=== PATIENT | female | born 1975 | race Caucasian/White ===

== ENCOUNTER 2025-04-01 11:09 | Inpatient (IN) | payer BC, SELFPAY ==
[2025-04-01] VITALS (11 sets, daily range): BP systolic 112–169; BP diastolic 62–94; PULSE 59–80; RESP 16–19; TEMP 36.4–36.9; O2SAT 96–100; BMI 33.5; BMI 33.8
--- NOTE | 2025-04-01 11:17 | CT_ITS ---
FINAL REPORT TECHNIQUE: Axial CT without IV contrast administration. This study was performed with techniques to keep radiation doses as low as reasonably achievable, (ALARA). Individualized dose reduction techniques using automated exposure control or adjustment of mA and/or kV according to the patient's size were employed. This study was performed with techniques to keep radiation doses as low as reasonably achievable, (ALARA). Individualized dose reduction techniques using automated exposure control or adjustment of mA and/or kV according to the patient''s size were employed. CLINICAL HISTORY: concern for pneumothorax outpt imaging, h/o bullae FINDINGS: There is a small loculated right pneumothorax. Pneumothorax is approximately 30%. Right lower lobe scarring is identified. There is an oval, masslike density in the posterior subpleural right lower lobe measuring 35 x 21 mm, rounded atelectasis is favored over neoplasm. The left lung is clear. Numerous blebs are identified. There is no significant pleural effusion. No adenopathy or mass lesion is present. IMPRESSION: Moderate loculated right pneumothorax. Masslike density in the right lower lobe, favor rounded atelectasis over neoplasm. Recommend PET/CT or 6-month chest CT. Reviewed, Interpreted and Dictated by Gonsalo Flores MD Transcribed by Bette Cantu Authenticated and [facility]
[2025-04-01 11:27] LABS: Basophils % 0.5 % (0.1-2.0); Eosinophils # 0.1 Kmm3 (0.0-0.4); Eosinophils % 2.1 % (0.1-12.0); Hematocrit 39.5 % (37.0-47.0); Hemoglobin 13.1 g/dL (12.2-16.2); Immature Granulocytes # 0.01 10^3uL; Immature Granulocytes % 0.2 %; Lymphocytes # 2.1 K/mm3 (0.7-4.5); Lymphocytes % 31.7 % (10-50); Mean Corpuscular HGB Conc 33.2 g/dL (31.8-35.4); Mean Corpuscular Hemoglobin 29.5 pg (27.0-31.2); Mean Platelet Volume 10.6 fl (7.4-10.4); Monocytes # 0.4 K/mm3 (0.1-1.0); Monocytes % 5.5 % (1.7-9.3); Neutrophils # 3.9 K/mm3 (1.8-7.8); Nucleated Red Blood Cells # 0 10^3/uL; Nucleated Red Blood Cells % 0 %; Platelet Count 258 K/mm3 (142-424); Red Blood Count 4.44 M/mm3 (4.20-5.40); Red Cell Distribution Width 13.6 % (11.5-17.5); Red Cell Distribution Width-SD 44.2 fL; White Blood Count 6.5 K/mm3 (4.8-10.8)
--- OUTSIDE RECORDS SUMMARY | 2025-04-01 11:29 | XMS_ITS | Continuity of Care Document ---
Author Organization [facility] [place] [place] Address [address] [facility] [address] [place] [address] Care Team Providers Care Chair Mender Name Role Phone DA COELLO Primary Care Provider [phone] Assessment No assessment recorded. Plan of Treatment Reminders Order Date Submit Date Provider Last Modified By Organization Details Last Modified Time Details Appointments OV EST 15 2024 10:15A M Da Coello MD Not available Not available Not available OV EST 15 2024 01:00P Beau Rhodes MD Not available Not available Not available FOLLOW UP 15 2024 10:15A M Fernando Duke MD Not available Not available Not available Lab None recorded . Referral None recorded . Procedures None recorded . Surgeries None recorded . Imaging None recorded . Medication Orders None recorded . Patient TargetsNo targets recorded. Patient InstructionsNo instructions recorded. Reason for Referral None Reported. 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 Procedures Surgical History Date Name Laterality Status Provider Name and Address Organization Details Recorded Time 01/31/20 25 Date of Last Colonoscopy completed Yulisa Merritt [place] - [facility] - [place] & [place] 01/30/2025 10:59:42 01/31/20 25 Colonoscopy completed Elida Rothamer [place] - [facility] - [place] & [place] 03/11/2025 12:11:50 10/21/20 24 Most Recent Mammogram completed Elida Rothamer [place] - [facility] - [place] & [place] 12/12/2024 18:35:51 06/19/20 23 completed Elida Rothamer [place] [facility] [place] & [place] 06/17/2024 16:21:21 06/19/20 23 Date of Last Pap Smear completed Elida [place]amer [place] - [facility] - [place] & [place] 06/17/2024 16:21:21 11/13/19 23 Cancer Surgery completed Elida Rothamer [place] - [facility] - [place] & [place] 06/17/2024 16:21:44 11/13/19 23 Colonoscopy completed Elida [place]amer [place] - [facility] - [place] & [place] 06/17/2024 16:21:44 left colectomy completed Danette Curt [place] - [facility] - [place] & [place] 05/29/2024 15:13:22 Remove tonsils and adenoids completed Danettebrigette Barakater [place] - [facility] - [place] & [place] 05/29/2024 15:13:34 appendectomy completed Danettebrigette Barakater [place] - [facility] - [place] & [place] 05/29/2024 15:13:40 operation on hip joint completed Danette Barakater [place] - [facility] - [place] & [place] 05/29/2024 15:15:10 Imaging Results None recorded. Procedure Notes None recorded. Medical Equipment None Reported. Allergies Allergen ID Allergen Name Allergen Category Reaction Reaction Severity Criticality Documentation Date Start Date Code Code System Note Provider Name and Address Organization Details Recorded Time 092015 shellfish derived food,medi cation hives rash mild mild Not available 05/29/2024 43332 UNK Elida Rothamer null, NILAY - [facility] & [place] 4 16:21:11 742526 iopamidol medicatio n rash Not available Not available 12/12/2024 5966 RxNorm Elida Rothamer null, [place] - [facility] & [place] 18:36:38 810336 iodine medicatio n rash Not available Not available 12/12/2024 5933 RxNorm Elida Rothamer null, [place] - [facility] & [place] 18:37:27 Medications Name Sig Start Date Stop Date Status Note LastModified by Organization Details LastModified Time fluconazole 100 mg tablet 09/17 completed Not Available Not Available Not Available clonidine HCl 0.1 mg tablet Take 1 tablet as needed by oral route as directed for 30 days, for elevated blood pressure. active Not Available Not Available No t Available paroxetine 10 mg tablet 01/08 completed Not Available Not Available Not Available atorvastati n 20 mg tablet Take 1 tablet every day by oral route for 90 days. 2024 active Not Available Not Available Not Avai lable famotidine 40 mg tablet 08/21 completed Not Available Not Available Not Available prednisone 20 mg tablet 12/31 completed Not Available Not Available Not Available Zyrtec 10 mg tablet 07/01 completed Not Available Not Available Not Available ciprofloxac in 250 mg tablet bid 09/21 completed Not Available Not Available Not Available amlodipine 5 mg tablet TAKE 1 TO 2 TABLETS BY MOUTH EVERY DAY active Not Available Not Available No t Available omeprazole 40 mg capsule,del ayed release TAKE 1 CAPSULE BY MOUTH AT LEAST 30 MINUTES BEFORE BREAKFAST . active Not Available Not Available No t Available carvedilol 3.125 mg tablet TAKE 1 TABLET BY MOUTH TWICE A DAY 11/21 completed Not Available Not Available Not Available levothyroxi ne 25 mcg tablet TAKE 1 TABLET BY MOUTH EVERY DAY active Not Available Not Available No t Available famotidine 20 mg tablet Take 2 tablets by oral route. 06/28 completed Not Available Not Available Not Available levothyroxi ne 50 mcg tablet 01/08 completed Not Available Not Available Not Available prednisone 50 mg tablet 12/31 completed Not Available Not Available Not Available losartan 100 mg tablet TAKE 1 TABLET BY MOUTH EVERY DAY active Not Available Not Available No t Available hydroxyzine pamoate 25 mg capsule TAKE 1 CAPSULE BY MOUTH THREE TIMES A DAY NEEDED FOR 30 DAYS active Not Available Not Available No t Available Asprin Ec Low Dose 81 mg tablet,lydia yed release Take 1 tablet every day by oral route. active Not Available Not Available No t Available nebivolol 5 mg tablet 12/19 completed Not Available Not Available Not Available Zyrtec 10 mg capsule Take by oral route. active Not Available Not Available No t Available sodium,pota ssium,mag sulfates 17.5 gram-3.13 gram-1.6 gram oral soln Take 6 ounces twice a day by oral route as directed for 1 day, for colonosco py prep. 12/25 completed Not Available Not Available Not Available Linzess 145 mcg capsule Take 1 capsule every day by oral route as needed. 06/28 completed Not Available Not Available Not Available Eliquis 5 mg tablet Take 1 tablet twice a day by oral route. 02/20 completed Not Available Not Available Not Available Airsupra 90 mcg-80 mcg/actuati on HFA aerosol inhaler Inhale 1 inhalatio n as needed by inhalatio n route. active Not Available Not Available No t Available Vitals Date Recorded Body height Body mass index (BMI) Body weight Body temperature Oxygen saturation Oxygen saturation in Arterial blood by Pulse oximetry Heart rate Systolic blood pressure Diastolic blood pressure Provider Name and Address Organization Details Last Updated DateTime 5 157.48 cm 35.7 kg/m2 95392.5 1 g 97.5 [degF] 94 % 94 % 67 /min 122 mm[Hg] 86 mm[Hg] Nataliia [facility] & [place] 10:03:16 Social History Question Answer Notes LastModified by Organizat ion Details LastModified Time Tobacco Smoking Status Former Smoker Danette Elias [facility], [facility] & [place] 05/29/2024 15:12:30 Do You Have An Advance Directive? No Information not available 06/17/2024 Are You Blind Or Do You Have Difficulty Seeing? No Information not available 06/17/2024 What Is Your Level Of Caffeine Consumption? Moderate [email or web address] Information not available 05/29/2024 When Did You Quit Smoking? 16+yearssince lastcigarette At Like 20 Yrs Old Information not available 05/29/2024 What Was The Date Of Your Most Recent Tobacco Screening? 05/29/2024 Information not available 06/17/2024 At What Age Did You Start Smoking Tobacco? 14 [email or web address] Information not available 05/29/2024 Are You Passively Exposed To Smoke? No Information not available 06/17/2024 How Much Tobacco Do You Smoke? No Information not available 06/17/2024 Has Tobacco Cessation Counseling Been Provided? No [email or web address] Information not available 05/29/2024 Sex: Female Functional Status Question Answer Note LastModified by Organizat ion Details LastModified Time Do you use any illicit or recreational drugs? No [email or web address] Information not available 05/29/2024 Do you or have you ever used any other forms of tobacco or nicotine? No [email or web address] Information not available 05/29/2024 What is your level of alcohol consumption? 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 Moderate Information not available 06/17/2024 Mental Status Question Answer Note LastModified by Organization D etails LastModified Time Do you feel stressed (tense, restless, nervous, or anxious, or unable to sleep at night)? [id number] Information not available 06/17/2024 Family History Relationship Description Onset Age of this Age Resolved Age Notes LastModified by Organization Details LastModified Time Maternal Grandmother Primary malignant neoplasm of both ovaries [email or web address] Not available 04/2025 11:01:43 Paternal Grandmother Malignant tumor of pancreas [email or web address] Not available 2024 11:01:43 Father Primary malignant neoplasm of prostate [email or web address] Not available 2024 11:01:43 Father Primary malignant neoplasm of thyroid gland [email or web address] Not available 2024 11:01:43 Father Hypertensive disorder Not available 05/29 15:05:48 Mother Chronic obstructive pulmonary disease [email or web address] Not available 05/29 15:05:57 Mother Diabetes mellitus type 2 [email or web address] Not available 2024 11:01:43 Mother Heart disease [email or web address] Not available 05/29 15:06:50 Mother Hyperlipidem ia [email or web address] Not available 2024 12:13:20 Medical History Condition Response Anxiety Disorder Y Allergies/Hayfever Y Other Y Obesity Y Arthritis Y Polyps Y Cancer Y Stroke Y Thyroid Problems Y Asthma Y Lung Disease Anemia Y Constipation Y High Cholesterol Y Hypertension Y Gynecological History Statement/Question Response Abnormal Pap N 06/19/2023 Date of Last Colonoscopy 01/30/2025 Sexually Active? Y Menses Monthly N Date of Last Pap Smear 06/19/2023 Most Recent Mammogram 10/21/2024 Obstetrics History GPAL:G 0 P 0 0 0 0 Past Encounters Encounter ID Performer Location Encounter Start Date Encounter Closed Date Diagnosis/Indication Diagnosis SNOMED-CT Code Diagnosis ICD10 Code Diagnosis Note [id number] Da Coello MD [facility] [address] [facility] [address] 03/03/2025 08:54:04 03/03/2025 09:47:01 Brianda thyroiditis 16537338 E06.3 Essential hypertension 50198836 I10 [id number] Da Coello MD [facility] [address] [facility] [place] [address] 03/31/2025 09:58:15 03/31/2025 10:44:30 Essential hypertension 74504873 I10 I do think a degree of her mild swelling is relatd to her amlodipine and we discussed trying 5mg BID instead of 10mg at once to see if this helps but that we can certainly make changes if needed, pt would like to hold on that currently. Feeling of lump in throat 002074468 R09.A2 pending swallowing studydiscu ssed omeprazole and skilled nursing use concerns with what she is trying to correct with supplement s and would start with two week trial Autoantibo dy titer detected 718036584 R76.8 [id number] Sukhjinder Rhodes MD [facility] [address] [place] [address] 03/12/2025 14:45:35 03/12/2025 15:04:58 History of transient ischemic attack 172059683 Z86.73 Continue aggressive risk factor modificati on.MRI showed no evidence of stroke. Start 81 daily Essential hypertension 64359249 I10 Continue current medication . Keep log Low-salt diet < 2 gm Na/day, Regular exercise Weight loss Hyperlipidemia 30161602 E78.5 Continue statin Low fat/carboh ydrate diet Increase exercise Lose weight Body mass index 30+ - obesity 512116305 Z68.34 Low-carboh ydrate and low-fat diet Increase exercise to 30 minutes a day. Increase fruits and fresh vegetable intake and decrease processed foods and sugars Health Concerns Section Related Observation LastModified by Organization Detai ls LastModified Time None Recorded Concern Status LastModified by Organization Details LastModified Time None Recorded Payers Encounter Date Sequence Insurance Name Policy Number Policy Holman Covered Member ID Holman Member ID Guarantor Name 03/31/2025 1 [facility] BLUE ACCESS (PPO) [id number] Killian Moran [id number] Rosie Moran Notes Date Note Type Note Provider Name and Address Organization Details Recorded Time 03/31/2025 text/html She is here for f/uSHe notes that she has been working on following a diet appropriate for Brianda's and does feel this has helped. SHe has found that soy also increases her blood pressure. SHe feels that cutting down on dairy has also helped with inflammation as well in her joints and body.SHe has increased her vitamin D to 5000iU currently from 1000IU and is due for lab to f/u on this.She has added omega 3 supplement.Her Bp has done much better since last visit and feels that she is doing well in this regard.She recently had f/u with a new ENT ([place]. [place] She went for continued issues with swallowing. SHe has a pending swallowing study. She was also put on omeprazole for a short course.sHe has noticed a rash at her hair line recently.SHe also felt thirsty too and isn't sure if this is the omeprazole. Da Coello MD [address] [facility], [place], [address], [facility] - [place] & [place] 03/31/2025 12:59:32 OBGyn Episode No OBEpisode recorded.
--- OUTSIDE RECORDS SUMMARY | 2025-04-01 11:30 | XMS_ITS | Continuity of Care Document ---
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 She had improvement in some of the symptoms but not resolution in the once it had started after starting the medication. The plan was to try and keep her on the low dose for 6 weeks to assess labs for change but given the rash development in the other symptoms, I have told her that I would recommend discontinuation at this time. We discussed that there may be some other modalities of thyroid management such as desiccated thyroid that could be appropriate but we may want to discuss options as we assess 1st what her blood pressure does after discontinuation of the exogenous thyroid. She is to keep a close log of her blood pressure and give an update on readings. If dose of amlodipine needs reduced, 7.5 or 5 mg is also an option. Emergency signs and symptoms discussed in detail with patient. We also reviewed her labs. She had been concerned about her gallbladder due to her elevated alkaline phosphatase but I feel the elevated alkaline phosphatase secondary to her vitamin-D deficiency which is just recently corrected and is due for follow-up labs in about a month. At which point we will also plan to check her alkaline phosphatase with a chemistry panel. We have discussed options for Endocrinology referral for review of thyroid function recommendations as well as a naturopathic and functional medicine provider in the area that may be a fit for her treatment goals. 42 minutes were spent in the care of this patient today including record review, discussion of symptoms and documentation. 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 Procedures Surgical History Date Name Laterality Status Provider Name and Address Organization Details Recorded Time 01/31/20 Date of Last Colonoscopy completed Yulisa Merr[place] [facility] & [place] 01/30/2025 10:59:42 01/31/20 25 Colonoscopy completed Elida Rothamer [place] - [facility] - [place] & [place] 03/11/2025 12:11:50 10/21/20 24 Most Recent Mammogram completed Elida [place] [facility] - [place] & [place] 12/12/2024 18:35:51 06/19/20 23 completed Elida [place] [facility] [place] & [place] 06/17/2024 16:21:21 06/19/20 23 Date of Last Pap Smear completed Elida [place] [facility] [place] & [place] 06/17/2024 16:21:21 11/13/19 23 Cancer Surgery completed Elida [place] [facility] - [place] & [place] 06/17/2024 16:21:44 11/13/19 23 Colonoscopy completed Eilda [place] [facility] - [place] & [place] 06/17/2024 16:21:44 left colectomy completed Danette Curt [place] - [facility] - [place] & [place] 05/29/2024 15:13:22 Remove tonsils and adenoids completed Danette Curt [place] [facility] - [place] & [place] 05/29/2024 15:13:34 appendectomy completed Danette Curt [place] [facility] - [place] & [place] 05/29/2024 15:13:40 operation on hip joint completed Danette Curt [place] [facility] [place] & [place] 05/29/2024 15:15:10 Imaging Results None recorded. Procedure Notes None recorded. Medical Equipment None Reported. Allergies Allergen ID Allergen Name Allergen Category Reaction Reaction Severity Criticality Documentation Date Start Date Code Code System Note Provider Name and Address Organization Details Recorded Time 746200 shellfish derived food,medi cation hives rash mild mild Not available 05/29/2024 61797 UNK Elida [place], [place] - [facility] - [place] & [place] 16:21:11 184738 iopamidol medicatio n rash Not available Not available 12/12/2024 5966 RxNorm Elida [place] null, [place] [facility] - [place] & [place] 18:36:38 075369 iodine medicatio n rash Not available Not available 12/12/2024 5933 RxNorm Elida Yuen [facility], [place] - [place] - [place] & [place] 5 18:37:27 Medications Name Sig Start Date Stop [...] and Address Organization Details Last Updated DateTime 157.48 cm 35.7 kg/m2 35263.5 1 g 97.6 [degF] 94 % 94 % 83 /min 152 mm[Hg] 88 mm[Hg] Yulisa Merritt [facility] & [place] 09:01:52 Social History Question Answer Notes LastModified by Organizat ion Details LastModified Time Tobacco Smoking Status Former Smoker Danette Curt [place], [facility] & [place] 05/29/2024 15:12:30 Do You Have An Advance Directive? No Information not available 06/17/2024 Are You Blind Or Do You Have Difficulty Seeing? No Information not available 06/17/2024 What Is Your Level Of Caffeine Consumption? Moderate [email or web address] Information not available 05/29/2024 When Did You Quit Smoking? 14+yearssince lastcigarette At Like 20 Yrs Old [email or web address] Information not available 05/29/2024 What Was The Date Of Your Most Recent Tobacco Screening? 05/29/2024 Information not available 06/17/2024 At What Age Did You Start Smoking Tobacco? 14 [email or web address] Information not available 05/29/2024 Are You Passively Exposed To Smoke? No Information not available 06/17/2024 How Much Tobacco Do You Smoke? No Information not available 06/17/2024 Has Tobacco Cessation Counseling Been Provided? No [email or web address] Information not available 05/29/2024 Sex: Female Functional Status Question Answer Note LastModified by Organizat ion Details LastModified Time Do you use any illicit or recreational drugs? No [email or web address] Information not available 05/29/2024 Do you or have you ever used any other forms of tobacco or nicotine? No [email or web address] Information not available 05/29/2024 What is your [...] anxious, or unable to sleep at night)? [id number] Information not available 06/17/2024 Family History Relationship [...] Not available 2024 11:01:43 Father Hypertensive disorder [email or web address] Not available 05/29 15:05:48 Mother Chronic obstructive pulmonary disease [email or web address] Not available 05/29 15:05:57 Mother Diabetes mellitus type 2 [email or web address] Not available 2024 11:01:43 Mother Heart disease [email or web address] Not available 05/29 15:06:50 Mother Hyperlipidem ia [email or web address] Not available 2024 12:13:20 Medical History Condition Response Anxiety Disorder Y Allergies/Hayfever Y Other Y Obesity Y Arthritis Y Polyps Y Cancer Y Thyroid Problems Y Stroke Y Lung Disease Asthma Y Anemia Y Constipation Y High Cholesterol Y [...] SNOMED-CT Code Diagnosis ICD10 Code Diagnosis Note [id number] Da Coello MD [address] [place] [address] 02/04/2025 09:54:52 02/04/2025 10:33:34 Thyroid nodule 029926865 E04.1 After discussion , patient would like to proceed with ENT consultati on to discuss her radiology findings of her ultrasound given her father's history of thyroid cancer. He also has history parathyroi d condition requiring surgery. The patient has had normal calcium levels, her alkaline phosphatas e has been mildly elevated in the past. We reviewed her ultrasound in detail as well as her previous labs. She would like to proceed with this plan to discuss more of the fullness in her neck and difficulty swallowing as well. Autoantibo dy titer detected 921306767 R76.8 Dysphagia 33796774 R13.1 9 [id number] Raehl Le MD [facility] [address] [place] [address] 02/20/2025 10:59:26 02/20/2025 11:39:56 Imaging of thyroid gland abnormal 200695290 R93.89 Have ordered repeat imaging of her thyroid in 1 year. Thyroid fu nction tests abnormal 853990705 R94.6 Elevated thyroid antibodies most Suggestive of Brianda' s thyroiditi s. She is agreeable to start low-dose levothyrox ine to see if some of her symptoms may be improved. Will repeat labs in 6 weeks. [id number] Da Coello MD [facility] [address] [facility] [address] [place] [address] 02/17/2025 10:56:04 02/17/2025 12:50:46 Resistant hypertensive disorder [id number] 70199 I1A.0 Right uppe r quadrant pain 431683839 R10.11 Alkaline p hosphatase above reference range 996826808 R74.8 [id number] Da Coello MD [facility] [address] [facility] [address] [place] [address] 03/03/2025 08:54:04 03/03/2025 09:47:01 Brianda thyroiditis 06754561 E06.3 Essential hypertension 59112834 I10 Health Concerns Section Related Observation LastModified by Organization Detai ls LastModified Time None Recorded Concern Status LastModified by Organization Details LastModified Time None Recorded Payers Encounter Date Sequence Insurance Name Policy Number Policy Holman Covered Member ID Holman Member ID Guarantor Name 03/03/2025 1 [place] [id number] Killian Moran [id number] Rosie Moran Notes Date Note Type Note Provider Name and Address Organization Details Recorded Time 03/03/2025 text/html She is here for f/u for several symptoms.SHe had noted that on 02/18 she had flushing and chills.She had seen Dr. Le on 02/21 and put on levothyroxine that she started on 02/22 for review of her thyroid US and thyroid antibodies being elevated persistently along with family history of thyroid cancer in her father. She has noticed since starting the levothyroxine as well she has had fluctuations in her BP. she also had developed a rash on her chest. Previously this has been corrected with increasing the dose of amlodipine which was originally started for some increases in her diastolic pressure. Initially on 5 mg then increased to 10 mg most recently. She did see chiropractor who has been doing adjustments to target her tinnitus. She has had some soreness in her ears due to this. She notes that with using any type of sugar in her diet seems to flare her symptoms. She sees this with nepali yogurt. Da Coello MD [address], [place], [address], [facility] - [place] & [place] 03/03/2025 17:09:37 OBGyn Episode No OBEpisode recorded.
--- OUTSIDE RECORDS SUMMARY | 2025-04-01 11:30 | XMS_ITS | Continuity of Care Document ---
Author Organization [facility] - [place] & [place], [facility] [place] Address [address] [place] [address] Care Team Providers Care Bowl Attendant Name Role Phone DA BACA Primary Care Provider Assessment No assessment recorded. Plan of Treatment Reminders Order Date Submit Date Provider Last Modified By Organization Details Last Modified Time Details Appointments OV EST 15 2024 10:15A M Da Baca MD Not available Not available Not available OV EST 15 2024 01:00P Beau Rhodes MD Not available Not available Not available FOLLOW UP 15 2024 10:15A M Fernando Clemente MD Not available Not available Not available Lab None recorded. Referral None recorded. Procedures None recorded. Surgeries None recorded. Imaging US, thyroid [address] (Centralized Scheduling), [address] [facility], [place], [address], 02/20/2025 13:17:48 Medication Orders levothyro xine 25 mcg tablet 2024 025 [id number], [address] [facility], [place], [address], 02/24/2025 08:49:08 Patient TargetsNo targets recorded. Patient InstructionsNo instructions recorded. Reason for Referral None Reported. Results Created Date Observation Date Name Description Value Unit Range Abnormal Flag Note LastModifiedBy Organization Detail LastModifiedTime 01/25/2001/20/2025 US, thyro id [facility] [address] [place] [address] Phone: Fax: Name: ROSIE STEPHENSON Exam Date: 025 : 974 Age 49 years Gender : F Access ion: [id number] Physic elfego: DA BACA Facili ty: [facility] Facili ty HSV: Outpat ient Exam: THYROI D US EXAM DESCRI PTION: US THYROI D CLINIC AL HISTOR Y: Female , 49 years old. Abnorm al result s, fatigu e and troubl e in swallo wing. COMPAR TONY: CTA Neck with contra st 2024. TECHNI QUE: Graysc mary and color- flow sonogr aphic evalua tion of the thyroi d was perfor med. 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 The right lobe of the thyroi d measur es 6.0 x 1.6 x 2.1 cm. 10 mm hypoec hoic, smooth ly margin ated solid nodule is noted within the anteri or upper pole. It is wider than tall and contai ns no record label intern al echoge alaina foci. It is classi fied as TI RADS 4 and requir es follow -up at this size. 7 mm isoech oic, smooth ly margin ated solid nodule is noted within the latera l midpol e. It is wider than tall and contai ns no record label intern al echoge alaina foci. It is catego rized as TI RADS 3 and does not requir e follow -up at this size. 12 mm hetero geneou s, predom inantl y hypoec hoic solid nodule is seen within the washroom operator ior lower pole. It is wider than tall, has ill-de fined margin s, and contai ns no record label intern al echoge alaina foci. It is classi fied as TI RADS 4 and requir es follow -up at this size. The isthmu s measur es 3 mm. No suspic ious nodule is identi fied. The left lobe of the thyroi d measur es 3.4 x 1.5 x 1.4 cm 6 mm hypoec hoic solid nodule is noted within the anteri or lower pole. It is wider than tall, has ill-de fined margin s, and contai ns no record label intern al echoge alaina foci. It is classi fied as TI RADS 4 and does not requir e follow -up at this size. 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 Discre te thyroi d nodule s, as descri bed above. TI RADS 4 nodule s in the right lobe requir e yearly follow -up for a period of 5 years. No biopsy is indica paresh at this time based on ACR criter ia. Electr onical ly signed by: Tri Clemente DO 2024 09:38 AM EDT RP Workst ation: [id number] Dictat ed By: TRI CLEMENTE Transc ribed By: Transc ribed On: 025 2:18 PM Electr onical ly signed by: TRI CLEMENTE [address] for referr [address] to [facility]. Legall y authen ticate d by CHYNA BARTLETT 01-20 14:18: 04 CC'ed Logic: Orderi ng Provid er: TRISHA ROBERSON CC Provid er: TRISHA ROBERSON Attend ing Provid er: TRISHA ROBERSON Referr ing Provid er: TRISHA Parks ing Provid er: TRISHA ROBERSON [id number] [facility] [address] [facility], [place], [address], 01/27/2025 15:51:59 01/28/20 25 01/27/2025 US, duple x, renal arter y [facility] [address] [place] [address] Phone: Fax: Name: ROSIE STEPHENSON Exam Date: 025 : [birth year] Age 49 years Gender : F Access ion: [id number] Physic elfego: DA BACA Facili ty: [facility] Facili ty HSV: Outpat ient Exam: US RENAL DOPPLE R RENAL DUPLEX DOPPLE R ULTRAS OUND INDICA TION: Hypert ension . PROCED URE: Routin e sonogr aphic evalua tion of the kidney s was perfor med utiliz ing graysc mary and color Dopple r ultras ound. Duplex Dopple r evalua tion of the renal vessel s was also perfor med. FINDIN GS: Graysc mary: The bilate ral kidney s are normal in size and echoge nicity . The right kidney measur es 9.2 x 3.8 x 5.4 cm and the left kidney measur es 9.5 x 4.8 x 4.7 cm. There is no eviden ce for discre te solid renal mass lesion , hydron ephros is, or discre te calcul us. Dopple r: Peak systol ic flow veloci ty of the juxtar enal abdomi nal AORTA, measur es 48.6 cm/s. Peak systol ic veloci ties of the proxim al, mid and distal RIGHT RENAL ARTERY measur e 39.1, 31.4, and 41.3 cm/s, respec tively . RIGHT renal artery to aorta veloci ty ratio measur es 1.2. Peak systol ic veloci ties of the proxim al, mid and distal LEFT RENAL ARTERY measur e 43.0, 40.9, and 40.9 cm/s, respec tively . LEFT renal artery to aorta veloci ty ratio measur es 1.1. The bilate ral renal resist jose indice s are within normal limits . IMPRES MERRY: No sonogr aphic eviden ce for renal artery stenos is. Electr onical ly signed by: Cristofer Barron DO 2024 10:13 PM EDT RP Workst ation: [id number] Dictat ed By: CRISTOFER BARRON Transc ribed By: Transc ribed On: 025 3:02 PM Electr onical ly signed by: CRISTOFER BARRON [address] for referr [address] [facility] Legall y authen ticate d by HAO RUIZ 2024-0 01-27 15:02: 59 CC'ed Logic: Orderi ng Provid er: TRISHA ROBERSON CC Provid er: TRISHA ROBERSON Attend ing Provid er: TRISHA ROBERSON Referr ing Provid er: TRISHA ROBERSON Admitt ing Provid er: TRISHA ROBERSON [id number] [facility] [address] [facility], [place], [address], 01/28/2025 15:21:34 Result Notes None recorded. 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 Procedures Surgical History Date Name Laterality Status Provider Name and Address Organization Details Recorded Time 01/31/20 25 Date of Last Colonoscopy completed Yulisa Merritt [place] - [facility] - [place] [facility] [place] 01/30/2025 10:59:42 01/31/20 25 Colonoscopy completed Elida Yuen [place] [facility] [place] 03/11/2025 12:11:50 10/21/20 24 Most Recent Mammogram completed Elida Rothamer [place] - [facility] - [place] & [place] 12/12/2024 18:35:51 06/19/20 23 completed Elida Rothamer [place] - [facility] - [place] & [place] 06/17/2024 16:21:21 06/19/20 23 Date of Last Pap Smear completed Elida Rothamer [place] - [facility] - [place] [facility] [place] 06/17/2024 16:21:21 11/13/19 23 Cancer Surgery completed Elida Rothamer [place] - [facility] - [place] & [place] 06/17/2024 16:21:44 11/13/19 23 Colonoscopy completed Elida Rothamer NILAY - [facility] & [place] 06/17/2024 16:21:44 left colectomy completed Dnaette P[place]ERTON - [facility] & [place] 05/29/2024 15:13:22 Remove tonsils and adenoids completed Danette Barakater [place] - [facility] & [place] 05/29/2024 15:13:34 appendectomy completed Danette Barakater [place] - [facility] & [place] 05/29/2024 15:13:40 operation on hip joint completed Danette PEMBERTON - [facility] & [place] 05/29/2024 15:15:10 Imaging Results None recorded. Procedure Notes None recorded. Medical Equipment None Reported. Allergies Allergen ID Allergen Name Allergen Category Reaction Reaction Severity Criticality Documentation Date Start Date Code Code System Note Provider Name and Address Organization Details Recorded Time 928969 shellfish derived food,medi cation hives rash mild mild Not available 05/29/2024 20674 UNK Elida Rothamer null, [place] - [facility] & [place] 16:21:11 437109 iopamidol medicatio n rash Not available Not available 12/12/2024 5966 RxNorm Elida Rothamer null, [place] - [facility] & [place] 18:36:38 606128 iodine medicatio n rash Not available Not available 12/12/2024 5933 RxNorm Elida Rothamer null, [place] - [facility] - [place] [facility] [place] 18:37:27 Medications Name Sig Start [...] mass index (BMI) Body weight Body temperature Provider Name and Address Organization Details Last Updated DateTime 02/20/2025 157.48 cm 35.5 kg/m2 96537.92 g 97.4 [degF] Brooklyn Sanchez [facility] & [place] 02/20/2025 11:17:01 Social History Question Answer Notes LastModified by Organizat ion Details LastModified Time Tobacco Smoking Status Former Smoker Danette Curt [facility], [facility] & [place] 05/29/2024 15:12:30 Do You Have An Advance Directive? No Information not available 06/17/2024 Are You Blind Or Do You Have Difficulty Seeing? No Information not available 06/17/2024 What Is Your Level Of Caffeine Consumption? Moderate [email or web address] Information not available 05/29/2024 When Did You Quit Smoking? 16+yearssince lastcigarette At Like 20 Yrs Old [email or web address] Information not available 05/29/2024 What Was The Date Of Your Most Recent Tobacco Screening? 05/29/2024 Information not available 06/17/2024 At What Age Did You Start Smoking Tobacco? 14 [email or web address] Information not available 05/29/2024 Are You Passively Exposed To Smoke? No Information not available 06/17/2024 How Much Tobacco Do You Smoke? No Information not available 06/17/2024 Has Tobacco Cessation Counseling Been Provided? No [email or web address] Information not available 05/29/2024 Sex: Female Functional Status Question Answer Note LastModified by Organizat ion Details LastModified Time Do you use any illicit or recreational drugs? No [email or web address] Information not available 05/29/2024 Do you or have you ever used any other forms of tobacco or nicotine? No [email or web address] Information not available 05/29/2024 What is your level of alcohol consumption? 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 Moderate Information not available 06/17/2024 Mental Status Question Answer Note LastModified by Organization D etails LastModified Time Do you feel stressed (tense, restless, nervous, or anxious, or unable to sleep at night)? [id number] Information not available 06/17/2024 Family History Relationship [...] Not available 2024 11:01:43 Father Hypertensive disorder [email or web address] Not available 05/29 15:05:48 Mother Chronic obstructive pulmonary disease [email or web address] Not available 05/29 15:05:57 Mother Diabetes mellitus type 2 [email or web address] Not available 2024 11:01:43 Mother Heart disease [email or web address] Not available 05/29 15:06:50 Mother Hyperlipidem ia [email or web address] Not available 2024 12:13:20 Medical History Condition Response Other Y Lung Disease Anxiety Disorder Y Obesity Y Arthritis Y Polyps Y Cancer Y Stroke Y High Cholesterol Y Allergies/Hayfever Y Thyroid Problems Y Anemia Y Constipation Y Asthma Y Hypertension Y Gynecological History Statement/Question Response Abnormal Pap N 06/19/2023 Date of Last Colonoscopy 01/30/2025 Sexually Active? Y Menses Monthly N Date of Last Pap Smear 06/19/2023 Most Recent Mammogram 10/21/2024 Obstetrics History GPAL:G 0 P 0 0 0 0 Past Encounters Encounter ID Performer Location Encounter Start Date Encounter Closed Date Diagnosis/Indication Diagnosis SNOMED-CT Code Diagnosis ICD10 Code Diagnosis Note [id number] Da Baca MD [address] [place] [address] 01/20/2025 10:55:15 01/20/2025 11:57:34 Resistant hypertensive disorder 0029800727 63150 I1A.0 Brianda thyroiditis 21 267918 E06.3 [id number] Da Baca MD [address] [place] [address] 02/04/2025 09:54:52 02/04/2025 10:33:34 Thyroid nodule 906744643 E04.1 After discussion , patient would like [...] swallowing as well. Autoantibo dy titer detected 824355427 R76.8 Dysphagia 81229100 R13.1 9 [id number] Rahel Le MD [facility] [address] [place] [address] 02/20/2025 10:59:26 02/20/2025 11:39:56 Imaging of thyroid gland abnormal 347370211 R93.89 Have ordered repeat imaging of her thyroid in 1 year. Thyroid fu nction tests abnormal 454083361 R94.6 Elevated thyroid antibodies most Suggestive of Brianda' s thyroiditi s. She is agreeable to start low-dose levothyrox ine to see if some of her symptoms may be improved. Will repeat labs in 6 weeks. [id number] Da Baca MD [facility] [place] [address] [place] [address] 02/17/2025 10:56:04 02/17/2025 12:50:46 Resistant hypertensive disorder 7447226270 32833 I1A.0 Right uppe r quadrant pain 674307662 R10.11 Alkaline p hosphatase above reference range 926042638 R74.8 Health Concerns Section Related Observation LastModified by Organization Detai ls LastModified Time None Recorded Concern Status LastModified by Organization Details LastModified Time None Recorded Payers Encounter Date Sequence Insurance Name Policy Number Policy Holman Covered Member ID Holman Member ID Guarantor Name 02/20/2025 1 [employer] [id number] Killian Moran [id number] Rosie Moran Notes Date Note Type Note Provider Name and Address Organization Details Recorded Time 02/20/2025 text/html 02/20/25-Patient is here for thyroid evaluation with several elevated thyroid antibodies. She has been going through a workup for labile BP, all of which at this point has been negative. She has no family history of thyroid surgery. Thyroid U/S available for my review. Rahel Le MD [address], [place], [address], [facility] - [place] [facility] [place] 02/20/2025 13:18:33 OBGyn Episode No OBEpisode recorded.
--- OUTSIDE RECORDS SUMMARY | 2025-04-01 11:30 | XMS_ITS | Continuity of Care Document ---
Author Organization [place] - [facility] & [facility] [place] Address [address] [facility] [address] [place] [address] Care Team Providers Care Buying Agent Name Role Phone DA BACA Primary Care [...] Not available FOLLOW UP 15 2024 10:15A Beau Clemente MD Not available Not available Not available Lab None recorded. Referral otolaryng ologist referral 2024 025 [email or web address] Rahel Le, [address] [place], [address], 02/20/2025 13:32:02 Procedures None recorded. Surgeries None recorded. Imaging None recorded. Medication Orders None recorded. Patient TargetsNo targets recorded. Patient InstructionsNo instructions recorded. Reason for Referral Box Stapler Referral fo r Thyroid nodule Referring Physician: Da Baca, Family Medicine, Encounter Date: 02/04/2025 Results Created Date Observation Date Name Description Value Unit Range Abnormal Flag Note LastModifiedBy Organization Detail LastModifiedTime 01/25/2001/20/2025 US, thyro id [facility] it Hospit al [address] [place] [address] Phone: Fax: Name: ROSIE STEPHENSON Exam Date: 025 : 974 Age 49 years Gender : F Access ion: [id number] Physic elfego: DA BACA Facili ty: [place] Facili ty HSV: Outpat ient Exam: THYROI [...] consid ered in the proper clinic al ed g. The right lobe of the thyroi d measur es 6.0 x 1.6 x 2.1 cm. 10 mm hypoec hoic, smooth ly margin ated solid nodule is noted within the anteri or upper pole. It is wider than tall and contai ns no event planning intern al echoge alaina foci. It is classi fied as TI RADS 4 and requir es follow -up at this size. 7 mm isoech oic, smooth ly margin ated solid nodule is noted within the latera l midpol e. It is wider than tall and contai ns no event planning intern al echoge alaina foci. It is catego rized as TI RADS 3 and does not requir e follow -up at this size. 12 mm hetero geneou s, predom inantl y hypoec hoic solid nodule is seen within the gang drill operator ior lower pole. It is wider than tall, has ill-de fined margin s, and contai ns no event planning intern al echoge alaina foci. It is [...] fined margin s, and contai ns no event planning intern al echoge alaina foci. It is [...] Thank you for referr ROSIE Lane to [facility] ity Hospit al. Legall y authen ticate d by CHYNA BARTLETT 01-20 14:18: 04 CC'ed Logic: Orderi ng Provid er: TRISHA ROBERSON CC Provid er: TRISHA ROBERSON Attend ing Provid er: TRISHA ROBERSON Referr ing Provid er: TRISHA Parks ing Provid er: TRISHA ROBERSON [email or web address] [facility] [address] [place] [address], [place], [address], 01/27/2025 15:51:59 01/28/20 25 01/27/2025 US, duple x, renal arter y [facility] ity Hospit al [address] [place] [address] Phone: Fax: Name: ROSIE STEPHENSON Exam Date: : 974 Age 49 years Gender : F Access ion: [id number] Physic elfego: DA BACA Facili ty: [place] Fac[place] ty HSV: Outpat ient Exam: US [...] CRISTOFER BARRON 025 Thank you for referr ing ROSIE STEPHENSON to [facility] al. Legall y authen ticate d by HAO RUIZ 2024-01-27 15:02: 59 CC'ed Logic: Orderi ng Provid er: TRISHA ROBERSON CC Provid er: TRISHA ROBERSON Attend ing Provid er: TRISHA ROBERSON Referr ing Provid er: TRISHA ROBERSON Admitt ing Provid er: TRISHA ROBERSON [email or web address] [facility] [address] [facility], [place], [address], 01/28/2025 15:21:34 Result Notes None recorded. 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 Procedures Surgical History Date Name Laterality Status Provider Name and Address Organization Details Recorded Time 01/31/20 25 Date of Last Colonoscopy completed Yulisa Merritt [place] - [facility] - [place] & [place] 01/30/2025 10:59:42 01/31/20 25 Colonoscopy completed Elida Yuen [place] - [facility] [place] & [place] 03/11/2025 12:11:50 12/09/20 24 Most Recent Mammogram completed Elida Rothamer [place] - [facility] - [place] & [place] 12/12/2024 18:35:51 06/19/20 23 completed Elida Rothamer [place] - [facility] - [place] & [place] 06/17/2024 16:21:21 06/19/20 23 Date of Last Pap Smear completed Elida Rothamer [place] - [facility] & [place] 06/17/2024 16:21:21 11/13/19 23 Cancer Surgery completed Elida Rothamer [place] - [facility] & [place] 06/17/2024 16:21:44 11/13/19 23 Colonoscopy completed Elida Rothamer [place] - [facility] & [place] 06/17/2024 16:21:44 left colectomy completed Danette PEMBERTON [facility] & [place] 05/29/2024 15:13:22 Remove tonsils and adenoids completed Danette PEMBERTON - [facility] & [place] 05/29/2024 15:13:34 appendectomy completed Danette PEMBERTON - [facility] & [place] 05/29/2024 15:13:40 operation on hip joint completed Danette PEMBERTON - [facility] & [place] 05/29/2024 15:15:10 Imaging Results None recorded. Procedure Notes None recorded. Medical Equipment None Reported. Allergies Allergen ID Allergen Name Allergen Category Reaction Reaction Severity Criticality Documentation Date Start Date Code Code System Note Provider Name and Address Organization Details Recorded Time 194881 shellfish derived food,medi cation hives rash mild mild Not available 05/29/2024 81791 UNK Elida Rothamer null, [place] - [facility] & [place] 4 16:21:11 883478 iopamidol medicatio n rash Not available Not available 12/12/2024 5966 RxNorm Elida Rothamer null, [place] - [facility] & [place] 18:36:38 079625 iodine medicatio n rash Not available Not available 12/12/2024 5933 RxNorm Elida Rothamer null, [place] - [facility] & [place] 18:37:27 Medications Name Sig Start Date Stop [...] Organization Details Last Updated DateTime 157.48 cm 36 kg/m2 71856.7 g 97.5 [degF] 97 % 97 % 91 /min 130 mm[Hg] 84 mm[Hg] [facility] & [place] 10:02:15 Social History Question Answer Notes LastModified by Organizat ion Details LastModified Time Tobacco Smoking Status Former Smoker Danette Curt [facility] & [place] 05/29/2024 15:12:30 Do You Have An Advance Directive? No Information not available 06/17/2024 Are You Blind Or Do You Have Difficulty Seeing? No Information not available 06/17/2024 What Is Your Level Of Caffeine Consumption? Moderate [email or web address] Information not available 05/29/2024 When Did You Quit Smoking? 14+yearssince lastcigarette At Like 20 Yrs Old [email or web address] Information not available 05/29/2024 What Was The Date Of Your Most Recent Tobacco Screening? 05/29/2024 Information not available 06/17/2024 At What Age Did You Start Smoking Tobacco? 14 [email or web address] Information not available 05/29/2024 Are You Passively Exposed To Smoke? No Information not available 06/17/2024 How Much Tobacco Do You Smoke? No Information not available 06/17/2024 Has Tobacco Cessation Counseling Been Provided? No [email or web address] Information not available 05/29/2024 Sex: Female Functional Status Question Answer Note LastModified by Organizat ion Details LastModified Time Do you use any illicit or recreational drugs? No [email or web address] Information not available 05/29/2024 Do you or have you ever used any other forms of tobacco or nicotine? No [email or web address] Information not available 05/29/2024 What is your level of alcohol consumption? 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 Moderate Information not available 06/17/2024 Mental Status Question Answer Note LastModified by Organization D etails LastModified Time Do you feel stressed (tense, restless, nervous, or anxious, or unable to sleep at night)? [id number] Information not available 06/17/2024 Family History Relationship [...] Not available 2024 11:01:43 Father Hypertensive disorder [email or web address] Not available 05/29 15:05:48 Mother Chronic obstructive pulmonary disease [email or web address] Not available 05/29 15:05:57 Mother Diabetes mellitus type 2 [email or web address] Not available 2024 11:01:43 Mother Heart disease [email or web address] Not available 05/29 15:06:50 Mother Hyperlipidem ia [email or web address] Not available 2024 12:13:20 Medical History Condition Response Allergies/Hayfever Y Other Y Thyroid Problems Y Lung Disease Anemia Y Constipation Y Anxiety Disorder Y Obesity Y Arthritis Y Polyps Y Cancer Y Stroke Y Asthma Y High Cholesterol Y Hypertension Y Gynecological [...] SNOMED-CT Code Diagnosis ICD10 Code Diagnosis Note [id number] Da Baca MD [facility] [place] [address] [place] [address] 01/20/2025 10:55:15 01/20/2025 11:57:34 Resistant hypertensive disorder [id number] 58537 I1A.0 Brianda thyroiditis 21 471185 E06.3 [id number] Fernando Clemente MD [facility] [address] [place] [address] 01/08/2025 14:18:40 01/08/2025 14:47:32 Primary malignant neoplasm of descending colon 36242724 C18.6 diagnosed in early 2022 with left-sided colon adenocarci noma. Patient had Left-sided hemicolect steven performed in December 2022 by General surgery. Patient had surgery performed in [facility]. Per patient report patient had T3 lesion and lymph nodes were negative. Patient with stage IIA. ECOG 0. Patient proceed with observatio n only following colon cancer resection. Patient had repeat colonoscop y in late 2022 with removal of colon polyps. Patient has recently relocated to the area. Discussed labs and continued imaging surveillan ce. Patient reports stool changes with increasing constipati on. Currently patient is using stool softener. 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 Patient had labs on May 29, 2024 with serum iron 61. Iron saturation 21. Serum ferritin 178. B12 level 480. CEA 2.1. CMP with GFR greater than 60. Total protein 8.3. Liver function testing normal. Normal white blood cell count 6.0. Hemoglobin 12.[address] scan of the chest abdomen pelvis June 17, 2024 with pleural-ba sed nodule in posterior right lower lobe measuring 3.1 x 1.8 cm. Appears to be rounded area of atelectasi s versus cysts. Small amount of pleural fluid present. Bullous changes noted. No evidence of liver lesion. Spleen without abnormalit y. Anastomosi s in sigmoid colon. No evidence of adenopathy or disease recurrence . No evidence of metastatic disease. 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 CT scan of the chest abdomen pelvis on December 27, 2024 with ovoid pleural-ba sed nodular opacity in the right lower lobe 3.2 x 1.9 cm and stable from imaging from June 17, 2024. No pleural effusion. No evidence of lymphadeno sejal. Imaging of the abdomen pelvis with no bone lesions seen. No evidence of lymphadeno sejal. No liver lesions. No evidence of metastatic disease or disease recurrence . Patient was recently hospitaliz ed secondary to episode of hypertensi ve urgency. Patient had Holter monitor in place and was not consistent with atrial fibrillati on. Patient currently on aspirin 81 mg p.o. daily. Discussed continued imaging follow-up. Patient is now 2 years out from colon cancer resection in early 2022. Discussed repeat CT scan of the chest in 6 months. Will plan to see the patient back after repeat imaging. Anemia 950622494 D64.9 will follow up additional labs. Constipation 75296562 K5 9.00 Patient currently with constipati on. Discussed stool softener as well as MiraLax. If needed will set up evaluation Gastroente rology. 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 Patient had Left-sided hemicolect steven performed in December 2022 by General surgery. Patient had surgery performed in [facility]. Per patient report patient had T3 lesion and lymph nodes were negative. Patient with stage IIA. ECOG 0. 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 [id number] MD Abdirashid Quiros [facility] [place] [address] [place] [address] 01/09/2025 13:42:26 01/09/2025 14:25:21 Thyroid function tests abnormal [id number] R94.6 [id number] MD Ayush Quirostoby [facility] [place] [address] [place] [address] 02/04/2025 09:54:52 02/04/2025 10:33:34 Thyroid nodule 523274644 E04.1 After discussion , patient would like [...] swallowing as well. Autoantibo dy titer detected 338313495 R76.8 Dysphagia 84709784 R13.1 9 Health Concerns Section Related Observation LastModified by Organization Detai ls LastModified Time None Recorded Concern Status LastModified by Organization Details LastModified Time None Recorded Payers Encounter Date Sequence Insurance Name Policy Number Policy Holman Covered Member ID Holman Member ID Guarantor Name 02/04/2025 1 [place]: [place] [employer] [place]PPO) [id number] Killian Moran [id number] Rosie Moran Notes Date Note Type Note Provider Name and Address Organization Details Recorded Time 02/04/2025 text/html 49-year-old fema le patient Who presents to the office to discuss recent ultrasound findings. Initially she had been having some episodes of resistant hypertension, 1 of which required an ER assessment. At that time her TSH was noted to be very slightly elevated in the ER physician had recommended starting 50 mcg levothyroxine. We had discussed how potentially the TSH was more of an acute phase reactant given the circumstances and Was recommended for her to hold the medication while we continue to serially follow labs which did persistently remain in normal range without the use of the medication. Her T3 and T4 were also consistently normal. It was noted however that her thyroid antibodies were elevated. her TPO was 43 and her thyroglobulin antibody was 570.7. She is family history of thyroid cancer in her father, unknown specificity. An ultrasound was obtained to evaluate further. There is note of heterogeneous texture consistent with likely autoimmune thyroiditis as well as multiple nodules, none of which currently indicating need for biopsy based on criteria per Radiology. Since changes had been made to her medication for her blood pressure by adding amlodipine, her pressures been much better controlled and she has had fewer of these episodes and when they have occurred, pressure is only elevated to approximately 140s. She notes worsening history of difficulty swallowing and fullness in her neck that she thinks may be related to her thyroid. Da Baca MD [address], [place], [address], [facility] - [place] & [place] 02/04/2025 12:44:35 OBGyn Episode No OBEpisode recorded.
--- OUTSIDE RECORDS SUMMARY | 2025-04-01 11:30 | XMS_ITS | Continuity of Care Document ---
Author Organization [place] - [facility] & [facility] - [place] Address [address] [facility] [address] [place] [address] Care Team Providers Care Dishwasher Busser Name Role Phone DA BACA Primary Care Provider [phone] Assessment Encounter Date Assessment Date Assessment LastModified by Organization Details LastModified Time 02/17/2025 02/17/2025 continue amlodipine at 5mg but lonny adjust rx to allow for BID or up to 10mg per day dosing if needed as she had a good response to this. For her pain, I strongly suspect this is related to her ribs based on palpation on exam She is also concerned about elevated alk phos on past lab (normal on study prior to this) so we will check vit D and a repeat chemistry panel to assess as well. 46 minutes spent in the care of this patient today Not available 02/17/2025 16:54:44 Plan of Treatment Reminders Order Date Submit Date Provider Last Modified By Organization Details Last Modified Time Details Appointments OV EST 15 2024 10:15A Beau Baca MD Not available Not available Not available OV EST 15 2024 01:00P Beau Rhodes MD Not available Not available Not available FOLLOW UP 2024 10:15A Beau Clemente MD Not available Not available Not available Lab vitamin D, 25-hydrox y, total, serum 2024 025 [place] [facility] ([facility], [address] [place] [address], [place], [address], 02/18/2025 07:49:22 CMP, serum or plasma 2024 025 [place] [facility] ([place]), [facility], [place], [address], 02/18/2025 07:49:20 Referral None recorded. Procedures None recorded. Surgeries None recorded. Imaging None recorded. Medication Orders amlodipin e 5 mg tablet 2024 025 [place] [id number], [address] [facility], [place], [address], 02/17/2025 11:50:06 Patient TargetsNo targets recorded. Patient InstructionsNo instructions recorded. Reason for Referral None Reported. Results Created Date Observation Date Name Description Value Unit Range Abnormal Flag Note LastModifiedBy Organization Detail LastModifiedTime 01/25/2001/20/2025 US, thyro id [facility] [address] [place] [address] Phone: Fax: Name: ROSIE STEPHENSON Exam Date: : 974 Age 49 years Gender : F Access ion: [id number] Physic elfego: DA BACA Facili ty: [facility] Facili ty HSV: Outpat ient [...] wider than tall and contai ns no internal control manager al echoge alaina foci. It is classi fied as TI RADS 4 and requir es follow -up at this size. 7 mm isoech oic, smooth ly margin ated solid nodule is noted within the latera l midpol e. It is wider than tall and contai ns no internal control manager al echoge alaina foci. It is catego rized as TI RADS 3 and does not requir e follow -up at this size. 12 mm hetero geneou s, predom inantl y hypoec hoic solid nodule is seen within the flight test shop mechanic ior lower pole. It is wider than tall, has ill-de fined margin s, and contai ns no internal control manager al echoge alaina foci. It is classi [...] fined margin s, and contai ns no internal control manager al echoge alaina foci. It is classi fied as TI RADS 4 and does not requir e follow -up at this size. IMPRES MERRY: The thyroi d gland is somewh at hetero geneou s in echote xture and subacu te or chroni c thyroi ditis may be consid ered in the proper clinic al ed yarbrough Discre te thyroi d nodule s, as [...] Thank you for referr ROSIE [facility] Legall y authen ticate d by CHYNA BARTLETT 01-20 14:18: 04 CC'ed Logic: Orderi ng Provid er: TRISHA ROBERSON CC Provid er: TRISHA ROBERSON Attend ing Provid er: TRISHA ROBERSON Referr ing Provid er: TRISHA ROBERSON Admitt ing Provid er: TRISHA ROBERSON [email or web address] [facility] [address] [facility], [place], [address], 01/27/2025 15:51:59 01/28/20 25 01/27/2025 US, duple x, renal arter y [facility] [address] [facility] [address] [place] [address] Phone: Fax: Name: ROSIE STEPHENSON Exam Date: 025 : 974 Age 49 years Gender : F Access ion: [id number] Physic elfego: DA BACA Facili ty: [facility] Facili ty HSV: Outpat ient Exam: US [...] Thank you for referr ROSIE Lane to [facility]. Legall y authen ticate d by HAO RUIZ 0 01-27 15:02: 59 CC'ed Logic: Orderi ng Provid er: TRISHA ROBERSON CC Provid er: TRISHA ROBERSON Attend ing Provid er: TRISHA ROBERSON Referr ing Provid er: TRISHA ROBERSON Admitt ing Provid er: TRISHA ROBERSON [email or web address] [facility] [address], [place], [address], 01/28/2025 15:21:34 Result Notes None recorded. 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 Procedures Surgical History Date Name Laterality Status Provider Name and Address Organization Details Recorded Time 01/31/20 25 Date of Last Colonoscopy completed Yulisa Merritt [place] [facility] [place] & [place] 01/30/2025 10:59:42 01/31/20 25 Colonoscopy completed Elida Rothamer [place] - [facility] [place] & [place] 03/11/2025 12:11:50 10/21/20 24 Most Recent Mammogram completed Elida Rothamer [place] [facility] [place] & [place] 12/12/2024 18:35:51 06/19/20 23 completed Elida Rothamer [place] [facility] [place] & [place] 06/17/2024 16:21:21 06/19/20 23 Date of Last Pap Smear completed Elida [place]amer [place] [facility] & [place] 06/17/2024 16:21:21 11/13/19 23 Cancer Surgery completed Elida Rothamer [place] [facility] [place] & [place] 06/17/2024 16:21:44 11/13/19 23 Colonoscopy completed Elida Rothamer [place] [facility] [place] & [place] 06/17/2024 16:21:44 left colectomy completed Danette Barakater [place] [facility] [place] & [place] 05/29/2024 15:13:22 Remove tonsils and adenoids completed Danette Barakater [place] [facility] [place] & [place] 05/29/2024 15:13:34 appendectomy completed Danette Barakater [place] [facility] [place] & [place] 05/29/2024 15:13:40 operation on hip joint completed Danette Elias [facility] & [place] 05/29/2024 15:15:10 Imaging Results None recorded. Procedure Notes None recorded. Medical Equipment None Reported. Allergies Allergen ID Allergen Name Allergen Category Reaction Reaction Severity Criticality Documentation Date Start Date Code Code System Note Provider Name and Address Organization Details Recorded Time 031343 shellfish derived food,medi cation hives rash mild mild Not available 05/29/2024 84976 UNK Elida Rothamer sheyla, NILAY [facility] & [place] 4 16:21:11 648279 iopamidol medicatio n rash Not available Not available 12/12/2024 5966 RxNorm [facility] [place] 18:36:38 313589 iodine medicatio n rash Not available Not available 12/12/2024 5933 RxNorm Elida Rothamer null, [facility] & [place] 18:37:27 Medications Name Sig Start Date Stop [...] Last Updated DateTime 157.48 cm 35.7 kg/m2 26977.5 1 g 97.8 [degF] 96 % 96 % 65 /min 128 mm[Hg] 84 mm[Hg] [facility] [place] 11:02:24 Social History Question Answer Notes LastModified by Organizat ion Details LastModified Time Tobacco Smoking Status Former Smoker Danette Elias [facility], [facility] & [place] 05/29/2024 15:12:30 Do You Have An Advance Directive? No Information not available 06/17/2024 Are You Blind Or Do You Have Difficulty Seeing? No Information not available 06/17/2024 What Is Your Level Of Caffeine Consumption? Moderate [email or web address] Information not available 05/29/2024 When Did You Quit Smoking? 16+yearssince lastcigarette At Like 20 Yrs Old Information not available 05/29/2024 What Was The Date Of Your Most Recent Tobacco Screening? 05/29/2024 Information not available 06/17/2024 At What Age Did You Start Smoking Tobacco? 14 [email or web address] Information not available 05/29/2024 Are You Passively Exposed To Smoke? No Information not available 06/17/2024 How Much Tobacco Do You Smoke? No Information not available 06/17/2024 Has Tobacco Cessation Counseling Been Provided? No [email or web address] Information not available 05/29/2024 Sex: Female Functional Status Question Answer Note LastModified by Organizat ion Details LastModified Time Do you use any illicit or recreational drugs? No [email or web address] Information not available 05/29/2024 Do you or have you ever used any other forms of tobacco or nicotine? No [email or web address] Information not available 05/29/2024 What is your level of alcohol consumption? 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 Moderate Information not available 06/17/2024 Mental Status Question Answer Note LastModified by Organization D etails LastModified Time Do you feel stressed (tense, restless, nervous, or anxious, or unable to sleep at night)? [id number] Information not available 06/17/2024 Family History Relationship [...] Not available 2024 11:01:43 Father Hypertensive disorder [email or web address] Not available 05/29 15:05:48 Mother Chronic obstructive pulmonary disease [email or web address] Not available 05/29 15:05:57 Mother Diabetes mellitus type 2 [email or web address] Not available 2024 11:01:43 Mother Heart disease Not available 05/29 15:06:50 Mother Hyperlipidem ia [email or web address] Not available 2024 12:13:20 Medical History Condition Response Anxiety Disorder Y Allergies/Hayfever Y Obesity Y Other Y Arthritis Y Polyps Y Cancer Y Thyroid Problems Y Stroke Y Asthma Y Lung Disease Anemia Y [...] SNOMED-CT Code Diagnosis ICD10 Code Diagnosis Note [id number] Da Baca MD [place] [address] [facility] [place] [address] 01/20/2025 10:55:15 01/20/2025 11:57:34 Resistant hypertensive disorder 1374075704 05107 I1A.0 Brianda thyroiditis 21 654394 E06.3 [id number] Da Baca MD [place] [address] [place] [address] 02/04/2025 09:54:52 02/04/2025 10:33:34 Thyroid nodule 030915462 E04.1 After discussion , patient would like [...] swallowing as well. Autoantibo dy titer detected 452242414 R76.8 Dysphagia 37526542 R13.1 9 [id number] Da Baca MD [facility] [place] [address] [place] [address] 02/17/2025 10:56:04 02/17/2025 12:50:46 Resistant hypertensive disorder 7558079570 58330 I1A.0 Right uppe r quadrant pain 227322477 R10.11 Alkaline p hosphatase above reference range 079844458 R74.8 Health Concerns Section Related Observation LastModified by Organization Detai ls LastModified Time None Recorded Concern Status LastModified by Organization Details LastModified Time None Recorded Payers Encounter Date Sequence Insurance Name Policy Number Policy Holman Covered Member ID Holman Member ID Guarantor Name 02/17/2025 1 [employer]: [place] (PPO) [id number] Killian Moran [id number] 21 Rosie Moran Notes Date Note Type Note Provider Name and Address Organization Details Recorded Time 02/17/2025 text/html 49 yo F pt here for BP and potential RUQ pain.She notes that she recently travelled for work and notes on 02/11 her pressure was high based on how she felt so she checked it and noted it had spiked up to 160/93. She had taken an extra dose of her amlodipine and did see improvement. SHe didn't feel stressed or anxious. She was concerned that the sx may have been related to her GB. She had pain in her upper right side. SHe hadn't experienced this before. She notes the pain was not associated with meals, bowel movements or time of day. She has no hx of known GB or bililary issues and imaging from Dec had no acute findings in this region. Da Baca MD [address], [place], [address], [facility] - [facility] - [place] & [place] 02/17/2025 16:55:36 OBGyn Episode No OBEpisode recorded.
--- OUTSIDE RECORDS SUMMARY | 2025-04-01 11:30 | XMS_ITS | Continuity of Care Document ---
Author Organization [facility] NEW Address [address] [place] [address] Care Team Providers Care Studio Artist Name Role Phone DA COELLO Primary Care Provider [phone] Assessment No assessment recorded. Plan of Treatment [...] None recorded. Imaging None recorded. Medication Orders atorvasta tin 20 mg tablet 2024 025 [id number], [address] [facility], [place], [address], 03/12/2025 15:05:04 Patient TargetsNo targets recorded. Patient InstructionsNo instructions recorded. Reason for Referral None Reported. 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 [facility] [place] 4 15:38:18 Essential hypertensi on 98717224 Active 2023 Yulisa Louwood null, [place] - [facility] - [place] & [place] 4 15:38:30 Bilateral tinnitus 0443573215153 Active 2023 Yulisa Merritt null, [place] [facility] & [place] 4 15:38:39 Malignant tumor of colon 753961084 Active 2023 Yulisa Shaina null, [place] [facility] & [place] 4 15:38:49 Menopause Active 2023 Yulisa Shaina null, [place] [facility] & [place] 4 15:38:56 Problem Notes None recorded. Procedures Surgical History Date Name Laterality Status Provider Name and Address Organization Details Recorded Time 01/31/20 25 Date of Last Colonoscopy completed Yulisa Merritt [place] [facility] - [place] & [place] 01/30/2025 10:59:42 01/31/20 25 Colonoscopy completed Elida Rothamer [place] [facility] - [place] & [place] 03/11/2025 12:11:50 10/21/20 24 Most Recent Mammogram completed Elida Rothamer [place] [facility] [place] & [place] 12/12/2024 18:35:51 06/19/20 23 completed Elida Rothamer [place] [facility] [place] & [place] 06/17/2024 16:21:21 06/19/20 23 Date of Last Pap Smear completed Elida Rothamer [place] [facility] [place] & [place] 06/17/2024 16:21:21 11/13/19 23 Cancer Surgery completed Elida Rothamer [place] [facility] [place] & [place] 06/17/2024 16:21:44 11/13/19 23 Colonoscopy completed Elida Rothamer [place] [facility] & [place] 06/17/2024 16:21:44 left colectomy completed Danette Elias [place] [facility] [place] & [place] 05/29/2024 15:13:22 Remove tonsils and adenoids completed Danette Elias [place] [facility] [place] & [place] 05/29/2024 15:13:34 appendectomy completed Danette DING [facility] & [place] 05/29/2024 15:13:40 operation on hip joint completed Danette DING [facility] & [place] 05/29/2024 15:15:10 Imaging Results None recorded. Procedure Notes None recorded. Medical Equipment None Reported. Allergies Allergen ID Allergen Name Allergen Category Reaction Reaction Severity Criticality Documentation Date Start Date Code Code System Note Provider Name and Address Organization Details Recorded Time 751876 shellfish derived food,medi cation hives rash mild mild Not available 05/29/2024 56189 UNK Elida Rothamer sheyla, NILAY [facility] & [place] 4 16:21:11 187348 iopamidol medicatio n rash Not available Not available 12/12/2024 5966 RxNorm Elida Rothamer sheyla, [facility] & [place] 18:36:38 909654 iodine medicatio n rash Not available Not available 12/12/2024 5933 RxNorm Elida Rothamer null, NILAY [facility] & [place] 18:37:27 Medications Name Sig Start Date Stop [...] height Body mass index (BMI) Body weight Oxygen saturation Oxygen saturation in Arterial blood by Pulse oximetry Heart rate Systolic blood pressure Diastolic blood pressure Provider Name and Address Organization Details Last Updated DateTime 04/30/202 5 157.48 cm 35.7 kg/m2 23516.5 1 g 98 % 98 % 74 /min 102 mm[Hg] 60 mm[Hg] Dasha Castillo [facility] & [place] 14:51:29 Social History Question Answer Notes LastModified by Organizat ion Details LastModified Time Tobacco Smoking Status Former Smoker Danette Elias [facility], [facility] & [place] 05/29/2024 15:12:30 Do You Have An Advance Directive? No Information not available 06/17/2024 Are You Blind Or Do You Have Difficulty Seeing? No Information not available 06/17/2024 What Is Your Level Of Caffeine Consumption? Moderate [email or web address] Information not available 05/29/2024 When Did You Quit Smoking? 14+yearssince lastcigarette At Like 20 Yrs Old [email or web address] Information not available 05/29/2024 What Was The Date Of Your Most Recent Tobacco Screening? 05/29/2024 Information not available 06/17/2024 At What Age Did You Start Smoking Tobacco? 14 [email or web address] Information not available 05/29/2024 Are You Passively Exposed To Smoke? No Information not available 06/17/2024 How Much Tobacco Do You Smoke? No Information not available 06/17/2024 Has Tobacco Cessation Counseling Been Provided? No [email or web address] Information not available 05/29/2024 Sex: Female Functional Status Question Answer Note LastModified by Organizat ion Details LastModified Time Do you use any illicit or recreational drugs? No [email or web address] Information not available 05/29/2024 Do you or have you ever used any other forms of tobacco or nicotine? No [email or web address] Information not available 05/29/2024 What is your level of alcohol consumption? 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 Moderate Information not available 06/17/2024 Mental Status Question Answer Note LastModified by Organization D etails LastModified Time Do you feel stressed (tense, restless, nervous, or anxious, or unable to sleep at night)? [id number] Information not available 06/17/2024 Family History Relationship [...] Not available 2024 11:01:43 Father Hypertensive disorder [email or web address] Not available 05/29 15:05:48 Mother Chronic obstructive pulmonary disease [email or web address] Not available 05/29 15:05:57 Mother Diabetes mellitus type 2 [email or web address] Not available 2024 11:01:43 Mother Heart disease [email or web address] Not available 05/29 15:06:50 Mother Hyperlipidem ia [...] SNOMED-CT Code Diagnosis ICD10 Code Diagnosis Note [id number] Rahel Le MD [facility] [place] [address] [place] [address] 02/20/2025 10:59:26 02/20/2025 11:39:56 Imaging of thyroid gland abnormal 275187340 R93.89 Have ordered repeat imaging of her thyroid in 1 year. Thyroid fu nction tests abnormal 355031546 R94.6 Elevated thyroid antibodies most Suggestive of Brianda' s thyroiditi s. She is agreeable to start low-dose levothyrox ine to see if some of her symptoms may be improved. Will repeat labs in 6 weeks. [id number] Da Coello MD [facility] [address] [facility] [address] [place] [address] 02/17/2025 10:56:04 02/17/2025 12:50:46 Resistant hypertensive disorder 1707264873 15466 I1A.0 Right uppe r quadrant pain 274855346 R10.11 Alkaline p hosphatase above reference range 889119902 R74.8 [id number] Da Coello MD [facility] [address] [facility] [address] [place] [address] 03/03/2025 08:54:04 03/03/2025 09:47:01 Brianda thyroiditis 24857214 E06.3 Essential hypertension 60927671 I10 [id number] Sukhjinder Rhodes MD [facility] [address] [facility] [address] [place] [address] 03/12/2025 14:45:35 03/12/2025 15:04:58 History of transient ischemic attack 899972885 Z86.73 Continue aggressive risk factor modificati on.MRI showed no evidence of stroke. Start 81 daily Essential hypertension 60979515 I10 Continue current medication . Keep log Low-salt diet < 2 gm Na/day, Regular exercise Weight loss Hyperlipidemia 11190494 E78.5 Continue statin Low fat/carboh ydrate diet Increase exercise Lose weight Body mass index 30+ - obesity 428658263 Z68.34 Low-carboh ydrate and low-fat diet Increase [...] Member ID Holman Member ID Guarantor Name 03/12/2025 1 BC[employer]-[place]: PIO [place]UE [employer] (PPO) [id number] Killian Moran [id number] Rosie Moran Notes Date Note Type Note Provider Name and Address Organization Details Recorded Time 03/12/2025 text/html 49 F here for evaluation of an Neuro event as noted below for evaluation of CV etiology I saw in 12/2024 with ? TIA --neurological symptoms of unclear etiology. The patient had recent admission for similar complaints a few months ago at which point she had MRI of the brain, which was unremarkable. Repeat MRI done during this visit again showedno evidence of acute stroke. Telemetry shows no evidence of atrialfibrillation. No palpitations. No evidence of atrial fibrillation during here hospitalisation.+pe ripheral edema- after standing on feet for a long time, resolves with restBP good.No chest pain, shortness of breath, PND, orthopnea,, palpitations, presyncope, syncope + diagnosed with hypothroidism-+ HTN- well controlled+HLD- on statin+ H/o colon Cancer- sp surgery with no Chemo/RTdiagnosed in early 2022 with left-sided colon adenocarcinoma. Patient had Left-sided hemicolectomy performed in December 2022 Echo 09/20/2024Normal LV size with normal function. The ejection fraction is 60-65%.Normal diastolic function.No shunt EKG 09/13/2024: NSR 70, OR interval 174 QRS 80 QTC 427 Past history:She was seen in ER - ringing in ear, rt arm weakness,slurring speech was seen in ER- CT/CTA neck and MRI was unremarkable. Her symptoms all resolved within about an hour and a half. Sukhjinder Rhodes MD [address], [place], [address], [facility] - [place] & [place] 03/12/2025 15:03:56 OBGyn Episode No OBEpisode recorded.
--- OUTSIDE RECORDS SUMMARY | 2025-04-01 11:30 | XMS_ITS | Data Portability ---
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 Name Role Phone OUMOU DA Primary Care Provider Assessment Encounter Date Assessment [...] in the care of this patient today amelia Not available 02/17/2025 16:54:44 03/03/2025 03/03/2025 Previously we melgoza d had [...] Last Modified Time Details Appointments OV EST 2024 10:15A M Da Baca MD Not available Not available Not available OV EST 2024 01:00P M Sukhjinder Rhodes MD Not available Not available Not available FOLLOW UP 2024 10:15A M Fernando Clemente MD Not available Not available Not available Lab vitamin D, 25-hydrox y, total, serum 2024 025 TREMAYNE [facility] ([facility]), [address] [place], [address], 02/18/2025 07:49:22 CMP, serum or plasma 2024 025 TREMAYNE [facility] ([facility]), [address] [place], [address], 02/18/2025 07:49:20 Referral None recorded. Procedures None recorded. Surgeries None recorded. Imaging US, thyroid [address] (Centralized Scheduling), [address], [place], [address], 02/20/2025 13:17:48 Medication Orders atorvasta tin 20 mg tablet 2024 025 ATHENAFAX [id number], [address] [facility], [place], [address], 03/12/2025 15:05:04 levothyro xine 25 mcg tablet 2024 025 gflorence [id number], [address] [place], [address], 02/24/2025 08:49:08 amlodipin e 5 mg tablet 2024 025 TREMAYNE [id number], [address] [place], [address], 02/17/2025 11:50:06 Patient TargetsNo targets recorded. Patient InstructionsNo instructions recorded. Reason for Referral None Reported. Results Created Date Observation Date Name Description Value Unit Range Abnormal Flag Note LastModifiedBy Organization Detail LastModifiedTime 01/21/2001/21/2025 CBC WITH DIFFE RENTI AL/PL ATELE T WBC 6.7 x10e3 /uL 3.4-10 .8 normal Not Available [facility] ([facility]) [address] [place], [address], 01/24/2025 14:11:52 01/21/20 25 01/21/2025 CBC WITH DIFFE RENTI AL/PL ATELE T RBC 4.20 x10e6 /uL 3.77-5 .28 normal Not Available [facility] ([facility]) [address] [place], [address], 01/24/2025 14:11:52 01/21/2001/21/2025 CBC WITH DIFFE RENTI AL/PL ATELE T hemoglobin 12.4 g/dL 11.1-1 5.9 normal Not Available [facility] ([facility]) [address] [place], [address], 01/24/2025 14:11:52 01/21/20 25 01/21/2025 CBC WITH DIFFE RENTI AL/PL ATELE T hematocrit 39.2 % 34.0-4 6.6 normal Not Available [facility] ([facility]) [address] [place], [address], 01/24/2025 14:11:52 01/21/20 25 01/21/2025 CBC WITH DIFFE RENTI AL/PL ATELE T MCV 93 fL 79-97 normal Not Available [facility] ([facility]) [address] [facility], [place], [address], 01/24/2025 14:11:52 01/21/20 25 01/21/2025 CBC WITH DIFFE RENTI AL/PL ATELE T MCH 29.5 pg 26.6-3 3.0 normal Not Available [facility] ([facility]) [address] [place], [address], 01/24/2025 14:11:52 01/21/20 25 01/21/2025 CBC WITH DIFFE RENTI AL/PL ATELE T MCHC 31.6 g/dL 31.5-3 5.7 normal Not Available [facility] ([facility]) [address] [facility], [place], [address], 01/24/2025 14:11:52 01/21/20 25 01/21/2025 CBC WITH DIFFE RENTI AL/PL ATELE T RDW 12.9 % 11.7-1 5.4 Not Available [facility] ([facility]) [address] [place], [address], 01/24/2025 14:11:52 01/21/20 25 01/21/2025 CBC WITH DIFFE RENTI AL/PL ATELE T platelets 275 x10e3 /uL 150-45 0 normal Not Available [facility] ([facility]) [address] [place], [address], 01/24/2025 14:11:52 01/21/20 25 01/21/2025 CBC WITH DIFFE RENTI AL/PL ATELE T neutrophils 54 % not estab. normal Not Available [facility] ([facility]) [address] [place], [address], 01/24/2025 14:11:52 01/21/20 25 01/21/2025 CBC WITH DIFFE RENTI AL/PL ATELE T lymphs 37 % not estab. normal Not Available [facility] ([facility]) [address] [facility], [place], [address], 01/24/2025 14:11:52 01/21/20 25 01/21/2025 CBC WITH DIFFE RENTI AL/PL ATELE T monocytes 6 % not estab. normal Not Available [facility] ([facility]) [address] [facility], [place], [address], 01/24/2025 14:11:52 01/21/20 25 01/21/2025 CBC WITH DIFFE RENTI AL/PL ATELE T eos 2 % not estab. normal Not Available [facility] ([facility]) [address] [facility], [place], [address], 01/24/2025 14:11:52 01/21/20 25 01/21/2025 CBC WITH DIFFE RENTI AL/PL ATELE T basos 1 % not estab. normal Not Available [facility] ([facility]) [address] [facility], [place], [address], 01/24/2025 14:11:52 01/21/20 25 01/21/2025 CBC WITH DIFFE RENTI AL/PL ATELE T immature cells STONE UNLOADER Not Available [facility] ([facility]) [address] [place], [address], 01/24/2025 14:11:52 01/21/20 25 01/21/2025 CBC WITH DIFFE RENTI AL/PL ATELE T neutrophils (absolute) 3.7 x10e3 /uL 1.4-7. 0 normal Not Available [facility] ([facility]) [address] [place], [address], 01/24/2025 14:11:52 01/21/20 25 01/21/2025 CBC WITH DIFFE RENTI AL/PL ATELE T lymphs (absolute) 2.5 x10e3 /uL 0.7-3. 1 normal Not Available [facility] ([facility]) [address] [facility], [place], [address], 01/24/2025 14:11:52 01/21/20 25 01/21/2025 CBC WITH DIFFE RENTI AL/PL ATELE T monocytes(ab solute) 0.4 x10e3 /uL 0.1-0. 9 normal Not Available [facility] ([facility]) [address] [facility], [place], [address], 01/24/2025 14:11:52 01/21/20 25 01/21/2025 CBC WITH DIFFE RENTI AL/PL ATELE T eos (absolute) 0.1 x10e3 /uL 0.0-0. 4 normal Not Available [facility] ([facility]) [address] [facility], [place], [address], 01/24/2025 14:11:52 01/21/20 25 01/21/2025 CBC WITH DIFFE RENTI AL/PL ATELE T baso (absolute) 0.0 x10e3 /uL 0.0-0. 2 normal Not Available [facility] ([facility]) [address] [place], [address], 01/24/2025 14:11:52 01/21/20 25 01/21/2025 CBC WITH DIFFE RENTI AL/PL ATELE T immature granulocytes 0 % not estab. Not Available [facility] ([facility]) [address] [place], [address], 01/24/2025 14:11:52 01/21/20 25 01/21/2025 CBC WITH DIFFE RENTI AL/PL ATELE T immature grans (abs) 0.0 x10e3 /uL 0.0-0. 1 Not Available [facility] ([facility]) [address] [place], [address], 01/24/2025 14:11:52 01/21/20 25 01/21/2025 CBC WITH DIFFE RENTI AL/PL ATELE T NRBC STONE UNLOADER Not Available [facility] ([facility]) [address], [place], [address], 01/24/2025 14:11:52 01/21/20 25 01/21/2025 CBC WITH DIFFE RENTI AL/PL ATELE T hematology comments: STONE UNLOADER Not Available [facility] ([facility]) [address], [place], [address], 01/24/2025 14:11:52 01/21/20 25 01/21/2025 COMP. METAB OLIC PANEL (14) glucose 82 mg/dL 70-99 normal Not Available [facility] ([facility]) [address], [place], [address], 01/24/2025 14:11:53 01/21/20 25 01/21/2025 COMP. METAB OLIC PANEL (14) BUN 10 mg/dL 6-24 normal Not Available [facility] ([facility]) [address] [facility], [place], [address], 01/24/2025 14:11:53 01/21/20 25 01/21/2025 COMP. METAB OLIC PANEL (14) creatinine 0.81 mg/dL 0.57-1 .00 normal Not Available [facility] ([facility]) [address] [facility], [place], [address], 01/24/2025 14:11:53 01/21/20 25 01/21/2025 COMP. METAB OLIC PANEL (14) eGFR 88 mL/mi n/1.7 3 >59 normal Not Available [facility] ([facility]) [address], [place], [address], 01/24/2025 14:11:53 01/21/20 25 01/21/2025 COMP. METAB OLIC PANEL (14) BUN/creatini ne ratio 12 9-23 normal Not Available [facility] ([facility]) [address] [place], [address], 01/24/2025 14:11:53 01/21/20 25 01/21/2025 COMP. METAB OLIC PANEL (14) sodium 137 mmol/ L 134-14 4 normal Not Available [facility] ([facility]) [address] [place], [address], 01/24/2025 14:11:53 01/21/20 25 01/21/2025 COMP. METAB OLIC PANEL (14) potassium 4.6 mmol/ L 3.5-5. 2 normal Not Available [facility] ([facility]) [address] [place], [address], 01/24/2025 14:11:53 01/21/20 25 01/21/2025 COMP. METAB OLIC PANEL (14) chloride 100 mmol/ L 96-106 normal Not Available [facility] ([facility]) [address] [place], [address], 01/24/2025 14:11:53 01/21/20 25 01/21/2025 COMP. METAB OLIC PANEL (14) carbon dioxide, total 25 mmol/ L 20-29 normal Not Available [facility] ([facility]) [address] [place], [address], 01/24/2025 14:11:53 01/21/20 25 01/21/2025 COMP. METAB OLIC PANEL (14) calcium 9.6 mg/dL 8.7-10 .2 normal Not Available [facility] ([facility]) [address] [place], [address], 01/24/2025 14:11:53 01/21/20 25 01/21/2025 COMP. METAB OLIC PANEL (14) protein, total 7.0 g/dL 6.0-8. 5 normal Not Available [facility] ([facility]) [address] [place], [address], 01/24/2025 14:11:53 01/21/20 25 01/21/2025 COMP. METAB OLIC PANEL (14) albumin 4.6 g/dL 3.8-4. 9 normal Not Available [facility] ([facility]) [address] [place], [address], 01/24/2025 14:11:53 01/21/20 25 01/21/2025 COMP. METAB OLIC PANEL (14) globulin, total 2.4 g/dL 1.5-4. 5 Not Available [facility] ([facility]) [address] [place], [address], 01/24/2025 14:11:53 01/21/20 25 01/21/2025 COMP. METAB OLIC PANEL (14) bilirubin, total 0.4 mg/dL 0.0-1. 2 normal Not Available [facility] ([facility]) [address] [place], [address], 01/24/2025 14:11:53 01/21/20 25 01/21/2025 COMP. METAB OLIC PANEL (14) alkaline phosphatase 143 IU/L 44-121 above high normal Not Available [facility] ([facility]) [address] [place], [address], 01/24/2025 14:11:53 01/21/20 25 01/21/2025 COMP. METAB OLIC PANEL (14) AST (SGOT) 20 IU/L 0-40 normal Not Available [facility] ([facility]) [address] [place], [address], 01/24/2025 14:11:53 01/21/20 25 01/21/2025 COMP. METAB OLIC PANEL (14) ALT (SGPT) 20 IU/L 0-32 normal Not Available [facility] ([facility]) [address] [facility], [place], [address], 01/24/2025 14:11:53 01/21/20 25 01/21/2025 URINA LYSIS , COMPL ETE specific gravity 1.006 1.005- 1.030 normal Not Available [facility] ([facility]) [address] [facility], [place], [address], 01/24/2025 14:11:54 01/21/20 25 01/21/2025 URINA LYSIS , COMPL ETE pH 7.0 5.0-7. 5 normal Not Available [facility] ([facility]) [address] [facility], [place], [address], 01/24/2025 14:11:54 01/21/20 25 01/21/2025 URINA LYSIS , COMPL ETE urine-color YELLOW yellow Not Available [facility] ([facility]) [address] [place], [address], 01/24/2025 14:11:54 01/21/20 25 01/21/2025 URINA LYSIS , COMPL ETE appearance CLEAR clear Not Available [facility] ([facility]) [address] [facility], [place], [address], 01/24/2025 14:11:54 01/21/20 25 01/21/2025 URINA LYSIS , COMPL ETE WBC esterase NEGATI VE negati ve Not Available [facility] ([facility]) [address] [place], [address], 01/24/2025 14:11:54 01/21/20 25 01/21/2025 URINA LYSIS , COMPL ETE protein NEGATI VE negati ve/tra ce Not Available [facility] ([facility]) [address] [place], [address], 01/24/2025 14:11:54 01/21/20 25 01/21/2025 URINA LYSIS , COMPL ETE glucose NEGATI VE negati ve Not Available [facility] ([facility]) [address] [facility], [place], [address], 01/24/2025 14:11:54 01/21/20 25 01/21/2025 URINA LYSIS , COMPL ETE ketones NEGATI VE negati ve Not Available [facility] ([facility]) [address] [place], [address], 01/24/2025 14:11:54 01/21/20 25 01/21/2025 URINA LYSIS , COMPL ETE occult blood NEGATI VE negati ve Not Available [facility] ([facility]) [address] [facility], [place], [address], 01/24/2025 14:11:54 01/21/20 25 01/21/2025 URINA LYSIS , COMPL ETE bilirubin NEGATI VE negati ve Not Available [facility] ([facility]) [address] [place], [address], 01/24/2025 14:11:54 01/21/20 25 01/21/2025 URINA LYSIS , COMPL ETE urobilinogen ,semi-qn 0.2 mg/dL 0.2-1. 0 normal Not Available [facility] ([facility]) [address] [place], [address], 01/24/2025 14:11:54 01/21/20 25 01/21/2025 URINA LYSIS , COMPL ETE nitrite, urine NEGATI VE negati ve Not Available [facility] ([facility]) [address] [place], [address], 01/24/2025 14:11:54 01/21/20 25 01/21/2025 URINA LYSIS , COMPL ETE microscopic examination COMMEN T Micro scopi c follo ws if indic ated. Not Available [facility] ([facility]) [address] [place], [address], 01/24/2025 14:11:54 01/21/20 25 01/21/2025 URINA LYSIS , COMPL ETE microscopic examination SEE BELOW: Micro scopi c was indic ated and was perfo rmed. Not Available [facility] ([facility]) [address] [facility], [place], [address], 01/24/2025 14:11:54 01/21/20 25 01/21/2025 URINA LYSIS , COMPL ETE WBC NONE SEEN /hpf 0 - 5 Not Available [facility] ([facility]) [address] [facility], [place], [address], 01/24/2025 14:11:54 01/21/20 25 01/21/2025 URINA LYSIS , COMPL ETE RBC NONE SEEN /hpf 0 - 2 Not Available [facility] ([facility]) [address] [facility], [place], [address], 01/24/2025 14:11:54 01/21/20 25 01/21/2025 URINA LYSIS , COMPL ETE epithelial cells (non renal) NONE SEEN /hpf 0 - 10 Not Available [facility] ([facility]) [address] [facility], [place], [address], 01/24/2025 14:11:54 01/21/20 25 01/21/2025 URINA LYSIS , COMPL ETE epithelial cells (renal) STONE UNLOADER Not Available [facility] ([facility]) [address] [facility], [place], [address], 01/24/2025 14:11:54 01/21/20 25 01/21/2025 URINA LYSIS , COMPL ETE casts NONE SEEN /lpf none seen Not Available [facility] ([facility]) [address] [facility], [place], [address], 01/24/2025 14:11:54 01/21/20 25 01/21/2025 URINA LYSIS , COMPL ETE cast type STONE UNLOADER Not Available [facility] ([facility]) [address] [facility], [place], [address], 01/24/2025 14:11:54 01/21/20 25 01/21/2025 URINA LYSIS , COMPL ETE crystals STONE UNLOADER Not Available [facility] ([facility]) [address] [facility], [place], [address], 01/24/2025 14:11:54 01/21/20 25 01/21/2025 URINA LYSIS , COMPL ETE crystal type STONE UNLOADER Not Available [facility] ([facility]) [address] [facility], [place], [address], 01/24/2025 14:11:54 01/21/20 25 01/21/2025 URINA LYSIS , COMPL ETE mucus threads STONE UNLOADER Not Available [facility] ([facility]) [address] [facility], [place], [address], 01/24/2025 14:11:54 01/21/20 25 01/21/2025 URINA LYSIS , COMPL ETE bacteria NONE SEEN none seen/f ew Not Available [facility] ([facility]) [address] [facility], [place], [address], 01/24/2025 14:11:54 01/21/20 25 01/21/2025 URINA LYSIS , COMPL ETE yeast STONE UNLOADER Not Available [facility] ([facility]) [address] [facility], [place], [address], 01/24/2025 14:11:54 01/21/20 25 01/21/2025 URINA LYSIS , COMPL ETE trichomonas STONE UNLOADER Not Available [facility] ([facility]) [address] [facility], [place], [address], 01/24/2025 14:11:54 01/21/20 25 01/21/2025 URINA LYSIS , COMPL ETE comment STONE UNLOADER Not Available [facility] ([facility]) [address] [facility], [place], [address], 01/24/2025 14:11:54 01/21/20 25 01/22/2025 URINA LYSIS , COMPL ETE creatinine, urine 25.8 mg/dL not estab. normal Not Available [facility] ([facility]) [address] [facility], [place], [address], 01/24/2025 14:11:54 01/21/20 25 01/22/2025 URINA LYSIS , COMPL ETE albumin, urine <3.0 ug/mL not estab. Not Available [facility] ([facility]) [address] [facility], [place], [address], 01/24/2025 14:11:54 01/21/20 25 01/22/2025 URINA LYSIS , COMPL ETE alb/creat ratio <12 mg/g_ creat 0-29 Katarina l: 0 - 29 Moder ately incre ased: 30 - 300 Sever karla incre ased: >300 Not Available [facility] ([facility]) [address] [facility], [place], [address], 01/24/2025 14:11:54 01/21/20 25 01/21/2025 THYRO ID PROFI LE II TSH 3.270 uIU/m L 0.450- 4.500 normal Not Available [facility] ([facility]) [address] [place], [address], 01/24/2025 14:11:55 01/21/20 25 01/21/2025 THYRO ID PROFI LE II thyroxine (T4) 8.4 ug/dL 4.5-12 .0 normal Not Available [facility] ([facility]) [address] [place], [address], 01/24/2025 14:11:55 01/21/20 25 01/21/2025 THYRO ID PROFI LE II T3 uptake 27 % 24-39 normal Not Available [facility] ([facility]) [address] [place], [address], 01/24/2025 14:11:55 01/21/20 25 01/21/2025 THYRO ID PROFI LE II free thyroxine index 2.3 1.2-4. 9 normal Not Available [facility] ([facility]) [address] [place], [address], 01/24/2025 14:11:55 01/21/20 25 01/21/2025 THYRO ID PROFI LE II triiodothyro nine (T3) 97 NG/dL 71-180 normal Not Available [facility] ([facility]) [address] [place], [address], 01/24/2025 14:11:55 01/21/20 25 01/21/2025 YELENA+R F QN YELENA direct NEGATI VE negati ve Not Available [facility] ([facility]) [address] [place], [address], 01/24/2025 14:11:56 01/21/20 25 01/21/2025 YELENA+R F QN rheumatoid factor (rf) <10.0 IU/mL <14.0 Not Available [facility] ([facility]) [address] [place], [address], 01/24/2025 14:11:56 01/21/20 25 01/24/2025 METAN EPHRI MIKE, FRAC. , PL. FREE normetanephr ine, pl 89.1 pg/mL 0.0-24 4.0 Not Available [facility] ([facility]) [address] [place], [address], 01/24/2025 14:11:56 01/21/20 25 01/24/2025 METAN EPHRI MIKE, FRAC. , PL. FREE metanephrine , pl <25.0 pg/mL 0.0-88 .0 Not Available [facility] ([facility]) [address] [place], [address], 01/24/2025 14:11:56 01/21/20 25 01/21/2025 SEDIM ENTAT ION RATE- WESTE RGREN sedimentatio n rate-westerg koko 5 mm/HR 0-40 normal Not Available [facility] ([facility]) [address] [place], [address], 01/24/2025 14:11:57 01/21/20 25 01/21/2025 MAGNE SIUM magnesium 2.1 mg/dL 1.6-2. 3 normal Not Available [facility] ([facility]) [address] [place], [address], 01/24/2025 14:11:58 01/24/20 25 01/30/2025 METAN EPHRI MIKE, FRAC, QN, 24-HR normetanephr ine, ur 57 ug/L undefi juan Total Volum e: 3000 mL Not Available [facility] ([facility]) [address] [place], [address], 01/31/2025 03:36:33 01/24/20 25 01/30/2025 METAN EPHRI MIKE, FRAC, QN, 24-HR normetanephr .,U,24H 171 ug/24 _HR 131-61 2 Not Available [facility] ([facility]) [address] [place], [address], 01/31/2025 03:36:33 01/24/20 25 01/30/2025 METAN EPHRI MIKE, FRAC, QN, 24-HR metanephrine , ur 20 ug/L undefi juan Not Available [facility] ([facility]) [address] [place], [address], 01/31/2025 03:36:33 01/24/20 25 01/30/2025 METAN EPHRI MIKE, FRAC, QN, 24-HR metanephrine , U,24HR 60 ug/24 _HR 36-209 Not Available [facility] ([facility]) [address] [facility], [place], [address], 01/31/2025 03:36:33 01/24/20 25 01/30/2025 VANIL LYLMA NDELI C ACID, 24-HR U vma, urine 0.7 mg/L undefi juan Total Volum e: 3000 mL Not Available [facility] ([facility]) [address] [place], [address], 01/31/2025 03:36:34 01/24/20 25 01/30/2025 VANIL LYLMA NDELI C ACID, 24-HR U vma, urine, 24HR 2.1 mg/24 _HR 0.0-7. 5 Not Available [facility] ([facility]) [address] [facility], [place], [address], 01/31/2025 03:36:34 01/24/2001/31/2025 SALIV Beau BETH S salivary cortisol, MS 0.095 ug/dL This test was luis wyatt and its perfo rmanc e jayden cteri stics deter mined by [facility]. It has not been clear ed or appro corinna by the Food and Drug Admin istra tion. Refer ence Range : Child koko and Adult s: 8:00a .m.: 0.025 - 0.600 Noon: <0.01 0 - 0.330 4:00p .m.: 0.010 - 0.200 Bedti me (9:00 p.m.- Midni ght): <0.01 0 - 0.090 Not Available [facility] [address] [facility], [place], [address], 01/31/2025 03:36:34 02/18/20 25 02/18/2025 COMP. METAB OLIC PANEL (14) glucose 97 mg/dL 70-99 normal Not Available [facility] ([facility]) [address] [place], [address], 02/18/2025 07:49:20 04/07/20 25 02/18/2025 COMP. METAB OLIC PANEL (14) BUN 11 mg/dL 6-24 normal Not Available [facility] ([facility]) [address] [place], [address], 02/18/2025 07:49:20 02/18/20 25 02/18/2025 COMP. METAB OLIC PANEL (14) creatinine 0.77 mg/dL 0.57-1 .00 normal Not Available [facility] ([facility]) [address] [facility], [place], [address], 02/18/2025 07:49:20 02/18/20 25 02/18/2025 COMP. METAB OLIC PANEL (14) eGFR 93 mL/mi n/1.7 3 >59 normal Not Available [facility] ([facility]) [address] [facility], [place], [address], 02/18/2025 07:49:20 02/18/20 25 02/18/2025 COMP. METAB OLIC PANEL (14) BUN/creatini ne ratio 14 9-23 normal Not Available [facility] ([facility]) [address] [facility], [place], [address], 02/18/2025 07:49:20 02/18/20 25 02/18/2025 COMP. METAB OLIC PANEL (14) sodium 138 mmol/ L 134-14 4 normal Not Available [facility] ([facility]) [address] [facility], [place], [address], 02/18/2025 07:49:20 02/18/20 25 02/18/2025 COMP. METAB OLIC PANEL (14) potassium 4.3 mmol/ L 3.5-5. 2 normal Not Available [facility] ([facility]) [address] [facility], [place], [address], 02/18/2025 07:49:20 02/18/20 25 02/18/2025 COMP. METAB OLIC PANEL (14) chloride 102 mmol/ L 96-106 normal Not Available [facility] ([facility]) [address] [place], [address], 02/18/2025 07:49:20 02/18/20 25 02/18/2025 COMP. METAB OLIC PANEL (14) carbon dioxide, total 22 mmol/ L 20-29 normal Not Available [facility] ([facility]) [address] [place], [address], 02/18/2025 07:49:20 02/18/20 25 02/18/2025 COMP. METAB OLIC PANEL (14) calcium 10.1 mg/dL 8.7-10 .2 normal Not Available [facility] ([facility]) [address] [place], [address], 02/18/2025 07:49:20 02/18/20 25 02/18/2025 COMP. METAB OLIC PANEL (14) protein, total 7.2 g/dL 6.0-8. 5 normal Not Available [facility] ([facility]) [address] [place], [address], 02/18/2025 07:49:20 02/18/20 25 02/18/2025 COMP. METAB OLIC PANEL (14) albumin 4.7 g/dL 3.8-4. 9 normal Not Available [facility] ([facility]) [address] [place], [address], 02/18/2025 07:49:20 02/18/20 25 02/18/2025 COMP. METAB OLIC PANEL (14) globulin, total 2.5 g/dL 1.5-4. 5 Not Available [facility] ([facility]) [address] [place], [address], 02/18/2025 07:49:20 02/18/20 25 02/18/2025 COMP. METAB OLIC PANEL (14) bilirubin, total 0.4 mg/dL 0.0-1. 2 normal Not Available [facility] ([facility]) [address] [place], [address], 02/18/2025 07:49:20 02/18/20 25 02/18/2025 COMP. METAB OLIC PANEL (14) alkaline phosphatase 125 IU/L 44-121 above high normal Not Available [facility] ([facility]) [address] [place], [address], 02/18/2025 07:49:20 02/18/20 25 02/18/2025 COMP. METAB OLIC PANEL (14) AST (SGOT) 20 IU/L 0-40 normal Not Available [facility] ([facility]) [address] [place], [address], 02/18/2025 07:49:20 02/18/20 25 02/18/2025 COMP. METAB OLIC PANEL (14) ALT (SGPT) 16 IU/L 0-32 normal Not Available [facility] ([facility]) [address] [place], [address], 02/18/2025 07:49:20 02/18/20 25 02/18/2025 VITAM IN D, 25-HY DROXY vitamin D, 25-hydroxy 27.9 NG/mL 30.0-1 00.0 below low normal Vitam in D defic iency has been defin ed by the Insti tute of Medic ine and an Endoc rine Socie ty pract ice guide line as a level of serum 25-OH vitam in D less than 20 ng/mL (1,2) . The Endoc rine Socie ty went on to furth er defin e vitam in D insuf ficie ncy as a level betwe en 21 and 29 ng/mL (2). 1. IOM (Inst itute of Medic ine). 2010. Dieta ry refer ence intak es for calci um and D. Munir wakefield [place]: [facility] . 2. Remy clark MF, Aldo dudley NC, Oscar off-F errar i MELGOZA, et al. Evalu ation , treat ment, and preve ntion of vitam in D defic iency : an Endoc rine Socie ty clini rosanna pract ice guide line. JCEM. 2010; 96(7) :1911 -30. Not Available [facility] ([facility]) [address], [place], [address], 02/18/2025 07:49:22 01/25/20 25 01/20/2025 US, thyro id [facility] [address] [place] [address] Phone: Fax: Name: ROSIE SETPHENSON Exam Date: 025 : 974 Age 49 years Gender : F Access ion: [id number] Physic elfego: DA BACA Facili ty: [facility] Facili ty HSV: Outpat [...] wider than tall and contai ns no risk management internship al echoge alaina foci. It is classi fied as TI RADS 4 and requir es follow -up at this size. 7 mm isoech oic, smooth ly margin ated solid nodule is noted within the latera l midpol e. It is wider than tall and contai ns no risk management internship al echoge alaina foci. It is catego rized as TI RADS 3 and does not requir e follow -up at this size. 12 mm hetero geneou s, predom inantl y hypoec hoic solid nodule is seen within the administrative analyst ior lower pole. It is wider than tall, has ill-de fined margin s, and contai ns no risk management internship al echoge alaina foci. It is classi [...] fined margin s, and contai ns no risk management internship al echoge alaina foci. It is classi [...] Thank you for referr ROSIE Lane to [facility]. Legall y authen ticate d by CHYNA BARTLETT 01-20 14:18: 04 CC'ed Logic: Orderi ng Provid er: TRISHA ROBERSON CC Provid er: TRISHA ROBERSON Attend ing Provid er: TRISHA ROBERSON Referr ing Provid er: TRISHA ROBERSON Admitt ing Provid er: TRISHA ROBERSON [email or web address] [facility] [address], [place], [address], 01/27/2025 15:51:59 01/28/20 25 01/27/2025 US, duple x, renal arter y [facility] [address] [place] [address] Phone: Fax: Name: ROSIE STEPHENSON Exam Date: 025 : 974 Age 49 years Gender : F Access ion: [id number] Physic elfego: DA BACA Facili ty: [facility] Facili ty HSV: Outpat [...] you for referr ing ROSIE STEPHENSON to [facility]. Legall y authen ticate d by HAO RUIZ 0 01-27 15:02: 59 CC'ed Logic: Orderi ng Provid er: TRISHA ROBERSON CC Provid er: TRISHA ROBERSON Attend ing Provid er: TRISHA ROBERSON Referr ing Provid er: TRISHA ROBERSON Admitt ing Provid er: TRISHA ROBERSON [email or web address] [facility] [address] [facility], [place], [address], 01/28/2025 15:21:34 Result Notes None recorded. 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 Procedures Surgical History Date Name Laterality Status Provider Name and Address Organization Details Recorded Time 01/31/20 25 Date of Last Colonoscopy completed Yulisa Merritt [place] [facility] [place] & [place] 01/30/2025 10:59:42 01/31/20 25 Colonoscopy completed Elida [place]amer [place] [facility] [place] & [place] 03/11/2025 12:11:50 10/21/20 24 Most Recent Mammogram completed Elida [place]amer [place] [facility] [place] & [place] 12/12/2024 18:35:51 06/19/20 23 completed Elida [place]amer [place] [facility] [place] & [place] 06/17/2024 16:21:21 06/19/20 23 Date of Last Pap Smear completed Elida [place]amer [place] [facility] [place] & [place] 06/17/2024 16:21:21 11/13/19 23 Cancer Surgery completed Elida [place]amer [place] [place] & [place] 06/17/2024 16:21:44 11/13/19 23 Colonoscopy completed Elida [place]amer [place] [facility] [place] & [place] 06/17/2024 16:21:44 left colectomy completed Danette Curt [place] [facility] [place] & [place] 05/29/2024 15:13:22 Remove tonsils and adenoids completed Danette Curt [place] [place] & [place] 05/29/2024 15:13:34 appendectomy completed [facility] Curt [place] [facility] & [place] 05/29/2024 15:13:40 operation on hip joint completed Danette Curt [place] [place] & [place] 05/29/2024 15:15:10 Imaging Results Imaging Date Name Status LastModified by Organiz ation Details LastModified Time 01/20/2025 US, thyroid completed [email or web address] [facility] [address], [place], [address], 01/27/2025 15:51:59 01/27/2025 US, duplex, renal artery completed [email or web address] [facility] [address], [place], [address], 01/28/2025 15:21:34 Procedure Notes None recorded. Medical Equipment None Reported. Allergies Allergen ID Allergen Name Allergen Category Reaction Reaction Severity Criticality Documentation Date Start Date Code Code System Note Provider Name and Address Organization Details Recorded Time 568027 shellfish derived food,medi cation hives rash mild mild Not available 05/29/2024 66620 UNK [facility] [facility] [place] [facility] [place] 4 16:21:11 169866 iopamidol medicatio n rash Not available Not available 12/12/2024 5966 RxNorm Elida [place] null, [place] - [facility] & [place] 5 18:36:38 417228 iodine medicatio n rash Not available Not available 12/12/2024 5933 RxNorm Elida Rothamer null, [facility] & [place] 18:37:27 Medications Name Sig Start Date Stop [...] Available ciprofloxac in 250 mg tablet bid 11/09 /2024 completed Not Available Not Available Not Available [...] Updated DateTime 5 157.48 cm 35.7 kg/m2 11143.5 1 g 97.8 [degF] 96 % 96 % 65 /min 128 mm[Hg] 84 mm[Hg] Yulisa PEMBERTON [facility] & [place] 5 11:02:24 Date Recorded Body height Body mass index (BMI) Body weight Body temperature Provider Name and Address Organization Details Last Updated DateTime 02/20/2025 157.48 cm 35.5 kg/m2 06723.92 g 97.4 [degF] Brooklyn [facility] & [place] 02/20/2025 11:17:01 Date Recorded Body height Body mass index (BMI) Body weight Body temperature Oxygen saturation Oxygen saturation in Arterial blood by Pulse oximetry Heart rate Systolic blood pressure Diastolic blood pressure Provider Name and Address Organization Details Last Updated DateTime 5 157.48 cm 35.7 kg/m2 76095.5 1 g 97.6 [degF] 94 % 94 % 83 /min 152 mm[Hg] 88 mm[Hg] Yulisa Louwood NILAY [facility] & [place] 5 09:01:52 Date Recorded Body height Body mass index (BMI) Body weight Oxygen saturation Oxygen saturation in Arterial blood by Pulse oximetry Heart rate Systolic blood pressure Diastolic blood pressure Provider Name and Address Organization Details Last Updated DateTime 5 157.48 cm 35.7 kg/m2 89111.5 1 g 98 % 98 % 74 /min 102 mm[Hg] 60 mm[Hg] Dasha Castillo NILAY - [facility] & [place] 5 14:51:29 Date Recorded Body height Body mass index (BMI) Body weight Body temperature Oxygen saturation Oxygen saturation in Arterial blood by Pulse oximetry Heart rate Systolic blood pressure Diastolic blood pressure Provider Name and Address Organization Details Last Updated DateTime 5 157.48 cm 35.7 kg/m2 97634.5 1 g 97.5 [degF] 94 % 94 % 67 /min 122 mm[Hg] 86 mm[Hg] Nataliia Barnes [facility] & [place] 5 10:03:16 Social History Question Answer Notes LastModified by Organizat ion Details LastModified Time Tobacco Smoking Status Former Smoker Danette Elias [facility], [place] - [facility] & [place] 05/29/2024 15:12:30 Do You Have An Advance Directive? No Information not available 06/17/2024 Are You Blind Or Do You Have Difficulty Seeing? No Information not available 06/17/2024 What Is Your Level Of Caffeine Consumption? Moderate [email or web address] Information not available 05/29/2024 When Did You Quit Smoking? 16+yearssince lastcigarette At Like 20 Yrs Old [email or web address] Information not available 05/29/2024 What Was The Date Of Your Most Recent Tobacco Screening? 05/29/2024 Information not available 06/17/2024 At What Age Did You Start Smoking Tobacco? 14 [email or web address] Information not available 05/29/2024 Are You Passively Exposed To Smoke? No Information not available 06/17/2024 How Much Tobacco Do You Smoke? No Information not available 06/17/2024 Has Tobacco Cessation Counseling Been Provided? No [email or web address] Information not available 05/29/2024 Sex: Female Functional Status Question Answer Note LastModified by Organizat ion Details LastModified Time Do you use any illicit or recreational drugs? No [email or web address] Information not available 05/29/2024 Do you or have you ever used any other forms of tobacco or nicotine? No [email or web address] Information not available 05/29/2024 What is your level of alcohol consumption? 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 Moderate Information not available 06/17/2024 Mental Status Question Answer Note LastModified by Organization D etails LastModified Time Do you feel stressed (tense, restless, nervous, or anxious, or unable to sleep at night)? [id number] Information not available 06/17/2024 Family History Relationship [...] Not available 2024 11:01:43 Father Hypertensive disorder [email or web address] Not available 05/29 15:05:48 Mother Chronic obstructive pulmonary disease [email or web address] Not available 05/29 15:05:57 Mother Diabetes mellitus type 2 [email or web address] Not available 2024 11:01:43 Mother Heart disease [email or web address] Not available 05/29 15:06:50 Mother Hyperlipidem ia [email or web address] Not available 2024 12:13:20 Medical History Condition Response Allergies/Hayfever Y Anxiety Disorder Y Other Y Obesity Y Arthritis Y [...] SNOMED-CT Code Diagnosis ICD10 Code Diagnosis Note [id number] Fernando Clemente MD [facility] [address] [facility] [address] [place] [address] 05/29/2024 14:20:37 05/29/2024 16:15:34 Primary malignant neoplasm of descending colon 71457282 C18.6 diagnosed in early 2022 with left-sided colon adenocarci noma. Patient had Left-sided hemicolect steven performed in December 2022 by General surgery. Patient had surgery performed in [facility]. Per patient report patient had T3 lesion [...] cyst and follows with Pulmonary Medicine. Patient will need referral for pulmonolog ist. Discussed repeat labs today. Next imaging surveillan ce will be in July 2024. Will order imaging. Will follow-up additional labs. If constipati on continues would recommend repeat evaluation with Gastroente rology. Will follow-up Anemia 443871518 D64.9 will follow up additional labs. Constipation 47706296 K5 9.00 Patient currently with constipati on. Discussed stool softener as well as MiraLax. If needed will set up evaluation Gastroente rology. 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 Patient had Left-sided hemicolect steven performed in December 2022 by General surgery. Patient had surgery performed in [facility]. Per patient report patient had T3 lesion and lymph nodes were negative. Patient with stage IIA. ECOG 0. 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 Recent CT chest reviewed with patient Malignant tumor of colon 087638363 C18.[address] ab/pelvis reviewed with patientfol filomenaing with hematology pending appt with GI to establishr ecent labs reviewed [id number] Da Baca MD [facility] [address] [facility] [address] [facility] [address] [place] [address] 10/08/2024 13:27:47 10/08/2024 14:18:29 Adult health examination 723891629 Z00.00 Screening mammography 24 173178 Z12.31 Diabetes m ellitus screening 176206535 Z13.1 History of transient ischemic attack 897518232 Z86.73 Essential hypertension 52811582 I10 Postmenopausal state 764 64126 Z78.0 patient to schedule with gynecology to discuss potential options Anemia 790736324 D64.9 [id number] ANTOINETTE MARCUS NP [facility] [address] [facility] [address] [place] [address] 08/21/2024 13:31:30 08/21/2024 14:15:50 History of malignant neoplasm of colon 221386104 Z85.038 Left-sided adenocarci noma diagnosed in early 2022. She is s/p left-sided hemicolect steven December 2022. Multiple polyps removed during follow up colonoscop y in late 2022. Altered venus wel function 78611410 R19.4 With history of colon polyps and colon cancer, I recommend we repeat colonoscop y to evaluate change in bowel habits. 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 Increase water intake, dietary fiber, and physical activity. [id number] Fernando Clemente MD [facility] [address] [facility] [address] [place] [address] 08/21/2024 14:21:36 08/21/2024 15:29:13 Primary malignant neoplasm of descending colon 06211263 C18.6 diagnosed in early 2022 with left-sided colon adenocarci noma. Patient had Left-sided hemicolect steven performed in December 2022 by General surgery. Patient had surgery performed in [facility]. Per patient report patient had T3 lesion [...] and likely lung cyst as a result. Anemia 650919955 D64.9 will follow up additional labs. Constipation 75807828 K5 9.00 Patient currently with constipati on. Discussed stool softener as well as MiraLax. If needed will set up evaluation Gastroente rology. 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 Patient had Left-sided hemicolect steven performed in December 2022 by General surgery. Patient had surgery performed in [facility]. Per patient report patient had T3 lesion and lymph nodes were negative. Patient with stage IIA. ECOG 0. 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 [id number] Jaxon Sidhu MD [facility] [address] [place] [address] 09/16/2024 15:26:15 09/16/2024 16:08:47 Transient cerebral ischemia 266282907 G45.9 she is a continue Eliquis until results of carotid and echocardio gram are known. Does not sound like atrial fibrillati on by cardiology workup in progress. Essential hypertension 42727675 I10 Add Coreg 3.125. Keep close follow-up with her primary care provider next week for continuati on of care. [id number] Sukhjinder Rhodes MD [facility] [address] [facility] [address] [place] [address] 09/17/2024 10:56:35 09/17/2024 11:39:04 Essential hypertension 92585853 I10 Continue current medication . Keep log Low-salt diet < 2 gm Na/day, Regular exercise Weight loss Hyperlipidemia 62610758 E78.5 Continue statin Low fat/carboh ydrate diet Increase exercise Lose weight History of transient ischemic attack 890336360 Z86.73 Echo with bubble studyMonit or to r/o occult Afib Continue aggressive risk factor modificati on. Continue current cardiac regimen. Body mass index 30+ - obesity 596119353 Z68.34 Low-carboh ydrate and low-fat diet Increase exercise to 30 minutes a day. Increase fruits and fresh vegetable intake and decrease processed foods and sugars [id number] Da Baca MD [facility] [address] [place] [address] 09/23/2024 15:06:22 09/23/2024 15:49:50 Transient cerebral ischemia 016264937 G45.9 Essential hypertension 36875794 I10 [id number] Da Baca MD [facility] [address] [facility] [address] [place] [address] 11/21/2024 11:26:12 11/21/2024 13:20:15 Anxiety 31597170 F41.9 Essential hypertension 75231579 I10 [id number] Da Baca MD [facility] [address] [facility] [address] [place] [address] 01/20/2025 10:55:15 01/20/2025 11:57:34 Resistant hypertensive disorder 4138258765 28679 I1A.0 Brianda thyroiditis 21 377660 E06.3 [id number] Sukhjinder Rhodes MD [facility] [address] [facility] [address] [place] [address] 12/19/2024 11:00:52 12/19/2024 11:37:48 History of transient ischemic attack 548874179 Z86.73 Echo with with structural ly normal heartMonit or with no evidence of AfibContin ue aggressive risk factor modificati on.Stop Eliquis as no evidence of AFib. MRI showed no evidence of stroke. Start 81 daily Essential hypertension 88153557 I10 Continue current medication . Keep log Low-salt diet < 2 gm Na/day, Regular exercise Weight loss Hyperlipidemia 17004826 E78.5 Continue statin Low fat/carboh ydrate diet Increase exercise Lose weight Body mass index 30+ - obesity 268214299 Z68.34 Low-carboh ydrate and low-fat diet Increase exercise to 30 minutes a day. Increase fruits and fresh vegetable intake and decrease processed foods and sugars [id number] Da Baca MD [facility] [address] [facility] [address] [place] [address] 2024 13:04:22 2024 16:23:13 Hypertensive urgency 889363564 I16.0 [id number] Da Baca MD [facility] [address] [facility] [address] [place] [address] 01/02/2025 15:02:11 01/02/2025 16:19:49 Essential hypertension 25628838 I10 Tinnitus 30268580 H93.13 Thyroid fu nction tests abnormal 972635812 R94.6 Anxiety 52514200 F41.9 [id number] Fernando Clemente MD [facility] [address] [place] [address] 01/08/2025 14:18:40 01/08/2025 14:47:32 Primary malignant neoplasm of descending colon 86299371 C18.6 diagnosed in early 2022 with left-sided colon adenocarci noma. Patient had Left-sided hemicolect steven performed in December 2022 by General surgery. Patient had surgery performed in [facility]. Per patient report patient had T3 lesion [...] evidence of metastatic disease. Patient with history Rsahaun Mai Sara syndrome and likely lung cyst as [...] the patient back after repeat imaging. Anemia 712017222 D64.9 will follow up additional labs. Constipation 05215475 K5 9.00 Patient currently with constipati on. Discussed stool softener as well as MiraLax. If needed will set up evaluation Gastroente rology. 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 Patient had Left-sided hemicolect steven performed in December 2022 by General surgery. Patient had surgery performed in [facility]. Per patient report patient had T3 lesion and lymph nodes were negative. Patient with stage IIA. ECOG 0. 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 [id number] Da Baca MD [address] [place] [address] 6 01/09/2025 13:42:26 01/09/2025 14:25:21 Thyroid function tests abnormal 020132527 R94.6 [id number] Da Baca MD [address] [place] [address] 6 02/04/2025 09:54:52 02/04/2025 10:33:34 Thyroid nodule 793684631 E04.1 After discussion , patient would like [...] swallowing as well. Autoantibo dy titer detected 756814527 R76.8 Dysphagia 67046201 R13.1 9 [id number] Rahel Le MD [facility] [address] [place] [address] 6 02/20/2025 10:59:26 02/20/2025 11:39:56 Imaging of thyroid gland abnormal 553209168 R93.89 Have ordered repeat imaging of her thyroid in 1 year. Thyroid fu nction tests abnormal 684934970 R94.6 Elevated thyroid antibodies most Suggestive of Brianda' s thyroiditi s. She is agreeable to start low-dose levothyrox ine to see if some of her symptoms may be improved. Will repeat labs in 6 weeks. [id number] Da Baca MD [address] [place] [address] 02/17/2025 10:56:04 02/17/2025 12:50:46 Resistant hypertensive disorder 4069614970 65640 I1A.0 Right uppe r quadrant pain 117380731 R10.11 Alkaline p hosphatase above reference range 363249414 R74.8 [id number] Da Baca MD [facility] [address] [facility] [address] [place] [address] 03/03/2025 08:54:04 03/03/2025 09:47:01 Brianda thyroiditis 55316736 E06.3 Essential hypertension 71773595 I10 [id number] Da Baca MD [facility] [address] [facility] [address] [facility] [address] [place] [address] 03/31/2025 09:58:15 03/31/2025 10:44:30 Essential hypertension 22913049 I10 I do think a degree of her mild swelling is relatd to her amlodipine and we discussed trying 5mg BID instead of 10mg at once to see if this helps but that we can certainly make changes if needed, pt would like to hold on that currently. Feeling of lump in throat 753402733 R09.A2 pending swallowing studydiscu ssed omeprazole and alf use concerns with what she is trying to correct with supplement s and would start with two week trial Autoantibo dy titer detected 869428017 R76.8 [id number] Sukhjinder Rhodes MD [facility] [address] [place] [address] 03/12/2025 14:45:35 03/12/2025 15:04:58 History of transient ischemic attack 003189897 Z86.73 Continue aggressive risk factor modificati on.MRI showed no evidence of stroke. Start 81 daily Essential hypertension 58469157 I10 Continue current medication . Keep log Low-salt diet < 2 gm Na/day, Regular exercise Weight loss Hyperlipidemia 67650007 E78.5 Continue statin Low fat/carboh ydrate diet Increase exercise Lose weight Body mass index 30+ - obesity [id number] Z68.34 Low-carboh ydrate and low-fat diet Increase exercise to 30 minutes a day. Increase fruits and fresh vegetable intake and decrease processed foods and sugars Health Concerns Section Related Observation LastModified by Organization Detai ls LastModified Time None Recorded Concern Status LastModified by Organization Details LastModified Time None Recorded Advance Directives Directive N: Payers Insurance Date Sequence Insurance Name Policy Number Policy Holman Covered Member ID Holman Member ID Guarantor Name 03/30/2025 1 [place] [id number] Killian Moran [id number] Rosie Moran 09/16/2024 1 [place] [id number] Killian Moran [id number] Rosie Moran Notes Date Note Type [...] this region. Da Baca MD [address], [place], [address], [facility] & [place] 02/17/2025 16:55:36 02/20/2025 text/html 02/20/25-Patient is here for thyroid evaluation with several elevated thyroid antibodies. She has been going through a workup for labile BP, all of which at this point has been negative. She has no family history of thyroid surgery. Thyroid U/S available for my review. Rahel Le MD [address], [place], [address], [facility] & [place] 02/20/2025 13:18:33 03/03/2025 text/html She is here for f/u [...] flare her symptoms. She sees this with south sudanese yogurt. Da Baca MD [address], [place], [address], [facility] - [place] & [place] 03/03/2025 17:09:37 03/12/2025 text/html 49 F here for evaluation [...] diastolic function.No shunt EKG 09/13/2024: NSR 70, CO interval 174 QRS 80 QTC 427 Past history:She was seen in ER - ringing in ear, rt arm weakness,slurring speech was seen in ER- CT/CTA neck and MRI was unremarkable. Her symptoms all resolved within about an hour and a half. Sukhjinder Rhodes MD [address], [place], [address], [place] [facility] & [place] 03/12/2025 15:03:56 03/31/2025 text/html She is here for f/uSHe [...] with a new ENT (Dr. Moreno's office, [place]). She went for continued issues with swallowing. SHe has a pending swallowing study. She was also put on omeprazole for a short course.sHe has noticed a rash at her hair line recently.SHe also felt thirsty too and isn't sure if this is the omeprazole. Da Baca MD [address], [place], [address], [place] [facility] & [place] 03/31/2025 12:59:32 OBGyn Episode No OBEpisode recorded.
--- NOTE | 2025-04-01 11:36 | HMH.EDGENADL ---
Discharge Plan Disposition Patient Disposition: Admitted Condition: Good Prescriptions Prescriptions: No Action losartan 100 mg tablet 100 mg PO DAILY Patient Comments: TAKE 1 TABLET BY MOUTH EVERY DAY cetirizine [Allergy Relief (cetirizine)] 10 mg tablet 10 mg PO DAILY PRN Airsupra 90-80 mcg/actuation HFA aerosol inhaler 2 inh inhalation .q6 PRN (Reason: shortness of breath or wheezing) Qty: 10.7 3RF hydroxyzine pamoate 25 mg capsule 25 mg PO HS Eliquis 5 mg tablet 5 mg PO BID atorvastatin 20 mg tablet 20 mg PO DAILY Referrals Follow up/Referrals: Felisa Baca MD [Primary Care Provider] - See instructions Clinical Impressions Clinical Impression: Cikm-Wtfe-Rkxn syndrome, Pneumothorax, right Print Language Print Language: [place]ese Discharge ED Provider: Elyssa John General Adult HPI General Chief complaint: Shortness of Breath/Dyspnea Stated complaint: Ref. Higgins- Collapsed lung Time Seen by Provider: 04/01/25 11:15 History of Present Illness HPI narrative: This patient is a 49-year-old female with a history of Ermj-Shpo-Yjat syndrome, remote recurrent pneumothoraces with last 1 being around age 28, bullous emphysema, and asthma presenting to the emergency department for evaluation with concern for possible pneumothorax noted on outpatient x-ray. Patient went to [facility] for an outpatient barium esophagram today and was noted to have a pneumothorax on x-ray prior to proceeding. They do not go through with the study, called Dr. Higgins's recommendations, and he advised that the patient come to the ED. I had an interactive discussion with him and he advised that based on her history, he recommended CT scan and has low threshold for placing a pigtail. Patient states that she has been doing fine with no complaints or symptoms, but she states that it is hard for her to tell because she has shortness of breath at baseline because of her asthma. Nothing out of the ordinary as of late Related Data Home Medications ?Medication ?Instructions ?Recorded ?Confirmed cetirizine 10 mg tablet (Allergy 10 mg PO DAILY PRN 08/16/24 12/17/24 Relief (cetirizine)) losartan 100 mg tablet 100 mg PO DAILY 08/16/24 12/17/24 apixaban 5 mg tablet (Eliquis) 5 mg PO BID 12/17/24 12/17/24 atorvastatin 20 mg tablet 20 mg PO DAILY 12/17/24 12/17/24 hydroxyzine pamoate 25 mg capsule 25 mg PO HS 12/17/24 12/17/24 Previous Rx's ?Medication ?Instructions ?Recorded albuterol 90 mcg-budesonide 80 2 inh inhalation .q6 PRN shortness 08/16/24 mcg/actuation HFA aerosol inhaler of breath or wheezing #10.7 grams (Airsupra) Allergies Allergy/AdvReac Type Severity Reaction Status Date / Time No Known Allergies Allergy Verified 12/17/24 11:33 [facility] Disclaimer: The information contained in this section may have been updated after the patient was seen, as this information can be updated by other users. 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 Surgical History History of appendectomy History of tonsillectomy H/O colectomy Family History Family/Other Cancer Mother Hyperlipidemia Father Hypertension Thyroid disorder Social History Smoking Status: Never smoker alcohol intake: never substance use type: denies use current occupational status: employed Travel in the last 8 weeks?: None Have you lived/traveled outside US in past 30 days?: No Contact w/someone who lives/traveled outside US past 30 days?: No Exposure to someone with infectious disease in past 14 days?: No Do you have a fever (greater than 100.4 F or 38 C)?: No Have you tested positive for COVID-19?: No Exposed to someone with COVID-19 in past 14 days?: No Do you have a sore throat?: No Do you have a cough?: No Do you have any weakness?: No Do you have any diarrhea?: No Are you experiencing any unusual bleeding?: No Do you have any muscle aches/pain?: No Do you have any abdominal pain?: No Are you experiencing loss of taste or smell?: No Other Medical History Have you received the Pneumonia Vaccine: No ROS Obtained: Yes All systems reviewed & no additional complaints except as documented Physical Exam General General appearance: alert and in no apparent distress Head Head exam: atraumatic and normocephalic Eye Eye exam: Present normal appearance, PERRL and EOMI ENT ENT exam: Present normal exam, normal oropharynx, mucous membranes moist and normal external ear exam Neck Neck exam: Present normal inspection, full ROM and trachea midline; Absent tenderness Chest Chest inspection: Present normal inspection and symmetric chest wall rise; Absent tenderness Respiratory Respiratory exam: Present other (Diminished breath sounds on the right, no increased work of breathing); Absent respiratory distress, wheezes, stridor or accessory muscle use Cardiovascular Cardiovascular exam: Present regular rate and normal rhythm Abdominal Exam Abdominal exam: Present soft; Absent distention, tenderness or guarding Extremities Exam Extremities exam: Present normal inspection, full ROM and normal capillary refill; Absent tenderness or edema Back Exam Back exam: Present normal inspection and full ROM; Absent tenderness Neurological Exam Neurological exam: Present alert, oriented X3, CN II-XII intact and normal gait; Absent motor sensory deficit Psychiatric Psychiatric exam: Present normal affect and normal mood Skin Skin exam: Present warm and dry Medical Decision Making Medical Records Medical records reviewed: Yes I reviewed the patient's medical records. Screening: Per USPSTF and CDC recommendations, given the prevalence of disease in our region, it is our hospital?s policy to screen for HIV and viral Hepatitis for all patients aged 18 and over and those with ongoing risk factors. Gary Inquiry Pt receiving controlled substance: No Vital Signs: 04/01/25 11:14 04/01/25 11:18 04/01/25 11:30 Temperature Temperature Source Pulse Rate 74 64 59 L Pulse Rate [Left Radial] Respiratory Rate Blood Pressure 169/86 H 142/94 H 148/88 H Blood Pressure [Right Arm] Blood Pressure Mean [Right Arm] Blood Pressure Source [Right Arm] Blood Pressure Position [Right Arm] 02 Sat by Pulse Oximetry 97 99 98 Oxygen Delivery Method Room Air Room Air Room Air 04/01/25 11:32 04/01/25 12:00 Temperature 97.9 F Temperature Source Oral Pulse Rate 63 Pulse Rate [Left Radial] 80 Respiratory Rate 19 Blood Pressure 154/89 H Blood Pressure [Right Arm] 169/86 H Blood Pressure Mean [Right Arm] 113 Blood Pressure Source [Right Arm] Automatic Cuff Blood Pressure Position [Right Arm] Supine 02 Sat by Pulse Oximetry 97 96 Oxygen Delivery Method Room Air Room Air Lab Data Lab results reviewed: Yes I reviewed the patient's lab results. Lab Results 04/01/25 11:20: WBC 6.5, RBC 4.44, Hgb 13.1, Hct 39.5, MCV 89.0, MCH 29.5, MCHC 33.2, RDW 13.6, Plt Count 258, MPV 10.6 H, Neut % (Auto) 60.0, Lymph % (Auto) 31.7, [place] % (Auto) 5.5, Eos % (Auto) 2.1, Baso % (Auto) 0.5, Neut # (Auto) 3.9, Lymph # (Auto) 2.1, [place] # (Auto) 0.4, Eos # (Auto) 0.1, Baso # (Auto) 0.0, Sodium 139, Potassium 4.1, Chloride 105, Carbon Dioxide 26, Anion Gap 12.1, BUN 10, Creatinine 0.70, Estimated Creat Clear 129, Estimated GFR 88, Est GFR ( Amer) 107, Glucose 108 H, Calcium 10.2, HCV Ab RAOUL w/Rflx PCR Qn Negative, HIV Ag/Ab Combo Qual Negative 04/01/25 11:20 04/01/25 11:20 Orders (Tests/Meds): ED MEDICATIONS Generic Name Dose Route Start Last Admin Trade Name Freq PRN Reason Stop Dose Admin Lactated Ringer's 1,000 mls @ 999 mls/hr 04/01/25 14:19 04/01/25 14:22 Lactated Ringer's 1000 Ml Bag IV 04/01/25 15:19 999 mls/hr .Q1H1M ONE Administration Discontinued Medications Generic Name Dose Route Start Last Admin Trade Name Freq PRN Reason Stop Dose Admin Acetaminophen 1,000 mg 04/01/25 13:59 04/01/25 14:22 Acetaminophen 500mg Tab PO 04/01/25 14:00 1,000 mg ONCE ONE Administration Ketorolac Tromethamine 15 mg 04/01/25 13:59 04/01/25 14:22 Ketorolac 30mg/Ml Vial IV 04/01/25 14:00 15 mg ONCE ONE Administration Morphine Sulfate 4 mg 04/01/25 13:59 Morphine 4mg/Ml Syringe IV 04/01/25 14:00 ONCE ONE Ondansetron HCl 4 mg 04/01/25 13:59 04/01/25 14:22 Ondansetron 4mg/2ml Vial IV 04/01/25 14:00 4 mg ONCE ONE Administration ORDERS Category Date Time Status CT chest wo con Stat Cat Scan 04/01/25 11:17 Completed Consult to Pulmonology [CONS] Stat Cons 04/01/25 12:35 Active CXR --portable [XR chest portable] Stat Exams 04/01/25 12:34 Completed BMP [Basic Metabolic Panel] Stat Lab 04/01/25 11:20 Completed Complete Blood Count Auto Diff Stat Lab 04/01/25 11:20 Completed HIV Combo Stat Lab 04/01/25 11:20 Completed Hepatitis C Ab Qual. W/ RFX Stat Lab 04/01/25 11:20 Completed ECG Data Tracing #1: I reviewed this ECG and interpreted as documented below: Sinus bradycardia with a ventricular rate of 47 bpm. No acute STEMI. Normal intervals ECG initial impression date: 04/01/25 ECG initial impression time: 14:25 Medical Decision Narrative: In summary, this patient is a 49-year-old female presenting to the Emergency Department for evaluation of possible pneumothorax on outpatient x-ray that was obtained for preprocedure barium esophagram. Differential diagnoses considered include but are not limited to spontaneous pneumothorax, tension pneumothorax, bulla, respiratory failure. Ruling out the most morbid conditions drove assessment. It should be noted patient's history includes Zrjp-Yqdg-Jrqj syndrome, HTN which may or may not be at goal therapy. This complicates all aspects of care by increasing patient's risk for morbidity. I reviewed patient's past medical records and noted prior pulmonology evaluations for maintenance of health. On exam, the patient is sitting upright in no acute distress with no increased work of breathing. Vitals are reassuring on cardiac telemetry with only mild hypertension noted as an abnormal vital sign. She has slightly diminished breath sounds on the right, but otherwise cardiopulmonary exam is reassuring. workup included CBC, BMP, CT chest without contrast. I independently interpreted CT scan prior to the radiologist read and noted right sided pneumothorax that is moderate in size with multiple blebs emphysematous changes, especially the right lung. Please see their read for final interpretation. Labs were obtained that demonstrated reassuring CBC and chemistry. Given pneumothorax, both myself and Dr. Higgins discussed need for chest tube placement with the patient. After informed consent was obtained and risk versus benefit was explained, patient consented to pigtail catheter placement in the right chest. This was performed by myself. She tolerated this well with no complications. I confirmed placement with x-ray, which I independently interpreted prior to radiology read and noted satisfactory placement of the pigtail catheter with resolution of the pneumothorax. Patient was given IV Toradol, oral Tylenol, and a small dose of IV morphine and Zofran for symptomatic improvement of pain post chest tube placement. She has no increased work of breathing and normal vitals on room air. I feel she stable for admission. Patient was admitted in stable condition after interactive discussion with the hospital Procedures Risk/Benefits of Procedure(s) Were Explained: Yes Chest Tube Chest Tube 1: Chest tube type: [id number] Chest Tube Location: right and mid axillary line Chest Tube Prep: Yes betadine prep and sterile drapes applied Local Anesthetic: lidocaine 1% Amount of anesthesia used (mL): 10 Incision Made With: #11 blade Post Procedure: sutured to skin and sterile dressing applied Tube Drainage: none Amount of initial drainage (mL): 0 Post Procedure CXR?: Yes Patient Tolerated Procedure: Yes Progress: Patient tolerated well with no complications. Placement satisfactory on my independent interpretation of x-ray. Critical Care Critical Care Time Critical Care Time: Yes Attestation: On 04/01/25, the high probability of a clinically significant, sudden or life threatening deterioration of the following system(s) required my full and direct attention, intervention and personal management. The time I documented below is in addition to time spent performing reported procedures but includes the following listed in this critical care notation. Total Time Total Critical Care Time: 35
[2025-04-01 11:38] LABS: Chloride 105 mmol/L (98-107); Potassium 4.1 mmoL/L (3.5-5.1); Sodium 139 mmol/L (136-145)
[2025-04-01 11:41] LABS: Anion Gap 12.1 mEq/L (5-15); Blood Urea Nitrogen 10 mg/dl (7-17); Calcium 10.2 mg/dl (8.4-10.2); Carbon Dioxide 26 mmol/L (22.0-30.0); Creatinine Clearance Estimated 129 mL/min (50-200); Estimated Glomerular Filt Rate 88 ml/min (>60); GFR (African American) 107 ML/MIN (>60); Glucose 108 mg/dl (74-100)
--- NOTE | 2025-04-01 12:18 | PC.NURSE ---
dr robledo at bedside
--- NOTE | 2025-04-01 12:34 | XR_ITS ---
FINAL REPORT CLINICAL HISTORY: Post-chest tube placement, will call COMPARISON: Chest CT dated 04/01/2025 FINDINGS: A single view of the chest was obtained. There is been interval placement of a small caliber right pleural catheter. There is resolution of the right-sided pneumothorax since the prior exam. There is scarring in the right lung base. Mediastinum is unremarkable. Heart size is normal. IMPRESSION: Resolved right sided pneumothorax following right pleural catheter placement. Reviewed, Interpreted and Dictated by Gonsalo Flores MD Transcribed by Maryuri Amador Authenticated and [facility]
--- NOTE | 2025-04-01 12:41 | P.CONS_ITS ---
History of Present Illness History of present illness: Ms. Moran is a 49-year-old female history of recurrent pneumothorax, Rajendra Hobb Sara syndrome was transferred to [facility] from [facility] as patient found to be having pneumothorax when she presented for for elective barium swallow procedure. [facility] Disclaimer: The information contained in this section may have been updated after the patient was seen, as this information can be updated by other users. 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 Surgical History History of appendectomy History of tonsillectomy H/O colectomy Family History Family/Other Cancer Mother Hyperlipidemia Father Hypertension Thyroid disorder Social History Smoking Status: Never smoker alcohol intake: never substance use type: denies use current occupational status: employed Travel in the last 8 weeks?: None Have you lived/traveled outside US in past 30 days?: No Contact w/someone who lives/traveled outside US past 30 days?: No Exposure to someone with infectious disease in past 14 days?: No Do you have a fever (greater than 100.4 F or 38 C)?: No Have you tested positive for COVID-19?: No Exposed to someone with COVID-19 in past 14 days?: No Do you have a sore throat?: No Do you have a cough?: No Do you have any weakness?: No Do you have any diarrhea?: No Are you experiencing any unusual bleeding?: No Do you have any muscle aches/pain?: No Do you have any abdominal pain?: No Are you experiencing loss of taste or smell?: No Review of Systems Constitutional Constitutional: Denies anorexia, Denies body ache(s) and Denies fatigue Eyes Eyes: Denies eye discharge, Denies dry eyes, Denies irritation and Denies itchy eyes ENT Ears, Nose, Mouth, and Throat: Denies epistaxis, Denies facial pain, Denies lip swelling and Denies throat swelling *Cardiovascular Cardiovascular: Denies dyspnea and Denies dyspnea on exertion *Respiratory Respiratory: Denies chest congestion, Denies cough, Denies dyspnea, Denies dyspnea on exertion, Denies excessive phlegm production, Reports pain on inspiration and Denies wheezing *Gastrointestinal Gastrointestinal: Denies abdominal pain, Denies belching and Denies cramping *Musculoskeletal Musculoskeletal: Denies back pain and Denies myalgias Psychiatric Psychiatric: Denies homicidal ideation and Denies suicidal ideation Endocrine Endocrine: Denies fatigue and Denies heat intolerance Hematologic/Lymphatic Hematologic/Lymphatic: Denies easy bleeding and Denies lymphadenopathy Allergic/Immunologic Allergic/Immunologic: Denies itchy eyes, Denies lip swelling, Denies throat swelling and Denies wheezing Pulmonology Exam Inpatient Vital signs and Labs for Last 24 Hours: Temp Pulse Resp BP Pulse Ox O2 Del Method 97.9 F 63 19 154/89 H 96 Room Air 04/01/25 11:32 04/01/25 12:00 04/01/25 11:32 04/01/25 12:00 04/01/25 12:00 04/01/25 12:00 Laboratory Results - last 24 hr 04/01/25 11:20: WBC 6.5, RBC 4.44, Hgb 13.1, Hct 39.5, MCV 89.0, MCH 29.5, MCHC 33.2, RDW 13.6, Plt Count 258, MPV 10.6 H, Neut % (Auto) 60.0, Lymph % (Auto) 31.7, [place] % (Auto) 5.5, Eos % (Auto) 2.1, Baso % (Auto) 0.5, Neut # (Auto) 3.9, Lymph # (Auto) 2.1, [place] # (Auto) 0.4, Eos # (Auto) 0.1, Baso # (Auto) 0.0, Sodium 139, Potassium 4.1, Chloride 105, Carbon Dioxide 26, Anion Gap 12.1, BUN 10, Creatinine 0.70, Estimated Creat Clear 129, Estimated GFR 88, Est GFR ( Amer) 107, Glucose 108 H, Calcium 10.2 I & O for Labs for Last 24 Hours: Intake & Output 03/29/25 03/30/25 03/31/25 04/01/25 23:59 23:59 23:59 23:59 Weight 189 lb Constitutional: Present no acute distress Head: Present normocephalic and atraumatic ENT: Present normal exam, normal oropharynx and mucous membranes moist Neck: Present normal inspection and full ROM Respiratory: Present normal respiratory effort and able to speak in complete sentences; Absent prolonged expiratory phase, respiratory distress, wheezes, crackles or diminished air movement Cardiac: Present S1/S2, Tachycardia and radial pulses present GI: Present soft and distention; Absent tenderness or guarding Rectal (female): Present deferred (female): Present deferred Skin: Present intact; Absent cyanosis or jaundice Neuro: Present alert, awake and oriented x 3 Extremities: Present normal inspection; Absent clubbing or cyanosis Psychiatric: Present normal affect and cooperative Meds Home Medications and Allergies Home Medications ?Medication ?Instructions ?Recorded ?Confirmed ?Type albuterol 90 mcg-budesonide 80 2 inh inhalation .q6 PRN shortness 08/16/24 12/17/24 Rx mcg/actuation HFA aerosol inhaler of breath or wheezing #10.7 grams (Airsupra) cetirizine 10 mg tablet (Allergy 10 mg PO DAILY PRN 08/16/24 12/17/24 History Relief (cetirizine)) losartan 100 mg tablet 100 mg PO DAILY 08/16/24 12/17/24 History apixaban 5 mg tablet (Eliquis) 5 mg PO BID 12/17/24 12/17/24 History atorvastatin 20 mg tablet 20 mg PO DAILY 12/17/24 12/17/24 History hydroxyzine pamoate 25 mg capsule 25 mg PO HS 12/17/24 12/17/24 History New Prescriptions to Start Prescriptions: Allergies Allergy/AdvReac Type Severity Reaction Status Date / Time No Known Allergies Allergy Verified 12/17/24 11:33 Results Laboratory Findings 04/01/25 11:20 04/01/25 11:20 Abnormal lab findings: Abnormal Labs 04/01/25 11:20 MPV 10.6 H Glucose 108 H Assessment and Plan *Assessment and plan (1) Bullous emphysema: Status: Acute Category: Medical Code(s): J43.9 - Emphysema, unspecified (2) Recurrent pneumothorax: Status: Acute Category: Medical Code(s): J93.9 - Pneumothorax, unspecified (3) Secondary spontaneous pneumothorax: Status: Acute Category: Medical Code(s): J93.12 - Secondary spontaneous pneumothorax Plan Ms. Moran is a 49-year-old female history of recurrent pneumothorax, Rajendra Hobb Sara syndrome was transferred to [facility] from [facility] as patient found to be having pneumothorax when she presented for for elective barium swallow procedure. Upon presentation to the ER CT performed, noted to have right-sided lateral pneumothorax with a pleural separation of greater than 2 cm. Significant bullous changes noted. She denies any prior pleurodesis procedures. Despite the concerning pleural thickening adjacent to the noted pneumothorax this is less likely to be trapped lung as this pneumothorax was not reported on her CT scan from prior. Patient denies any respiratory distress. She complains of nonspecific right- sided chest pain that has been ongoing for the last 2 weeks with no worsening or improving respiratory symptoms Despite patient being asymptomatic, given her significant bullous changes and being secondary spontaneous pneumothorax she will benefit from pigtail catheter placement with pneumothorax resolution of the conservative management at this point of time. She will discuss with the patient regarding completion agree to proceed with pigtail catheter placement. Plan: Pigtail catheter placement with chest tube to suction -20 cm DuoNebs 4 times daily PRN
[2025-04-01 12:53] LABS: HIV Combo NEGATIVE (Negative)
[2025-04-01 13:00] LABS: Hepatitis C Ab Qual. W/ RFX NEGATIVE (Negative)
--- NOTE | 2025-04-01 13:50 | PC.NURSE ---
XR AT BEDSIDE
[2025-04-01] MEDS: ACETAMINOPHEN 500MG TAB 1000 MG PO (14:22)
[2025-04-01] MEDS: LACTATED RINGERS 1000ML 1,000 ML 999 ML IV (14:22)
[2025-04-01] MEDS: ONDANSETRON 4MG/2ML VIAL 4 MG IV (14:22)
[2025-04-01] MEDS: KETOROLAC 30MG/ML VIAL 15 MG IV (14:22)
--- NOTE | 2025-04-01 14:23 | ECG_ITS ---
APPROVED REPORT Exam: Resting ECG HR:47 bpm ECG Measurements Heart Rate 47 AXES CO 181 P 56 QRSd 87 QRS 41 QT 443 T 71 QTc 405 Conclusion SINUS BRADYCARDIA LOW QRS VOLTAGE IN PRECORDIAL LEADS [QRS DEFLECTION < 1.0 mV IN CHEST LEADS] No STEMI Electronically signed by : SIMÓN MARTINEZ, 04/02/2025 02:59:18
--- NOTE | 2025-04-01 14:43 | PC.NURSE ---
[facility] NOTIFIED OF ADMISSION
[2025-04-01] MEDS: MORPHINE 4MG/ML SYRINGE 4 MG IV (15:21)
--- NOTE | 2025-04-01 15:30 | PC.NURSE ---
report called to Hannah SEGUNDO
--- NOTE | 2025-04-01 16:31 | EXP.HP ---
History of Present Illness *Admission Date: 04/01/25 *Reason for visit:: spontaneous pneumothorax *History of present illness: Ms. Moran is a 49-year-old female with history of Aiqb-Rjbv-Jpgp syndrome, remote recurrent pneumothoraces, hypertension, thyroid nodules. She has had emphysematous changes in her lungs secondary to her underlying genetic condition. She presented to the ER with complaint of right sided chest pain and incidental finding on outpatient x-ray of possible pneumothorax on right side. CT scan obtained in the ER after discussion with pulmonology. Patient denies any significant shortness of breath. Had referred pain to her right lower chest, states in the past it has been to her back. No nausea or vomiting. No confusion. No fever or cough. Follows with Dr. Orozco for pulmonology. He was consulted, recommended pigtail placement. Medicine consulted for admission and further management. Pulmonology consulted, evaluated the patient in the ER. Recommend continuing pigtail catheter chest tube to suction -20 cm water. Continue DuoNebs 4 times a day as needed. Will consider repeat imaging in the morning monitor for resolution. On evaluation after arriving to the floor, patient pleasant, in no acute distress. Denies any pain after receiving morphine. Tolerating p.o. intake. [facility] Disclaimer: The information contained in this section may have been updated after the patient was seen, as this information can be updated by other users. 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 Surgical History History of appendectomy History of tonsillectomy H/O colectomy Family History Family/Other Cancer Mother Hyperlipidemia Father Hypertension Thyroid disorder Social History Smoking Status: Former smoker alcohol intake: never substance use type: denies use current occupational status: employed Travel in the last 8 weeks?: None Have you lived/traveled outside [place] in past 30 days?: No Contact w/someone who lives/traveled outside US past 30 days?: No Exposure to someone with infectious disease in past 14 days?: No Do you have a fever (greater than 100.4 F or 38 C)?: No Have you tested positive for COVID-19?: No Exposed to someone with COVID-19 in past 14 days?: No Do you have a sore throat?: No Do you have a cough?: No Do you have any weakness?: No Are you experiencing any nausea/vomitting?: No Do you have any diarrhea?: No Are you experiencing any unusual bleeding?: No Do you have any muscle aches/pain?: No Do you have any abdominal pain?: No Are you experiencing loss of taste or smell?: No Other Medical History Have you received the Pneumonia Vaccine: No Review of Systems Review of Systems Review of systems (narrative): 14 point review of systems performed, pertinent positives and negatives as per HPI Meds Home Medications and Allergies Home Medications ?Medication ?Instructions ?Recorded ?Confirmed ?Type albuterol 90 mcg-budesonide 80 2 inh inhalation .q6 PRN shortness 08/16/24 04/01/25 Rx mcg/actuation HFA aerosol inhaler of breath or wheezing #10.7 grams (Airsupra) cetirizine 10 mg tablet (Allergy 10 mg PO BID 08/16/24 04/01/25 History Relief (cetirizine)) losartan 100 mg tablet 100 mg PO DAILY 08/16/24 04/01/25 History atorvastatin 20 mg tablet 20 mg PO HS 12/17/24 04/01/25 History amlodipine 5 mg tablet 5 mg PO BID 04/01/25 04/01/25 History New Prescriptions to Start Prescriptions: Allergies Allergy/AdvReac Type Severity Reaction Status Date / Time shellfish derived Allergy Rash Verified 04/01/25 16:41 Exam Data for Last 24 hours Vital signs and Labs for Last 24 Hours: Temp Pulse Resp BP Pulse Ox O2 Del Method 98.4 F 59 L 18 112/80 99 Room Air 04/01/25 16:06 04/01/25 16:06 04/01/25 16:06 04/01/25 16:06 04/01/25 15:00 04/01/25 12:00 Laboratory Results - last 24 hr 04/01/25 11:20: WBC 6.5, RBC 4.44, Hgb 13.1, Hct 39.5, MCV 89.0, MCH 29.5, MCHC 33.2, RDW 13.6, Plt Count 258, MPV 10.6 H, Neut % (Auto) 60.0, Lymph % (Auto) 31.7, Cook % (Auto) 5.5, Eos % (Auto) 2.1, Baso % (Auto) 0.5, Neut # (Auto) 3.9, Lymph # (Auto) 2.1, Cook # (Auto) 0.4, Eos # (Auto) 0.1, Baso # (Auto) 0.0, Sodium 139, Potassium 4.1, Chloride 105, Carbon Dioxide 26, Anion Gap 12.1, BUN 10, Creatinine 0.70, Estimated Creat Clear 129, Estimated GFR 88, Est GFR ( Amer) 107, Glucose 108 H, Calcium 10.2, HCV Ab RAOUL w/Rflx PCR Qn Negative, HIV Ag/Ab Combo Qual Negative I & O for Last 24 hours: Intake & Output 03/29/25 03/30/25 03/31/25 04/01/25 23:59 23:59 23:59 23:59 Weight 85.729 kg Constitutional Constitutional: no acute distress and cooperative *Routine HEENT Exam Head: Present normocephalic Eye: Present EOMI and PERRL ENT: Present mucous membranes moist *Routine Neck Exam Neck: Present supple; Absent lymphadenopathy Routine Chest/Breast/Axilla Exam Comments: Pigtail in right thorax *Routine Respiratory Exam Respiratory: Present CTA bilaterally and crackles (Faint in right lower lung field); Absent rhonchi or wheezes *Routine Cardiovascular Exam Cardiovascular: Present RRR *Routine Abdominal Exam Abdominal: Present soft and normoactive bowel sounds; Absent tenderness *Routine Rectal Exam Rectal:: deferred *Routine Genitalia Exam Genitalia:: deferred *Routine Extremities Exam Extremities: Absent cyanosis, clubbing or edema *Routine Skin Exam Skin: Present intact and warm; Absent rash *Routine Neurological Exam Neurological: Present alert, oriented X3 and moving all extremities; Absent altered mental status Assessment and Plan *Assessment and plan (1) Pneumothorax, right: Status: Acute Category: Medical Code(s): J93.9 - Pneumothorax, unspecified (2) Secondary spontaneous pneumothorax: Status: Acute Category: Medical Code(s): J93.12 - Secondary spontaneous pneumothorax (3) Bullous emphysema: Status: Acute Category: Medical Code(s): J43.9 - Emphysema, unspecified (4) Prog-Xdqd-Cvnh syndrome: Status: Acute Category: Medical Code(s): Q87.89 - Other specified congenital malformation syndromes, not elsewhere classified (5) High blood pressure: Status: Acute Category: Medical Code(s): I10 - Essential (primary) hypertension Plan 49-year-old female who presents with spontaneous pneumothorax secondary to underlying genetic condition. Discussed case with ER, request admission for management after pigtail placement. Agreed to admit for further care. Problems addressed as follows: Spontaneous pneumothorax Rajendra-Mia Sara syndrome - Per my review of CT, has pneumothorax on right side. Status post chest tube placement. Placed to suction at -20 cm. - Pulmonology consulted, recommends continued suction. Breathing better at this time. Stable on room air. No nausea or vomiting. - Continue breathing treatments with DuoNebs 4 times a day as needed - No indication for antibiotics at this time. - White count normal at 6.5, hemoglobin 13.1. Kidney function electrolytes normal with sodium 139, potassium 4.1, BUN 10, creatinine 0.7. - Repeat CBC, CMP, magnesium ordered for the morning Hypertension: Continue amlodipine 5 mg twice daily, losartan 100 mg daily (irbesartan as formulary conversion 150 mg daily). Hyperlipidemia: Continue Lipitor 20 mg nightly Full code Holding anticoagulation Regular diet
[2025-04-01] MEDS: ATORVASTATIN 20MG TABLET 20 MG PO (20:39)
--- NOTE | 2025-04-01 20:45 | PC.NURSE ---
at approximately 2030 patient called out and reported having dizzy spells on and off through out the day and that it was happening again, patients BP checked and noted to be 94/32, hospitalist was contacted and notified of symptoms and findings, [employer] SUPER[employer]OR ordered 250 bolus of LR. While nurse was out of the room to get LR patient called out again and reported not feeling right and wanted her BP checked again, patient stated she felt flushed and said her tinnitus was going crazy . BP rechecked and found to be 129/74. new symptoms and findings reported to hospitalist. [employer]PPLY SUPERVISOR stated to hold off on giving fluids. patient instructed to call out if having anymore dizziness.
[2025-04-02] VITALS: BP 98/61; PULSE 61; RESP 16; TEMP 36.7; O2SAT 98
[2025-04-02] MEDS: RINGERS SOLUTION,LACTATED 500 ML 250 ML IV (01:32)
[2025-04-02] MEDS: ACETAMINOPHEN 325MG TAB 650 MG PO ×3 (02:19→18:41)
[2025-04-02 04:00] VITALS: BP 126/74; PULSE 54; RESP 14; TEMP 36.5; O2SAT 94; BMI 34.4
[2025-04-02 06:49] LABS: Basophils % 0.6 % (0.1-2.0); Eosinophils # 0.1 Kmm3 (0.0-0.4); Eosinophils % 1.7 % (0.1-12.0); Hematocrit 36.5 % (37.0-47.0); Hemoglobin 11.8 g/dL (12.2-16.2); Immature Granulocytes # 0.01 10^3uL; Immature Granulocytes % 0.2 %; Lymphocytes % 31.1 % (10-50); Mean Corpuscular HGB Conc 32.3 g/dL (31.8-35.4); Mean Corpuscular Hemoglobin 29.2 pg (27.0-31.2); Mean Corpuscular Volume 90.3 fl (81-99); Mean Platelet Volume 11.3 fl (7.4-10.4); Monocytes # 0.4 K/mm3 (0.1-1.0); Monocytes % 6.2 % (1.7-9.3); Neutrophils # 3.8 K/mm3 (1.8-7.8); Neutrophils % 60.2 % (37.0-80.0); Nucleated Red Blood Cells # 0 10^3/uL; Nucleated Red Blood Cells % 0 %; Platelet Count 215 K/mm3 (142-424); Red Blood Count 4.04 M/mm3 (4.20-5.40); Red Cell Distribution Width 13.7 % (11.5-17.5); Red Cell Distribution Width-SD 45.1 fL; White Blood Count 6.3 K/mm3 (4.8-10.8)
[2025-04-02 06:53] LABS: Alanine Aminotransferase 18 U/L (12-78); Albumin Level 4.1 g/dl (3.5-5.0); Albumin/Globulin Ratio 1.7 (1.1-1.8); Alkaline Phosphatase 77 U/L (38-126); Anion Gap 7.3 mEq/L (5-15); Aspartate Amino Transferase 27 U/L (14-36); Bilirubin,Total 0.5 mg/dl (0.2-1.3); Blood Urea Nitrogen 10 mg/dl (7-17); Calcium 9.4 mg/dl (8.4-10.2); Carbon Dioxide 29 mmol/L (22.0-30.0); Chloride 106 mmol/L (98-107); Creatinine Clearance Estimated 116 mL/min (50-200); Estimated Glomerular Filt Rate 76 ml/min (>60); GFR (African American) 92 ML/MIN (>60); Globulin 2.4 g/dL (1.3-3.2); Glucose 93 mg/dl (74-100); Magnesium 1.9 mg/dl (1.6-2.3); Potassium 4.3 mmoL/L (3.5-5.1); Sodium 138 mmol/L (136-145); Total Protein,Serum 6.5 g/dl (6.3-8.2)
[2025-04-02 07:22] LABS: Thyroid Stimulating Hormone 2.93 uIU/mL (0.465-4.68)
[2025-04-02 07:51] LABS: Free T4 (Free Thyroxine) 1.04 ng/dl (0.78-2.19)
[2025-04-02 08:00] VITALS: BP 124/75; PULSE 66; RESP 17; TEMP 36.4; O2SAT 99
--- NOTE | 2025-04-02 08:19 | XR_ITS ---
FINAL REPORT CLINICAL HISTORY: Follow-up pneumothorax COMPARISON: 04/01/2025 FINDINGS: A single view of the chest was obtained. There is recurrence of a small right pneumothorax seen in the lateral base. A right pleural catheter is again noted; however, the catheter tip is likely retracted into the chest wall soft tissues. There are linear densities right lung base compatible with scarring. The left lung is clear. IMPRESSION: Recurrent small right pneumothorax with retraction of the right pleural catheter likely into the chest wall. Reviewed, Interpreted and Dictated by Gonsalo Flores MD Transcribed by Maryuri Amador Authenticated and [facility]
--- NOTE | 2025-04-02 09:31 | P.PN_ITS ---
Subjective *Date: 04/02/25 *Time: 13:46 Interval history: No acute respiratory vents overnight. Patient denies any new respiratory complaints. Pulmonology Exam Inpatient Vital signs and Labs for Last 24 Hours: Temp Pulse Resp BP Pulse Ox O2 Del Method 97.6 F 66 17 124/75 99 Room Air 04/02/25 08:00 04/02/25 08:00 04/02/25 08:00 04/02/25 08:00 04/02/25 08:00 04/02/25 08:58 Laboratory Results - last 24 hr 04/01/25 11:20: WBC 6.5, RBC 4.44, Hgb 13.1, Hct 39.5, MCV 89.0, MCH 29.5, MCHC 33.2, RDW 13.6, Plt Count 258, MPV 10.6 H, Neut % (Auto) 60.0, Lymph % (Auto) 31.7, Perry % (Auto) 5.5, Eos % (Auto) 2.1, Baso % (Auto) 0.5, Neut # (Auto) 3.9, Lymph # (Auto) 2.1, Perry # (Auto) 0.4, Eos # (Auto) 0.1, Baso # (Auto) 0.0, Sodium 139, Potassium 4.1, Chloride 105, Carbon Dioxide 26, Anion Gap 12.1, BUN 10, Creatinine 0.70, Estimated Creat Clear 129, Estimated GFR 88, Est GFR ( Amer) 107, Glucose 108 H, Calcium 10.2, HCV Ab RAOUL w/Rflx PCR Qn Negative, HIV Ag/Ab Combo Qual Negative 04/02/25 05:40: WBC 6.3, RBC 4.04 L, Hgb 11.8 L, Hct 36.5 L, MCV 90.3, MCH 29.2, MCHC 32.3, RDW 13.7, Plt Count 215, MPV 11.3 H, Neut % (Auto) 60.2, Lymph % (Auto) 31.1, Perry % (Auto) 6.2, Eos % (Auto) 1.7, Baso % (Auto) 0.6, Neut # (Auto) 3.8, Lymph # (Auto) 2.0, Perry # (Auto) 0.4, Eos # (Auto) 0.1, Baso # (Auto) 0.0, Sodium 138, Potassium 4.3, Chloride 106, Carbon Dioxide 29, Anion Gap 7.3, BUN 10, Creatinine 0.80, Estimated Creat Clear 116, Estimated GFR 76, Est GFR ( Amer) 92, Glucose 93, Calcium 9.4, Magnesium 1.9, Total Bilirubin 0.5, AST 27, ALT 18, Alkaline Phosphatase 77, Total Protein 6.5, Albumin 4.1, Globulin 2.4, Albumin/Globulin Ratio 1.7, TSH 2.93, Free T4 1.04 Temp Pulse Resp BP Pulse Ox O2 Del Method 97.9 F 63 19 154/89 H 96 Room Air 04/01/25 11:32 04/01/25 12:00 04/01/25 11:32 04/01/25 12:00 04/01/25 12:00 04/01/25 12:00 Laboratory Results - last 24 hr 04/01/25 11:20: WBC 6.5, RBC 4.44, Hgb 13.1, Hct 39.5, MCV 89.0, MCH 29.5, MCHC 33.2, RDW 13.6, Plt Count 258, MPV 10.6 H, Neut % (Auto) 60.0, Lymph % (Auto) 31.7, Perry % (Auto) 5.5, Eos % (Auto) 2.1, Baso % (Auto) 0.5, Neut # (Auto) 3.9, Lymph # (Auto) 2.1, Perry # (Auto) 0.4, Eos # (Auto) 0.1, Baso # (Auto) 0.0, Sodium 139, Potassium 4.1, Chloride 105, Carbon Dioxide 26, Anion Gap 12.1, BUN 10, Creatinine 0.70, Estimated Creat Clear 129, Estimated GFR 88, Est GFR ( Amer) 107, Glucose 108 H, Calcium 10.2 I & O for Labs for Last 24 Hours: Intake & Output 03/30/25 03/31/25 04/01/25 04/02/25 23:59 23:59 23:59 23:59 Intake Total 360 / 1100 1100 / 1100 Balance 360 / 1100 1100 / 1100 Weight 191 lb 1 oz 194 lb 12.8 oz Intake & Output 03/29/25 03/30/25 03/31/25 04/01/25 23:59 23:59 23:59 23:59 Weight 189 lb Constitutional: Present no acute distress Head: Present normocephalic and atraumatic ENT: Present normal exam, normal oropharynx and mucous membranes moist Neck: Present normal inspection and full ROM Respiratory: Present normal respiratory effort and able to speak in complete sen tences; Absent prolonged expiratory phase, respiratory distress, wheezes, crackles or diminished air movement Cardiac: Present S1/S2, Tachycardia and radial pulses present GI: Present soft and distention; Absent tenderness or guarding Rectal (female): Present deferred (female): Present deferred Skin: Present intact; Absent cyanosis or jaundice Neuro: Present alert, awake and oriented x 3 Extremities: Present normal inspection; Absent clubbing or cyanosis Psychiatric: Present normal affect and cooperative Assessment and Plan *Assessment and plan (1) Bullous emphysema: Status: Acute Category: Medical Code(s): J43.9 - Emphysema, unspecified (2) Recurrent pneumothorax: Status: Acute Category: Medical Code(s): J93.9 - Pneumothorax, unspecified (3) Secondary spontaneous pneumothorax: Status: Acute Category: Medical Code(s): J93.12 - Secondary spontaneous pneumothorax Plan Ms. Moran is a 49-year-old female history of recurrent pneumothorax, Rajendra Hobb Sara syndrome was transferred to [facility] from [facility] as patient found to be having pneumothorax when she presented for for elective barium swallow procedure. Upon presentation to the ER CT performed, noted to have right-sided lateral pneumothorax with a pleural separation of greater than 2 cm. Significant bullous changes noted. She denies any prior pleurodesis procedures. Despite the concerning pleural thickening adjacent to the noted pneumothorax this is less likely to be trapped lung as this pneumothorax was not reported on her CT scan from prior. Patient denies any respiratory distress. She complains of nonspecific right- sided chest pain that has been ongoing for the last 2 weeks with no worsening or improving respiratory symptoms Despite patient being asymptomatic, given her significant bullous changes and being secondary spontaneous pneumothorax she will benefit from pigtail catheter placement with pneumothorax resolution of the conservative management at this point of time. Interval update: Status post pigtail catheter placement with near complete resolution of pneumothorax. Repeat chest x-ray from this morning concerning for pigtail cat heter dislodgment. Recurrence of pneumothorax. Plan: Continue pigtail catheter placement with chest tube to suction -20 cm Oxygen supplementation via nonrebreather 100% Repeat chest x-ray to further determine conservative route/chest tube replacement
[2025-04-02 12:00] VITALS: BP 121/71; PULSE 59; RESP 16; TEMP 36.7; O2SAT 98
--- NOTE | 2025-04-02 13:46 | XR_ITS ---
FINAL REPORT CLINICAL HISTORY: Pneumothorax COMPARISON: 5-1/2 hours prior FINDINGS: A single view of the chest was obtained. There is a stable right lateral basilar pneumothorax. There is mild right basilar scarring. The left lung is clear. There is a small caliber right pleural catheter seen in the chest wall soft tissues. IMPRESSION: Stable right pneumothorax. Reviewed, Interpreted and Dictated by Gonsalo Flores MD Transcribed by Maryuri Amador Authenticated and [facility]
[2025-04-02 16:00] VITALS: BP 124/77; PULSE 52; RESP 17; TEMP 36.5; O2SAT 100
--- NOTE | 2025-04-02 18:00 | XR_ITS ---
PROCEDURE INFORMATION: Exam: XR Chest Exam date and time: 04/02/2025 6:02 PM Age: 49 years old Clinical indication: Device placement; Chest tube; Additional info: Pneumothorax evaluation TECHNIQUE: Imaging protocol: Radiologic exam of the chest. Views: 1 view. COMPARISON: 1. CR XR CHEST PORTABLE 04/02/2025 1:50 PM 2. CR XR CHEST PORTABLE 04/02/2025 8:20 AM 3. CR XR CHEST PORTABLE 04/01/2025 1:51 PM FINDINGS: Tubes, catheters and devices: Small caliber pleural drainage catheter located in the chest wall soft tissues. Lungs: Right mid and lower lung [place] fibro atelectatic changes redemonstrated. Lungs are otherwise clear. Pleural spaces: Stable small loculated right lower lung field pneumothorax. Heart/Mediastinum: Unremarkable. No cardiomegaly. Bones/joints: Unremarkable. IMPRESSION: Stable chest with right basilar pneumothorax and adjacent fibro atelectatic changes. The pleural drainage catheter is stable in position in the chest wall but no longer extends into the pleural cavity.
--- NOTE | 2025-04-02 18:51 | P.EN_ITS ---
removed rt chest tube; patient tolerated well
--- NOTE | 2025-04-02 18:51 | EXP.EVENT.NO ---
removed rt chest tube; patient tolerated well
--- NOTE | 2025-04-03 10:26 | SW/DCPLANNER ---
Spoke with patient on the phone. Patient stated that she is feeling a lot better. Patient stated that she has called her PCP and is aware of her upcoming appointments. Patient stated that she was not prescribed any new medicine. Patient stated that she has no concerns or questions at this time. Darain Manning
[2025-04-03 19:29] LABS: Cortisol,AM 12.6 ug/dL (6.2-19.4)
--- NOTE | 2025-04-29 20:07 | EXP.DC.SUM ---
General Admission date:: 04/01/25 Discharge date: 04/02/25 HPI HPI HPI: Ms. Moran is a 49-year-old female with history of Qpmk-Ynnd-Sycv syndrome, remote recurrent pneumothoraces, hypertension, thyroid nodules. She has had emphysematous changes in her lungs secondary to her underlying genetic condition. She presented to the ER with complaint of right sided chest pain and incidental finding on outpatient x-ray of possible pneumothorax on right side. CT scan obtained in the ER after discussion with pulmonology. Patient denies any significant shortness of breath. Had referred pain to her right lower chest, states in the past it has been to her back. No nausea or vomiting. No confusion. No fever or cough. Follows with Dr. Orozco for pulmonology. He was consulted, recommended pigtail placement. Medicine consulted for admission and further management. Pulmonology consulted, evaluated the patient in the ER. Recommend continuing pigtail catheter chest tube to suction -20 cm water. Continue DuoNebs 4 times a day as needed. Will consider repeat imaging in the morning monitor for resolution. On evaluation after arriving to the floor, patient pleasant, in no acute distress. Denies any pain after receiving morphine. Tolerating p.o. intake. Hospital Course Hospital Course Hospital Course: Patient presented with spontaneous pneumo had PEG tube in place. Resolution of occurred with chest tube to atrium. Removed pigtail prior to patient being discharged. Patient tolerated procedure well Exam Data for Last 24 hours Vital signs and Labs for Last 24 Hours: Temp Pulse Resp BP Pulse Ox O2 Del Method O2 Flow Rate 97.7 F 52 L 17 124/77 100 Non-Rebreather 15 04/02/25 16:00 04/02/25 16:00 04/02/25 16:00 04/02/25 16:00 04/02/25 16:00 04/02/25 17:00 04/02/25 17:00 Constitutional Constitutional: no acute distress *Routine HEENT Exam Head: Present normocephalic and atraumatic *Routine Neck Exam Neck: Present supple, full ROM and trachea midline *Routine Respiratory Exam Respiratory: Present CTA bilaterally Comments: Remove pigtail chest tube *Routine Cardiovascular Exam Cardiovascular: Present RRR, Normal S1 and Normal S2 *Routine Abdominal Exam Abdominal: Present soft and normoactive bowel sounds *Routine Rectal Exam Comments: Deferred *Routine Exam Comments: Deferred *Routine Extremities Exam Extremities: Present full ROM and normal capillary refill Routine Back/Spine/Pelvis Exam Back/Spine: Present full ROM *Routine Skin Exam Skin: Present intact and dry *Routine Neurological Exam Neurological: Present alert, oriented X3, CN II-XII intact and moving all extremities Routine Psychiatric Exam Psychiatric: Present normal affect, normal thought process, cooperative, good insight and good judgment DS: Diagnosis Discharge Diagnosis (1) Bullous emphysema: Start date: 04/02/25 Start time: 20:10 Status: Resolved Code(s): J43.9 - Emphysema, unspecified Problem details: Right pneumothorax-resolved (2) Recurrent pneumothorax: Start date: 04/02/25 Start time: 20:11 Status: Resolved Code(s): J93.9 - Pneumothorax, unspecified (3) Secondary spontaneous pneumothorax: Start date: 04/02/25 Start time: 20:11 Status: Resolved Code(s): J93.12 - Secondary spontaneous pneumothorax Meds Home Medications and Allergies Home Medications ?Medication ?Instructions ?Recorded ?Confirmed ?Type cetirizine 10 mg tablet (Allergy 10 mg PO BID 08/16/24 04/04/25 History Relief (cetirizine)) losartan 100 mg tablet 100 mg PO DAILY 08/16/24 04/04/25 History atorvastatin 20 mg tablet 20 mg PO HS 12/17/24 04/04/25 History amlodipine 5 mg tablet 5 mg PO BID 04/01/25 04/04/25 History Held on 04/02/25. Instructions: Resume on 04/08/25. hold until you see PCP albuterol 90 mcg-budesonide 80 1 puff inhalation Q6HP PRN 04/02/25 04/04/25 History mcg/actuation HFA aerosol inhaler Shortness Of Breath Or Wheezing (Airsupra) levothyroxine 25 mcg tablet 25 mcg PO DAILY 04/02/25 04/04/25 History omeprazole 40 mg capsule,delayed 40 mg PO DAILY 04/02/25 04/04/25 History release budesonide-formoterol HFA 160 2 puff inhalation BID 90 days 04/04/25 04/04/25 Rx mcg-4.5 mcg/actuation aerosol #10.2 grams inhaler New Prescriptions to Start Prescriptions: Allergies Allergy/AdvReac Type Severity Reaction Status Date / Time shellfish derived Allergy Rash Verified 04/04/25 11:42 Discharge Plan Disposition Patient Disposition: Home, Self-Care Condition: Good Discharge Order Discharge Orders: Discharge Order (Routine); Ordered 04/02/25 Ordered By: Kaiden Woods Follow up Plan Follow up with: Manuel Higgins MD [Physician, Pulmonology] - 04/04/25 11:20 am Prescriptions/Medication Reconciliation: Continued losartan 100 mg tablet 100 mg PO DAILY Patient Comments: TAKE 1 TABLET BY MOUTH EVERY DAY cetirizine [Allergy Relief (cetirizine)] 10 mg tablet 10 mg PO BID atorvastatin 20 mg tablet 20 mg PO HS omeprazole 40 mg capsule,delayed release(DR/EC) 40 mg PO DAILY levothyroxine 25 mcg tablet 25 mcg PO DAILY Airsupra 90-80 mcg/actuation HFA aerosol inhaler 1 puff INHALATION Q6HP PRN (Reason: Shortness Of Breath Or Wheezing) Held amlodipine 5 mg tablet 5 mg PO BID Hold Instructions: Resume on 04/08/25. hold until you see PCP Patient Comments: TAKE 1 TO 2 TABLETS BY MOUTH EVERY DAY No Action budesonide-formoterol 160-4.5 mcg/actuation HFA aerosol inhaler 2 puff inhalation BID 90 Days Qty: 10.2 2RF Problem Reconciliation Problems Reviewed?: Yes Patient Discharge Instructions ACTIVITY: No heavy lifting DIET: continue same diet Patient Instructions: DI for Emphysema, DI for Pneumothorax, DI for Chest Tube Insertion Print Language: Nigerian Providers Primary Care Provider: Felisa Baca Admit Provider: Turnre Christopher Attending Provider: Turner Christopher
== END 2025-04-02 19:02 | disposition home or self-care (01) | DRG 564 ==
LOC: ER 14:00 → 2ND 17:50
PROVIDERS: Internal Medicine Adolescent Medicine; Nurse Practitioner Family; Admitting Provider Student in an Organized Health Care Education/Training Program; Emergency Provider Emergency Medicine; PCP Family Medicine; Visit Provider Student in an Organized Health Care Education/Training Program
DX: Q87.89 Other specified congenital malformation syndromes, not elsewhere classified (principal); E84.0 Cystic fibrosis with pulmonary manifestations; J93.12 Secondary spontaneous pneumothorax; J43.9 Emphysema, unspecified; R91.1 Solitary pulmonary nodule; J45.909 Unspecified asthma, uncomplicated; I10 Essential (primary) hypertension; E78.5 Hyperlipidemia, unspecified; Z79.899 Other long term (current) drug therapy; Z79.01 Long term (current) use of anticoagulants; Z86.73 Personal history of transient ischemic attack (TIA), and cerebral infarction without residual deficits; Z85.038 Personal history of other malignant neoplasm of large intestine; Z90.49 Acquired absence of other specified parts of digestive tract; Z90.89 Acquired absence of other organs; Z80.9 Family history of malignant neoplasm, unspecified; Z82.49 Family history of ischemic heart disease and other diseases of the circulatory system; Z87.891 Personal history of nicotine dependence; Z83.438 Family history of other disorder of lipoprotein metabolism and other lipidemia; Z79.890 Hormone replacement therapy; Z79.51 Long term (current) use of inhaled steroids; Z91.013 Allergy to seafood; Z91.09 Other allergy status, other than to drugs and biological substances; Z83.49 Family history of other endocrine, nutritional and metabolic diseases
CPT/HCPCS: 32551; 36415; 71045; 71250; 80048; 80053; 82533; 83735; 84439; 84443; 85025; 86803; 87389; 93005; 99291; J1885; J2270; J2405; J7120

== ENCOUNTER 2025-04-04 12:03 | Outpatient (CLI) | payer BC, SELFPAY ==
--- OUTSIDE RECORDS SUMMARY | 2025-04-04 12:06 | XMS_ITS | Continuity of Care Document ---
Author Organization [place] - NT [facility] - [place] Address [address] [facility] [address] [place] [address] Care Team Providers Care Patient Svcs Mgr Name Role Phone DA COELLO Primary Care Provider [phone] Assessment No assessment recorded. Plan of Treatment Reminders Order Date Submit Date Provider Last Modified By Organization Details Last Modified Time Details Appointments HFU 2024 10:30A M Da Coello MD Not available Not available Not available OV EST 15 2024 10:15A M Da Coello MD Not available Not available Not available OV EST 2024 01:00P M Sukhjinder Rhodes MD Not available Not available Not available FOLLOW UP 2024 10:15A M Fernando Duke MD Not [...] Abnormal Flag Note LastModifiedBy Organization Detail LastModifiedTime 04/01/2004/01/2025 CT, chest , w/o contr ast No observ ation record ed. [email or web address] [facility] [address], [place], [address], 04/04/2025 09:47:02 04/01/20 25 04/01/2025 XR, chest No observ ation record ed. [email or web address], [place], [address], 04/04/2025 09:49:02 04/02/20 25 04/01/2025 elect loren trejo am, jeremiasi ne ECG, 12 leads min No observ ation record ed. [address], [place], [place], [address], 04/04/2025 09:49:29 04/02/20 25 04/02/2025 XR, chest No observ ation record ed. [address], [place], [place], [address], 04/04/2025 09:49:43 04/02/20 25 04/02/2025 XR, chest No observ ation record ed. [address], [place], [place], [address], 04/04/2025 09:49:55 04/02/20 25 04/02/2025 XR, chest No observ ation record ed. [address] [place] [address], [place], [place], [address], 04/04/2025 09:50:24 Result Notes None recorded. 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 Procedures Surgical History Date Name Laterality Status Provider Name and Address Organization Details Recorded Time 01/31/20 25 Date of Last Colonoscopy completed Yulisa [place] [facility] - [place] & [place] 01/30/2025 10:59:42 01/31/20 25 Colonoscopy completed Elida [place]amer [place] - [facility] - [place] & [place] 03/11/2025 12:11:50 10/21/20 24 Most Recent Mammogram completed Elida [place] [facility] [place] & [place] 12/12/2024 18:35:51 06/19/20 23 completed Elida [place]amer [place] [facility] [place] & [place] 06/17/2024 16:21:21 06/19/20 23 Date of Last Pap Smear completed Elida [place] [facility] [place] & [place] 06/17/2024 16:21:21 11/13/19 23 Cancer Surgery completed Elida [place] [facility] [place] & [place] 06/17/2024 16:21:44 11/13/19 23 Colonoscopy completed Elida [place] [facility] [place] & [place] 06/17/2024 16:21:44 left colectomy completed Danette Curt [place] [facility] [place] & [place] 05/29/2024 15:13:22 Remove tonsils and adenoids completed Danette Crut [place] [facility] [place] & [place] 05/29/2024 15:13:34 appendectomy completed Danette Curt [place] [facility] [place] & [place] 05/29/2024 15:13:40 operation on hip joint completed Danette Curt [place] [facility] [place] & [place] 05/29/2024 15:15:10 Imaging Results None recorded. Procedure Notes None recorded. Medical Equipment None Reported. Allergies Allergen ID Allergen Name Allergen Category Reaction Reaction Severity Criticality Documentation Date Start Date Code Code System Note Provider Name and Address Organization Details Recorded Time 126825 shellfish derived food,medi cation hives rash mild mild Not available 05/29/2024 66088 [facility]K [facility] [place] 4 16:21:11 047944 iopamidol medicatio n rash Not available Not available 12/12/2024 5966 RxNorm Elida carrion, [facility] & [place] 5 18:36:38 501789 iodine medicatio n rash Not available Not available 12/12/2024 5933 RxNorm Elida carrion, [facility] & [place] 5 18:37:27 Medications Name Sig Start Date [...] Updated DateTime 5 157.48 cm 35.7 kg/m2 26604.5 1 g 97.5 [degF] 94 % 94 % 67 /min 122 mm[Hg] 86 mm[Hg] Nataliia Barnes [facility] & [place] 5 10:03:16 Social History Question Answer Notes LastModified by Organizat ion Details LastModified Time Tobacco Smoking Status Former Smoker Danette Elias [facility], [place] - [facility] & [place] 05/29/2024 15:12:30 Do You Have An Advance Directive? No Information not available 06/17/2024 Are You Blind Or Do You Have Difficulty Seeing? No Information not available 06/17/2024 What Is Your Level Of Caffeine Consumption? Moderate [email or web address] Information not available 05/29/2024 When Did You Quit Smoking? 14+yearssince lastcigarette At Like 20 Yrs Old [email or web address] Information not available 05/29/2024 What Was The Date Of Your Most Recent Tobacco Screening? 05/29/2024 Information not available 06/17/2024 At What Age Did You Start Smoking Tobacco? 14 [email or web address] Information not available 05/29/2024 Are You Passively Exposed To Smoke? No Information not available 06/17/2024 How Much Tobacco Do You Smoke? No Information not available 06/17/2024 Has Tobacco Cessation Counseling Been Provided? No [email or web address] Information not available 05/29/2024 Sex: Female Functional Status Question Answer Note LastModified by Organizat ion Details LastModified Time Do you use any illicit or recreational drugs? No [email or web address] Information not available 05/29/2024 Do you or have you ever used any other forms of tobacco or nicotine? No [email or web address] Information not available 05/29/2024 What is your level of alcohol consumption? 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 Moderate Information not available 06/17/2024 Mental Status Question Answer Note LastModified by Organization D etails LastModified Time Do you feel stressed (tense, restless, nervous, or anxious, or unable to sleep at night)? [id number] Information not available 06/17/2024 Family History Relationship [...] Not available 2024 11:01:43 Father Hypertensive disorder [email or web address] Not available 05/29 15:05:48 Mother Chronic obstructive pulmonary disease [email or web address] Not available 05/29 15:05:57 Mother Diabetes mellitus type 2 [email or web address] Not available 2024 11:01:43 Mother Heart disease [email or web address] Not available 05/29 15:06:50 Mother Hyperlipidem ia [...] SNOMED-CT Code Diagnosis ICD10 Code Diagnosis Note [id number] Da Coello MD [facility] [address] [facility] [address] 03/03/2025 08:54:04 03/03/2025 09:47:01 Brianda thyroiditis 43387799 E06.3 Essential hypertension 51317301 I10 [id number] Da Coello MD [facility] [address] [facility] [address] 03/31/2025 09:58:15 03/31/2025 10:44:30 Essential hypertension 74166955 I10 I do think a degree of her mild swelling is relatd to her amlodipine and we discussed trying 5mg BID instead of 10mg at once to see if this helps but that we can certainly make changes if needed, pt would like to hold on that currently. 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 Start 81 daily Essential hypertension 05533238 I10 Continue current medication . Keep log Low-salt diet < 2 gm Na/day, Regular exercise Weight loss Hyperlipidemia 41855137 E78.5 Continue statin Low fat/carboh ydrate diet Increase exercise Lose weight Body mass index 30+ - obesity 469877601 Z68.34 Low-carboh ydrate and low-fat diet Increase [...] Holman Member ID Guarantor Name 03/31/2025 1 [employer] [id number] Killian S Dean [id number] Rosie Moran Notes Date Note Type [...] this is the omeprazole. Da Coello MD [address] [facility], [place], [address], [facility] - [place] & [place] 03/31/2025 12:59:32 OBGyn Episode No OBEpisode recorded.
--- OUTSIDE RECORDS SUMMARY | 2025-04-04 12:06 | XMS_ITS | Continuity of Care Document ---
Author Organization [facility] - [place] & [place], [facility] - [place] Address [address] [place] [address] Care Team Providers Care Websphere Portal Architect Name Role Phone DA BACA Primary Care Provider Assessment No assessment recorded. Plan of Treatment Reminders Order Date Submit Date Provider Last Modified By Organization Details Last Modified Time Details Appointments HFU 30 2024 10:30A M Da Baca MD Not available Not [...] None recorded. Imaging US, thyroid [address] (Centralized Scheduling), [address] [facility], [place], [address], 02/20/2025 13:17:48 Medication Orders levothyro xine 25 mcg tablet 2024 025 [id number], [address] [facility], [place], [address], 02/24/2025 08:49:08 Patient TargetsNo targets recorded. Patient InstructionsNo instructions recorded. Reason for Referral None Reported. Results Created Date Observation Date Name Description Value Unit Range Abnormal Flag Note LastModifiedBy Organization Detail LastModifiedTime 01/25/2001/20/2025 US, thyro id [facility] [address] [place] [address] Phone: Fax: Name: ROSIE STEPHENSON Exam Date: 025 : 974 Age 49 years Gender : F Access ion: [id number] Physic elfego: DA BACA Facili ty: [facility] Facili ty HSV: Outpat [...] wider than tall and contai ns no commander internal affairs al echoge alaina foci. It is classi fied as TI RADS 4 and requir es follow -up at this size. 7 mm isoech oic, smooth ly margin ated solid nodule is noted within the latera l midpol e. It is wider than tall and contai ns no commander internal affairs al echoge alaina foci. It is catego rized as TI RADS 3 and does not requir e follow -up at this size. 12 mm hetero geneou s, predom inantl y hypoec hoic solid nodule is seen within the moto mix operator ior lower pole. It is wider than tall, has ill-de fined margin s, and contai ns no commander internal affairs al echoge alaina foci. It is classi [...] fined margin s, and contai ns no commander internal affairs al echoge alaina foci. It is classi [...] Thank you for referr ROSIE Lane to [facility]. Legall y authen ticate d by CHYNA BARTLETT 0 01-20 14:18: 04 CC'ed Logic: Orderi ng Provid er: TRISHA ROBERSON CC Provid er: TRISHA ROBERSON Attend ing Provid er: TRISHA ROBERSON Referr ing Provid er: TRISHA ROBERSON Admitt ing Provid er: TRISHA ROBERSON [email or web address] [facility] [address] [facility], [place], [address], 01/27/2025 15:51:59 01/28/20 25 01/27/2025 US, duple x, renal arter y [facility] [address] [place] [address] Phone: Fax: Name: ROSIE STEPHENSON Exam Date: : 9[birth year] Age 49 years Gender : F Access ion: [id number] 00 [id number] Physic elfego: DA BACA Facili ty: [facility] Facili ty HSV: Outpat ient Exam: US RENAL DOPPLE R RENAL DUPLEX DOPPLE R ULTRAS OUND INDICA TION: Hypert ension . PROCED URE: Routin e sonogr aphic evalua tion of the kidney s was perfor med utiliz ing graysc amry and color Dopple r ultras ound. Duplex [...] Electr onical ly signed by: CRISTOFER BARRON Thank you for referr ROSIE Lane to [facility]. Legall y authen ticate d by HAO RUIZ 01-27 15:02: 59 CC'ed Logic: Orderi ng Provid er: TRISHA ROBERSON CC Provid er: TRISHA ROBERSON Attend ing Provid er: TRISHA ROBERSON Referr ing Provid er: TRISHA ROBERSON Admitt ing Provid er: TRISHA ROBERSON [address] - Physical Therapy [address], [place], [address], 01/28/2025 15:21:34 04/01/20 25 04/01/2025 CT, chest , w/o contr ast No observ ation record ed. [address], [place], [address], 04/04/2025 09:47:02 04/01/20 25 04/01/2025 XR, chest No observ ation record ed. [address], [place], [address], 04/04/2025 09:49:02 04/02/20 25 04/01/2025 elect loren trejo am, routi ne ECG, 12 leads min No observ ation record ed. [address], [place], [address], 04/04/2025 09:49:29 04/02/20 25 04/02/2025 XR, chest No observ ation record ed. [address], [place], [address], 04/04/2025 09:49:43 04/02/20 25 04/02/2025 XR, chest No observ ation record ed. [address], [place], [address], 04/04/2025 09:49:55 04/02/20 25 04/02/2025 XR, chest No observ ation record ed. [email or web address] [facility] [address], [place], [address], 04/04/2025 09:50:24 Result Notes None recorded. 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 Procedures Surgical History Date Name Laterality Status Provider Name and Address Organization Details Recorded Time 01/31/20 25 Date of Last Colonoscopy completed Yulisa [place] [facility] - [place] & [place] 01/30/2025 10:59:42 01/31/20 25 Colonoscopy completed Elida Wilfrid [place] [facility] [place] & [place] 03/11/2025 12:11:50 10/21/20 24 Most Recent Mammogram completed Elida [place] [facility] [place] & [place] 12/12/2024 18:35:51 06/19/20 23 completed Elida [place]amer [place] - [facility] & [place] 06/17/2024 16:21:21 06/19/20 23 Date of Last Pap Smear completed Elida [place] - [facility] - [place] & [place] 06/17/2024 16:21:21 11/13/19 23 Cancer Surgery completed Elida [place]amer [place] - [facility] - [place] & [place] 06/17/2024 16:21:44 11/13/19 23 Colonoscopy completed Elida [place]amer [place] - [facility] - [place] & [place] 06/17/2024 16:21:44 left colectomy completed Danette [place] - [facility] & [place] 05/29/2024 15:13:22 Remove tonsils and adenoids completed Danette [place] - [facility] & [place] 05/29/2024 15:13:34 appendectomy completed Danette [place] - [facility] & [place] 05/29/2024 15:13:40 operation on hip joint completed Danette [place] - [facility] & [place] 05/29/2024 15:15:10 Imaging Results None recorded. Procedure Notes None recorded. Medical Equipment None Reported. Allergies Allergen ID Allergen Name Allergen Category Reaction Reaction Severity Criticality Documentation Date Start Date Code Code System Note Provider Name and Address Organization Details Recorded Time 705675 shellfish derived food,medi cation hives rash mild mild Not available 05/29/2024 00779 UNK Elida [place] null, [place] - [facility] & [place] 4 16:21:11 938777 iopamidol medicatio n rash Not available Not available 12/12/2024 5966 RxNorm Elida [place] null, [place] [facility] & [place] 18:36:38 987655 iodine medicatio n rash Not available Not available 12/12/2024 5933 RxNorm Elida [place], [place] [facility] [place] & [place] 18:37:27 Medications Name Sig Start [...] Updated DateTime 02/20/2025 157.48 cm 35.5 kg/m2 06781.92 g 97.4 [degF] Brooklyn Sanchez [facility] & [place] 02/20/2025 11:17:01 Social History Question Answer Notes LastModified by Organizat ion Details LastModified Time Tobacco Smoking Status Former Smoker Danette Curt [facility], [facility] & [place] 05/29/2024 15:12:30 Do You Have An Advance Directive? No Information not available 06/17/2024 Are You Blind Or Do You Have Difficulty Seeing? No Information not available 06/17/2024 What Is Your Level Of Caffeine Consumption? Moderate [email or web address] Information not available 05/29/2024 When Did You Quit Smoking? 14+yearssince lastcigarette At Like 20 Yrs Old [email or web address] Information not available 05/29/2024 What Was The Date Of Your Most Recent Tobacco Screening? 05/29/2024 Information not available 06/17/2024 At What Age Did You Start Smoking Tobacco? 14 [email or web address] Information not available 05/29/2024 Are You Passively Exposed To Smoke? No Information not available 06/17/2024 How Much Tobacco Do You Smoke? No Information not available 06/17/2024 Has Tobacco Cessation Counseling Been Provided? No [email or web address] Information not available 05/29/2024 Sex: Female Functional Status Question Answer Note LastModified by Organizat ion Details LastModified Time Do you use any illicit or recreational drugs? No [email or web address] Information not available 05/29/2024 Do you or have you ever used any other forms of tobacco or nicotine? No [email or web address] Information not available 05/29/2024 What is your level of alcohol consumption? 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 Moderate Information not available 06/17/2024 Mental Status Question Answer Note LastModified by Organization D etails LastModified Time Do you feel stressed (tense, restless, nervous, or anxious, or unable to sleep at night)? [email or web address] Information not available 06/17/2024 Family History Relationship [...] Not available 2024 11:01:43 Father Hypertensive disorder [email or web address] Not available 05/29 15:05:48 Mother Chronic obstructive pulmonary disease [email or web address] Not available 05/29 15:05:57 Mother Diabetes mellitus type 2 [email or web address] Not available 2024 11:01:43 Mother Heart disease [email or web address] Not available 05/29 15:06:50 Mother Hyperlipidem ia [...] SNOMED-CT Code Diagnosis ICD10 Code Diagnosis Note [id number] Da Baca MD [address] [place] [address] 01/20/2025 10:55:15 01/20/2025 11:57:34 Resistant hypertensive disorder 2520460667 21160 I1A.0 Brianda thyroiditis 21 524175 E06.3 [id number] Da Baca MD [address] [place] [address] 02/04/2025 09:54:52 02/04/2025 10:33:34 Thyroid nodule 910902405 E04.1 After discussion , patient would like [...] swallowing as well. Autoantibo dy titer detected 750618465 R76.8 Dysphagia 06744867 R13.1 9 [id number] Rahel Le MD [facility] [address] [place] [address] 02/20/2025 10:59:26 02/20/2025 11:39:56 Imaging of thyroid gland abnormal 351101833 R93.89 Have ordered repeat imaging of her thyroid in 1 year. Thyroid fu nction tests abnormal 491758177 R94.6 Elevated thyroid antibodies most Suggestive of Brianda' s thyroiditi s. She is agreeable to start low-dose levothyrox ine to see if some of her symptoms may be improved. Will repeat labs in 6 weeks. [id number] Da Baca MD [address] [place] [address] 02/17/2025 10:56:04 02/17/2025 12:50:46 Resistant hypertensive disorder 0772446495 53929 I1A.0 Right uppe r quadrant pain 397456596 R10.11 Alkaline p hosphatase above reference range 234744402 R74.8 Health Concerns Section Related Observation LastModified by Organization Detai ls LastModified Time None Recorded Concern Status LastModified by Organization Details LastModified Time None Recorded Payers Encounter Date Sequence Insurance Name Policy Number Policy Holman Covered Member ID Holman Member ID Guarantor Name 02/20/2025 1 [place] [id number] Killian Moran [id number] Rosie Moran Notes Date Note Type [...] available for my review. Rahel Le MD [address], [place], [address], [place] & [place] 02/20/2025 13:18:33 OBGyn Episode No OBEpisode recorded.
--- OUTSIDE RECORDS SUMMARY | 2025-04-04 12:06 | XMS_ITS | Continuity of Care Document ---
Author Organization [facility] NEW Address [address] [place] [address] Care Team Providers Care Color Card Maker Name Role Phone DA COELLO Primary Care Provider Assessment No assessment recorded. [...] tin 20 mg tablet 2024 025 [id number], [address] [place], [address], 03/12/2025 15:05:04 Patient TargetsNo targets recorded. Patient InstructionsNo instructions recorded. Reason for Referral None Reported. Results Created Date Observation Date Name Description Value Unit Range Abnormal Flag Note LastModifiedBy Organization Detail LastModifiedTime 04/01/2004/01/2025 CT, chest , w/o contr ast No observ ation record ed. [email or web address] [facility] [address], [place], [address], 04/04/2025 09:47:02 04/01/20 25 04/01/2025 XR, chest No observ ation record ed. [address], [place], [address], 04/04/2025 09:49:02 04/02/20 25 04/01/2025 elect rocar diogr am, routi ne ECG, 12 leads min No observ ation record ed. [address], [place], [place], [address], 04/04/2025 09:49:29 04/02/20 25 04/02/2025 XR, chest No observ ation record ed. [place] [id number], [place], [address], 04/04/2025 09:49:43 04/02/20 25 04/02/2025 XR, chest No observ ation record ed. [address], [place], [place], [address], 04/04/2025 09:49:55 04/02/20 25 04/02/2025 XR, chest No observ ation record ed. [address], [place], [address], 04/04/2025 09:50:24 Result Notes None recorded. 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 Procedures Surgical History Date Name Laterality Status Provider Name and Address Organization Details Recorded Time 01/31/20 25 Date of Last Colonoscopy completed Yulisa Merritt [place] - [facility] - [place] & [place] 01/30/2025 10:59:42 01/31/20 25 Colonoscopy completed Elida Rothamer [place] - [facility] [place] & [place] 03/11/2025 12:11:50 10/21/20 24 Most Recent Mammogram completed Elida Rothamer [place] - [facility] [place] 12/12/2024 18:35:51 06/19/20 23 completed Elida [place]amer [place] - [facility] [place] 06/17/2024 16:21:21 06/19/20 23 Date of Last Pap Smear completed Elida [place]amer [place] - [facility] [place] & [place] 06/17/2024 16:21:21 11/13/19 23 Cancer Surgery completed Elida Rothamer [place] - [facility] [place] & [place] 06/17/2024 16:21:44 11/13/19 23 Colonoscopy completed Elida Rothamer [place] - [facility] [place] & [place] 06/17/2024 16:21:44 left colectomy completed Danette Elias [place] - [facility] [place] & [place] 05/29/2024 15:13:22 Remove tonsils and adenoids completed Daentte [place] - [facility] - [place] & [place] 05/29/2024 15:13:34 appendectomy completed Danette Elias [facility] & [place] 05/29/2024 15:13:40 operation on hip joint completed Danette Elias [facility] & [place] 05/29/2024 15:15:10 Imaging Results None recorded. Procedure Notes None recorded. Medical Equipment None Reported. Allergies Allergen ID Allergen Name Allergen Category Reaction Reaction Severity Criticality Documentation Date Start Date Code Code System Note Provider Name and Address Organization Details Recorded Time 947078 shellfish derived food,medi cation hives rash mild mild Not available 05/29/2024 93125 [facility]K [facility] [place] 4 16:21:11 148917 iopamidol medicatio n rash Not available Not available 12/12/2024 5966 [facility] [place] 18:36:38 589549 iodine medicatio n rash Not available Not available 12/12/2024 5933 RxNorm Elida carrion, [facility] & [place] 18:37:27 Medications Name Sig Start [...] Last Updated DateTime 157.48 cm 35.7 kg/m2 90759.5 1 g 98 % 98 % 74 /min 102 mm[Hg] 60 mm[Hg] Dasha Castillo [facility] & [place] 14:51:29 Social History Question Answer Notes LastModified by Organizat ion Details LastModified Time Tobacco Smoking Status Former Smoker Danette Elias [facility], [facility] & [place] 05/29/2024 15:12:30 Do You Have An Advance Directive? No Information not available 06/17/2024 Are You Blind Or Do You Have Difficulty Seeing? No Information not available 06/17/2024 What Is Your Level Of Caffeine Consumption? Moderate [email or web address] Information not available 05/29/2024 When Did You Quit Smoking? 16+yearssince lastcigarette At Like 20 Yrs Old [email or web address] Information not available 05/29/2024 What Was The Date Of Your Most Recent Tobacco Screening? 05/29/2024 Information not available 06/17/2024 At What Age Did You Start Smoking Tobacco? 14 [email or web address] Information not available 05/29/2024 Are You Passively Exposed To Smoke? No Information not available 06/17/2024 How Much Tobacco Do You Smoke? No Information not available 06/17/2024 Has Tobacco Cessation Counseling Been Provided? No Information not available 05/29/2024 Sex: Female Functional Status Question Answer Note LastModified by Organizat ion Details LastModified Time Do you use any illicit or recreational drugs? No [email or web address] Information not available 05/29/2024 Do you or have you ever used any other forms of tobacco or nicotine? No [email or web address] Information not available 05/29/2024 What is your level of alcohol consumption? 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 Moderate Information not available 06/17/2024 Mental Status Question Answer Note LastModified by Organization D etails LastModified Time Do you feel stressed (tense, restless, nervous, or anxious, or unable to sleep at night)? [id number] Information not available 06/17/2024 Family History Relationship [...] 05/29 15:05:48 Mother Chronic obstructive pulmonary disease [email or web address] Not available 05/29 15:05:57 Mother Diabetes mellitus type 2 [email or web address] Not available 2024 11:01:43 Mother Heart disease [email or web address] Not available 05/29 15:06:50 Mother Hyperlipidem ia [...] SNOMED-CT Code Diagnosis ICD10 Code Diagnosis Note [id number] Rahel Le MD [facility] [address] [place] [address] 02/20/2025 10:59:26 02/20/2025 11:39:56 Imaging of thyroid gland abnormal 011975850 R93.89 Have ordered repeat imaging of her thyroid in 1 year. Thyroid fu nction tests abnormal 859783580 R94.6 Elevated thyroid antibodies most Suggestive of Brianda' s thyroiditi s. She is agreeable to start low-dose levothyrox ine to see if some of her symptoms may be improved. Will repeat labs in 6 weeks. 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 Start 81 daily Essential hypertension 45381757 I10 Continue current medication . Keep log Low-salt diet < 2 gm Na/day, Regular exercise Weight loss Hyperlipidemia 99039791 E78.5 Continue statin Low fat/carboh ydrate diet Increase exercise Lose weight Body mass index 30+ - obesity 466214638 Z68.34 Low-carboh ydrate and low-fat diet Increase [...] Holman Member ID Guarantor Name 03/12/2025 1 [employer] [id number] Killian Moran [id number] Rosie Moran Notes Date Note Type [...] diastolic function.No shunt EKG 09/13/2024: NSR 70, [place] interval 174 QRS 80 QTC 427 Past history:She was seen in ER - ringing in ear, rt arm weakness,slurring speech was seen in ER- CT/CTA neck and MRI was unremarkable. Her symptoms all resolved within about an hour and a half. Sukhjinder Rhodes MD [address], [place], [address], [facility] - [place] & [place] 03/12/2025 15:03:56 OBGyn Episode No OBEpisode recorded.
--- OUTSIDE RECORDS SUMMARY | 2025-04-04 12:06 | XMS_ITS | Continuity of Care Document ---
Author Organization [facility] Phone Care Team Providers Care First Coat Sander Name Role Phone VENITA JACINTO Primary Attending Unavailable VENITA JACINTO Admitting Unavailable DA COELLO Primary Care ALLERGIES AND ADVERSE REACTIONS ALLERGIES AND ADVERSE REACTIONS Code System Allergy Substance Adverse Reaction Date Reaction (Severity) Comment Status Reported By Updated By Shellfish-de rived Products Adverse reaction to substance Not Specified active [id number] on 2024 8:56:17 PM [place] iodine contrast dyes (Free Text Allergy) Rash Shock active [id number] on 2024 8:56:17 PM [place] 5966 RXNorm IOPAMIDOL Rash Shock active [id number] on 2024 8:56:17 PM [place] FAMILY HISTORY RELATION: Father Status: LIVING SNOMED-CT Diagnosis Age At Onset 87669598 Hypertensive disorder 56405589 Disorder of thyroid gland 223635069 Malignant tumor of thyroid gland 41710238 Primary malignant neoplasm of pr ostate RELATION: Mother Status: LIVING SNOMED-CT Diagnosis Age At Onset [id number] Severe obesity 43501957 Hypertensive disorder 200771322 Peripheral vascular disease 24615390 Coronary arteriosclerosis RELATION: Other Status: LIVING SNOMED-CT Diagnosis Age At Onset Information not available RESULTS Patient: CHAUNCEY Blair Date of : 1975 0 LABORATORY RESULTS Information is not available LABORATORY NARRATIVE RESULTS Information is not available RADIOLOGY RESULTS ORDER 100: ESOPHAGRAM (LOINC : [id number]) ORDER DATE: April 01, 2025 12:52:00 PM [place] PERFORMING LAB: [address] [id number] Final Result Date: April 01 7:38:[address] [address] Name: ROBERT GROSSMAN Exam Date: 04/01/2025 : 1975 Age 49 years Gender: F Physician: VENITA JACINTO Facility: [facility] Facility HSV: Outpatient Exam: ESOPHAGRAM EXAM: ESOPHAGRAM INDICATION: dysphagia. Patient reports globus sensation for approximately 6 months. Patient with medical history significant for Bxlu-Esya-Mepl syndrome. COMPARISON: None ATTENDING PROPELLER DRIVEN AIRPLANE MECHANIC: Tri Duke D.O. SCRUB WOMAN: Stefan Stevens Jr., PA-C Procedure was performed by Stefan Stevens Jr., PA-C under the supervision of Dr. Duke. TECHNIQUE: Preliminary chest film was obtained. FLUORO TIME: 0.0 minutes Reference air kerma: Not recorded. Only amplifier mechanic film performed. FINDINGS: The esophagram was not performed. The preliminary chest radiograph demonstrates a right-sided pneumothorax. Patient is asymptomatic, with exception to reported right sided chest discomfort with coughing. The patient's sr. manager, Dr. Higgins, was contacted and the finding was discussed. With the patient being in stable condition and asymptomatic, it was decided the patient was to report directly to the sr. manager clinic for management at [facility]. The patient was made aware, and is amenable to this plan. IMPRESSION: 1. The esophagram was not performed, due to incidental finding of right-sided pneumothorax on the amplifier mechanic image. A treatment plan was established with the patient's sr. manager, as described above. Electronically signed by: Tri Duke DO 04/01/2025 03:38 PM EDT Dictated By: TRI DUKE Transcribed By: Transcribed On: 04/01/2025 3:38 PM Electronically signed by: TRI DUKE 04/01/2025 Thank you for referring ROBERT GROSSMAN to [facility]. Legally authenticated by CHYNA BARTLETT 2025-04-01 15:38:07 PATHOLOGY NARRATIVE RESULTS Information is not available MICROBIOLOGY RESULTS No Micro Labs/Results Exist for Patient BLOOD ADMIN RESULTS Information is not available MEDICATIONS HOME MEDICATIONS Status RXNORM NDC Medication Dose Route Frequency Dates Comments Reported By Updated By Drug Treatment Unknown DISCHARGE MEDICATIONS Status RXNORM NDC Medication Dose Route Frequency Dates Comments Physician Updated By No Discharge Medication Info rmation Available INPATIENT MEDICATIONS Status RXNORM NDC Medication Dose Route Frequency Rat e Quantity Dates Comments Physician Updated By No Inpatient Medication Info rmation Available SOCIAL HISTORY SOCIAL HISTORY SNOMED-CT Social History Element Description Effective Dates Offered Cessation Comment UpdatedBy 3261210 Historical Tobacco smoking status Former Smoker quit 1993 [id number] on January 30, 2025 12:54:09 PM [facility] [id number] Historical Tobacco smoking status Unknown If Ever Smoked [email or web address] on 2024 7:59:32 PM [facility] SOCIAL HISTORY - Gender Sex: Female SOCIAL HISTORY - Status : status i nformation is not available Intention in Next Year: intention information is not available SOCIAL HISTORY - Sexual Behavior Sexual Orientation Gender Identity SNOMED-CT Description SNO MED -CT Description Activity Level No of Partners Partner Type UpdatedBy Information is not available HEALTH CONCERNS Problems Concern Status Health Concern problem infor mation not available. Smoking Status Status Years Used Consumed packs p er day Health Concern smoking histo ry information not available. Family History Concern Status Health Concern family histor y information not available. ENCOUNTERS ENCOUNTER INFORMATION Reason for Visit BARIUM SWALLOW Admission April 01, 2025 12:41:[address] [address] Discharge April 01, 2025 12:41:00 PM [facility] DIS CHARGED TO HOME OR SELF CARE ENCOUNTER DIAGNOSES Notes information is not anne marie ilable. Code System Diagnosis Onset Date Diagnosis information is not available. ABSTRACT DIAGNOSES Code System Diagnosis Updated By R13.10 ICD10 DYSPHAGIA, UNSPECIFIED [id number] on March 29, 2025 3:48:20 PM [facility] R13.10 ICD10 DYSPHAGIA, UNSPECIFIED [id number] on April 04, 2025 4:03:46 PM [facility] CARE TEAM Care First Coat Sander Role VENITA JACINTO Primary Attending VENITA JACINTO Admitting DA COELLO Primary Care CARE TEAM CARE trim sawyer Role on Team Status Start Date End Date Update d By OUMOU KERNS PCP normal March 29 3:48:20 PM [facility] April 01, 2025 12:41:00 PM [facility] [id number] on March 29, 2025 3:48:20 PM [facility] [place] Valentin normal March 29, 2025 3:48:20 PM [facility] April 01, 2025 12:41:00 PM [facility] [id number] on March 29, 2025 3:48:20 PM [facility] [place] Mortensen Admitting normal March 29, 2025 3:48:20 PM [facility] April 01, 2025 12:41:00 PM [facility] [id number] on March 29, 2025 3:48:20 PM [facility]
--- OUTSIDE RECORDS SUMMARY | 2025-04-04 12:07 | XMS_ITS | Data Portability ---
Author Organization [facility] [facility] ADMIN Address [address] [place] [id number] Care Team Providers Care Civil Cad Designer Name Role Phone OUMOU FELISA Primary Care Provider [phone] Assessment Encounter Date Assessment Date Assessment LastModified [...] Time Details Appointments HFU 2024 10:30A M Felisa Baca MD Not available Not available Not available OV EST 2024 10:15A M Felisa Baca MD Not available Not available Not available OV EST 2024 01:00P Beau Rhodes MD Not available Not available Not available FOLLOW UP 2024 10:15A M Fernando Clemente MD Not available Not available Not available Lab vitamin D, 25-hydrox y, total, serum 2024 025 [facility] [address] [place] [address], [address], 02/18/2025 07:49:22 CMP, serum or plasma 2024 025 [facility], [address] [place] [address], [address], 02/18/2025 07:49:20 Referral None recorded. Procedures None recorded. Surgeries None recorded. Imaging US, thyroid [address] (Centralized Scheduling), [address], [place], [address], 02/20/2025 13:17:48 Medication Orders atorvasta tin 20 mg tablet 2024 025 ATHENAFAX [facility] #[id number], [address] [place], [address], 03/12/2025 15:05:04 levothyro xine 25 mcg tablet 2024 025 gflorence [facility]acy #[id number], [address] [place] [address], [address], 02/24/2025 08:49:08 amlodipin e 5 mg tablet 2024 025 TREMAYNE [facility]armacy #[id number], [address] [place] [address], [address], 02/17/2025 11:50:06 Patient TargetsNo targets recorded. Patient InstructionsNo instructions recorded. Reason for Referral None Reported. Results Created Date Observation Date Name Description Value Unit Range Abnormal Flag Note LastModifiedBy Organization Detail LastModifiedTime 01/21/2001/21/2025 CBC WITH DIFFE RENTI AL/PL ATELE T WBC 6.7 x10e3 /uL 3.4-10 .8 normal Not Available [facility] ([facility]) [address] [place], [address], 01/24/2025 14:11:52 01/21/20 25 01/21/2025 CBC WITH DIFFE RENTI AL/PL ATELE T RBC 4.20 x10e6 /uL 3.77-5 .28 normal Not Available [facility] ([facility]) [address] [place], [address], 01/24/2025 14:11:52 01/21/20 25 01/21/2025 CBC WITH DIFFE RENTI AL/PL ATELE T hemoglobin 12.4 g/dL 11.1-1 5.9 normal Not Available [facility] ([facility]) [address] [place], [address], 01/24/2025 14:11:52 01/21/20 25 01/21/2025 CBC WITH DIFFE RENTI AL/PL ATELE T hematocrit 39.2 % 34.0-4 6.6 normal Not Available [facility] ([facility]) [address] [place], [address], 01/24/2025 14:11:52 01/21/20 25 01/21/2025 CBC WITH DIFFE RENTI AL/PL ATELE T MCV 93 fL 79-97 normal Not Available [facility] ([facility]) [address] [facility], [place], [address], 01/24/2025 14:11:52 01/21/20 25 01/21/2025 CBC WITH DIFFE RENTI AL/PL ATELE T MCH 29.5 pg 26.6-3 3.0 normal Not Available [facility] ([facility]) [address] [facility], [place], [address], 01/24/2025 14:11:52 01/21/20 25 01/21/2025 CBC WITH DIFFE RENTI AL/PL ATELE T MCHC 31.6 g/dL 31.5-3 5.7 normal Not Available [facility] ([facility]) [address] [place], [address], 01/24/2025 14:11:52 01/21/20 25 01/21/2025 CBC WITH DIFFE RENTI AL/PL ATELE T RDW 12.9 % 11.7-1 5.4 Not Available [facility] ([facility]) [address] [place], [address], 01/24/2025 14:11:52 01/21/20 25 01/21/2025 CBC WITH DIFFE RENTI AL/PL ATELE T platelets 275 x10e3 /uL 150-45 0 normal Not Available [facility] ([facility]) [address] [place], [address], 01/24/2025 14:11:52 01/21/20 25 01/21/2025 CBC WITH DIFFE RENTI AL/PL ATELE T neutrophils 54 % not estab. normal Not Available [facility] ([facility]) [address] [facility], [place], [address], 01/24/2025 14:11:52 01/21/20 25 01/21/2025 CBC WITH DIFFE RENTI AL/PL ATELE T lymphs 37 % not estab. normal Not Available [facility] ([facility]) [address] [facility], [place], [address], 01/24/2025 14:11:52 01/21/20 25 01/21/2025 CBC WITH DIFFE RENTI AL/PL ATELE T monocytes 6 % not estab. normal Not Available [facility] ([facility]) [address] [facility], [place], [address], 01/24/2025 14:11:52 01/21/20 25 01/21/2025 CBC WITH DIFFE RENTI AL/PL ATELE T eos 2 % not estab. normal Not Available [facility] ([facility]) [address] [facility], [place], [address], 01/24/2025 14:11:52 01/21/20 25 01/21/2025 CBC WITH DIFFE RENTI AL/PL ATELE T basos 1 % not estab. normal Not Available [facility] ([facility]) [address] [facility], [place], [address], 01/24/2025 14:11:52 01/21/20 25 01/21/2025 CBC WITH DIFFE RENTI AL/PL ATELE T immature cells BURRER HAND Not Available [facility] ([facility]) [address] [facility], [place], [address], 01/24/2025 14:11:52 01/21/20 25 01/21/2025 CBC WITH DIFFE RENTI AL/PL ATELE T neutrophils (absolute) 3.7 x10e3 /uL 1.4-7. 0 normal Not Available [facility] ([facility]) [address] [place], [address], 01/24/2025 14:11:52 01/21/20 25 01/21/2025 CBC WITH DIFFE RENTI AL/PL ATELE T lymphs (absolute) 2.5 x10e3 /uL 0.7-3. 1 normal Not Available [facility] ([facility]) [address] [facility], [place], [address], 01/24/2025 14:11:52 01/21/20 25 01/21/2025 CBC WITH DIFFE RENTI AL/PL ATELE T monocytes(ab solute) 0.4 x10e3 /uL 0.1-0. 9 normal Not Available [facility] ([facility]) [address] [place], [address], 01/24/2025 14:11:52 01/21/20 25 01/21/2025 CBC WITH DIFFE RENTI AL/PL ATELE T eos (absolute) 0.1 x10e3 /uL 0.0-0. 4 normal Not Available [facility] ([facility]) [address] [place], [address], 01/24/2025 14:11:52 01/21/20 25 01/21/2025 CBC WITH DIFFE RENTI AL/PL ATELE T baso (absolute) 0.0 x10e3 /uL 0.0-0. 2 normal Not Available [facility] ([facility]) [address] [place], [address], 01/24/2025 14:11:52 01/21/20 25 01/21/2025 CBC WITH DIFFE RENTI AL/PL ATELE T immature granulocytes 0 % not estab. Not Available [facility] ([facility]) [address] [place], [address], 01/24/2025 14:11:52 01/21/20 25 01/21/2025 CBC WITH DIFFE RENTI AL/PL ATELE T immature grans (abs) 0.0 x10e3 /uL 0.0-0. 1 Not Available [facility] ([facility]) [address], [place], [address], 01/24/2025 14:11:52 01/21/20 25 01/21/2025 CBC WITH DIFFE RENTI AL/PL ATELE T NRBC BURRER HAND Not Available [facility] ([facility]) [address], [place], [address], 01/24/2025 14:11:52 01/21/20 25 01/21/2025 CBC WITH DIFFE RENTI AL/PL ATELE T hematology comments: BURRER HAND Not Available [facility] ([facility]) [address], [place], [address], 01/24/2025 14:11:52 01/21/20 25 01/21/2025 COMP. METAB OLIC PANEL (14) glucose 82 mg/dL 70-99 normal Not Available [facility] ([facility]) [address], [place], [address], 01/24/2025 14:11:53 01/21/20 25 01/21/2025 COMP. METAB OLIC PANEL (14) BUN 10 mg/dL 6-24 normal Not Available [facility] ([facility]) [address] [place], [address], 01/24/2025 14:11:53 01/21/20 25 01/21/2025 COMP. METAB OLIC PANEL (14) creatinine 0.81 mg/dL 0.57-1 .00 normal Not Available [facility] ([facility]) [address] [place], [address], 01/24/2025 14:11:53 01/21/20 25 01/21/2025 COMP. METAB OLIC PANEL (14) eGFR 88 mL/mi n/1.7 3 >59 normal Not Available [facility] ([facility]) [address] [place], [address], 01/24/2025 14:11:53 01/21/20 25 01/21/2025 COMP. METAB OLIC PANEL (14) BUN/creatini ne ratio 12 9-23 normal Not Available [facility] ([facility]) [address] [facility], [place], [address], 01/24/2025 14:11:53 01/21/20 25 01/21/2025 COMP. METAB OLIC PANEL (14) sodium 137 mmol/ L 134-14 4 normal Not Available [facility] ([facility]) [address] [facility], [place], [address], 01/24/2025 14:11:53 01/21/20 25 01/21/2025 COMP. METAB OLIC PANEL (14) potassium 4.6 mmol/ L 3.5-5. 2 normal Not Available [facility] ([facility]) [address] [facility], [place], [address], 01/24/2025 14:11:53 01/21/20 25 01/21/2025 COMP. METAB OLIC PANEL (14) chloride 100 mmol/ L 96-106 normal Not Available [facility] ([facility]) [address] [facility], [place], [address], 01/24/2025 14:11:53 01/21/20 25 01/21/2025 COMP. METAB OLIC PANEL (14) carbon dioxide, total 25 mmol/ L 20-29 normal Not Available [facility] ([facility]) [address] [place], [address], 01/24/2025 14:11:53 01/21/20 25 01/21/2025 COMP. METAB OLIC PANEL (14) calcium 9.6 mg/dL 8.7-10 .2 normal Not Available [facility] ([facility]) [address] [place], [address], 01/24/2025 14:11:53 01/21/20 25 01/21/2025 COMP. METAB OLIC PANEL (14) protein, total 7.0 g/dL 6.0-8. 5 normal Not Available [facility] ([facility]) [address] [place], [address], 01/24/2025 14:11:53 01/21/20 25 01/21/2025 COMP. METAB OLIC PANEL (14) albumin 4.6 g/dL 3.8-4. 9 normal Not Available [facility] ([facility]) [address] [place], [address], 01/24/2025 14:11:53 01/21/20 25 01/21/2025 COMP. METAB OLIC PANEL (14) globulin, total 2.4 g/dL 1.5-4. 5 Not Available [facility] ([facility]) [address] [place], [address], 01/24/2025 14:11:53 01/21/20 25 01/21/2025 COMP. METAB OLIC PANEL (14) bilirubin, total 0.4 mg/dL 0.0-1. 2 normal Not Available [facility] ([facility]) [address] [place], [address], 01/24/2025 14:11:53 01/21/20 25 01/21/2025 COMP. METAB OLIC PANEL (14) alkaline phosphatase 143 IU/L 44-121 above high normal Not Available [facility] ([facility]) [address] [place], [address], 01/24/2025 14:11:53 01/21/20 25 01/21/2025 COMP. METAB OLIC PANEL (14) AST (SGOT) 20 IU/L 0-40 normal Not Available [facility] ([facility]) [address] [place], [address], 01/24/2025 14:11:53 01/21/20 25 01/21/2025 COMP. METAB OLIC PANEL (14) ALT (SGPT) 20 IU/L 0-32 normal Not Available [facility] ([facility]) [address] [facility], [place], [address], 01/24/2025 14:11:53 01/21/20 25 01/21/2025 URINA LYSIS , COMPL ETE specific gravity 1.006 1.005- 1.030 normal Not Available [facility] ([facility]) [address] [facility], [place], [address], 01/24/2025 14:11:54 01/21/20 25 01/21/2025 URINA LYSIS , COMPL ETE pH 7.0 5.0-7. 5 normal Not Available [facility] ([facility]) [address] [facility], [place], [address], 01/24/2025 14:11:54 01/21/20 25 01/21/2025 URINA LYSIS , COMPL ETE urine-color YELLOW yellow Not Available [facility] ([facility]) [address] [facility], [place], [address], 01/24/2025 14:11:54 01/21/2001/21/2025 URINA LYSIS , COMPL ETE appearance CLEAR clear Not Available [facility] ([facility]) [address] [facility], [place], [address], 01/24/2025 14:11:54 01/21/2001/21/2025 URINA LYSIS , COMPL ETE WBC esterase NEGATI VE negati ve Not Available [facility] ([facility]) [address] [facility], [place], [address], 01/24/2025 14:11:54 01/21/20 25 01/21/2025 URINA LYSIS , COMPL ETE protein NEGATI VE negati ve/tra ce Not Available [facility] ([facility]) [address] [facility], [place], [address], 01/24/2025 14:11:54 01/21/20 25 01/21/2025 URINA LYSIS , COMPL ETE glucose NEGATI VE negati ve Not Available [facility] ([facility]) [address] [place], [address], 01/24/2025 14:11:54 01/21/20 25 01/21/2025 URINA LYSIS , COMPL ETE ketones NEGATI VE negati ve Not Available [facility] ([facility]) [address] [facility], [place], [address], 01/24/2025 14:11:54 01/21/20 25 01/21/2025 URINA LYSIS , COMPL ETE occult blood NEGATI VE negati ve Not Available [facility] ([facility]) [address] [facility], [place], [address], 01/24/2025 14:11:54 01/21/20 25 01/21/2025 URINA LYSIS , COMPL ETE bilirubin NEGATI VE negati ve Not Available [facility] ([facility]) [address] [place], [address], 01/24/2025 14:11:54 01/21/20 25 01/21/2025 URINA LYSIS , COMPL ETE urobilinogen ,semi-qn 0.2 mg/dL 0.2-1. 0 normal Not Available [facility] ([facility]) [address] [place], [address], 01/24/2025 14:11:54 01/21/20 25 01/21/2025 URINA LYSIS , COMPL ETE nitrite, urine NEGATI VE negati ve Not Available [facility] ([facility]) [address] [place], [address], 01/24/2025 14:11:54 01/21/20 25 01/21/2025 URINA LYSIS , COMPL ETE microscopic examination COMMEN T Micro scopi c follo ws if indic ated. Not Available [facility] ([facility]) [address] [facility], [place], [address], 01/24/2025 14:11:54 01/21/20 25 01/21/2025 URINA LYSIS , COMPL ETE microscopic examination SEE BELOW: Micro scopi c was indic ated and was perfo rmed. Not Available [facility] ([facility]) [address] [facility], [place], [address], 01/24/2025 14:11:54 01/21/20 25 01/21/2025 URINA LYSIS , COMPL ETE WBC NONE SEEN /hpf 0 - 5 Not Available [facility] ([facility]) [address] [facility], [place], [address], 01/24/2025 14:11:54 01/21/20 25 01/21/2025 URINA LYSIS , COMPL ETE RBC NONE SEEN /hpf 0 - 2 Not Available [facility] ([facility]) [address] [facility], [place], [address], 01/24/2025 14:11:54 01/21/20 25 01/21/2025 URINA LYSIS , COMPL ETE epithelial cells (non renal) NONE SEEN /hpf 0 - 10 Not Available [facility] ([facility]) [address] [facility], [place], [address], 01/24/2025 14:11:54 01/21/20 25 01/21/2025 URINA LYSIS , COMPL ETE epithelial cells (renal) BURRER HAND Not Available [facility] ([facility]) [address] [facility], [place], [address], 01/24/2025 14:11:54 01/21/20 25 01/21/2025 URINA LYSIS , COMPL ETE casts NONE SEEN /lpf none seen Not Available [facility] ([facility]) [address] [facility], [place], [address], 01/24/2025 14:11:54 01/21/20 25 01/21/2025 URINA LYSIS , COMPL ETE cast type BURRER HAND Not Available [facility] ([facility]) [address] [facility], [place], [address], 01/24/2025 14:11:54 01/21/20 25 01/21/2025 URINA LYSIS , COMPL ETE crystals BURRER HAND Not Available [facility] ([facility]) [address] [facility], [place], [address], 01/24/2025 14:11:54 01/21/20 25 01/21/2025 URINA LYSIS , COMPL ETE crystal type BURRER HAND Not Available [facility] [address] [facility], [place], [address], 01/24/2025 14:11:54 01/21/20 25 01/21/2025 URINA LYSIS , COMPL ETE mucus threads BURRER HAND Not Available [facility] ([facility]) [address] [facility], [place], [address], 01/24/2025 14:11:54 01/21/20 25 01/21/2025 URINA LYSIS , COMPL ETE bacteria NONE SEEN none seen/f ew Not Available [facility] ([facility]) [address] [facility], [place], [address], 01/24/2025 14:11:54 01/21/20 25 01/21/2025 URINA LYSIS , COMPL ETE yeast BURRER HAND Not Available [facility] ([facility]) [address] [facility], [place], [address], 01/24/2025 14:11:54 01/21/20 25 01/21/2025 URINA LYSIS , COMPL ETE trichomonas BURRER HAND Not Available [facility] ([facility]) [address] [facility], [place], [address], 01/24/2025 14:11:54 01/21/20 25 01/21/2025 URINA LYSIS , COMPL ETE comment BURRER HAND Not Available [facility] ([facility]) [address] [place], [address], 01/24/2025 14:11:54 01/21/20 25 01/22/2025 URINA LYSIS , COMPL ETE creatinine, urine 25.8 mg/dL not estab. normal Not Available [facility] ([facility]) [address] [place], [address], 01/24/2025 14:11:54 01/21/20 25 01/22/2025 URINA LYSIS , COMPL ETE albumin, urine <3.0 ug/mL not estab. Not Available [facility] ([facility]) [address] [facility], [place], [address], 01/24/2025 14:11:54 01/21/20 25 01/22/2025 URINA LYSIS , COMPL ETE alb/creat ratio <12 mg/g_ creat 0-29 Katarina l: 0 - 29 Moder ately incre ased: 30 - 300 Sever karla incre ased: >300 Not Available [facility] ([facility]) [address] [place], [address], 01/24/2025 14:11:54 01/21/20 25 01/21/2025 THYRO ID PROFI LE II TSH 3.270 uIU/m L 0.450- 4.500 normal Not Available [facility] ([facility]) [address] [place], [address], 01/24/2025 14:11:55 01/21/20 25 01/21/2025 THYRO ID PROFI LE II thyroxine (T4) 8.4 ug/dL 4.5-12 .0 normal Not Available [facility] ([facility]) [address] [place], [address], 01/24/2025 14:11:55 01/21/20 25 01/21/2025 THYRO ID PROFI LE II T3 uptake 27 % 24-39 normal Not Available [facility] ([facility]) [address] [place], [address], 01/24/2025 14:11:55 01/21/20 25 01/21/2025 THYRO ID PROFI LE II free thyroxine index 2.3 1.2-4. 9 normal Not Available [facility] ([facility]) [address] [place], [address], 01/24/2025 14:11:55 01/21/20 25 01/21/2025 THYRO ID PROFI LE II triiodothyro nine (T3) 97 NG/dL 71-180 normal Not Available [facility] ([facility]) [address] [place], [address], 01/24/2025 14:11:55 01/21/20 25 01/21/2025 YELENA+R F QN YELENA direct NEGATI VE negati ve Not Available [facility] ([facility]) [address] [place], [address], 01/24/2025 14:11:56 01/21/20 25 01/21/2025 YELENA+R F QN rheumatoid factor (rf) <10.0 IU/mL <14.0 Not Available [facility] ([facility]) [address] [place], [address], 01/24/2025 14:11:56 01/21/2001/24/2025 METAN EPHRI MIKE, FRAC. , PL. FREE normetanephr ine, pl 89.1 pg/mL 0.0-24 4.0 Not Available [facility] ([facility]) [address] [place], [address], 01/24/2025 14:11:56 01/21/20 25 01/24/2025 METAN EPHRI MIKE, FRAC. , PL. FREE metanephrine , pl <25.0 pg/mL 0.0-88 .0 Not Available [facility] ([facility]) [address] [place], [address], 01/24/2025 14:11:56 01/21/20 25 01/21/2025 SEDIM ENTAT ION RATE- WESTE RGREN sedimentatio n rate-westerg koko 5 mm/HR 0-40 normal Not Available [facility] ([facility]) [address] [facility], [place], [address], 01/24/2025 14:11:57 01/21/20 25 01/21/2025 MAGNE SIUM magnesium 2.1 mg/dL 1.6-2. 3 normal Not Available [facility] ([facility]) [address] [facility], [place], [address], 01/24/2025 14:11:58 01/24/20 25 01/30/2025 METAN EPHRI MIKE, FRAC, QN, 24-HR normetanephr ine, ur 57 ug/L undefi juan Total Volum e: 3000 mL Not Available [facility] ([facility]) [address] [place], [address], 01/31/2025 03:36:33 01/24/20 25 01/30/2025 METAN EPHRI MIKE, FRAC, QN, 24-HR normetanephr .,U,24H 171 ug/24 _HR 131-61 2 Not Available [facility] ([facility]) [address] [place], [address], 01/31/2025 03:36:33 01/24/20 25 01/30/2025 METAN EPHRI MIKE, FRAC, QN, 24-HR metanephrine , ur 20 ug/L undefi juan Not Available [facility] ([facility]) [address] [place], [address], 01/31/2025 03:36:33 01/24/20 25 01/30/2025 METAN EPHRI MIKE, FRAC, QN, 24-HR metanephrine , U,24HR 60 ug/24 _HR 36-209 Not Available [facility] ([facility]) [address] [place], [address], 01/31/2025 03:36:33 01/24/20 25 01/30/2025 VANIL LYLMA NDELI C ACID, 24-HR U vma, urine 0.7 mg/L undefi juan Total Volum e: 3000 mL Not Available [facility] ([facility]) [address] [place], [address], 01/31/2025 03:36:34 01/24/20 25 01/30/2025 VANIL LYLMA NDELI C ACID, 24-HR U vma, urine, 24HR 2.1 mg/24 _HR 0.0-7. 5 Not Available [facility] ([facility]) [address] [place], [address], 01/31/2025 03:36:34 01/24/20 25 01/31/2025 SALIV Beau BETH salivary cortisol, MS 0.095 ug/dL This test [...] 0.090 Not Available [facility] [address] [facility], [place], [address], 01/31/2025 03:36:34 02/18/20 25 02/18/2025 COMP. METAB OLIC PANEL (14) glucose 97 mg/dL 70-99 normal Not Available [facility] ([facility]) [address] [place], [address], 02/18/2025 07:49:20 02/18/20 25 02/18/2025 COMP. METAB OLIC PANEL (14) BUN 11 mg/dL 6-24 normal Not Available [facility] ([facility]) [address] [place], [address], 02/18/2025 07:49:20 02/18/20 25 02/18/2025 COMP. METAB OLIC PANEL (14) creatinine 0.77 mg/dL 0.57-1 .00 normal Not Available [facility] ([facility]) [address] [place], [address], 02/18/2025 07:49:20 02/18/20 25 02/18/2025 COMP. METAB OLIC PANEL (14) eGFR 93 mL/mi n/1.7 3 >59 normal Not Available [facility] ([facility]) [address] [place], [address], 02/18/2025 07:49:20 02/18/20 25 02/18/2025 COMP. METAB OLIC PANEL (14) BUN/creatini ne ratio 14 9-23 normal Not Available [facility] ([facility]) [address] [place], [address], 02/18/2025 07:49:20 02/18/20 25 02/18/2025 COMP. METAB OLIC PANEL (14) sodium 138 mmol/ L 134-14 4 normal Not Available [facility] ([facility]) [address] [place], [address], 02/18/2025 07:49:20 02/18/20 25 02/18/2025 COMP. METAB OLIC PANEL (14) potassium 4.3 mmol/ L 3.5-5. 2 normal Not Available [facility] ([facility]) [address] [place], [address], 02/18/2025 07:49:20 02/18/20 25 02/18/2025 COMP. METAB OLIC PANEL (14) chloride 102 mmol/ L 96-106 normal Not Available [facility] ([facility]) [address] [place], [address], 02/18/2025 07:49:20 02/18/20 25 02/18/2025 COMP. METAB OLIC PANEL (14) carbon dioxide, total 22 mmol/ L 20-29 normal Not Available [facility] ([facility]) [address] [place], [address], 02/18/2025 07:49:20 02/18/20 25 02/18/2025 COMP. METAB OLIC PANEL (14) calcium 10.1 mg/dL 8.7-10 .2 normal Not Available [facility] ([facility]) [address] [place], [address], 02/18/2025 07:49:20 02/18/20 25 02/18/2025 COMP. METAB OLIC PANEL (14) protein, total 7.2 g/dL 6.0-8. 5 normal Not Available [facility] ([facility]) [address] [place], [address], 02/18/2025 07:49:20 02/18/20 25 02/18/2025 COMP. METAB OLIC PANEL (14) albumin 4.7 g/dL 3.8-4. 9 normal Not Available [facility] ([facility]) [address] [place], [address], 02/18/2025 07:49:20 02/18/20 25 02/18/2025 COMP. METAB OLIC PANEL (14) globulin, total 2.5 g/dL 1.5-4. 5 Not Available [facility] ([facility]) [address] [place], [address], 02/18/2025 07:49:20 02/18/20 25 02/18/2025 COMP. METAB OLIC PANEL (14) bilirubin, total 0.4 mg/dL 0.0-1. 2 normal Not Available [facility] ([facility]) [address] [place], [address], 02/18/2025 07:49:20 02/18/20 25 02/18/2025 COMP. METAB OLIC PANEL (14) alkaline phosphatase 125 IU/L 44-121 above high normal Not Available [facility] [facility] [address] [place], [address], 02/18/2025 07:49:20 02/18/20 25 02/18/2025 COMP. METAB OLIC PANEL (14) AST (SGOT) 20 IU/L 0-40 normal Not Available [facility] ([facility]) [address] [place], [address], 02/18/2025 07:49:20 02/18/20 25 02/18/2025 COMP. METAB OLIC PANEL (14) ALT (SGPT) 16 IU/L 0-32 normal Not Available [facility] ([facility]) [address] [place], [address], 02/18/2025 07:49:20 02/18/20 25 02/18/2025 VITAM IN [...] IOM (Inst itute of Medic ine). 2010. Russella ry refer ence bela es for calci um and DMurali [place]: [facility] . 2. Remy clark MF, Aldo dudley [place], Oscar off-F errar i MELGOZA, et al. Evalu ation , treat ment, and preve ntion of vitam in D defic iency : an Endoc rine Socie ty clini rosanna pract ice guide line. JCEM. 2010; 96(7) :1911 -30. Not Available [facility] ([facility]) [address], [place], [address], 02/18/2025 07:49:22 01/25/20 25 01/20/2025 US, thyro id [facility] [address] [id number] Phone: Fax: Name: ROBERT STEPHENSON Exam Date: 025 : 974 Age 49 years Gender : F Access ion: [id number] Physic elfego: FELISA BACA Facili ty: [facility] Facili ty HSV: Outpat ient Exam: THYROI [...] consid ered in the proper clinic al settsylvain g. The right lobe of the thyroi d measur es 6.0 x 1.6 x 2.1 cm. 10 mm hypoec hoic, smooth ly margin ated solid nodule is noted within the anteri or upper pole. It is wider than tall and contai ns no international recruiter al echoge alaina foci. It is classi fied as TI RADS 4 and requir es follow -up at this size. 7 mm isoech oic, smooth ly margin ated solid nodule is noted within the latera l midpol e. It is wider than tall and contai ns no international recruiter al echoge alaina foci. It is catego rized as TI RADS 3 and does not requir e follow -up at this size. 12 mm hetero geneou s, predom inantl y hypoec hoic solid nodule is seen within the brass pickler ior lower pole. It is wider than tall, has ill-de fined margin s, and contai ns no international recruiter al echoge alaina foci. It is classi [...] fined margin s, and contai ns no international recruiter al echoge alaina foci. It is classi [...] TRI CLEMENTE [address] for referr [address] to [facility] al. Legall y authen ticate d by CHYNA BARTLETT 01-20 14:18: 04 CC'ed Logic: Orderi ng Provid er: TRISHA ROBERSON CC Provid er: TRISHA ROBERSON Attend ing Provid er: TRISHA ROBERSON Referr ing Provid er: TRISHA ROBERSON Admitt ing Provid er: TRISHA GOMEZANDA [email or web address] [facility] [address], [place], [address], 01/27/2025 15:51:59 01/28/20 25 01/27/2025 US, duple x, renal arter y [facility] [address] [place] [address] Phone: Fax: Name: ROBERT STEPHENSON Exam Date: 025 : 974 Age 49 years Gender : F Access ion: [id number] Physic elfego: FELISA BACA Facili ty: [facility] Facili ty HSV: Outpat ient [...] BARRON 025 Thank you for referr ing ROBERT STEPHENSON to [facility]. Legall y authen ticate d by HAO RUIZ 01-27 15:02: 59 CC'ed Logic: Orderi ng Provid er: TRISHA ROBERSON CC Provid er: TRISHA ROBERSON Attend ing Provid er: TRISHA ROBERSON Referr ing Provid er: TRISHA ROBERSON Admitt ing Provid er: TRISHA ROBERSON [address] - Physical Therapy [address], [place], [address], 01/28/2025 15:21:34 04/01/20 25 04/01/2025 CT, chest , w/o contr ast No observ ation record ed. [address], [place], [place], [address], 04/04/2025 09:47:02 04/01/20 25 04/01/2025 XR, chest No observ ation record ed. [address], [place], [address], 04/04/2025 09:49:02 04/02/20 25 04/01/2025 elect loren trejo am, routi ne ECG, 12 leads min No observ ation record ed. [address], [place], [place], [address], 04/04/2025 09:49:29 04/02/20 25 04/02/2025 XR, chest No observ ation record ed. [address] [place] [address], [place], [address], 04/04/2025 09:49:43 04/02/20 25 04/02/2025 XR, chest No observ ation record ed. [address] [place] [address], [place], [address], 04/04/2025 09:49:55 04/02/20 25 04/02/2025 XR, chest No observ ation record ed. [address] [place] [address], [place], [address], 04/04/2025 09:50:24 Result Notes None recorded. 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 Procedures Surgical History Date Name Laterality Status Provider Name and Address Organization Details Recorded Time 01/31/20 25 Date of Last Colonoscopy completed Yulisa Merritt [place] [facility] [place] & [place] 01/30/2025 10:59:42 01/31/20 25 Colonoscopy completed Elida [place]amer [place] [facility] [place] & [place] 03/11/2025 12:11:50 10/21/20 24 Most Recent Mammogram completed Elida [place]amer [place] [facility] [place] 12/12/2024 18:35:51 06/19/20 23 completed Eldia [place]amer [place] [facility] [place] 06/17/2024 16:21:21 06/19/20 23 Date of Last Pap Smear completed Elida [place] [facility] [place] 06/17/2024 16:21:21 11/13/19 23 Cancer Surgery completed Elida [place]amer [place] [facility] [place] & [place] 06/17/2024 16:21:44 11/13/19 23 Colonoscopy completed Elida [place]amer [place] [facility] [place] 06/17/2024 16:21:44 left colectomy completed Danette Curt [place] [facility] [place] & [place] 05/29/2024 15:13:22 Remove tonsils and adenoids completed Danettebrigette Barakater [place] [facility] [place] & [place] 05/29/2024 15:13:34 appendectomy completed Danette Curt [place] [facility] [place] & [place] 05/29/2024 15:13:40 operation on hip joint completed Danette Curt [place] [facility] [place] & [place] 05/29/2024 15:15:10 Imaging Results Imaging Date Name Status LastModified by Geneva guan Details LastModified Time 01/20/2025 US, thyroid completed [email or web address] [facility] [address], [place], [address], 01/27/2025 15:51:59 01/27/2025 US, duplex, renal artery completed [address] - Physical Therapy [address], [place], [address], 01/28/2025 15:21:34 04/01/2025 CT, chest, w/o contrast completed [address] [place] [address] [place] [address], [place], [place], [address], 04/04/2025 09:47:02 04/01/2025 XR, chest completed [address] [place] [address], [place], [place], [address], 04/04/2025 09:49:02 04/01/2025 electrocardio gram, routine ECG, 12 leads min completed [address] [place] [address], [place], [place], [address], 04/04/2025 09:49:29 04/02/2025 XR, chest completed [address] [place] [address], [place], [place], [address], 04/04/2025 09:49:43 04/02/2025 XR, chest completed [address] [place] [address], [place], [place], [address], 04/04/2025 09:49:55 04/02/2025 XR, chest completed [address], [place], [place], [address], 04/04/2025 09:50:24 Procedure Notes None recorded. Medical Equipment None Reported. Allergies Allergen ID Allergen Name Allergen Category Reaction Reaction Severity Criticality Documentation Date Start Date Code Code System Note Provider Name and Address Organization Details Recorded Time 166669 shellfish derived food,medi cation hives rash mild mild Not available 05/29/2024 [address] [place] Magu[place] - [facility] - [place] & [place] 16:21:11 599046 iopamidol medicatio n rash Not available Not available 12/12/2024 5966 RxNorm Elida carrion, [place] DING [facility] & [place] 18:36:38 287316 iodine medicatio n rash Not available Not available 12/12/2024 5933 RxNorm [place] Garcia - [place] & [place] 18:37:27 Medications Name Sig Start Date Stop [...] Last Updated DateTime 157.48 cm 35.7 kg/m2 59642.5 1 g 97.8 [degF] 96 % 96 % 65 /min 128 mm[Hg] 84 mm[Hg] [facility] [place] 11:02:24 Date Recorded Body height Body mass index (BMI) Body weight Body temperature Provider Name and Address Organization Details Last Updated DateTime 02/20/2025 157.48 cm 35.5 kg/m2 61530.92 g 97.4 [degF] Brooklyn Sanchez [facility] & [place] 02/20/2025 11:17:01 Date Recorded Body height Body mass index (BMI) Body weight Body temperature Oxygen saturation Oxygen saturation in Arterial blood by Pulse oximetry Heart rate Systolic blood pressure Diastolic blood pressure Provider Name and Address Organization Details Last Updated DateTime 5 157.48 cm 35.7 kg/m2 85572.5 1 g 97.6 [degF] 94 % 94 % 83 /min 152 mm[Hg] 88 mm[Hg] Yulisa Merritt [facility] & [place] 5 09:01:52 Date Recorded Body height Body mass index (BMI) Body weight Oxygen saturation Oxygen saturation in Arterial blood by Pulse oximetry Heart rate Systolic blood pressure Diastolic blood pressure Provider Name and Address Organization Details Last Updated DateTime 5 157.48 cm 35.7 kg/m2 40584.5 1 g 98 % 98 % 74 /min 102 mm[Hg] 60 mm[Hg] Dasha Castillo [facility] & [place] 5 14:51:29 Date Recorded Body height Body mass index (BMI) Body weight Body temperature Oxygen saturation Oxygen saturation in Arterial blood by Pulse oximetry Heart rate Systolic blood pressure Diastolic blood pressure Provider Name and Address Organization Details Last Updated DateTime 5 157.48 cm 35.7 kg/m2 34258.5 1 g 97.5 [degF] 94 % 94 % 67 /min 122 mm[Hg] 86 mm[Hg] Natlaiia Barnes [facility] & [place] 5 10:03:16 Social History Question Answer Notes LastModified by Organizat ion Details LastModified Time Tobacco Smoking Status Former Smoker Danettebrigette Elias [facility] & [place] 05/29/2024 15:12:30 Do You Have An Advance Directive? No Information not available 06/17/2024 Are You Blind Or Do You Have Difficulty Seeing? No Information not available 06/17/2024 What Is Your Level Of Caffeine Consumption? Moderate [email or web address] Information not available 05/29/2024 When Did You Quit Smoking? 16+yearssince lastcigarette At Like 20 Yrs Old [email or web address] Information not available 05/29/2024 What Was The Date Of Your Most Recent Tobacco Screening? 05/29/2024 Information not available 06/17/2024 At What Age Did You Start Smoking Tobacco? 14 [email or web address] Information not available 05/29/2024 Are You Passively Exposed To Smoke? No Information not available 06/17/2024 How Much Tobacco Do You Smoke? No Information not available 06/17/2024 Has Tobacco Cessation Counseling Been Provided? No [email or web address] Information not available 05/29/2024 Sex: Female Functional Status Question Answer Note LastModified by Organizat ion Details LastModified Time Do you use any illicit or recreational drugs? No Information not available 05/29/2024 Do you or have you ever used any other forms of tobacco or nicotine? No [email or web address] Information not available 05/29/2024 What is your level of alcohol consumption? 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 Moderate Information not available 06/17/2024 Mental Status Question Answer Note LastModified by Organization D etails LastModified Time Do you feel stressed (tense, restless, nervous, or anxious, or unable to sleep at night)? [id number] Information not available 06/17/2024 Family History Relationship [...] Not available 2024 11:01:43 Father Hypertensive disorder [email or web address] Not available 05/29 15:05:48 Mother Chronic obstructive pulmonary disease [email or web address] Not available 05/29 15:05:57 Mother Diabetes mellitus type 2 [email or web address] Not available 2024 11:01:43 Mother Heart disease [email or web address] Not available 05/29 15:06:50 Mother Hyperlipidem ia [...] SNOMED-CT Code Diagnosis ICD10 Code Diagnosis Note [id number] Fernando Clemente MD [facility] [address] [place] [address] 05/29/2024 14:20:37 05/29/2024 16:15:34 Primary malignant neoplasm of descending colon 51584293 C18.6 diagnosed in early 2022 with left-sided colon adenocarci noma. Patient had Left-sided hemicolect steven performed in December 2022 by General surgery. Patient had surgery performed in [facility]. Per patient report patient had [...] evaluation with Gastroente rology. Will follow-up Anemia 037773785 D64.9 will follow up additional labs. Constipation 77117541 K5 9.00 Patient currently with constipati on. Discussed stool softener as well as MiraLax. If needed will set up evaluation Gastroente rology. 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 Patient had Left-sided hemicolect steven performed in December 2022 by General surgery. Patient had surgery performed in [facility]. Per patient report patient had T3 lesion and lymph nodes were negative. Patient with stage IIA. ECOG 0. 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 Recent CT chest reviewed with patient Malignant tumor of colon 889115823 C18.[address] ab/pelvis reviewed with patientfol filomenaing with hematology pending appt with GI to establishr ecent labs reviewed [id number] Felisa Baca MD [facility] [address] [facility] [place] [address] 10/08/2024 13:27:47 10/08/2024 14:18:29 Adult health examination 628141351 Z00.00 Screening mammography 24 841308 Z12.31 Diabetes m ellitus screening 917091668 Z13.1 History of transient ischemic attack 792053706 Z86.73 Essential hypertension 79748802 I10 Postmenopausal state 764 49363 Z78.0 patient to schedule with gynecology to discuss potential options Anemia 389558183 D64.9 [id number] ANTOINETTE MARCUS NP [facility] [address] [facility] [address] [place] [address] 08/21/2024 13:31:30 08/21/2024 14:15:50 History of malignant neoplasm of colon 915121894 Z85.038 Left-sided adenocarci noma diagnosed in early 2022. She is s/p left-sided hemicolect steven December 2022. Multiple polyps removed during follow up colonoscop y in late 2022. Altered venus wel function 79051101 R19.4 With history of colon polyps and colon cancer, I recommend we repeat colonoscop y to evaluate change in bowel habits. 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 Increase water intake, dietary fiber, and physical activity. [id number] Fernando Clemente MD [facility] [address] [place] [address] 08/21/2024 14:21:36 08/21/2024 15:29:13 Primary malignant neoplasm of descending colon 31159207 C18.6 diagnosed in early 2022 with left-sided colon adenocarci noma. Patient had Left-sided hemicolect steven performed in December 2022 by General surgery. Patient had surgery performed in [facility]. Per patient report patient had [...] likely lung cyst as a result. Anemia 059172484 D64.9 will follow up additional labs. Constipation 76459141 K5 9.00 Patient currently with constipati on. Discussed stool softener as well as MiraLax. If needed will set up evaluation Gastroente rology. 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 Patient had Left-sided hemicolect steven performed in December 2022 by General surgery. Patient had surgery performed in [facility]. Per patient report patient had T3 lesion and lymph nodes were negative. Patient with stage IIA. ECOG 0. 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 [id number] Jaxon Sidhu MD [facility] [address] [facility] [address] [place] [address] 09/16/2024 15:26:15 09/16/2024 16:08:47 Transient cerebral ischemia 842451835 G45.9 she is a continue Eliquis until results of carotid and echocardio gram are known. Does not sound like atrial fibrillati on by cardiology workup in progress. Essential hypertension 97063459 I10 Add Coreg 3.125. Keep close follow-up with her primary care provider next week for continuati on of care. [id number] Sukhjinder Rhodes MD [facility] [address] [facility] [address] [place] [address] 09/17/2024 10:56:35 09/17/2024 11:39:04 Essential hypertension 91170823 I10 Continue current medication . Keep log Low-salt diet < 2 gm Na/day, Regular exercise Weight loss Hyperlipidemia 26609050 E78.5 Continue statin Low fat/carboh ydrate diet Increase exercise Lose weight History of transient ischemic attack 651793097 Z86.73 Echo with bubble studyMonit or to r/o occult Afib Continue aggressive risk factor modificati on. Continue current cardiac regimen. Body mass index 30+ - obesity 693032287 Z68.34 Low-carboh ydrate and low-fat diet Increase exercise to 30 minutes a day. Increase fruits and fresh vegetable intake and decrease processed foods and sugars [id number] Felisa Baca MD [facility] [address] [place] [address] 09/23/2024 15:06:22 09/23/2024 15:49:50 Transient cerebral ischemia 080221928 G45.9 Essential hypertension 53591755 I10 [id number] Felisa Baca MD [facility] [address] [place] [address] 11/21/2024 11:26:12 11/21/2024 13:20:15 Anxiety 63281379 F41.9 Essential hypertension 49271234 I10 [id number] Felisa Baca MD [facility] [address] [facility] [address] 01/20/2025 10:55:15 01/20/2025 11:57:34 Resistant hypertensive disorder 0430947643 17230 I1A.0 Brianda thyroiditis 21 586063 E06.3 [id number] Sukhjinder Rhodes MD [facility] [address] [facility] [address] [place] [address] 12/19/2024 11:00:52 12/19/2024 11:37:48 History of transient ischemic attack 050139323 Z86.73 Echo with with structural ly normal heartMonit or with no evidence of AfibContin ue aggressive risk factor modificati on.Stop Eliquis as no evidence of AFib. MRI showed no evidence of stroke. Start 81 daily Essential hypertension 35687440 I10 Continue current medication . Keep log Low-salt diet < 2 gm Na/day, Regular exercise Weight loss Hyperlipidemia 97507486 E78.5 Continue statin Low fat/carboh ydrate diet Increase exercise Lose weight Body mass index 30+ - obesity 597888709 Z68.34 Low-carboh ydrate and low-fat diet Increase exercise to 30 minutes a day. Increase fruits and fresh vegetable intake and decrease processed foods and sugars [id number] Felisa Baca MD [facility] [address] [facility] [address] 2024 13:04:22 2024 16:23:13 Hypertensive urgency 713569458 I16.0 [id number] Felisa Baca MD [facility] [address] [facility] [address] [place] [address] 01/02/2025 15:02:11 01/02/2025 16:19:49 Essential hypertension 88259279 I10 Tinnitus 16026208 H93.13 Thyroid fu nction tests abnormal 539784861 R94.6 Anxiety 87191931 F41.9 [id number] Fernando Clemente MD [facility] [address] [place] [address] 01/08/2025 14:18:40 01/08/2025 14:47:32 Primary malignant neoplasm of descending colon 22295702 C18.6 diagnosed in early 2022 with left-sided colon adenocarci noma. Patient had Left-sided hemicolect steven performed in December 2022 by General surgery. Patient had surgery performed in [facility]. Per patient report patient had [...] the patient back after repeat imaging. Anemia 689542226 D64.9 will follow up additional labs. Constipation 17310371 K5 9.00 Patient currently with constipati on. Discussed stool softener as well as MiraLax. If needed will set up evaluation Gastroente rology. 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 Patient had Left-sided hemicolect steven performed in December 2022 by General surgery. Patient had surgery performed in [facility]. Per patient report patient had T3 lesion and lymph nodes were negative. Patient with stage IIA. ECOG 0. 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 [id number] Felisa Baca MD [address] [place] [address] 01/09/2025 13:42:26 01/09/2025 14:25:21 Thyroid function tests abnormal 548274490 R94.6 [id number] Felisa Baca MD [address] [place] [address] 02/04/2025 09:54:52 02/04/2025 10:33:34 Thyroid nodule 368041558 E04.1 After discussion , patient would like [...] swallowing as well. Autoantibo dy titer detected 145339709 R76.8 Dysphagia 87401978 R13.1 9 [id number] Rahel Le MD [facility] [address] [place] [address] 02/20/2025 10:59:26 02/20/2025 11:39:56 Imaging of thyroid gland abnormal 803061288 R93.89 Have ordered repeat imaging of her thyroid in 1 year. Thyroid fu nction tests abnormal 379182424 R94.6 Elevated thyroid antibodies most Suggestive of Brianda' s thyroiditi s. She is agreeable to start low-dose levothyrox ine to see if some of her symptoms may be improved. Will repeat labs in 6 weeks. [id number] Felisa Baca MD [address] [place] [address] 02/17/2025 10:56:04 02/17/2025 12:50:46 Resistant hypertensive disorder 4342079808 43312 I1A.0 Right uppe r quadrant pain 732771187 R10.11 Alkaline p hosphatase above reference range 804979772 R74.8 [id number] Felisa Baca MD [address] [place] [address] 03/03/2025 08:54:04 03/03/2025 09:47:01 Brianda thyroiditis 67373060 E06.3 Essential hypertension 29905842 I10 [id number] Felisa Baca MD [address] [place] [address] 03/31/2025 09:58:15 03/31/2025 10:44:30 Essential hypertension 73875474 I10 I do think a degree of her mild swelling is relatd to her amlodipine and we discussed trying 5mg BID instead of 10mg at once to see if this helps but that we can certainly make changes if needed, pt would like to hold on that currently. 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 Start 81 daily Essential hypertension 50759685 I10 Continue current medication . Keep log Low-salt diet < 2 gm Na/day, Regular exercise Weight loss Hyperlipidemia 39043232 E78.5 Continue statin Low fat/carboh ydrate diet Increase exercise Lose weight Body mass index 30+ - obesity 116418498 Z68.34 Low-carboh ydrate and low-fat diet Increase [...] Member ID Holman Member ID Guarantor Name 04/04/2025 1 [employer] [id number] Killian Moran [id number] 21 Robert Moran 09/16/2024 1 [place] [id number] Killian Moran [id number] 21 Robert Moran Notes Date Note Type Note Provider [...] had no acute findings in this region. Felisa Baca MD [address], [place], [address], [facility] & [place] 02/17/2025 16:55:36 02/20/2025 text/html 02/20/25-Patient is here for thyroid evaluation with several elevated thyroid antibodies. She has been going through a workup for labile BP, all of which at this point has been negative. She has no family history of thyroid surgery. Thyroid U/S available for my review. MD [address], [place], [address], [facility] & [place] 02/20/2025 13:18:33 03/03/2025 text/html She is here [...] flare her symptoms. She sees this with arabic yogurt. MD [address], [place], [address], [facility] & [place] 03/03/2025 17:09:37 03/12/2025 text/html 49 F here [...] diastolic function.No shunt EKG 09/13/2024: NSR 70, CT interval 174 QRS 80 QTC 427 Past history:She was seen in ER - ringing in ear, rt arm weakness,slurring speech was seen in ER- CT/CTA neck and MRI was unremarkable. Her symptoms all resolved within about an hour and a half. Sukhjinder Rhodes MD [address] [facility], [place], [address], [facility] - [place] - [place] & [place] 03/12/2025 15:03:56 03/31/2025 text/html She is here [...] isn't sure if this is the omeprazole. Felisa Baca MD [address], [place], [address], [facility] - [facility] - [place] & [place] 03/31/2025 12:59:32 OBGyn Episode No OBEpisode recorded.
--- OUTSIDE RECORDS SUMMARY | 2025-04-04 12:07 | XMS_ITS | Continuity of Care Document ---
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 [address], [place], [address], 04/04/2025 09:47:02 04/01/20 25 04/01/2025 XR, chest No observ ation record ed. [address], [place], [address], 04/04/2025 09:49:02 04/02/20 25 04/01/2025 alban trejo am, tj ne ECG, 12 leads min No observ ation record ed. [address], [place], [address], 04/04/2025 09:49:29 04/02/20 25 04/02/2025 XR, chest No observ ation record ed. [address], [place], [address], 04/04/2025 09:49:43 04/02/20 25 04/02/2025 XR, chest No observ ation record ed. [email or web address] [facility] [address], [place], [address], 04/04/2025 09:49:55 04/02/20 25 04/02/2025 XR, chest No observ ation record ed. [email or web address] [facility] [address], [place], [address], 04/04/2025 09:50:24 Result Notes None recorded. 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 Procedures Surgical History Date Name Laterality Status Provider Name and Address Organization Details Recorded Time 01/31/20 25 Date of Last Colonoscopy completed Yulisa Merritt [place] [facility] - [place] & [place] 01/30/2025 10:59:42 03/20/20 25 Colonoscopy completed Elida Yuen [place] [facility] - [place] & [place] 03/11/2025 12:11:50 10/21/20 24 Most Recent Mammogram completed Elida Rothamer [place] [facility] - [place] & [place] 12/12/2024 18:35:51 06/19/20 23 completed Elida Rothamer [place] - [facility] - [place] & [place] 06/17/2024 16:21:21 06/19/20 23 Date of Last Pap Smear completed Elida Rothamer [place] - [facility] - [place] & [place] 06/17/2024 16:21:21 11/13/19 23 Cancer Surgery completed Elida Rothamer [place] - [facility] - [place] & [place] 06/17/2024 16:21:44 11/13/19 23 Colonoscopy completed Elida Rothamer [place] - [facility] & [place] 06/17/2024 16:21:44 left colectomy completed Danette [place] - [facility] & [place] 05/29/2024 15:13:22 Remove tonsils and adenoids completed Danette Curt [place] [facility] & [place] 05/29/2024 15:13:34 appendectomy completed Danette Barakater [place] - [facility] & [place] 05/29/2024 15:13:40 operation on hip joint completed Danette Barakater [place] - [facility] & [place] 05/29/2024 15:15:10 Imaging Results None recorded. Procedure Notes None recorded. Medical Equipment None Reported. Allergies Allergen ID Allergen Name Allergen Category Reaction Reaction Severity Criticality Documentation Date Start Date Code Code System Note Provider Name and Address Organization Details Recorded Time 108256 shellfish derived food,medi cation hives rash mild mild Not available 05/29/2024 30656 UNK Elida [place] null, [place] - [facility] & [place] 16:21:11 655905 iopamidol medicatio n rash Not available Not available 12/12/2024 5966 RxNorm Elida [place] null, [place] [facility] & [place] 18:36:38 193005 iodine medicatio n rash Not available Not available 12/12/2024 5933 RxNorm Elida Yuen [facility] [place], [place] - [facility] - [place] & [place] 18:37:27 Medications Name Sig Start Date Stop [...] Last Updated DateTime 157.48 cm 35.7 kg/m2 25987.5 1 g 97.6 [degF] 94 % 94 % 83 /min 152 mm[Hg] 88 mm[Hg] Yulisa Merritt [facility] & [place] 09:01:52 Social History Question Answer Notes LastModified by Organizat ion Details LastModified Time Tobacco Smoking Status Former Smoker Danette Curt [facility] [place], [facility] & [place] 05/29/2024 15:12:30 Do You Have An Advance Directive? No Information not available 06/17/2024 Are You Blind Or Do You Have Difficulty Seeing? No Information not available 06/17/2024 What Is Your Level Of Caffeine Consumption? Moderate [email or web address] Information not available 05/29/2024 When Did You Quit Smoking? 16+yearssince lastcigarette At Like 20 Yrs Old [email or web address] Information not available 05/29/2024 What Was The Date Of Your Most Recent Tobacco Screening? 05/29/2024 Information not available 06/17/2024 At What Age Did You Start Smoking Tobacco? 14 Information not available 05/29/2024 Are You Passively Exposed To Smoke? No Information not available 06/17/2024 How Much Tobacco Do You Smoke? No Information not available 06/17/2024 Has Tobacco Cessation Counseling Been Provided? No [email or web address] Information not available 05/29/2024 Sex: Female Functional Status Question Answer Note LastModified by Organizat ion Details LastModified Time Do you use any illicit or recreational drugs? No [email or web address] Information not available 05/29/2024 Do you or have you ever used any other forms of tobacco or nicotine? No [email or web address] Information not available 05/29/2024 What is your level of alcohol consumption? 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 Moderate Information not available 06/17/2024 Mental Status Question Answer Note LastModified by Organization D etails LastModified Time Do you feel stressed (tense, restless, nervous, or anxious, or unable to sleep at night)? [id number] Information not available 06/17/2024 Family History Relationship [...] Not available 2024 11:01:43 Father Hypertensive disorder [email or web address] Not available 05/29 15:05:48 Mother Chronic obstructive pulmonary disease [email or web address] Not available 05/29 15:05:57 Mother Diabetes mellitus type 2 [email or web address] Not available 2024 11:01:43 Mother Heart disease [email or web address] Not available 05/29 15:06:50 Mother Hyperlipidem ia [...] SNOMED-CT Code Diagnosis ICD10 Code Diagnosis Note [id number] Da Coello MD [address]- [place] [address] 02/04/2025 09:54:52 02/04/2025 10:33:34 Thyroid nodule 676285988 E04.1 After discussion , patient would like [...] swallowing as well. Autoantibo dy titer detected 178282748 R76.8 Dysphagia 58649633 R13.1 9 [id number] Rahel Le MD [facility] [address] [place] [address] 02/20/2025 10:59:26 02/20/2025 11:39:56 Imaging of thyroid gland abnormal 232481163 R93.89 Have ordered repeat imaging of her thyroid in 1 year. Thyroid fu nction tests abnormal 927201059 R94.6 Elevated thyroid antibodies most Suggestive of Brianda' s thyroiditi s. She is agreeable to start low-dose levothyrox ine to see if some of her symptoms may be improved. Will repeat labs in 6 weeks. [id number] [facility] [address] [facility] [place] [address] 02/17/2025 10:56:04 02/17/2025 12:50:46 Resistant hypertensive disorder 1374035422 60889 I1A.0 Right uppe r quadrant pain 869599076 R10.11 Alkaline p hosphatase above reference range 520582338 R74.8 [id number] Da Coello MD [facility] [address] [facility] [address] [place] [address] 03/03/2025 08:54:04 03/03/2025 09:47:01 Brianda thyroiditis 50950836 E06.3 Essential hypertension 72300622 I10 Health Concerns Section Related Observation LastModified by Organization Detai ls LastModified Time None Recorded Concern Status LastModified by Organization Details LastModified Time None Recorded Payers Encounter Date Sequence Insurance Name Policy Number Policy Holman Covered Member ID Holman Member ID Guarantor Name 03/03/2025 1 [facility] [id number] Killian Moran [id number] Rosie Moran Notes Date Note Type [...] flare her symptoms. She sees this with english yogurt. Da Coello MD [address], [place], [address], [place] [facility] [place] & [place] 03/03/2025 17:09:37 OBGyn Episode No OBEpisode recorded.
--- OUTSIDE RECORDS SUMMARY | 2025-04-04 12:07 | XMS_ITS | Continuity of Care Document ---
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 Role Phone DA BACA Primary Care Provider [phone] Assessment Encounter Date Assessment Date Assessment LastModified [...] Time Details Appointments HFU 30 2024 10:30A Beau Baca MD Not available Not available Not available OV EST 15 2024 10:15A Beau Baca MD Not available Not available Not available OV EST 2024 01:00P Beau Rhodes MD Not available Not available Not available FOLLOW UP 2024 10:15A Beau Clemente MD Not available Not available Not available Lab vitamin D, 25-hydrox y, total, serum 2024 025 [place] [facility], [address] [place] [address], [place], [address], 02/18/2025 07:49:22 CMP, serum or plasma 2024 025 [place] [facility] ([place]), [address] [place] [address], [place], [address], 02/18/2025 07:49:20 Referral None recorded. Procedures None recorded. Surgeries None recorded. Imaging None recorded. Medication Orders amlodipin e 5 mg tablet 2024 025 [place] [id number], [address] [place], [address], 02/17/2025 11:50:06 Patient TargetsNo targets recorded. Patient InstructionsNo instructions recorded. Reason for Referral None Reported. Results Created Date Observation Date Name Description Value Unit Range Abnormal Flag Note LastModifiedBy Organization Detail LastModifiedTime 01/25/2001/20/2025 US, thyro id [facility] [address] [place] [address] Phone: Fax: Name: ROSIE STEPHENSON Exam Date: : [birth year]74 Age 49 years Gender : F Access ion: [id number] Physic elfego: DA BACA Facili ty: [facility] Facili ty HSV: Outpat ient [...] be consid ered in the proper clinic hernando rowan. The right lobe of the thyroi d measur es 6.0 x 1.6 x 2.1 cm. 10 mm hypoec hoic, smooth ly margin ated solid nodule is noted within the anteri or upper pole. It is wider than tall and contai ns no spring intern al echoge alaina foci. It is classi fied as TI RADS 4 and requir es follow -up at this size. 7 mm isoech oic, smooth ly margin ated solid nodule is noted within the latera l midpol e. It is wider than tall and contai ns no spring intern al echoge alaina foci. It is catego rized as TI RADS 3 and does not requir e follow -up at this size. 12 mm hetero geneou s, predom inantl y hypoec hoic solid nodule is seen within the sociology teacher ior lower pole. It is wider than tall, has ill-de fined margin s, and contai ns no spring intern al echoge alaina foci. It is [...] fined margin s, and contai ns no spring intern al echoge alaina foci. It is classi fied as TI RADS 4 and does not requir e follow -up at this size. IMPRES MERRY: The thyroi d gland is somewh at hetero geneou s in echote xture and subacu te or chroni c thyroi ditis may be consid ered in the proper clinic al de yarbrough Discre te thyroi d nodule s, [...] TRI CLEMENTE 025 Thank you for referr ing ROSIE STEPHENSON to [facility]. Legall y authen ticate d by CHYNA BARTLETT 0 01-20 14:18: 04 CC'ed Logic: Orderi ng Provid er: TRISHA ROBERSON CC Provid er: TRISHA ROBERSON Attend ing Provid er: TRISHA ROBERSON Referr ing Provid er: TRISHA ROBERSON Admitt ing Provid er: TRISHA ROBERSON [email or web address] [facility] [address] [facility], [place], [address], 01/27/2025 15:51:59 01/28/20 25 01/27/2025 US, duple x, [facility] [address] [facility] [place] [address] Phone: Fax: Name: ROSIE STEPHENSON Exam Date: : [birth year] Age 49 years Gender : F Access ion: [id number] 00 [id number] Physic elfego: DA BACA Facili ty: [facility] Facili ty HSV: Outpat ient Exam: US [...] Thank you for referr ROSIE Lane [facility] Legall y authen ticate d by HAO RUIZ 0 01-27 15:02: 59 CC'ed Logic: Orderi ng Provid er: TRISHA ROBERSON CC Provid er: TRISHA ROBERSON Attend ing Provid er: TRISHA ROBERSON Referr ing Provid er: TRISHA ROBERSON Admitt ing Provid er: TRISHA ROBERSON [address] - Physical Therapy [address] [facility], [place], [address], 01/28/2025 15:21:34 04/01/20 25 04/01/2025 CT, chest , w/o contr ast No observ ation record ed. [address], [place], [address], 04/04/2025 09:47:02 04/01/20 25 04/01/2025 XR, chest No observ ation record ed. [email or web address], [place], [address], 04/04/2025 09:49:02 04/02/20 25 04/01/2025 alban trejo am, routi ne ECG, 12 leads min No observ ation record ed. [address], [place], [address], 04/04/2025 09:49:29 04/02/20 25 04/02/2025 XR, chest No observ ation record ed. [address], [place], [address], 04/04/2025 09:49:43 04/02/20 25 04/02/2025 XR, chest No observ ation record ed. [address], [place], [address], 04/04/2025 09:49:55 04/02/20 25 04/02/2025 XR, chest No observ ation record ed. [address], [place], [address], 04/04/2025 09:50:24 Result Notes None recorded. 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 Procedures Surgical History Date Name Laterality Status Provider Name and Address Organization Details Recorded Time 01/31/20 25 Date of Last Colonoscopy completed Yulisa [place] [facility] [place] & [place] 01/30/2025 10:59:42 01/31/20 25 Colonoscopy completed Elida [place] [facility] [place] & [place] 03/11/2025 12:11:50 10/21/20 24 Most Recent Mammogram completed Elida [place] [facility] [place] & [place] 12/12/2024 18:35:51 06/19/20 23 completed Elida [place] [facility] [place] & [place] 06/17/2024 16:21:21 06/19/20 23 Date of Last Pap Smear completed Elida [place] [facility] [place] & [place] 06/17/2024 16:21:21 11/13/19 23 Cancer Surgery completed Elida [place] [facility] [place] & [place] 06/17/2024 16:21:44 11/13/19 23 Colonoscopy completed Elida [place] [facility] [place] & [place] 06/17/2024 16:21:44 left colectomy completed Danette Curt [place] [facility] [place] & [place] 05/29/2024 15:13:22 Remove tonsils and adenoids completed Danette Curt [place] [facility] [place] & [place] 05/29/2024 15:13:34 appendectomy completed Danette Curt [place] [facility] - [place] & [place] 05/29/2024 15:13:40 operation on hip joint completed Danette Curt [place] [facility] [place] & [place] 05/29/2024 15:15:10 Imaging Results None recorded. Procedure Notes None recorded. Medical Equipment None Reported. Allergies Allergen ID Allergen Name Allergen Category Reaction Reaction Severity Criticality Documentation Date Start Date Code Code System Note Provider Name and Address Organization Details Recorded Time 425914 shellfish derived food,medi cation hives rash mild mild Not available 05/29/2024 24610 UNK Elida carrion, [place] Kruse [facility] & [place] 4 16:21:11 457691 iopamidol medicatio n rash Not available Not available 12/12/2024 5966 RxNorm [place] Garcia [facility] & [place] 5 18:36:38 604391 iodine medicatio n rash Not available Not available 12/12/2024 5933 RxNorm Elida carrion, [place] Kruse [facility] & [place] 18:37:27 Medications Name [...] Updated DateTime 5 157.48 cm 35.7 kg/m2 75564.5 1 g 97.8 [degF] 96 % 96 % 65 /min 128 mm[Hg] 84 mm[Hg] Yulisa [place] - TIMUR [facility] & [place] 5 11:02:24 Social History Question Answer Notes LastModified by Organizat ion Details LastModified Time Tobacco Smoking Status Former Smoker Danette Elias null, [place] - [place] & [place] 05/29/2024 15:12:30 Do You Have An Advance Directive? No Information not available 06/17/2024 Are You Blind Or Do You Have Difficulty Seeing? No Information not available 06/17/2024 What Is Your Level Of Caffeine Consumption? Moderate [email or web address] Information not available 05/29/2024 When Did You Quit Smoking? 14+yearssince lastcigarette At Like 20 Yrs Old [email or web address] Information not available 05/29/2024 What Was The Date Of Your Most Recent Tobacco Screening? 05/29/2024 Information not available 06/17/2024 At What Age Did You Start Smoking Tobacco? 14 Information not available 05/29/2024 Are You Passively Exposed To Smoke? No Information not available 06/17/2024 How Much Tobacco Do You Smoke? No Information not available 06/17/2024 Has Tobacco Cessation Counseling Been Provided? No [email or web address] Information not available 05/29/2024 Sex: Female Functional Status Question Answer Note LastModified by Organizat ion Details LastModified Time Do you use any illicit or recreational drugs? No [email or web address] Information not available 05/29/2024 Do you or have you ever used any other forms of tobacco or nicotine? No [email or web address] Information not available 05/29/2024 What is your level of alcohol consumption? 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 Moderate Information not available 06/17/2024 Mental Status Question Answer Note LastModified by Organization D etails LastModified Time Do you feel stressed (tense, restless, nervous, or anxious, or unable to sleep at night)? [id number] Information not available 06/17/2024 Family History Relationship [...] Not available 2024 11:01:43 Father Hypertensive disorder [email or web address] Not available 05/29 15:05:48 Mother Chronic obstructive pulmonary disease [email or web address] Not available 05/29 15:05:57 Mother Diabetes mellitus type 2 [email or web address] Not available 2024 11:01:43 Mother Heart disease [email or web address] Not available 05/29 15:06:50 Mother Hyperlipidem ia [...] SNOMED-CT Code Diagnosis ICD10 Code Diagnosis Note [id number] Da Baca MD [facility] [address] [facility] [address] [place] [address] 01/20/2025 10:55:15 01/20/2025 11:57:34 Resistant hypertensive disorder 7429468544 37740 I1A.0 Brianda thyroiditis 21 545201 E06.3 [id number] Da Baca MD [facility] [address] [facility] [place] [address] 02/04/2025 09:54:52 02/04/2025 10:33:34 Thyroid nodule 232382374 E04.1 After discussion , patient would like [...] swallowing as well. Autoantibo dy titer detected 439410614 R76.8 Dysphagia 18297130 R13.1 9 [id number] Da Baca MD [facility] bill [facility] [address] [facility] [place] [place] [address] 02/17/2025 10:56:04 02/17/2025 12:50:46 Resistant hypertensive disorder 9383207940 48549 I1A.0 Right uppe r quadrant pain 133753450 R10.11 Alkaline p hosphatase above reference range 492934133 R74.8 Health Concerns Section Related Observation LastModified by Organization Detai ls LastModified Time None Recorded Concern Status LastModified by Organization Details LastModified Time None Recorded Payers Encounter Date Sequence Insurance Name Policy Number Policy Holman Covered Member ID Holman Member ID Guarantor Name 02/17/2025 1 [place] (O) [id number] Killian S Dean [id number] 21 Rosie Moran Notes Date Note Type [...] in this region. Da Baca MD [address], [place], [address], [facility] - [place] - [place] & [place] 02/17/2025 16:55:36 OBGyn Episode No OBEpisode recorded.
--- OUTSIDE RECORDS SUMMARY | 2025-04-04 12:07 | XMS_ITS | Continuity of Care Document ---
Author Organization MD - [facility] - [place] Address [address] [facility] [address] [place] [address] Care Team Providers Care Ios Developer Name Role Phone DA BACA Primary Care [...] recorded. Referral otolaryng ologist referral 2024 025 [email or web address] Rahel Le, [address] [facility], [place], [address], 02/20/2025 13:32:02 Procedures None recorded. Surgeries None recorded. Imaging None recorded. Medication Orders None recorded. Patient TargetsNo targets recorded. Patient InstructionsNo instructions recorded. 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 fo r Thyroid nodule Referring Physician: Da Baca, Family Medicine, Encounter Date: 02/04/2025 Results Created Date Observation Date Name Description Value Unit Range Abnormal Flag Note LastModifiedBy Organization Detail LastModifiedTime 01/25/2001/20/2025 US, thyro id [facility] Hospit [facility] [address] [place] [address] Phone: Fax: Name: ROSIE STEPHENSON Exam Date: 025 : 974 Age 49 years Gender : F Access ion: [id number] Physic elfego: DA BACA Facili ty: [facility] Facili ty HSV: Outpat ient Exam: THYROI [...] than tall and contai ns no international coordinator al echoge alaina foci. It is classi fied as TI RADS 4 and requir es follow -up at this size. 7 mm isoech oic, smooth ly margin ated solid nodule is noted within the latera l midpol e. It is wider than tall and contai ns no international coordinator al echoge alaina foci. It is catego rized as TI RADS 3 and does not requir e follow -up at this size. 12 mm hetero geneou s, predom inantl y hypoec hoic solid nodule is seen within the halfway house counselor ior lower pole. It is wider than tall, has ill-de fined margin s, and contai ns no international coordinator al echoge alaina foci. It is classi [...] margin s, and contai ns no international coordinator al echoge alaina foci. It is classi [...] Electr onical ly signed by: TRI CLEMENTE [facility] Leg[facility] y authen ticate d by CHYNA BARTLETT 01-20 14:18: 04 CC'ed Logic: Orderi ng Provid er: TRISHA ROBERSON CC Provid er: TRISHA ROBERSON Attend ing Provid er: TRISHA ROBERSON Referr ing Provid er: TRISHA Santanaitt ing Provid er: TRISHA ROBERSON [email or web address] [facility] - Physical Therapy [address] [facility], [place], [address], 01/27/2025 15:51:59 01/28/20 25 01/27/2025 US, duple x, renal arter y [facility] [address] [place] [address] Phone: Fax: Name: ROSIE STEPHENSON Exam Date: : 974 Age 49 years Gender : F Access ion: [id number] Physic elfego: DA BACA Facili ty: [facility] Facili ty HSV: Outpat ient Exam: [...] [facility] Legall y authen ticate d by HAO RUIZ 2024-0 01-27 15:02: 59 CC'ed Logic: Orderi ng Provid er: TRISHA ROBERSON CC Provid er: TRISHA ROBERSON Attend ing Provid er: TRISAH ROBERSON Referr ing Provid er: TRISHA ROBESRON Admitt ing Provid er: TRISHA GOMEZANDA [address] - Physical Therapy [address], [place], [address], 01/28/2025 15:21:34 04/01/20 25 04/01/2025 CT, chest , w/o contr ast No observ ation record ed. [place] [address], [place], [address], 04/04/2025 09:47:02 04/01/20 25 04/01/2025 XR, chest No observ ation record ed. [address], [place], [address], 04/04/2025 09:49:02 04/02/20 25 04/01/2025 tj ramirez am ECG, 12 leads min No observ ation record ed. [address], [place], [address], 04/04/2025 09:49:29 04/02/20 25 04/02/2025 XR, chest No observ ation record ed. [address], [place], [address], 04/04/2025 09:49:43 04/02/20 25 04/02/2025 XR, chest No observ ation record ed. [address], [place], [address], 04/04/2025 09:49:55 04/02/20 25 04/02/2025 XR, chest No observ ation record ed. [email or web address] [facility] [address], [place], [address], 04/04/2025 09:50:24 Result Notes None recorded. 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 Procedures Surgical History Date Name Laterality Status Provider Name and Address Organization Details Recorded Time 01/31/20 25 Date of Last Colonoscopy completed Yulisa Shaina [place] [facility] [place] 01/30/2025 10:59:42 01/31/20 25 Colonoscopy completed Elida Rothamer [place] [facility] [place] 03/11/2025 12:11:50 10/21/20 24 Most Recent Mammogram completed Elida [place]amer [place] [facility] [place] 12/12/2024 18:35:51 06/19/20 23 completed Elida Rothamer [place] [facility] [place] 06/17/2024 16:21:21 06/19/20 23 Date of Last Pap Smear completed lEida DING [facility] & [place] 06/17/2024 16:21:21 11/13/19 23 Cancer Surgery completed Elida DING [facility] & [place] 06/17/2024 16:21:44 11/13/19 23 Colonoscopy completed Elida DING [facility] & [place] 06/17/2024 16:21:44 left colectomy completed Danette DING [facility] & [place] 05/29/2024 15:13:22 Remove tonsils and adenoids completed Danette DING [facility] & [place] 05/29/2024 15:13:34 appendectomy completed Danette DING [facility] & [place] 05/29/2024 15:13:40 operation on hip joint completed Danette DING [facility] & [place] 05/29/2024 15:15:10 Imaging Results None recorded. Procedure Notes None recorded. Medical Equipment None Reported. Allergies Allergen ID Allergen Name Allergen Category Reaction Reaction Severity Criticality Documentation Date Start Date Code Code System Note Provider Name and Address Organization Details Recorded Time 539213 shellfish derived food,medi cation hives rash mild mild Not available 05/29/2024 41598 UNK Elida carrion [place] [facility] & [place] 4 16:21:11 399300 iopamidol medicatio n rash Not available Not available 12/12/2024 5966 RxNorm Elida Morganamer sheyla, [place] DING [facility] & [place] 5 18:36:38 625283 iodine medicatio n rash Not available Not available 12/12/2024 5933 RxNorm Elida Morganamer sheyla, [place] DING [facility] & [place] 5 18:37:27 Medications Name Sig [...] Last Updated DateTime 157.48 cm 36 kg/m2 01272.7 g 97.5 [degF] 97 % 97 % 91 /min 130 mm[Hg] 84 mm[Hg] Nataliia Barnes [facility] & [place] 10:02:15 Social History Question Answer Notes LastModified by [facility] Details LastModified Time Tobacco Smoking Status Former Smoker Danette [facility] & [place] 05/29/2024 15:12:30 Do You Have An Advance Directive? No Information not available 06/17/2024 Are You Blind Or Do You Have Difficulty Seeing? No Information not available 06/17/2024 What Is Your Level Of Caffeine Consumption? Moderate [email or web address] Information not available 05/29/2024 When Did You Quit Smoking? 16+yearssince lastcigarette At Like 20 Yrs Old [email or web address] Information not available 05/29/2024 What Was The Date Of Your Most Recent Tobacco Screening? 05/29/2024 Information not available 06/17/2024 At What Age Did You Start Smoking Tobacco? 14 [email or web address] Information not available 05/29/2024 Are You Passively Exposed To Smoke? No Information not available 06/17/2024 How Much Tobacco Do You Smoke? No Information not available 06/17/2024 Has Tobacco Cessation Counseling Been Provided? No [email or web address] Information not available 05/29/2024 Sex: Female Functional Status Question Answer Note LastModified by Organizat ion Details LastModified Time Do you use any illicit or recreational drugs? No [email or web address] Information not available 05/29/2024 Do you or have you ever used any other forms of tobacco or nicotine? No [email or web address] Information not available 05/29/2024 What is your level of alcohol consumption? 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 Moderate Information not available 06/17/2024 Mental Status Question Answer Note LastModified by Organization D etails LastModified Time Do you feel stressed (tense, restless, nervous, or anxious, or unable to sleep at night)? [id number] Information not available 06/17/2024 Family History Relationship [...] Not available 2024 11:01:43 Father Hypertensive disorder [email or web address] Not available 05/29 15:05:48 Mother Chronic obstructive pulmonary disease [email or web address] Not available 05/29 15:05:57 Mother Diabetes mellitus [...] SNOMED-CT Code Diagnosis ICD10 Code Diagnosis Note [id number] aD Baca [facility] [place] [address] [place] [address] 01/20/2025 10:55:15 01/20/2025 11:57:34 Resistant hypertensive disorder [id number] 28076 I1A.0 Brianda thyroiditis 21 948164 E06.3 [id number] Fernando Clemente MD [facility] Oncology and Hematolog y [address] [place] [address] 01/08/2025 14:18:40 01/08/2025 14:47:32 Primary malignant neoplasm of descending colon 36485274 C18.6 diagnosed in early 2022 with left-sided colon adenocarci noma. Patient had Left-sided hemicolect steven performed in December 2022 by General surgery. Patient had surgery performed in [facility]. Per patient report patient had [...] the patient back after repeat imaging. Anemia 357391229 D64.9 will follow up additional labs. Constipation 52507690 K5 9.00 Patient currently with constipati on. Discussed stool softener as well as MiraLax. If needed will set up evaluation Gastroente rology. 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 Patient had Left-sided hemicolect steven performed in December 2022 by General surgery. Patient had surgery performed in [facility]. Per patient report patient had T3 lesion and lymph nodes were negative. Patient with stage IIA. ECOG 0. 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 [id number] Da Baca MD [address] [place] [address] 01/09/2025 13:42:26 01/09/2025 14:25:21 Thyroid function tests abnormal 480159539 R94.6 [id number] Da Baca MD [address] [facility] [place] [address] 02/04/2025 09:54:52 02/04/2025 10:33:34 Thyroid nodule 374765486 E04.1 After discussion , patient would like [...] swallowing as well. Autoantibo dy titer detected 812274652 R76.8 Dysphagia 05678239 R13.1 9 Health Concerns Section Related Observation LastModified by Organization Detai ls LastModified Time None Recorded Concern Status LastModified by Organization Details LastModified Time None Recorded Payers Encounter Date Sequence Insurance Name Policy Number Policy Holman Covered Member ID Holman Member ID Guarantor Name 02/04/[address] [facility] ([id number]) [id number] Killian Moran [id number] Rosie Moran Notes Date Note Type Note Provider Name and Address Organization Details Recorded Time 02/04/2025 text/html 49-year-old marina jamison patient Who presents to the office to [...] related to her thyroid. Da Baca MD [address], [place], [address], [facility] [place] & [place] 02/04/2025 12:44:35 OBGyn Episode No OBEpisode recorded.
--- NOTE | 2025-04-04 12:08 | XR_ITS ---
FINAL REPORT CLINICAL HISTORY: SOB COMPARISON: 04/02/2025 FINDINGS: CHEST 2 VIEWS: There is a small loculated right lateral basilar pneumothorax, minimally improved since the prior exam of 04/02/2025. There has been interval removal of the right pleural catheter since the prior exam. There is right lower lobe scarring again noted. The left lung is clear. A tiny right pleural effusion is present. The cardiac silhouette is unremarkable. IMPRESSION: Mildly improved loculated right hydropneumothorax since the prior exam of 04/02/2025. Reviewed, Interpreted and Dictated by Gonsalo Flores MD Transcribed by Nataliya Webb Authenticated and [facility]
== END 2025-04-04 23:59 | disposition home or self-care (01) ==
LOC: RAD 12:04
PROVIDERS: PCP Family Medicine; Visit Provider Internal Medicine Pulmonary Disease
DX: J94.2 Hemothorax (principal)
CPT/HCPCS: 71046

== ENCOUNTER 2025-05-15 09:16 | Outpatient (CLI) | payer BC, SELFPAY ==
--- NOTE | 2025-05-15 09:19 | XR_ITS ---
FINAL REPORT TECHNIQUE: Chest PA & Lateral CLINICAL HISTORY: sob COMPARISON: None FINDINGS: 2 views of the chest were performed. The heart size is normal. The mediastinum is within normal limits. There is no acute cardiopulmonary process. There is scarring present in the medial right lung base with associated volume loss. There is no pneumothorax. The bony thorax appears intact. IMPRESSION: No acute cardiopulmonary process. Reviewed, Interpreted and Dictated by Morgan Desir MD Transcribed by Nataliya Webb Authenticated and [facility]
--- OUTSIDE RECORDS SUMMARY | 2025-05-15 09:22 | XMS_ITS | Continuity of Care Document ---
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 Plan of Treatment Reminders Order Date Submit Date Provider Last Modified By Organization Details Last Modified Time Details Appointments OV EST 2024 01:00P M Sukhjinder Rhodes MD Not available Not available Not available FOLLOW UP 2024 10:15A M Fernando Duke MD Not available Not available Not available OV EST 2024 08:30A M Da Coello MD Not available Not available Not available Lab None recorded . Referral None recorded . Procedures None recorded . Surgeries None recorded . Imaging nuclear stress test 2024 025 [facility], [address], [place], [address], 05/01/2025 04:11:15 Medication Orders None recorded . Patient TargetsNo targets recorded. Patient InstructionsNo instructions recorded. Reason for Referral None Reported. Results Created Date Observation Date Name Description Value Unit Range Abnormal Flag Note LastModifiedBy Organization Detail LastModifiedTime 04/01/2004/01/2025 CT, chest , w/o contr ast No observ ation record ed. [email or web address] [facility] [address], [place], [address], 04/04/2025 09:47:02 04/01/2004/01/2025 XR, chest No observ ation record ed. [address], [place], [address], 04/04/2025 09:49:02 04/02/20 25 04/01/2025 elect loren diogr am, routi ne ECG, 12 leads min No observ ation record ed. [address], [place], [address], 04/04/2025 09:49:29 04/02/20 25 04/02/2025 XR, chest No observ ation record ed. [place] [address], [place], [place], [address], 04/04/2025 09:49:43 04/02/20 25 04/02/2025 XR, chest No observ ation record ed. [address], [place], [place], [address], 04/04/2025 09:49:55 04/02/20 25 04/02/2025 XR, chest No observ ation record ed. [address], [place], [address], 04/04/2025 09:50:24 04/04/20 25 04/04/2025 XR, chest No observ ation record ed. [place] [address], [place], [address], 04/04/2025 15:49:55 05/08/20 25 05/08/2025 heart SPECT multi rest/ stres s Exerci se Stress Test VINOD Ann ROSIE [facility] 3 2 EXAM: HEART SPECT MULTI REST/S TRE [id number] DATE OF EXAM: 2024 08:28: 05 EXERCI SE STRESS TEST PROVID ER: Sukhjinder Rhodes MD, FACC REQUES TING PHYSIC RODOLFO: Sukhjinder Rhodes MD, FACC. INDICA TION: Chest pain. PROCED URE: After obtain ing inform ed consen t, the patien t underw ent exerci se treadm ill stress test per Kimani protoc ol. The patien t exerci sed for 8 minute s 49 second s attain ing 10.10 METS. Restin g heart rate of 66, emily to a maximu m of 150 beats per minute repres enting 90% maximu m age predic paresh heart rate. Restin g blood pressu re 150/87 , emily to a maximu m of 166/74 mmHg. Stress test was stoppe d due to shortn ess of breath . No chest pain. At rest, 11.08 millic uries of techne tium tetrof dante was infuse d and SPECT images were obtain ed. At peak stress , 34.14 millic uries of techne tium was infuse d and stress SPECT images were obtain ed. Gated SPECT images were also obtain ed. Baseli ne EKG showed normal sinus rhythm , PVCs with stress . No arrhyt hmia or ischem ic EKG change s noted. Calcul ated EF of 67%. Review of the axial images showed intens e uptake of tracer near the inferi or wall of the rest images , which compro mised the qualit y of study, sukhi r, no eviden ce of myocar dial ischem ia noted. FINAL IMPRES MERRY: No eviden ce of myocar dial ischem ia. Calcul ated EF of 67%. DICTAT ED BY: Sukhjinder Rhodes MD, FACC JT/MOD L DD: 2024 11:53: 15 DT: 2024 14:34: 59 /[id number] Electr onical ly Signed By: GENIE Mesa 05-08 15:28: 19 CC'ed Logic: Orderi ng Provid er: GENIE BENAVIDEZ Attend ing Provid er: GENIE BENAVIDEZ Admitt ing Provid er: GENIE BENAVIDEZ [facility] [address], [place], [address], 05/09/2025 09:54:42 Result Notes None recorded. Problems Name Problem SNOMED Code Status Onset Date Resolution Date Notes Provider Name and Address Organization Details Recorded Time Hyperlipid emia 16949381 Active 2023 Sukhjinder Rhodes MD [address], [place], [address] , [place] - [facility] - [place] & [place] 4 11:18:58 Chest pain 57176514 Active 2024 Sukhjinder Rhodes MD [address], [place], [address] , [place] [facility] [place] & [place] 5 15:46:05 Rajendra Mia Dub syndrome Active Yulisa Shaina null, [place] - [facility] - [facility] & [place] 4 15:38:18 Essential hypertensi on 49379466 Active 2023 Yulisa Talmage null, [place] [facility] [place] [facility] & [place] 4 15:38:30 Bilateral tinnitus 8544110752526 Active 2023 Yulisa Talmage null, [place] [facility] [place] [facility] & [place] 4 15:38:39 Malignant tumor of colon 282444286 Active 2023 Yulisa Talmage null, [place] [facility] & [place] 4 15:38:49 Menopause Active 2023 Yulisa Talmage null, [place] [facility] & [place] 4 15:38:56 Problem Notes None recorded. Procedures Surgical History Date Name Laterality Status Provider Name and Address Organization Details Recorded Time 01/31/20 25 Date of Last Colonoscopy completed Yulisa Shaina [place] [facility] [place] & [place] 01/30/2025 10:59:42 01/31/20 25 Colonoscopy completed Elida Rothamer [place] [facility] [place] & [place] 03/11/2025 12:11:50 10/21/20 24 Most Recent Mammogram completed Elida Rothamer [place] - [facility] - [facility] & [place] 12/12/2024 18:35:51 06/19/20 23 completed Elida Rothamer [place] [facility] [place] [facility] & [place] 06/17/2024 16:21:21 06/19/20 23 Date of Last Pap Smear completed Elida Rothamer [place] [facility] & [place] 06/17/2024 16:21:21 11/13/19 23 Cancer Surgery completed Elida DING [facility] & [place] 06/17/2024 16:21:44 11/13/19 23 Colonoscopy completed Elida DING [facility] & [place] 06/17/2024 16:21:44 left colectomy completed Danette DING [facility] & [place] 05/29/2024 15:13:22 Remove tonsils and adenoids completed Danette DING [facility] & [place] 05/29/2024 15:13:34 appendectomy completed Danette DING [facility] & [place] 05/29/2024 15:13:40 operation on hip joint completed Danette DING [facility] & [place] 05/29/2024 15:15:10 Imaging Results None recorded. Procedure Notes None recorded. Medical Equipment None Reported. Allergies Allergen ID Allergen Name Allergen Category Reaction Reaction Severity Criticality Documentation Date Start Date Code Code System Note Provider Name and Address Organization Details Recorded Time 796811 shellfish derived food,medi cation hives rash mild mild Not available 05/29/2024 50793 UNK Elida carrion, [place] MONAE [facility] & [place] 4 16:21:11 799534 iopamidol medicatio n rash Not available Not available 12/12/2024 5966 RxNorm [place] Garcai [facility] & [place] 5 18:36:38 474605 iodine medicatio n rash Not available Not available 12/12/2024 5933 RxNorm [place] Garcia [facility] & [place] 5 18:37:27 Medications Name Sig Start Date Stop Date Status Note LastModified by Organization Details LastModified Time fluconazole 100 mg tablet 09/17 completed Not Available Not Available Not Available clonidine HCl 0.1 mg tablet TAKE 1 TABLET NEEDED BY ORAL ROUTE DIRECTED FOR 30 DAYS, FOR ELEVATED BLOOD PRESSURE. 02/20 completed Not Available Not Available Not Available paroxetine 10 mg tablet Take 1 tablet every day by oral route for 90 days. 01/08 completed Not Available Not Available Not Available atorvastati n 20 mg tablet TAKE 1 TABLET BY MOUTH EVERY DAY active Not Available Not Available No t Available famotidine 40 mg tablet 08/21 completed Not Available Not Available Not Available prednisone 20 mg tablet 12/31 completed Not Available Not Available Not Available Zyrtec 10 mg tablet 07/01 completed Not Available Not Available Not Available ciprofloxac in 250 mg tablet bid 09/21 completed Not Available Not Available Not Available amlodipine 5 mg tablet TAKE 1 TO 2 TABLETS BY MOUTH EVERY DAY 04/09 completed Not Available Not Available Not Available omeprazole 40 mg capsule,del ayed release TAKE 1 CAPSULE BY MOUTH AT LEAST 30 MINUTES BEFORE BREAKFAST . 04/24 completed Not Available Not Available Not Available carvedilol 3.125 mg tablet TAKE 1 TABLET BY MOUTH TWICE A DAY 11/21 completed Not Available Not Available Not Available levothyroxi ne 25 mcg tablet TAKE 1 TABLET BY MOUTH EVERY DAY 04/24 completed Not Available Not Available Not Available famotidine 20 mg tablet Take 2 tablets by oral route. 06/28 completed Not Available Not Available Not Available levothyroxi ne 50 mcg tablet 01/08 completed Not Available Not Available Not Available prednisone 50 mg tablet Take 1 tablet every day by oral route for 5 days, for Contrast. 12/31 completed Not Available Not Available Not Available losartan 100 mg tablet TAKE 1/2 TABLET BY MOUTH EVERY DAY 2024 active Not Available Not Available Not Avai lable hydroxyzine pamoate 25 mg capsule TAKE 1 CAPSULE BY MOUTH THREE TIMES A DAY NEEDED FOR 30 DAYS active Not Available Not Available No t Available Asprin Ec Low Dose 81 mg tablet,lydia yed release Take 1 tablet every day by oral route. active Not Available Not Available No t Available budesonide- formoterol HFA 160 mcg-4.5 mcg/actuati on aerosol inhaler 2 PUFF INHALED TWICE A DAY FOR 90 DAYS active Not Available Not Available No t Available nebivolol 5 mg tablet Take 1 tablet every day by oral route for 90 days. 12/19 completed Not Available Not Available Not [...] n as needed by inhalatio n route. 04/09 completed Not Available Not Available Not Available Vitals Date Recorded Body height Body mass index (BMI) Body weight Oxygen saturation Oxygen saturation in Arterial blood by Pulse oximetry Heart rate Systolic And Diastolic Provider Name and Address Organization Details Last Updated DateTime 157.48 cm 34.8 kg/m2 28088.5 5 g 97 % 97 % 69 /min 136/90 mm[Hg] Dasha Castillo [facility] [place] 15:38:12 Social History Question Answer Notes LastModified by Organizat ion Details LastModified Time Tobacco Smoking Status Former Smoker Danette carrion, [facility] & [place] 05/29/2024 15:12:30 Do You Have An Advance Directive? No Information not available 06/17/2024 Are You Blind Or Do You Have Difficulty Seeing? No Information not available 06/17/2024 What Is Your Level Of Caffeine Consumption? Moderate [email or web address] Information not available 05/29/2024 When Did You Quit Smoking? 16+yearssince lastcigarette At Like 20 Yrs Old [email or web address] Information not available 05/29/2024 What Was The Date Of Your Most Recent Tobacco Screening? 05/29/2024 Information not available 06/17/2024 At What Age Did You Start Smoking Tobacco? 14 [email or web address] Information not available 05/29/2024 Are You Passively Exposed To Smoke? No Information not available 06/17/2024 How Much Tobacco Do You Smoke? No Information not available 06/17/2024 Has Tobacco Cessation Counseling Been Provided? No [email or web address] Information not available 05/29/2024 Sex: Female Functional Status Question Answer Note LastModified by Organizat ion Details LastModified Time Do you use any illicit or recreational drugs? No [email or web address] Information not available 05/29/2024 Do you or have you ever used any other forms of tobacco or nicotine? No [email or web address] Information not available 05/29/2024 What is your level of alcohol consumption? 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 Moderate Information not available 06/17/2024 Mental Status Question Answer Note LastModified by Organization D etails LastModified Time Do you feel stressed (tense, restless, nervous, or anxious, or unable to sleep at night)? [id number] Information not available 06/17/2024 Family History Relationship [...] Not available 2024 11:01:43 Father Hypertensive disorder [email or web address] Not available 05/29 15:05:48 Mother Chronic obstructive pulmonary disease [email or web address] Not available 05/29 15:05:57 Mother Diabetes mellitus type 2 [email or web address] Not available 2024 11:01:43 Mother Heart disease [email or web address] Not available 05/29 15:06:50 Mother Hyperlipidem ia [...] SNOMED-CT Code Diagnosis ICD10 Code Diagnosis Note [id number] Da Coello MD [facility] [address] [facility] [address] [place] [address] 03/31/2025 09:58:15 03/31/2025 10:44:30 Essential hypertension 15680060 I10 I do think a degree of her mild swelling is relatd to her amlodipine and we discussed trying 5mg BID instead of 10mg at once to see if this helps but that we can certainly make changes if needed, pt would like to hold on that currently. 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 with what she is trying to correct with supplement s and would start with two week trial Autoantibo dy titer detected 632269121 R76.8 [id number] Da Coello MD [facility] [address] [facility] [address] [place] [address] 04/09/2025 10:28:35 04/09/2025 11:01:13 Pneumothorax 18245608 J93.9 Essential hypertension 36560836 I10 Rajendra Mia Dub syndrome 9632897814 Q87.89 [id number] Sukhjinder Rhodes MD [facility] [address] [place] [address] 04/24/2025 15:30:46 04/24/2025 15:50:13 History of transient ischemic attack 533607426 Z86.73 Continue aggressive risk factor modificati on.MRI showed no evidence of stroke. Start 81 daily Essential hypertension 16256574 I10 Continue current medication . Keep log Low-salt diet < 2 gm Na/day, Regular exercise Weight loss Hyperlipidemia 56332400 E78.5 Continue statin Low fat/carboh ydrate diet Increase exercise Lose weight Body mass index 30+ - obesity 116228871 Z68.34 Low-carboh ydrate and low-fat diet Increase exercise to 30 minutes a day. Increase fruits and fresh vegetable intake and decrease processed foods and sugars Chest pain 35027206 R07. 89 Given clinical presentati on and risk profile , will get stress test for ischemic evaluation and risk stratifica tion Health Concerns Section Related Observation LastModified by Organization Detai ls LastModified Time None Recorded Concern Status LastModified by Organization Details LastModified Time None Recorded Payers Encounter Date Sequence Insurance Name Policy Number Policy Holman Covered Member ID Holman Member ID Guarantor Name 04/24/2025 1 [employer] [id number] Killian S Dean [id number] Rosie Moran Notes Date Note Type Note Provider Name and Address Organization Details Recorded Time 04/24/2025 text/html 49 F here for evaluation of an Neuro event as noted below for evaluation of CV etiology While in [place] was seen in ER with cp, high BP was ruled outcp -ss, radiates to Rt shoulder, on and off resolves on it's own, not associated with exertionBP well controlledNow off thyroid supplementationNo shortness of breath, PND, orthopnea,, palpitations, presyncope, syncope + diagnosed with hypothroidism- taken off thyroid supplement+ HTN- well controlled+HLD- on statin+ H/o colon Cancer- sp surgery with no Chemo/RTdiagnosed in early 2022 with left-sided colon adenocarcinoma. Patient had Left-sided hemicolectomy performed in December 2022 Echo 09/20/2024Normal LV size with normal function. The ejection fraction is 60-65%.Normal diastolic function.No shunt EKG 09/13/2024: NSR 70, OK interval 174 QRS 80 QTC 427 Past history: 12/2024 with ? TIA --neurological symptoms of unclear etiology. The patient had recent admission for similar complaints a few months ago at which point she had MRI of the brain, which was unremarkable. Repeat MRI done during this visit again showedno evidence of acute stroke. Telemetry shows no evidence of atrialfibrillation.No palpitations. No evidence of atrial fibrillation during here hospitalisation. Sukhjinder Rhodes MD [address], [place], [address], [facility] - [place] & [place] 04/25/2025 11:53:39 OBGyn Episode No OBEpisode recorded.
--- OUTSIDE RECORDS SUMMARY | 2025-05-15 09:22 | XMS_ITS | Data Portability ---
Author Organization [facility], [facility] Address [address] [place] [address] Care Team Providers Care Plate Embosser Name Role Phone HUNG SAMUEL Correction Warden [phone] JERSON CLEMENT Surgical Oncologist SARAH ALLEN Primary Care Provider Assessment Encounter Date Assessment Date Assessment LastModified by Organization Details LastModified Time 10/09/2023 10/09/2023 reviewed old records. Part of this medical record were completed using voice recording software. Because of the inherent limitations of this system, sometimes similar sounding word substitution may occur despite persistent proofreading. With this in mind please review this document for context. [email or web address] Not available 10/09/2023 09:41:48 11/19/2023 11/19/2023 This report was prepared using voice recognition software. The general report was reviewed for its content, but may contain verbal conservation specialist errors, which may alter the intended meaning of the dictating provider. [email or web address] Not available 11/19/2023 10:41:48 Plan of Treatment Reminders Order Date Submit Date Provider Last Modified By Organization Details Last Modified Time Details Appointments None recorded. Lab HbA1c (hemoglobin A1c), blood 2023 024 [email or web address] [facility], [address], [address] [address], [place], [address], 09:15:27 CMP, serum or plasma [address] [facility] [address] [facility], [address], [place], [address], 4 09:15:26 lipid panel, serum 2023 024 [email or web address] [facility], [address], [address], [place], [address], 4 09:15:27 Referral ENT surgery referral [address] [facility], [address] [facility], [place], [address], 4 10:45:23 Procedures None recorded. Surgeries None recorded. Imaging CT, chest, w/o contrast - February 20242022 023 8 [facility], [address], [address], [place], [address], 5 16:24:21 Medication Orders losartan 100 mg tablet 2023 024 [facility][id number], [address] [place], [address], 4 14:08:43 cet[facility]izine [address] [id number] [address] [facility], [place], [address], 4 13:07:30 Mucinex DM 30 mg-600 mg tablet,exte nded release 12 hr 2023 024 [facility] #4569, [address] [place], [address], 4 13:07:52 amoxicillin 500 mg capsule 2023 024 [address] [place], [address], 4 13:07:15 fluconazole 150 mg tablet 2023 024 [email or web address] [facility] #4569, [address] [facility] [place], [address], 4 13:07:36 Medrol (Duane) 4 mg tablets in a dose pack 2022 023 [email or web address] [facility] #4569, [address] [facility] [place], [address], 3 09:24:22 Zithromax Z-Duane 250 mg tablet 2022 023 [email or web address] [facility] #[id number], [address] [place], [address], 3 09:24:03 Patient TargetsNo targets recorded. Patient Instructions Encounter Date Encounter Id Patient Instructions Last Modified By Organization Details Last Modified Time 09/04/2023 [id number] Please note that this was a telephone visit that was performed from patient's home and physician's office at [facility]. Verbal consent to participate in this telephone visit was obtained since this visit occurred during the coronavirus public health emergency. I discussed with the patient the nature of our telephone visit and that I would evaluate the patient and recommend diagnostics and treatments based on my assessment and our sessions are not being recorded in the personal health information is protected. Our team would provide follow-up care in person if/when the patient needs it. Total duration of telephone discussion/visit was 5 minutes. [email or web address] Not available 09/04/2023 14:00:57 10/09/2023 [id number] hoarseness: care instructions jewiah Not available 10/09/2023 09:41:47 sore throat: care instructions jewiah Not available 10/09/2023 09:41:47 Follow up with primary care in 2-3 days, or go to ER if symptoms worsen. Drink fluids and rest. Take medication as prescribed. Thank you for choosing [facility]. jewiah Not available 10/09/2023 09:41:51 10/16/2023 [id number] allergies: care instructions tungarino Not available 10/16/2023 17:04:39 managing your allergies: care instructions tungarino Not available 10/16/2023 17:04:39 controlling your asthma: care instructions tungarino Not available 10/16/2023 17:04:39 learning about asthma tungarino Not available 10/16/2023 17:04:39 cough: care instructions tungarino Not available 10/16/2023 17:04:39 CT scan images reviewed by myself and PET scan reviewed by myself from 2022 and return here in February for repeat CT scan of the chest and placed on chest conference [email or web address] Not available 10/16/2023 10:02:01 11/19/2023 [id number] allergies: care instructions [email or web address] Not available 11/19/2023 10:43:36 managing your allergies: care instructions [email or web address] Not available 11/19/2023 10:43:36 cough: care instructions Not available 11/19/2023 10:43:36 Acute Sinusitis: Care Instructions [email or web address] Not available 11/19/2023 10:43:36 upper respiratory infection (cold): care instructions [email or web address] Not available 11/19/2023 10:43:36 Complete your antibiotic prescription in full. Take all medication strictly as directed. Push fluids, stay well-hydrated. Alternate Tylenol/ibuprofe n orally every 6-8 hours as needed for pain/fever. Follow-up with this office or with your PCP in 1 week if your symptoms persist or worsen. [email or web address] Not available 11/19/2023 10:43:33 02/26/2024 [id number] high blood pressure: care instructions gdoad Not available 02/26/2024 14:08:37 learning about high blood pressure gdoad Not available 02/26/2024 14:08:37 body mass index: care instructions gdoad Not available 02/26/2024 14:08:37 learning about healthy weight gdoad Not available 02/26/2024 14:08:36 Will call with an appointment to see ENT gdoad Not available 02/26/2024 14:08:23 Reason for Referral ENT Surgery Referral for Sg ateral tinnitus Referring Physician: Sarah Allen, Family Medicine, Encounter Date: 02/26/2024 Results Created Date Observation Date Name Description Value Unit Range Abnormal Flag Note LastModifiedBy Organization Detail LastModifiedTime 08/21/2008/21/2023 GROSS AND MICRO SCOPI C - LEVEL 4 [id number] results [facility] [place] [address] Phone : [phone] Direc tor: Dr. Henry jenkins Speci men Inqui ry ----- ----- ----- ----- ----- ----- ----- ----- ----- ----- ----- ----- ----- ----- ----- ----- ----- ----- -- Name : Scott Nelson ion : PMuraliRAD - MR# : [id number]: Lyndsey Quinonez MD Acct# : [id number] Copie s to: Shira Mendoza MD : 12/31 49 F Estrellita Rahman DO Reg/A dm Date: 08/21 Disch Date : ----- ----- ----- ----- ----- ----- ----- ----- ----- ----- ----- ----- ----- ----- ----- ----- ----- ----- -- Speci men: [id number] Recei corinna: 08/21-1 025 Statu s: LUDWIG Gutierres Num: [id number] Spec Type: Surg Subm Dr: Shira Mendoza MD Lung Biops y - Right lung biops y CLINI ALEJA HISTO RY Right lower lobe lung nodul e, histo ry of colon cance r (T3N0 M0) and Rajendra- Mia- Sara syndr ome ----- ----- ----- ----- ----- ----- ----- ----- ----- ----- ----- ----- ----- ----- ----- ----- ----- ----- -- FINAL DIAGN OSIS Lung, right , needl e core biops y: - FOCAL LY DENSE FIBRO US TISSU E AND FOCAL BENIG N ALVEO LAR TISSU E WITH CHRON IC INFLA MMATI ON. - NEGAT YAJAIRA FOR GIOVANA GONZALES . (SEE COMME NT) Dicta paresh by: Virginie ceja DO ----- ----- ----- ----- ----- ----- ----- ----- ----- ----- ----- ----- ----- ----- ----- ----- ----- ----- -- Comme nt Multi ple addit ional level s are revie wed. The biops y is compr ised predo minan tly of fibro us tissu e with a focus of dense fibro sis and a small (1mm) area of benig n appea ring alveo lar tissu e with adjac ent patch y chron ic infla mmati on. No featu res of giovana gonzales are ident ified . It is uncer dora glover er the biops y is repre senta tive of the lesio n ident ified on imagi ng; clini aleja and radio graph ic corre latio n are recom aisha d. MICRO SCOPI C DESCR IPTIO N Micro scopi c exami natio n perfo rmed. GROSS DESCR IPTIO N The speci men is recei corinna in a singl e conta iner of forma osmani label ed righ t lung biops y . The speci men consi sts of appro ximat karla 6 cylin rosalinda ceja fragm ents of white -red soft tissu e, the large st measu ring 0.1-0 .4 cm in [facility] reno. The speci men is poure d into a nylon speci men bag and submi tted in its entir ety in a singl e casse tte. EC/DJ T PROCE DURES : [id number] Patishirley nt: Scott Nelson Page: 1 Accou nt: [id number] NIGHAT NUED ON NEXT PAGE Run date: 08/23 [facility] [address] [place] [address] Phone : [phone] [facility] tor: Dr. Henry jimenez e Speci angélica Inqui ry ----- ----- ----- ----- ----- ----- ----- ----- ----- ----- ----- ----- ----- ----- ----- ----- ----- ----- -- Patishirley nt: Scott Nelson Acct# : [id number] (Cont inued ) ----- ----- ----- ----- ----- ----- ----- ----- ----- ----- ----- ----- ----- ----- ----- ----- ----- ----- -- Speci men: [id number] Recei corinna: 08/21- 025 (Cont inued ) Lexie ortega (sign ature on file) _ Virginie ceja DO 08/23 ----- ----- ----- ----- ----- ----- ----- ----- ----- ----- ----- ----- ----- ----- ----- ----- ----- ----- -- Patie nt: Zlueyka dudleyScott turnerteddy Leigh Page: 2 Accou nt: [id number] END OF T Run date: 08/23 Not Available [facility] [address], [place], [address], 08/23/2023 06:23:14 01/25/20 24 01/25/2024 CREAT ININE W/GFR creatinine 0.80 mg/dL 0.60-1 .20 Not Available [facility] [address], [place], [address], 01/25/2024 09:32:20 01/25/20 24 01/25/2024 CREAT ININE W/GFR estimated GFR non- amer >60 mL/mi n >60 Not Available [facility] [address], [place], [address], 01/25/2024 09:32:20 01/25/20 24 01/25/2024 CREAT ININE W/GFR estimated GFR >60 mL/mi n >60 Not Available [facility] [address], [place], [address], 01/25/2024 09:32:20 08/21/20 23 08/21/2023 XR, chest , 1 view Image [facility] [address] [place] [address] XRay Report Signed Patien t: Ledy Villafuerte Lu MR#: [id number] : 1975 Acct:A [id number] Age/Se x: 47 / F ADM Date: Loc: P.ARMANDO Discha rge Date: Attend ing Dr: Jerson boyd MD Orderi ng Physic elfego: Brianna Thorpe MD Date of Servic e: Proced ure(s) : XR chest 1V Access ion Number (s): [id number] cc: Brianna Thorpe MD; Maylin boyd,Sa cristopher Recinos MD CLINIC AL HISTOR Y: post biopsy FINDIN GS: COMPAR TONY: None. Octobe r 2022 at 10: 31 hours. Single AP examin ation of the chest dated 9 Octobe r 2022 at 10: 31 hours. The left lung is well aerate d and clear. Right basila r consol idatio n with blunti ng of the cardio phreni c angle as well as the costop hrenic angles consis tent with atelec tasis, infilt rate, or pleura l fluid. No pulmon renata vascul ar conges tion. No hilar or medias tinal adenop athy is presen t. The heart is at the upper limits of normal as to size and config uratio n. There is a normal thorac ic aorta. IMPRES RENO: 1. Right basila r consol idatio n as noted above which may repres ent subseg mental atelec tasis, infilt rate, or pleura l fluid. . 2. No eviden ce for pneumo thorax post proced ure. Dictat ed By: Jose J Kidd Jr, MD Signed By: Jose J Kidd Jr, MD 1217 DD/DT: 1212 TD/TT: 1213 Transc riptio nist: Jose J Kidd Jr, MD Provid ers: Orderi ng Provid er: FRANCISCO THORPE Common Orderi ng Provid er: FRANCISCO THORPE CC Provid ers: FRANCISCO THORPE ; JERSON BOYD Attend ing Provid er: JERSON BOYD Princi pal Result Interp reter: JOSE J KIDD [email or web address] [facility] [address] [facility] [address], [place], [address], 08/23/2023 08:34:38 08/22/2008/22/2023 biops y, lung, ct miguelangel nce (PROC ) Image [facility] [address] [place] [address] Cat Scan Report Signed Patien t: Ledy Villafuerte MR#: [id number] : 1975 Acct:A [id number] Age/Se x: 47 / F ADM Date: Loc: P.RAD Discha rge Date: Attend ing Dr: Jerson boyd MD Orderi ng Physic elfego: Sa cristopher Gauthier MD Date of Servic e: Proced ure(s) : CT biopsy lung RT Access ion Number (s): [id number] cc: Maylin boyd,Sa cristopher Recinos MD HISTOR Y: 47-yea r-old female presen ts with right lower lobe pleura l-base d massli ke atelec tasis versus fibros is. FINDIN GS: Follow ing inform ed consen t the patien t was placed in the prone positi on on the CT table. The patien t was given 100 mg of Demero l, 4 mg of Zofran and 5 mg of Versed IV. The sedati on was admini stered , titrat ed, vitals and level of consci ousnes s monito red by a jared rosales nurse under the direct superv ision of Dr. Thorpe for a consci ous sedati on time of [address]. [address] locali zation of a pleura l-base d right lower lobe lung mass the skin was preppe d, draped and look anesth etized with 1% buffer ed lidoca ine in a steril e fashio n. A 20-gau ge coaxia l needle was advanc ed to the margin of the lesion . Multip le coaxia l passes were 10 for multip le cores. The patien t tolera paresh the proced ure well with no gross compli cation s. IMPRES RENO: Techni sandra succes sful CT-chapo ded right lower lobe pleura l-base d mass biopsy with no gross compli cation s DoseMo nitor Dose Report CTDIvo l Mean: 20.94/ DLP: 393.07 Dictat ed By: Brianna Thorpe MD Signed By: Biranna Thorpe MD 1644 DD/DT: 1640 TD/TT: 1640 Transc riptio nist: Francisco Thorpe MD Provid ers: Orderi ng Provid er: JERSON MUNIRE DDY Common Orderi ng Provid er: JERSON MUNIRE DDY CC Provid er: JERSON MUNIRE DDY Attend ing Provid er: JERSON MUNIRE DDY Princi pal Result Interp reter: FRANCISCO THORPE [email or web address] [facility] [address] [facility] [address], [place], [address], 09/26/2023 14:14:33 Result Notes None recorded. Problems Name Problem SNOMED Code Status Onset Date Resolution Date Notes Provider Name and Address Organization Details Recorded Time Mass of colon 435473359 Active 2022 Princess Pedroza [facility] 3 13:24:41 Hypertensiv e disorder 37542707 Active 2022 Ricardo Henry [facility] 3 10:44:50 Asthma [id number] Oleg Allen MD [address] [place] [address] [address], [place], [address], [facility] 3 13:32:25 Abdominal pain [id number] Oleg Allen MD [address] [place] [address] [address], [place], [address], [facility] 3 13:32:25 Malignant tumor of descending colon [id number] Oleg Allen MD [address] [place] [address] [address], [place], [address], [facility] 3 13:32:25 Thrombocyto sis [id number] Oleg Allen MD [address] [place] [address] [address], [place], [address], [facility] 3 13:32:25 Hyponatremi a 00630118 Active Sarah Allen MD [address], [place], [address], [facility] 13:32:25 Problem Notes Documentation Provider Name and Address Organization Details Recorded Time Surgical Oncologist Consult Note : [facility] [address], [facility] [id number] MORAN (id #[id number], : 1975) Date: 09/04/2023RE: Rosie Moran, : 1975, PT ID #[id number] Allen MD, I would like to update you on the status of our mutual patient,Rosie Moran. Rosie was seen in our office for evaluation on 09/04/2023. I have enclosed a copy of the office evaluation for your records. Sincerely, Electronically Signed by: JERSON CLEMENT MD History of Present IllnessPatient is a 47 year old female, with history of partially obstructing [id number] descending colon cancer s/p left hemicolectomy, who is presenting today over the telephone to discuss recent CT-guided biopsy of right lung lesion. Patient was initially seen in the emergency department for abdominal pain and excess flatulence on 11/18/2022. CT showed focal circumferential masslike thickening of the mid descending colon measuring approximately 3.6 cm in craniocaudal dimension. Patient was then seen by Dr. Randall, abrasive mixer helper, and subsequently had a colonoscopy done that showed an infiltrative, polypoid and ulcerated partially obstructing large mass in the mid sigmoid colon. Mass could not be traversed by the colonoscope. Patient underwent robotic assisted left hemicolectomy with robotic assisted excision of right ovarian cyst on 12/21/2022. Final pathology revealed moderately differentiated adenocarcinoma measuring 4 x 3.3 cm extending completely through the muscularis propria into pericolonic tissue. No metastatic carcinoma identified in 42 lymph nodes. Post-op staging was pT3 N0; benign ovarian tissue with benign follicular cyst. Patient did well overall postoperatively. Because she had s stage II colon cancer, she did not need any adjuvant therapy. She was seen in July 2023 for surveillance with a CT scan which did not show any clear evidence of recurrence or metastasis. CT scan of the chest did show redemonstration of the subpleural lesion in the posterior medial right lower lobe, slightly increased in size at 4.7 x 1.9 cm when compared to previously 2.7 x 1.9 cm. Patient was scheduled for CT-guided biopsy of this lesion and she is following up over the telephone today after the biopsy. She denies any problems from the biopsy. She does admit to having some shortness of breath after exercising. Patient is followed by Dr. Butler, emergency detail driver, with recently diagnosed Rajendra Mia Sara syndrome. She reports a family history of pancreatic cancer (grandmother). Other than the above mentioned, there are no complaints.Assessment/Plan 1. Primary malignant neoplasm of descending colon-Patient is a 47 year old female with cT3 N0 M0 partially obstructing descending colon cancer diagnosed in November [address] Randall. She underwent robotic assisted left hemicolectomy with robotic assisted excision of right ovarian cyst on 12/21/2022. Final pathology revealed moderately differentiated adenocarcinoma measuring 4 x 3.3 cm extending completely through the muscularis propria into pericolonic tissue. No metastatic carcinoma identified in 42 lymph nodes (pT3N0). Benign ovarian tissue with benign follicular cyst. Patient was seen by Dr. Dick, medical oncologist and no adjuvant chemotherapy was recommended as she had stage II colon cancer, but close follow-up was recommended. Therefore, she is presenting today for her 3-month follow-up visit. Recent CEA on 07/24/[address] abdomen pelvis on 07/28/2023 revealed fecal material throughout colon suggesting constipation. Re demonstration of the subpleural lesion in the posterior medial right lower lobe, slightly increased in size at 4.7 x 1.9 cm when compared to previously 2.7 x 1.9 cm. I personally reviewed these images and report and discussed these results with the patient at last clinic visit. Her follow-up colonoscopy on 08/03/2023 showed few polyps, but no malignancy. Due to the enlarging size of the right pleural-based mass, I had recommended CT-guided needle biopsy through interventional radiology. She underwent this and she is following up over the telephone today. I discussed the pathology results with her which showed this to be a benign lesion. I have encouraged patient to follow-up with Dr. Butler regarding this lung lesion as well as regarding her shortness of breath while exercising. I will see her back in [address] abdomen and pelvis with IV and oral contrast as well as CEA or sooner if needed. She understands and agrees with this entire plan. 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 Mass of pleura-See above for details; we will schedule her for CT-guided [id number]: Other specified pleural conditions Discussion NotesPlease note that this was a telephone visit that was performed from patient's home and physician's office at [facility]. Verbal consent to participate in this telephone visit was obtained since this visit occurred during the coronavirus public health emergency. I discussed with the patient the nature of our telephone visit and that I would evaluate the patient and recommend diagnostics and treatments based on my assessment and our sessions are not being recorded in the personal health information is protected. Our team would provide follow-up care in person if/when the patient needs it. Total duration of telephone discussion/visit was 5 minutes. Return to Office [facility] on or around 12/27/2023 to see Lex Randall MD for NEW COLON RECALL [facility]min [facility] on or around 08/10/2026 Sarah Allen MD [address], [place], [address], [facility] 09/08/2023 10:42:30 Surgical Oncologist Consult Note : [facility] [address], [facility] [id number] (id #[id number], : 1975) Date: 09/04/2023RE: Rosie Moran, : 1975, PT ID #[id number] Butler MD, I would like to update you on the status of our mutual patient,Rosie Moran. Rosie was seen in our office for evaluation on 09/04/2023. I have enclosed a copy of the office evaluation for your records. Sincerely, Electronically Signed by: JERSON CLEMENT MD History of Present IllnessPatient is a 47 year old female, with history of partially obstructing [id number] descending colon cancer s/p left hemicolectomy, who is presenting today over the telephone to discuss recent CT-guided biopsy of right lung lesion. Patient was initially seen in the emergency department for abdominal pain and excess flatulence on 11/18/2022. CT showed focal circumferential masslike thickening of the mid descending colon measuring approximately 3.6 cm in craniocaudal dimension. Patient was then seen by Dr. Randall, abrasive mixer helper, and subsequently had a colonoscopy done that showed an infiltrative, polypoid and ulcerated partially obstructing large mass in the mid sigmoid colon. Mass could not be traversed by the colonoscope. Patient underwent robotic assisted left hemicolectomy with robotic assisted excision of right ovarian cyst on 12/21/2022. Final pathology revealed moderately differentiated adenocarcinoma measuring 4 x 3.3 cm extending completely through the muscularis propria into pericolonic tissue. No metastatic carcinoma identified in 42 lymph nodes. Post-op staging was pT3 N0; benign ovarian tissue with benign follicular cyst. Patient did well overall postoperatively. Because she had s stage II colon cancer, she did not need any adjuvant therapy. She was seen in July 2023 for surveillance with a CT scan which did not show any clear evidence of recurrence or metastasis. CT scan of the chest did show redemonstration of the subpleural lesion in the posterior medial right lower lobe, slightly increased in size at 4.7 x 1.9 cm when compared to previously 2.7 x 1.9 cm. Patient was scheduled for CT-guided biopsy of this lesion and she is following up over the telephone today after the biopsy. She denies any problems from the biopsy. She does admit to having some shortness of breath after exercising. Patient is followed by Dr. Butler, emergency detail driver, with recently diagnosed Rajendra Mia Sara syndrome. She reports a family history of pancreatic cancer (grandmother). Other than the above mentioned, there are no complaints.Assessment/Plan 1. Primary malignant neoplasm of descending colon-Patient is a 47 year old female with cT3 N0 M0 partially obstructing descending colon cancer diagnosed in November [address] Randall. She underwent robotic assisted left hemicolectomy with robotic assisted excision of right ovarian cyst on 12/21/2022. Final pathology revealed moderately differentiated adenocarcinoma measuring 4 x 3.3 cm extending completely through the muscularis propria into pericolonic tissue. No metastatic carcinoma identified in 42 lymph nodes (pT3N0). Benign ovarian tissue with benign follicular cyst. Patient was seen by Dr. Dick, medical oncologist and no adjuvant chemotherapy was recommended as she had stage II colon cancer, but close follow-up was recommended. Therefore, she is presenting today for her 3-month follow-up visit. Recent CEA on 07/24/[address] abdomen pelvis on 07/28/2023 revealed fecal material throughout colon suggesting constipation. Re demonstration of the subpleural lesion in the posterior medial right lower lobe, slightly increased in size at 4.7 x 1.9 cm when compared to previously 2.7 x 1.9 cm. I personally reviewed these images and report and discussed these results with the patient at last clinic visit. Her follow-up colonoscopy on 08/03/2023 showed few polyps, but no malignancy. Due to the enlarging size of the right pleural-based mass, I had recommended CT-guided needle biopsy through interventional radiology. She underwent this and she is following up over the telephone today. I discussed the pathology results with her which showed this to be a benign lesion. I have encouraged patient to follow-up with Dr. Butler regarding this lung lesion as well as regarding her shortness of breath while exercising. I will see her back in [address] abdomen and pelvis with IV and oral contrast as well as CEA or sooner if needed. She understands and agrees with this entire plan. 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 Mass of pleura-See above for details; we will schedule her for CT-guided vpcpvpR47.8: Other specified pleural conditions Discussion NotesPlease note that this was a telephone visit that was performed from patient's home and physician's office at [facility]. Verbal consent to participate in this telephone visit was obtained since this visit occurred during the [facility] public health emergency. I discussed with the patient the nature of our telephone visit and that I would evaluate the patient and recommend diagnostics and treatments based on my assessment and our sessions are not being recorded in the personal health information is protected. Our team would provide follow-up care in person if/when the patient needs it. Total duration of telephone discussion/visit was 5 minutes. Return to Office to see Sarah Allen MD at [facility] on or around 12/27/2023 to see Lex Randall MD for NEW COLON RECALL [facility] on or around 08/10/2026 Joaquina Walton [facility] 09/26/2023 14:46:48 Glove Cuffer Consult Note : [facility] [address], [facility] [id number] MORAN (id #[id number], : 1975) [facility] [address] [place] [address] , Date: 10/16/2023RE: Rosie Moran, : 1975, PT ID #[id number] Doad MD, I would like to update you on the status of patient,Rosie Moran. Rosie [facility], for evaluation on 10/16/2023. I have enclosed a copy of the office evaluation for your records. Sincerely, Electronically Signed by: GENIE BUTLER MD , [facility] PulmonologyVitals Ht: 5 ft 5 in10/16/2023 09:16 am Wt: 183 lbs With [id number]/16/2023 09:21 am BMI: 30. 09:21 am BP: 138/84 standing R arm10/16/2023 09:23 am HR: 7910/16/2023 09:23 am O2Sat: 99% Room Air at Rest10/16/2023 09:23 am RR: 18112/17/2022 09:23 am T: 96.5 F temporal [id number]/16/2023 09:22 am Pain Scale: 09:21 am History of Present IllnessReason for consult is chronic coughMrs. Rosie Moran is a 47-year-old female with a history of spontaneous pneumothorax while she was in her 20s and 30s treated with observation only in [facility]. Patient had diagnosis of colon cancer early part of this year and had colectomy with no chemotherapy nor radiation and the surgeon was . 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 The syndrome she is under evaluation or further evaluation for renal cancers and skin cancers but most of the skin follicular lesions are benign. Patient had asthma in her mid 20s and since moving to [place] has had more coughing. No hemoptysis no sputum production and had skin testing positive for dust exposure several years ago though no history of immunotherapy and takes Zyrtec for postnasal drip. 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 Patient does snore mildly but no daytime somnolence patient states when she uses her albuterol she gets dry mouth but only when she uses her albuterol inhaler. Patient is going to see Dr. Maya for any benign follicular skin lesions. Denies any wheezing nor any heartburn. May 01, 2023MrsMurali Moran is a 47-year-old female with a history of spontaneous pneumothorax while she was in her 20s and 30s treated with observation only in [facility]. Patient had diagnosis of colon cancer early part of this year and had colectomy with no chemotherapy nor radiation and the surgeon was . 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 The syndrome she is under evaluation or further evaluation for renal cancers and skin cancers but most of the skin follicular lesions are benign. Patient had asthma in her mid 20s and since moving to [place] has had more coughing. Patient still having some difficulty with steroid inhalers Advair Symbicort and Trelegy Trelegy caused her to haveSigns and Symptoms of COVID-19 (e.g., fever, dry cough, and/or SOB), no diagnosis made (assign the appropriate code(s)):. Patient is using a spacer which helps with the albuterol and using the albuterol 2-3 times a week but never in the middle of the night IgE is 9 SPEP no M spike alpha-1 antitrypsin level MM phenotype and eosinophils are 3.9% of 6600. We discussed having daughter and son screened for renal tumors and also mention parathyroid and thyroid had been rarely seen with Rajendra Mcwilliams. October 16, 2023Mrs. Rosie Moran is a 47-year-old female with a history of spontaneous pneumothorax while she was in her 20s and 30s treated with observation only in [facility]. Patient had diagnosis of colon cancer early part of this year and had colectomy with no chemotherapy nor radiation and the surgeon was . 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 The syndrome she is under evaluation or further evaluation for renal cancers and skin cancers but most of the skin follicular lesions are benign.Patient had recent right lower lobe fine-needle aspiration finding focally dense fibrosis based on enlarging right lower lobe density on CAT scan and this was ordered by Dr. Clement, and it appears the patient had right lower lobe previous over 20 years ago pneumothoraces and I am curious about whether this is in response to those pneumothoraces is pleural reaction. Father and son have Rajendra Mia Sara now they have been screened. Patient's not on any inhalers and cough is abated now that she is off lisinopril on losartan but also on PPI that has been changed to Pepcid and I mentioned that next year we will do a Lassiter to discern whether there truly is refluxMedications Reviewed Medications NameDate Source albuterol sulfate HFA 90 mcg/actuation aerosol inhaler2 PUFF., start started Sarah Allen MD cetirizine 10 mg [id number] MG., start started Sarah Allen MD famotidine 40 mg rqlsan92/01/23 filled surescripts losartan 100 mg tabletTake 1 tablet(s) every day by oral route.09/07/23 filled surescripts Assessment/Plan1. MppcwvK52.909: Unspecified asthma, uncomplicated CONTROLLING YOUR ASTHMA: CARE INSTRUCTIONS LEARNING ABOUT ASTHMA 2. Allergic dtjpqevxE76.9: Allergic rhinitis, unspecified ALLERGIES: CARE INSTRUCTIONS MANAGING YOUR ALLERGIES: CARE INSTRUCTIONS 3. NkujoN10.9: Cough, unspecified COUGH: CARE INSTRUCTIONS 4. History of bhntxtpvotfaE54.09: Personal history of other diseases of the respiratory system 5. Multiple nujagnvsjwehfocajF41.9: Other benign neoplasm of skin, unspecified 6. Computed tomography result nriooynbQ07.89: Abnormal findings on diagnostic imaging of other specified body structures CT, CHEST, W/O CONTRAST - Note to Imaging Facility: February 2024 Patient Age: 47 years old Height (ft.): 5 ft 5 in Weight (lbs): 183 Discussion NotesCT scan images reviewed by myself and PET scan reviewed by myself from 2022 and return here in February for repeat CT scan of the chest and placed on chest conference Return to Office to see Sarah Allen MD at [facility] on or around 12/27/2023 Genie Butler MD for FOLLOW UP 15min at [facility] on 02/26/2024 at 09:00 AM to see Lex Randall MD for NEW COLON RECALL 15min [facility] on or around 08/10/2026 Sarah Allen MD [address] [facility] [address], [place], [address], [place] [facility] 10/16/2023 16:56:07 Procedures Surgical History Date Name Laterality Status Provider Name and Address Organization Details Recorded Time robotic assisted surgery completed Pattikwaku Blue [facility] 12/26/2022 10:13:16 Imaging Results None recorded. Procedure Notes None recorded. Medical Equipment None Reported. Allergies Allergen ID Allergen Name Allergen Category Reaction Reaction Severity Criticality Documentation Date Start Date Code Code System Note Provider Name and Address Organization Details Recorded Time 309462 shellfish derived food,medi cation Not available Not available Not available 12/01/2022 [id number] UNK Amado andrew [facility] 3 10:44:24 Medications Name Sig Start Date Stop Date Status Note LastModified by Organization Details LastModified Time losartan 50 mg tablet TAKE 1 TABLET BY MOUTH ONCE DAILY 10/16 completed Not Available Not Available Not Available amoxicilli n 500 mg capsule Take 1 capsule every 12 hours by oral route as directed for 10 days. 02/25 completed Not Available Not Available Not Available cetirizine 10 mg tablet Take 1 tablet every day by oral route at bedtime for 21 days. 02/25 completed Not Available Not Available Not Available azithromyc in 250 mg tablet TAKE 2 TABLETS (500 MG) BY ORAL ROUTE ONCE DAILY FOR 1 DAY THEN 1 TABLET (250 MG) BY ORAL ROUTE ONCE DAILY FOR 4 DAYS 10/16 completed Not Available Not Available Not Available nystatin 100,000 unit/gram topical ointment APPLY TOPICALL Y TO CORNERS OF MOUTH TWICE DAILY 06/26 completed Not Available Not Available Not Available fluconazol e 150 mg tablet Take 1 tablet by oral route as directed for 2 days. 02/25 completed Not Available Not Available Not Available lisinopril 20 mg tablet Take 1 tablet every day by oral route. 06/26 completed Not Available Not Available Not Available famotidine 40 mg tablet TAKE 1 TABLET BY MOUTH EVERYDAY AT BEDTIME 02/25 completed Not Available Not Available Not Available prednisone 20 mg tablet TAKE 1 TABLET EVERY DAY BY ORAL ROUTE IN THE MORNING FOR 5 DAYS, FOR ALLERGY TO CONTRAST . active Not Available Not Available No t Available metronidaz ole 500 mg tablet take 1 tablet by mouth at 2pm, 3pm and 10pm on 12/20/2206/26 completed Not Available Not Available Not Available Space Chamber USE DIRECTED 06/26 completed Not Available Not Available Not Available triamcinol one acetonide 0.1 % topical cream APPLY TOPICALL Y TO AFFECTED AREAS TWICE DAILY FOR 1 WEEK THEN STOP FOR A WEEK AND REPEAT NEEDED 06/26 completed Not Available Not Available Not Available pantoprazo le 40 mg tablet,del ayed release TAKE 1 TABLET BY MOUTH EVERY DAY 10/16 completed Not Available Not Available Not Available prednisone 50 mg tablet TAKE 1 TABLET BY MOUTH 13 HRS, 7 HRS AND 1 HR BEFORE SCAN DIRECTED 02/25 completed Not Available Not Available Not Available Advair Diskus 250 mcg-50 mcg/dose powder for inhalation INHALE 1 DOSE BY MOUTH TWICE DAILY 06/26 completed Not Available Not Available Not Available docusate sodium 100 mg capsule TAKE 1 CAPSULE BY MOUTH TWICE DAILY 06/26 completed Not Available Not Available Not Available polyethyle ne glycol 3350 17 gram/dose oral powder MIX AND DRINK PRIOR TO COLONOSC OPY PER THE PROVIDED INSTRUCT IONS FROM GI 10/16 completed Not Available Not Available Not Available methylpred nisolone 4 mg tablets in a dose pack Take 1 dose pk by oral route. 10/16 completed Not Available Not Available Not Available neomycin 500 mg tablet TAKE 2 TABLETS BY MOUTH AT 2 PM, 3 PM AND 10 PM ON 12/20/2206/26 completed Not Available Not Available Not Available albuterol sulfate HFA 90 mcg/actuat ion aerosol inhaler INHALE 2 PUFFS BY MOUTH EVERY 4 HOURS NEEDED active Not Available Not Available No t Available fluocinoni de 0.05 % topical cream APPLY TOPICALL Y TO AFFECTED AREAS ON TOES TWICE DAILY FOR 2 WEEKS THEN STOP 06/26 completed Not Available Not Available Not Available ondansetro n 4 mg disintegra ting tablet DISSOLVE 1 TABLET IN MOUTH 1 HOUR BEFORE PREP AND EVERY 8 HOURS NEEDED FOR NAUSEA 10/16 completed Not Available Not Available Not Available losartan 100 mg tablet TAKE 1 TABLET BY MOUTH EVERY DAY active Not Available Not Available No t Available fluticason e propionate 50 mcg/actuat ion nasal spray,susp ension USE 1 SPRAY(S) IN EACH NOSTRIL ONCE DAILY 06/26 completed Not Available Not Available Not Available oxycodone 5 mg tablet TAKE 1 TABLET BY MOUTH EVERY 6 HOURS NEEDED FOR BREAKTHR OUGH PAIN 06/26 completed Not Available Not Available Not Available Benadryl 25 mg capsule take 50 mg (2 capsules ) 30 min to [address] appt 06/26 completed Not Available Not Available Not Available Mucinex DM 30 mg-600 mg tablet,ext ended release 12 hr Take 1 tablet every 12 hours by oral route as directed for 7 days. 02/25 completed Not Available Not Available Not Available Sudafed 12 Hour 06/26 completed Not Available Not Available Not Available budesonide -formotero l HFA 160 mcg-4.5 mcg/actuat ion aerosol inhaler 2 puffs by inhalati on route. 12/20 completed Not Available Not Available Not Available Symbicort 06/26 completed Not Available Not Available Not Available cetirizine 10 mg capsule Take 10 mg by oral route. 02/25 completed Not Available Not Available Not Available Banophen 50 mg capsule TAKE 1 CAPSULE BY MOUTH [address] SCAN active Not Available Not Available No t Available oxycodone 5 mg tablet,ora l ONLY (not feeding tubes) Take 5 mg by oral route. 07/31 completed per pt. not taking 07/19/23 hr Not Available Not Available Not Available Willard Fe 1.5/30 (28) 1.5 mg-30 mcg (21)/75 mg (7) tablet TAKE 1 TABLET BY MOUTH ONCE DAILY 06/26 completed Not Available Not Available Not Available Clenpiq 10 mg-3.5 gram-12 gram/160 mL oral solution Take 160 mL twice a day by oral route for 1 day. 06/26 completed Not Available Not Available Not Available Trelegy Ellipta 200 mcg-62.5 mcg-25 mcg powder for inhalation INHALE 1 PUFF ONCE DAILY 06/26 completed Not Available Not Available Not Available Airsupra 90 mcg-80 mcg/actuat ion HFA aerosol inhaler active Not Available Not Available Not Available Vitals Date Recorded Body height Body mass index (BMI) Body weight Respiratory rate Body temperature Oxygen saturation Oxygen saturation in Arterial blood by Pulse oximetry Heart rate Systolic And Diastolic Provider Name and Address Organization Details Last Updated DateTime 4 165.1 cm 30.5 kg/m2 05838.8 4 g 18 /min 97.6 [degF] 98 % 98 % 78 /min 133/89 mm[Hg] Sudarshan Grady [facility] 4 10:13:40 Date Recorded Body height Body mass index (BMI) Body weight Body temperature Heart rate Respiratory rate Oxygen saturation Oxygen saturation in Arterial blood by Pulse oximetry Systolic And Diastolic Provider Name and Address Organization Details Last Updated DateTime 4 165.1 cm 30.3 kg/m2 30248.8 1 g 97.6 [degF] 63 /min 18 /min 99 % 99 % 132/74 mm[Hg] Briseyda Reyes [facility] 4 13:06:42 Date Recorded Body height Body mass index (BMI) Body weight Respiratory rate Oxygen saturation Oxygen saturation in Arterial blood by Pulse oximetry Heart rate Body temperature Systolic And Diastolic Provider Name and Address Organization Details Last Updated DateTime 3 165.1 cm 30 kg/m2 21729.6 3 g 18 /min 97 % 97 % 89 /min 98.3 [degF] 126/86 mm[Hg] Brooke Winner [facility] 3 09:16:45 Date Recorded Body height Body mass index (BMI) Body weight Body temperature Respiratory rate Heart rate Oxygen saturation Oxygen saturation in Arterial blood by Pulse oximetry Systolic And Diastolic Provider Name and Address Organization Details Last Updated DateTime 3 165.1 cm 30.5 kg/m2 45381.4 g 96.5 [degF] 18 /min 79 /min 99 % 99 % 138/84 mm[Hg] Lorna Woods [facility] 3 09:23:11 Social History Question Answer Notes LastModified by Organizat ion Details LastModified Time Tobacco Smoking Status [facility] 11/18/2022 09:26:17 Do You Have An Advance Directive? Yes Information n ot available 07/19/2023 Are You Blind Or Do You Have Difficulty Seeing? No [email or web address] Information n ot available 11/24/2022 What Is Your Level Of Caffeine Consumption? Heavy Information not available 07/19/2023 In The 14 Days Before Symptom Onset, Have You Had Close Contact With A Laboratory-confirm ed COVWY-19 While That Case Was Ill? No [facility] Information n ot available 11/18/2022 In The 14 Days Before Symptom Onset, Have You Had Close Contact With A Person Who Is Under Investigation For COVID-19 While That Person Was Ill? No [facility] Information not available 11/18/2022 Have You Been To An Area Known To Be High Risk For COVID-19? No [email or web address] Information not available 11/18/2022 Are You Deaf Or Do You Have Serious Difficulty Hearing? No [email or web address] Information not available 11/24/2022 What Was The Date Of Your Most Recent Tobacco Screening? 10/16/2023 [email or web address] Information not available 10/16/2023 Do You Have Difficulty Walking Or Climbing Stairs? No [email or web address] Information not available 11/24/2022 Sex: Unknown Functional Status Question Answer Note LastModified by Organizat ion Details LastModified Time How many times per week do you consume alcohol? Less than 1 time per week [email or web address] Information not available 10/16/2023 Do you use any illicit or recreational drugs? No [email or web address] Information not available 10/16/2023 Do you or have you ever used any other forms of tobacco or nicotine? No Information not available 10/16/2023 What is your level of alcohol consumption? Occasional Information not available 07/19/2023 Do you have transportation difficulties? No [email or web address] Information not available 11/24/2022 Do you have difficulty doing errands alone? No [email or web address] Information not available 11/24/2022 Are you able to care for yourself? Yes Information n ot available 11/24/2022 Do you have difficulty dressing or bathing? No [email or web address] Information not available 11/24/2022 Mental Status Question Answer Note LastModified by Organization D etails LastModified Time Do you have difficulty concentrating, remembering or making decisions? No [email or web address] Information no t available 11/24/2022 Family History Relationship Description Onset Age of this Age Resolved Age Notes LastModified by Organization Details LastModified Time Brother Hypertensive disorder [email or web address] Not available 11/13 10:45:12 Father Hypertensive disorder [email or web address] Not available 11/13 10:45:12 Father Malignant neoplasm of prostate Not available 11/13 10:45:32 Maternal Grandmother Malignant neoplasm of ovary [email or web address] Not available 11/13 10:45:49 Notes:Family history of colo n cancer pt. 07/19/23 hr Medical History Condition Response AIDS/HIV N Liver Disease N Heart Disease N Hypertension N Lung Disease Y Gynecological HistoryNo gynecological history recorded. Obstetrics History GPAL:G 0 P 0 0 0 0 Immunizations Vaccine Type Date Status Note Provider Nam e and Address Organization Details Recorded Time COVID-19, mRNA, LNP-S, PF, 100 mcg/0.5mL dose or 50 mcg/0.25mL dose 06/24/2021 completed Sarah Allen MD [address] [place] [address], [place], [address], [facility] 06/26/2023 13:30:41 COVID-19, mRNA, LNP-S, PF, 100 mcg/0.5mL dose or 50 mcg/0.25mL dose 07/23/2021 completed Sarah Allen MD [address] [place] [address] [address], [place], [address], [facility] 06/26/2023 13:30:41 Past Encounters Encounter ID Performer Location Encounter Start Date Encounter Closed Date Diagnosis/Indication Diagnosis SNOMED-CT Code Diagnosis ICD10 Code Diagnosis Note [id number] Mariana Woodward MD [facility] [address] [place] [address] 11/18/2022 08:47:44 11/18/2022 10:42:54 Abdominal pain 18450994 R10.9 [id number] Lex Randall MD [facility] [address] [place] [address] 11/23/2022 14:02:28 11/23/2022 16:28:43 CT of abdomen abnormal [id number] 5508611 R93.5 11/18/2022 CT abdomen/pe lvis - IMPRESSION : 1. Focal circumfere ntial masslike thickening of the mid descending colon measuring approximat karla 3.6 cm in craniocaud al dimension. This area has apple core appearance and therefore suspicious for malignancy . Differenti al diagnosis includes infectious /inflammat ory focal colitis. Recommend tissue diagnosis. 2. The above-ment ioned diseased colon exhibits partial obstructiv e effects as demonstrat ed by moderate to large volume stool within the upstream colon. The downstream colon is essentiall y decompress ed. No evidence of complete obstructio n. 3. Small, however morphologi sandra abnormal lymph nodes surroundin g the above-ment ioned diseased mid descending colon. These are nonspecifi c in the absence of tissue diagnosis. Differenti al diagnoses include reactive versus neoplastic adenopathy . 4. Small-volu me free fluid in the pelvis is likely reactive. 5. Confluent opacity in the posteromed ial right lower lobe as described above. Differenti al diagnoses include airspace disease versus rounded atelectasi s. Correlate with any outside institutio n imaging. 6. A 4.0 cm cystic lesion in the right ovary and additional findings as above.Sonali ent with 1-1/2 week history of multiple crampy, loose, watery bowel movements daily. She is passing a lot of gas. Denies any nausea or vomiting. I will scheduled patient for colonoscop y [facility] for further evaluation . I have advised patient should she develop worsening abdominal pain, nausea/vom iting, abdominal distension , not passing air to report immediatel y to the ER, Diarrhea [id number] R19.7 Acute - 1 - 1/2 weeks multiple loose, crampy, watery bowel movements daily - Essential hypertension 65976316 I10 BP is elevated in office today, 173/109, repeat 185/100. Patient does not have a history of elevated blood pressure in the past. She is anxious about visit today. She denies chest pain, headaches, shortness of breath, dizziness, etc. She just moved from [place] in October and does not have a PCP yet. Patient has been advised to go to urgent care after visit today for evaluation /treatment of BP. [id number] Mariana Woodward MD [facility] [address] [place] [address] 11/23/2022 16:00:54 11/23/2022 17:36:32 Increased blood pressure 22503338 R03.0 [id number] Mariana Woodward MD [facility] [address] [place] [address] 11/24/2022 08:17:40 11/24/2022 09:46:27 Elevated blood-pressure reading without diagnosis of hypertension 779023228 R03.0 [id number] Sarah Allen MD [facility] [address] [place] [address] 11/24/2022 09:46:26 11/24/2022 11:12:58 Essential hypertension 73459503 I10 [id number] Jerson Clement MD [facility] [address] [place] [address] 12/01/2022 10:06:28 12/01/2022 11:53:11 Mass of colon 621917599 R19.09 Patient is a 46 year old female with a partially obstructin g sigmoid colon mass seen on colonoscop y. I personally reviewed the colonoscop y by Dr. Randall, gastroente rologist, which showed an infiltrati ve polypoid, ulcerated and almost obstructin g sigmoid colon mass which could not be traversed with the colonoscop e. CT performed on November 18, 2022 showed focal circumfere ntial masslike thickening of the mid descending colon measuring approximat karla 3.6 cm in craniocaud al dimension. Unfortunat karla, pathology results from biopsy are not back yet. Patient continues to have some abdominal discomfort and excess flatulence . On clinical examinatio n, she has a right neck lymph node that is concerning . We will schedule patient for PET/CT. Patient will also be referred to Dr. Dick, medical oncologist . Patient will follow up with me after PET/CT. Patient and her understand and agree with this plan. They are encouraged to call the office with any questions or concerns. Cervical lymphadenopathy 236530009 R59.0 Hard right lateral neck lymph node on physical examinatio n, in this patient with recently diagnosed sigmoid colon mass that is highly concerning for malignancy . Patient is scheduled for PET CT scan. If this is PET avid, then she will need a ultrasound -guided biopsy of this right neck lymph node. [id number] Norma Rai MD [facility] [address] [place] [address] 12/07/2022 15:13:43 12/07/2022 16:01:55 Hypertensive disorder 75610690 I10 stable controlled continue lisinopril 20 Asthma 905376366 J45.90 9 switch to advair from symbicort [id number] Jerson Clement MD [facility] [address] [place] [address] 12/19/2022 08:49:22 12/19/2022 09:42:27 Mass of colon 971596861 R19.09 Patient is a 46 year old female with a partially obstructin g descending colon mass seen on colonoscop y. I personally reviewed the colonoscop y by Dr. Randall, gastroente rologist, which showed an infiltrati ve polypoid, ulcerated and almost obstructin g sigmoid colon mass which could not be traversed with the colonoscop e. CT performed on November 18, 2022 showed focal circumfere ntial masslike thickening of the mid descending colon measuring approximat karla 3.6 cm in craniocaud al dimension. Final pathology revealed small fragments of adenomatou s mucosa with at least high-grade dysplasia, focal erosion/ul ceration. At last clinic visit patient was found to have left cervical lymphadeno sejal and she has now undergone PET/CT and is presenting today for her follow-up visit. PET/CT on 12/02/2022 revealed short segment of FDG active circumfere ntial thickening involving the mid descending colon, consistent with known primary. No evidence of FDG active regional or distant metastasis . Large adnexal cyst on the right side measuring 4.8 x 4.4 cm but this was not PET avid. I have reviewed these images and report and discussed these results with the patient today. She does continue to have some abdominal tenderness , but is not having any significan t pain. She is continuing to have daily bowel movements alternatin g between some constipati on and loose stools. Today in the office, we have discussed surgical options. We will plan to proceed with robotic assisted left colectomy and excision of right pelvic cyst, possible open procedure. I discussed this procedure in detail with the patient today. I have also discussed risks associated with this procedure to include but not limited to infection, bleeding, injury to bowel, injury to ureter, injury to the spleen/rojo creas, anastomoti c leak, kink at the anastomosi s/obstruct ion, possible need for open procedure, possible herniation of incision sites, need for additional procedures . She also understand s the possible risk of rupture of the right adnexal cyst while trying to remove it. We will arrange procedure accordingl y. Patient understand s that if she has any worsening obstructio n symptoms to contact the office sooner. She understand s and agrees with this entire plan. She is encouraged to contact the office with any further questions or concerns. Cervical lymphadenopathy 542910691 R59.0 Hard right lateral neck lymph node on physical examinatio n, in this patient with recently diagnosed sigmoid colon mass that is highly concerning for malignancy . PET/CT revealed no areas of abnormal activity about the neck. Preoperative state 94322 002 Z78.9 See above for details Cyst of right ovary 1223 347602 [id number] N83.201 See above for details [id number] Jerson Clement MD [facility] [address] [place] [address] 01/12/2023 08:33:27 01/16/2023 08:28:40 Mass of colon 247505996 R19.09 See above for details Cervical lymphadenopathy 942318835 R59.0 Hard right lateral neck lymph node on physical examinatio n, in this patient with recently diagnosed sigmoid colon mass that was highly concerning for malignancy . However, PET/CT revealed no areas of abnormal activity about the neck. Cyst of right ovary 1223 774001 3775216 N83.201 See above for details Primary ma lignant neoplasm of descending colon 47297426 C18.6 Patient is a 47 year old female with a partially obstructin g descending colon mass seen on colonoscop y. I personally reviewed the colonoscop y by Dr. Randall, gastroente rologist, which showed an infiltrati ve polypoid, ulcerated and almost obstructin g sigmoid colon mass which could not be traversed with the colonoscop e. CT performed on November 18, 2022 showed focal circumfere ntial masslike thickening of the mid descending colon measuring approximat karla 3.6 cm in craniocaud al dimension. Final pathology revealed small fragments of adenomatou s mucosa with at least high-grade dysplasia, focal erosion/ul ceration. At a previous clinic visit patient was found to have left cervical lymphadeno sejal. Therefore, she underwent PET/CT on 12/02/2022, which revealed short segment of FDG active circumfere ntial thickening involving the mid descending colon, consistent with known primary. No evidence of FDG active regional or distant metastasis . Large adnexal cyst on the right side measuring 4.8 x 4.4 cm but this was not PET avid. These images and report were reviewed and discussed with the patient. Decision was made to proceed with surgical interventi on for removal of partially obstructin g colon mass as well as right pelvic cyst. She is now status post robotic assisted left hemicolect steven with robotic assisted excision of right ovarian cyst on 12/21/2022. Today, she is presenting for her first postoperat yajaira visit. She is doing well overall postoperat ively. Incision sites are healing well. Final pathology revealed moderately differenti ated adenocarci noma measuring 4 x 3.3 cm extending completely through the muscularis propria into pericoloni c tissue. No metastatic carcinoma identified in 42 lymph nodes. Benign ovarian tissue with benign follicular cyst. I have discussed these results with the patient and her today. Patient was seen recently by Dr. Dick, medical oncologist and no adjuvant chemothera py was recommende d at this time as she has stage II colon cancer, but close follow-up was recommende d. Therefore, I will plan to see her back in 3 months with serum CEA or sooner if needed. She understand s and agrees with this entire plan. She is encouraged to contact the office with any further questions or concerns. 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 Randall for abdominal pain. Staging CT performed on November 18, 2022 showed focal circumfere ntial masslike thickening of the mid descending colon measuring approximat karla 3.6 cm in craniocaud al dimension. Final pathology revealed small fragments of adenomatou s mucosa with at least high-grade dysplasia, focal erosion/ul ceration. At a previous clinic visit patient was found to have left cervical lymphadeno sejal. Therefore, she underwent PET/CT on 12/02/2022, which revealed short segment of FDG active circumfere ntial thickening involving the mid descending colon, consistent with known primary. No evidence of FDG active regional or distant metastasis . Large adnexal cyst on the right side measuring 4.8 x 4.4 cm but this was not PET avid. She underwent robotic assisted left hemicolect steven with robotic assisted excision of right ovarian cyst on 12/21/2022. Final pathology revealed moderately differenti ated adenocarci noma measuring 4 x 3.3 cm extending completely through the muscularis propria into pericoloni c tissue. No metastatic carcinoma identified in 42 lymph nodes (pT3N0). Benign ovarian tissue with benign follicular cyst. Patient was seen by Dr. Dick, medical oncologist and no adjuvant chemothera py was recommende d at this time as she has stage II colon cancer, but close follow-up was recommende d. Therefore, she is presenting today for her 3-month follow-up visit after recent CEA. CEA on 04/11/2023 was 1.25. I discussed these results with the patient today. She is doing well overall without complaints . Therefore, we will plan to see her back in [address] abdomen pelvis with IV and oral contrast and CEA or sooner if needed. She will continue to follow-up with medical oncology as directed. The patient understand s and agrees with this entire plan. She is encouraged to contact the office with any further questions or concerns. Cervical lymphadenopathy 292134820 R59.0 Hard right lateral neck lymph node on physical examinatio n, in this patient with recently diagnosed sigmoid colon mass that was highly concerning for malignancy . However, PET/CT revealed no areas of abnormal activity about the neck. Cyst of right ovary 1223 490759 6167667 N83.201 See above for details [id number] Genie Butler MD [facility] [address] [place] [address] 05/01/2023 09:46:55 05/01/2023 11:46:21 Allergic rhinitis 29723451 J30.9 Cough 49149096 R05.9 History of pneumothorax 412566862 Z87.09 Multiple fibrofolliculomas 065621801 D23.9 Asthma 833722391 J45.90 9 [id number] Sarah Allen MD [facility] [address] [place] [address] 06/26/2023 12:06:44 06/26/2023 13:43:05 Benign essential hypertension 7455269 I10 Active or passive immunization 186394505 Z23 Body mass index 25-29 - overweight 769364507 Z68.29 Diabetes m ellitus screening 027051389 Z13.1 [id number] Lex Randall MD [facility] [address] [place] [address] 07/19/2023 09:41:13 07/19/2023 15:30:48 History of malignant neoplasm of colon 027104826 Z85.038 Patient s/p robotic assisted left hemicolect steven with robotic assisted excision of right ovarian cyst on 12/21/2022. Final pathology revealed moderately differenti ated adenocarci noma measuring 4 x 3.3 cm extending completely through the muscularis propria into pericoloni c tissue. No metastatic carcinoma identified in 42 lymph nodes (pT3N0). Benign ovarian tissue with benign follicular cyst. She was seen by Dr. Dick medical oncologist and no adjuvant chemothera py was recommende d at this time as she has stage II colon cancer, but close follow-up was recommende d. 11/28/2022 colonoscop y revealed an infiltrati ve, polypoid and ulcerated partially obstructin g large mass found in the mid sigmoid colon. The mass was circumfere ntial. The colonoscop e could not be advanced past this obstructiv e mass. Area was tattooed with an injection of spot distal to the mass. A 14 mm TA polyp was found in the mid sigmoid colon. A 4 mm HP polyp in the distal sigmoid colon. Nonbleedin g internal hemorrhoid s found during retroflexi on. Pathology revealed small fragments of adenomatou s mucosa with with at least high-grade dysplasia mid sigmoid colon mass. Focal erosion/ul ceration. Repeat colonoscop y after studies are complete for surveillan ce. [id number] Jerson Clement MD [facility] [address] [place] [address] 07/31/2023 08:23:52 07/31/2023 10:12:30 Primary malignant neoplasm of descending colon 68126317 C18.6 Patient is a 47 year old female with cT3 N0 M0 partially obstructin g descending colon cancer diagnosed in November 2022 on colonoscop y performed by Dr. Randall for abdominal pain. Staging CT performed on November 18, 2022 showed focal circumfere ntial masslike thickening of the mid descending colon measuring approximat karla 3.6 cm in craniocaud al dimension. Final pathology revealed small fragments of adenomatou s mucosa with at least high-grade dysplasia, focal erosion/ul ceration. At a previous clinic visit patient was found to have left cervical lymphadeno sejal. Therefore, she underwent PET/CT on 12/02/2022, which revealed short segment of FDG active circumfere ntial thickening involving the mid descending colon, consistent with known primary. No evidence of FDG active regional or distant metastasis . Large adnexal cyst on the right side measuring 4.8 x 4.4 cm but this was not PET avid. She underwent robotic assisted left hemicolect steven with robotic assisted excision of right ovarian cyst on 12/21/2022. Final pathology revealed moderately differenti ated adenocarci noma measuring 4 x 3.3 cm extending completely through the muscularis propria into pericoloni c tissue. No metastatic carcinoma identified in 42 lymph nodes (pT3N0). Benign ovarian tissue with benign follicular cyst. Patient was seen by Dr. Dick, medical oncologist and no adjuvant chemothera py was recommende d at this time as she has stage II colon cancer, but close follow-up was recommende d. Therefore, she is presenting today for her 3-month follow-up visit. Recent CEA on 07/24/[address] abdomen pelvis on 07/28/2023 revealed fecal material throughout colon suggesting constipati on. Redemonstr ation of the subpleural lesion in the posterior medial right lower lobe, slightly increased in size at 4.7 x 1.9 cm when compared to previously 2.7 x 1.9 cm. I personally reviewed these images and report and discussed these results with the patient today. She is scheduled for colonoscop y on 08/03/2023. She is doing well overall without complaints . Due to the enlarging size of the right pleural-ba sed mass, I have recommende d CT-guided needle biopsy through interventi onal radiology. We will arrange accordingl y. We will discuss results via telehealth appointmen t. I will plan to see her back in [address] abdomen and pelvis with IV and oral contrast as well as CEA or sooner if needed. She understand s and agrees with this entire plan. She is encouraged to contact office with any further questions or concerns. Mass of pleura [id number] 1 89768 J94.8 See above for details; we will schedule her for CT-guided biopsy [id number] Jerson Clement MD [facility] [address] [facility] [address] [place] [address] 09/04/2023 13:37:13 09/06/2023 09:13:42 Primary malignant neoplasm of descending colon 28838104 C18.6 Patient is a 47 year old female with cT3 N0 M0 partially obstructin g descending colon cancer diagnosed in November [address] y by Dr[address] Randall. She underwent robotic assisted left hemicolect steven with robotic assisted excision of right ovarian cyst on 12/21/2022. Final pathology revealed moderately differenti ated adenocarci noma measuring 4 x 3.3 cm extending completely through the muscularis propria into pericoloni c tissue. No metastatic carcinoma identified in 42 lymph nodes (pT3N0). Benign ovarian tissue with benign follicular cyst. Patient was seen by Dr. Dick, medical oncologist and no adjuvant chemothera py was recommende d as she had stage II colon cancer, but close follow-up was recommende d. Therefore, she is presenting today for her 3-month follow-up visit. Recent CEA on 07/24/[address] abdomen pelvis on 07/28/2023 revealed fecal material throughout colon suggesting constipati on. Re demonstrat ion of the subpleural lesion in the posterior medial right lower lobe, slightly increased in size at 4.7 x 1.9 cm when compared to previously 2.7 x 1.9 cm. I personally reviewed these images and report and discussed these results with the patient at last clinic visit. Her follow-up colonoscop y on 08/03/2023 showed few polyps, but no malignancy . Due to the enlarging size of the right pleural-ba sed mass, I had recommende d CT-guided needle biopsy through [facility]. She underwent this and she is following up over the telephone today. I discussed the pathology results with her which showed this to be a benign lesion. I have encouraged patient to follow-up with Dr. Butler regarding this lung lesion as well as regarding her shortness of breath while exercising . I will see her back in [address] abdomen and pelvis with IV and oral contrast as well as CEA or sooner if needed. She understand s and agrees with this entire plan. She is encouraged to contact office with any further questions or concerns. Mass of pleura [id number] 1 37805 J94.8 See above for details; we will schedule her for CT-guided biopsy [id number] aMriana Woodward MD [facility] [address] [facility] [address] [place] [address] 10/09/2023 08:53:46 10/09/2023 09:45:28 Hoarse 42239872 R49.0 Acute pharyngitis 208033 003 J02.9 [id number] Genie Butler MD [facility] [address] [place] [address] 10/16/2023 08:02:14 10/16/2023 09:53:54 Asthma 970325142 J45.909 Allergic rhinitis 572909 04 J30.9 Cough 36362632 R05.9 History of pneumothorax 046213580 Z87.09 Multiple fibrofolliculomas 794902781 D23.9 Computed t omography result abnormal 505875520 R93.89 [id number] Mariana Woodward MD [facility] [address] [place] [address] 11/19/2023 09:53:10 11/19/2023 11:11:54 Allergic rhinitis 40339650 J30.9 Posterior rhinorrhea 758 68110 R09.82 Cough 81383821 R05.9 Acute uppe r respiratory infection 22297627 J06.9 Acute maxi llary sinusitis 52323184 J01.00 [id number] Sarah Allen MD [facility] [address] [place] [address] 02/26/2024 12:57:15 02/26/2024 14:16:43 Bilateral tinnitus 8594751613 102 H93.13 Active or passive immunization 308080753 Z23 Benign ess ential hypertension 3570805 I10 Body mass index 30+ - obesity 815252483 Z68.30 Diabetes m ellitus screening 925525993 Z13.1 Health Concerns Section Related Observation LastModified by Organization Detai ls LastModified Time None Recorded Concern Status LastModified by Organization Details LastModified Time None Recorded Advance Directives Directive Y: Payers Insurance Date Sequence Insurance Name Policy Number Policy Holman Covered Member ID Holman Member ID Guarantor Name 04/19/2025 1 [place] [id number] Rosie Moran [id number] Rosie Moran 04/18/2025 2 [place] [id number] Rosie Moran [id number] Rosie Moran 04/18/2025 1 [place] [id number] Rosie Moran [id number] 21 Rosie Moran 04/18/2025 1 [place] [id number] Rosie Moran [id number] 21 Rosie Moran 04/18/2025 1 [place] Rosie Moran [id number] Rosie Moran 09/07/2024 1 [place] [id number] Killian Moran [id number] 21 Rosie Moran 04/18/2025 2 [place] [id number] Rosie Moran [id number] 21 Rosie Moran 11/19/2023 1 [place] [id number] Rosie Townsendoney [id number] 21 Rosie Townsendoney 08/02/2023 1 [place] [id number] Rosie Townsendoney [id number] 21 Rosiedianna Townsendoney 08/26/2023 1 [place] [id number] Rosie Townsendoney [id number] 21 Rosie Townsendoney 12/28/2022 PAYMENT PLAN Rosie Moran 12/30/2022 1 [place] [id number] Rosie Townsendoney [id number] 21 Rosie Townsendoney 12/08/2022 1 [place] [id number] Rosie Townsendoney [id number] 21 Rosie Moran 08/25/2024 PAYMENT PLAN Rosie Moran 11/19/2023 1 [place] [id number] Killian Moran [id number] Rosie Moran Notes Date Note Type Note Provider Name and Address Organization Details Recorded Time 09/04/2023 text/html Patient is a 47 year old female, with history of partially obstructing [id number] descending colon cancer s/p left hemicolectomy, who is presenting today over the telephone to discuss recent CT-guided biopsy of right lung lesion. Patient was initially seen in the emergency department for abdominal pain and excess flatulence on 11/18/2022. CT showed focal circumferential masslike thickening of the mid descending colon measuring approximately 3.6 cm in craniocaudal dimension. Patient was then seen by Dr. Randall, abrasive mixer helper, and subsequently had a colonoscopy done that showed an infiltrative, polypoid and ulcerated partially obstructing large mass in the mid sigmoid colon. Mass could not be traversed by the colonoscope. Patient underwent robotic assisted left hemicolectomy with robotic assisted excision of right ovarian cyst on 12/21/2022. Final pathology revealed moderately differentiated adenocarcinoma measuring 4 x 3.3 cm extending completely through the muscularis propria into pericolonic tissue. No metastatic carcinoma identified in 42 lymph nodes. Post-op staging was pT3 N0; benign ovarian tissue with benign follicular cyst. Patient did well overall postoperatively. Because she had s stage II colon cancer, she did not need any adjuvant therapy. She was seen in July 2023 for surveillance with a CT scan which did not show any clear evidence of recurrence or metastasis. CT scan of the chest did show redemonstration of the subpleural lesion in the posterior medial right lower lobe, slightly increased in size at 4.7 x 1.9 cm when compared to previously 2.7 x 1.9 cm. Patient was scheduled for CT-guided biopsy of this lesion and she is following up over the telephone today after the biopsy. She denies any problems from the biopsy. She does admit to having some shortness of breath after exercising. Patient is followed by Dr. Butler, emergency detail driver, with recently diagnosed Rajendra Mia Sara syndrome. She reports a family history of pancreatic cancer (grandmother). Other than the above mentioned, there are no complaints. Jerson Clement MD [address], [place], [address], [facility] 09/04/2023 14:01:00 10/09/2023 text/html Patient is 47 ye ars old presented with complaint of cough, hoarseness, congestion for a week. Report taking OTC medication with no relief. Reports fever initially which have resolved at this time. Denies shortness of breath, chest pain, vomiting or diarrhea. Suzy Mendez NP [address], [place], [address], [facility] 10/09/2023 09:43:30 10/16/2023 text/html Reason for consu lt is chronic coughMrs. Rosie Moran is a 47-year-old female with a history of spontaneous pneumothorax while she was in her 20s and 30s treated with observation only in [facility]. Patient had diagnosis of colon cancer early part of this year and had colectomy with no chemotherapy nor radiation and the surgeon was . 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 The syndrome she is under evaluation or further evaluation for renal cancers and skin cancers but most of the skin follicular lesions are benign. Patient had asthma in her mid 20s and since moving to [place] has had more coughing. No hemoptysis no sputum production and had skin testing positive for dust exposure several years ago though no history of immunotherapy and takes Zyrtec for postnasal drip. 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 Patient does snore mildly but no daytime somnolence patient states when she uses her albuterol she gets dry mouth but only when she uses her albuterol inhaler. Patient is going to see Dr. Maya for any benign follicular skin lesions. Denies any wheezing nor any heartburn. May 01, 2023Mrs. Rosie Moran is a 47-year-old female with a history of spontaneous pneumothorax while she was in her 20s and 30s treated with observation only in [facility]. Patient had diagnosis of colon cancer early part of this year and had colectomy with no chemotherapy nor radiation and the surgeon was . 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 The syndrome she is under evaluation or further evaluation for renal cancers and skin cancers but most of the skin follicular lesions are benign. Patient had asthma in her mid 20s and since moving to [place] has had more coughing. Patient still having some difficulty with steroid inhalers Advair Symbicort and Trelegy Trelegy caused her to haveSigns and Symptoms of COVID-19 (e.g., fever, dry cough, and/or SOB), no diagnosis made (assign the appropriate code(s)):. Patient is using a spacer which helps with the albuterol and using the albuterol 2-3 times a week but never in the middle of the night IgE is 9 SPEP no M spike alpha-1 antitrypsin level MM phenotype and eosinophils are 3.9% of 6600. We discussed having daughter and son screened for renal tumors and also mention parathyroid and thyroid had been rarely seen with Rajendra Mia Dubdee dee. October 16, 2023Mrs. Rosie Moran is a 47-year-old female with a history of spontaneous pneumothorax while she was in her 20s and 30s treated with observation only in [facility]. Patient had diagnosis of colon cancer early part of this year and had colectomy with no chemotherapy nor radiation and the surgeon was . 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 The syndrome she is under evaluation or further evaluation for renal cancers and skin cancers but most of the skin follicular lesions are benign.Patient had recent right lower lobe fine-needle aspiration finding focally dense fibrosis based on enlarging right lower lobe density on CAT scan and this was ordered by Dr. Clement, and it appears the patient had right lower lobe previous over 20 years ago pneumothoraces and I am curious about whether this is in response to those pneumothoraces is pleural reaction. Father and son have Rajendra Mia Sara now they have been screened. Patient's not on any inhalers and cough is abated now that she is off lisinopril on losartan but also on PPI that has been changed to Pepcid and I mentioned that next year we will do a Lassiter to discern whether there truly is reflux Genie Butler MD [address], [place], [address], [facility] 10/16/2023 13:16:13 11/19/2023 text/html Patient is a 47-year-old female presenting today with a weeklong history of runny nose, sneezing, and cough. She reports yellowish/brownish colored sputum production with her cough. She reports some upper body pain with coughing episodes. She reports a low-grade fever this past Monday. She denies any respiratory difficulty. She is COA x 4. She is amatory without assistance. No acute distress demonstrated. LILLIAN MASON JR, NP [address], [place], [address], [facility] 11/19/2023 10:47:33 02/26/2024 text/html Hypertension has been using losartan 200 mg daily without adverse effect BP less than 130 systolic. Cough has resolvedBilateral tinnitus patient had experienced ringing in the ear bilaterally for some time now. Has noticed gradual increase and has gradually began to affect her quality of life. Would like to see ENT for further evaluation. No associated dizzinessObesity has lost weight since last visitQuality measures needs Tdap as well as shingles vaccineCurrently has no chest pain tightness shortness of breath orthopnea PND or swelling her anklesNo pain in legs when walking Sarah Allen MD [address], [place], [address], [facility] 02/26/2024 14:08:42 OBGyn Episode No OBEpisode recorded.
--- OUTSIDE RECORDS SUMMARY | 2025-05-15 09:22 | XMS_ITS | Continuity of Care Document ---
Author Organization [place] - [facility] [place] [facility] [place] Address [address] [place] [address] Care Team Providers Care Adjunct Instructor Of Women'S Studies Name Role Phone DA COELLO Primary Care Provider [phone] Assessment Encounter Date Assessment Date Assessment LastModified by Organization Details LastModified Time 05/12/2025 05/12/2025 continue losartan but pt would potentiallly like to try using 1/2 dose losartan QOD to alternate with 2.5mg amlodipine. She will give us an update on readings but encouraged to continue losartan daily if pressures remain elevated. Keep f/u with cardiology discussed that systemic estrogen use may cause increases in BP and should likely be limited to topical (estrace or similar) but recommended to establish with brush cleaner to discuss this and other options as well. Not available 05/12/2025 12:58:47 Plan of Treatment Reminders Order Date Submit Date Provider Last Modified By Organization Details Last Modified Time Details Appointments OV EST 15 2024 01:00P Beau Rhodes MD Not available Not available Not available FOLLOW UP 2024 10:15A Beau Duke MD Not available Not available Not available OV EST 2024 08:30A Beau Coello MD Not available Not available Not available Lab None recorded . Referral None recorded . Procedures None recorded . Surgeries None recorded . Imaging None recorded . Medication Orders None recorded . Patient TargetsNo targets recorded. Patient InstructionsNo instructions recorded. Reason for Referral None Reported. Results Created Date Observation Date Name Description Value Unit Range Abnormal Flag Note LastModifiedBy Organization Detail LastModifiedTime 05/08/2005/08/2025 heart SPECT multi rest/ stres s Exerci se Stress Test [facility] EXAM: HEART SPECT MULTI REST/S TRESS [id number] 00 DATE OF EXAM: 2024 08:28: 05 [...] 2024 11:53: 15 DT: 2024 14:34: 59 /[id number] Electr onical ly Signed By: GENIE Mesa 05-08 15:28: 19 CC'ed Logic: Orderi ng Provid er: GENIE BENAVIDEZ Attend ing Provid er: GENIE BENAVIDEZ Admitt ing Provid er: GENIE BENAVIDEZ [email or web address] [facility] [address], [place], [address], 05/09/2025 09:54:42 Result Notes None recorded. Problems Name Problem SNOMED Code Status Onset Date Resolution Date Notes Provider Name and Address Organization Details Recorded Time Hyperlipid emia 94937451 Active 2023 Sukhjinder Rhodes MD [address], [place], [address] , [place] [facility] [place] & [place] 4 11:18:58 Chest pain 06753312 Active 2024 Sukhjinder Rhodes MD [address], [place], [address] , [place] [facility] & [place] 5 15:46:05 Rajendra Mia Dub syndrome Active Yulisa Night[place] null, [place] - [facility] & [place] 4 15:38:18 Essential hypertensi on 76329870 Active 2023 Yulisa [place] null, [place] [facility] & [place] 4 15:38:30 Bilateral tinnitus 6853763667121 Active 2023 Yulisa [place] null, [place] [facility] & [place] 4 15:38:39 Malignant tumor of colon 855601651 Active 2023 Yulisa [place] null, [place] [facility] & [place] 4 15:38:49 Menopause Active 2023 Yulisa [place] null, [place] [facility] & [place] 4 15:38:56 Problem Notes None recorded. Procedures Surgical History Date Name Laterality Status Provider Name and Address Organization Details Recorded Time 01/31/20 Date of Last Colonoscopy completed Yulisa Merritt [place] - [facility] [place] & [place] 01/30/2025 10:59:42 01/31/20 Colonoscopy completed Elida Yuen [place] - [facility] [place] & [place] 03/11/2025 12:11:50 10/21/20 24 Most Recent Mammogram completed Elida Rothamer [place] - [facility] [place] & [place] 12/12/2024 18:35:51 06/19/20 23 completed Elida Rothamer [place] [facility] [place] & [place] 06/17/2024 16:21:21 06/19/20 23 Date of Last Pap Smear completed Elida Rothamer [place] - [facility] & [place] 06/17/2024 16:21:21 11/13/19 23 Cancer Surgery completed Elida Rothamer [place] - [facility] [place] & [place] 06/17/2024 16:21:44 11/13/19 23 Colonoscopy completed Leida Rothamer [place] - [facility] & [place] 06/17/2024 16:21:44 left colectomy completed Danette [place] - [facility] & [place] 05/29/2024 15:13:22 Remove tonsils and adenoids completed Danette Curt [place] - [facility] & [place] 05/29/2024 15:13:34 appendectomy completed Danette Curt [place] - [facility] & [place] 05/29/2024 15:13:40 operation on hip joint completed Danette Curt [place] - [facility] & [place] 05/29/2024 15:15:10 Imaging Results None recorded. Procedure Notes None recorded. Medical Equipment None Reported. Allergies Allergen ID Allergen Name Allergen Category Reaction Reaction Severity Criticality Documentation Date Start Date Code Code System Note Provider Name and Address Organization Details Recorded Time 600361 shellfish derived food,medi cation hives rash mild mild Not available 05/29/2024 66268 UNK Elida Rothamer null, [place] - [facility] & [place] 16:21:11 835373 iopamidol medicatio n rash Not available Not available 12/12/2024 5966 RxNorm Elida Rothamer null, [place] - [facility] & [place] 18:36:38 793305 iodine medicatio n rash Not available Not available 12/12/2024 5933 RxNorm Elida Rothamer null, [place] [facility] & [place] 18:37:27 Medications Name Sig Start Date Stop [...] Details Last Updated DateTime 5 157.48 cm 34.6 kg/m2 85715.9 6 g 97.7 [degF] 98 % 98 % 66 /min 128/84 mm[Hg] Yulisa Merritt [facility] & [place] 10:21:25 Social History Question Answer Notes LastModified by Organizat ion Details LastModified Time Tobacco Smoking Status Former Smoker Danette carrion, [facility] & [place] 05/29/2024 15:12:30 Do You Have An Advance Directive? No Information not available 06/17/2024 Are You Blind Or Do You Have Difficulty Seeing? No Information not available 06/17/2024 What Is Your Level Of Caffeine Consumption? Moderate [email or web address] Information not available 05/29/2024 When Did You Quit Smoking? 16+yearssince lastcigarette At Like 20 Yrs Old [email or web address] Information not available 05/29/2024 What Was The Date Of Your Most Recent Tobacco Screening? 05/29/2024 Information not available 06/17/2024 At What Age Did You Start Smoking Tobacco? 14 [email or web address] Information not available 05/29/2024 Are You Passively Exposed To Smoke? No Information not available 06/17/2024 How Much Tobacco Do You Smoke? No Information not available 06/17/2024 Has Tobacco Cessation Counseling Been Provided? No [email or web address] Information not available 05/29/2024 Sex: Female Functional Status Question Answer Note LastModified by Organizat ion Details LastModified Time Do you use any illicit or recreational drugs? No [email or web address] Information not available 05/29/2024 Do you or have you ever used any other forms of tobacco or nicotine? No [email or web address] Information not available 05/29/2024 What is your level of alcohol consumption? 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 Moderate Information not available 06/17/2024 Mental Status Question Answer Note LastModified by Organization D etails LastModified Time Do you feel stressed (tense, restless, nervous, or anxious, or unable to sleep at night)? [id number] Information not available 06/17/2024 Family History Relationship [...] Not available 2024 11:01:43 Father Hypertensive disorder [email or web address] Not available 05/29 15:05:48 Mother Chronic obstructive pulmonary disease [email or web address] Not available 05/29 15:05:57 Mother Diabetes mellitus [...] SNOMED-CT Code Diagnosis ICD10 Code Diagnosis Note [id number] Da Coello MD [facility] [address] [place] [address] 05/12/2025 10:08:03 05/12/2025 10:46:52 Essential hypertension 57259812 I10 Vaginal dryness 14502488 N89.8 [id number] Sukhjinder Rhodes MD [facility] [address] [facility] [address] [place] [address] 04/24/2025 15:30:46 04/24/2025 15:50:13 History of transient ischemic attack 484371404 Z86.73 Continue aggressive risk factor modificati on.MRI showed no evidence of stroke. Start 81 daily Essential hypertension 80717258 I10 Continue current medication . Keep log Low-salt diet < 2 gm Na/day, Regular exercise Weight loss Hyperlipidemia 24690124 E78.5 Continue statin Low fat/carboh ydrate diet Increase exercise Lose weight Body mass index 30+ - obesity 157128632 Z68.34 Low-carboh ydrate and low-fat diet Increase exercise to 30 minutes a day. Increase fruits and fresh vegetable intake and decrease processed foods and sugars Chest pain 75476933 R07. 89 Given clinical presentati on and risk profile , will get stress test for ischemic evaluation and risk stratifica tion Health Concerns Section Related Observation LastModified by Organization Detai ls LastModified Time None Recorded Concern Status LastModified by Organization Details LastModified Time None Recorded Payers Encounter Date Sequence Insurance Name Policy Number Policy Holman Covered Member ID Holman Member ID Guarantor Name 05/12/2025 1 [id number] ([id number]) [id number] Killian Moran [id number] Rosie Dean Notes Date Note Type Note Provider Name and Address Organization Details Recorded Time 05/12/2025 text/html She is here for f/u on BPshe notes that overall, her pressure has been more stable with her BID checks. She has had occasional spikes and notes that this happens when she is light-headed prompting her to check it. Readings are usually about 150 and resolve after 15 min or so with rest. She is presently only taking losartan 100mg but only taking 1/2 tablet daily. She had stress test with cardiology as well that had no acute findings. SHe is havingsome issues with decreased libido and vaginal dryness. sHe is not established with gynecology but would like a recommendation on local options. Da Coello MD [address], [place], [address], [facility] - [place] & [place] 05/12/2025 12:58:57 OBGyn Episode No OBEpisode recorded.
--- OUTSIDE RECORDS SUMMARY | 2025-05-15 09:23 | XMS_ITS | Continuity of Care Document ---
Author Organization [place] - [facility] [facility] & [facility] [address] - [place] Address [address] [place] [address] Care Team Providers Care Benefits Manager Name Role Phone DA BACA Primary Care Provider [phone] Assessment No assessment recorded. Plan of Treatment Reminders Order Date Submit Date Provider Last Modified By Organization Details Last Modified Time Details Appointments OV EST 15 2024 01:00P M Sukhjinder Rhodes MD Not available Not available Not available FOLLOW UP 2024 10:15A M Fernando Duke MD Not available Not available Not available OV EST 2024 08:30A M Da Baca MD Not available Not [...] contr ast No observ ation record ed. [email or web address] [facility] [address], [place], [address], 04/04/2025 09:47:02 04/01/20 25 04/01/2025 XR, chest No observ ation record ed. [email or web address] [facility] [address], [place], [address], 04/04/2025 09:49:02 04/02/20 25 04/01/2025 elect loren chenggr am, routi ne ECG, 12 leads min No observ ation record ed. [address], [place], [address], 04/04/2025 09:49:29 04/02/20 25 04/02/2025 XR, chest No observ ation record ed. [address], [place], [place], [address], 04/04/2025 09:49:43 04/02/20 25 04/02/2025 XR, chest No observ ation record ed. [address], [place], [place], [address], 04/04/2025 09:49:55 04/02/20 25 04/02/2025 XR, chest No observ ation record ed. [address], [place], [place], [address], 04/04/2025 09:50:24 04/04/20 25 04/04/2025 XR, chest No observ ation record ed. [place] [address], [place], [address], 04/04/2025 15:49:55 05/08/20 25 05/08/2025 heart SPECT multi rest/ stres s Exerci se Stress Test [facility] 3 2 EXAM: HEART SPECT MULTI REST/S TRESS [id number] 00 DATE OF EXAM: 2024 08:28: 05 [...] 67%. DICTAT ED BY: [facility]inder [facility], [facility] J[facility]/MOD L DD: 2024 11:53: 15 DT: 2024 14:34: 59 /[id number] Electr onical ly Signed By: GENIE Mesa 05-08 15:28: 19 CC'ed Logic: Orderi ng Provid er: GENIE BENAVIDEZ Attend ing Provid er: GENIE BENAVIDEZ Admitt ing Provid er: GENIE BENAVIDEZ [email or web address] [facility] [address], [place], [address], 05/09/2025 09:54:42 Result Notes None recorded. Problems Name Problem SNOMED Code Status Onset Date Resolution Date Notes Provider Name and Address Organization Details Recorded Time Hyperlipid emia 72535579 Active 2023 Sukhjinder Rhodes MD [address], [place], [address] , [facility] & [place] 4 11:18:58 Chest pain 37305105 Active 2024 Sukhjinder Rhodes MD [address] , [place], [address] , [place] [facility] - [facility] & [place] 5 15:46:05 Rajendra Mia Dub syndrome Active Yulisa Shaina null, [place] [facility] & [place] 4 15:38:18 Essential hypertensi on 83006205 Active 2023 Yulisa Merrill null, [place] [facility] - [facility] & [place] 4 15:38:30 Bilateral tinnitus 9393569032678 Active 2023 Yulisa Shaina null, [place] [facility] - [facility] & [place] 4 15:38:39 Malignant tumor of colon 546230117 Active 2023 Yulisa Shaina null, [place] - [facility] & [place] 4 15:38:49 Menopause Active 2023 Yulisa Merrill null, [place] - [facility] & [place] 4 15:38:56 Problem Notes None recorded. Procedures Surgical History Date Name Laterality Status Provider Name and Address Organization Details Recorded Time 01/31/20 25 Date of Last Colonoscopy completed Yulisakwaku Louwood [place] - [place] - [place] & [place] 01/30/2025 10:59:42 01/31/20 25 Colonoscopy completed Elida Rothamer [place] - [place] - [place] & [place] 03/11/2025 12:11:50 10/21/20 24 Most Recent Mammogram completed Elida [place] [facility] & [place] 12/12/2024 18:35:51 06/19/20 23 completed Elida [place]amer [place] - [place] & [place] 06/17/2024 16:21:21 06/19/20 23 Date of Last Pap Smear completed Elida [place] & [place] 06/17/2024 16:21:21 11/13/19 23 Cancer Surgery completed Elida [place] & [place] 06/17/2024 16:21:44 11/13/19 23 Colonoscopy completed Elida DING [facility] & [place] 06/17/2024 16:21:44 left colectomy completed Danette DING [facility] & [place] 05/29/2024 15:13:22 Remove tonsils and adenoids completed Danette DING [facility] & [place] 05/29/2024 15:13:34 appendectomy completed Danette DING [facility] & [place] 05/29/2024 15:13:40 operation on hip joint completed Danette PEMBERTON TIMUR [facility] & [place] 05/29/2024 15:15:10 Imaging Results None recorded. Procedure Notes None recorded. Medical Equipment None Reported. Allergies Allergen ID Allergen Name Allergen Category Reaction Reaction Severity Criticality Documentation Date Start Date Code Code System Note Provider Name and Address Organization Details Recorded Time 760981 shellfish derived food,medi cation hives rash mild mild Not available 05/29/2024 70359 UNK Elida carrion [place] [facility] & [place] 4 16:21:11 467731 iopamidol medicatio n rash Not available Not available 12/12/2024 5966 RxNorm [place] TIMUR [facility] & [place] 5 18:36:38 288627 iodine medicatio n rash Not available Not available 12/12/2024 5933 RxNorm Elida carrion [place] [facility] & [place] 18:37:27 Medications Name Sig Start Date Stop [...] Last Updated DateTime 157.48 cm 35.7 kg/m2 12508.5 1 g 97.5 [degF] 94 % 94 % 67 /min 122/86 mm[Hg] Nataliia Barnes [facility] & [place] 10:03:16 Social History Question Answer Notes LastModified by Organizat ion Details LastModified Time Tobacco Smoking Status Former Smoker Danette Curt [facility], [facility] & [place] 05/29/2024 15:12:30 Do You Have An Advance Directive? No Information not available 06/17/2024 Are You Blind Or Do You Have Difficulty Seeing? No Information not available 06/17/2024 What Is Your Level Of Caffeine Consumption? Moderate Information not available 05/29/2024 When Did You Quit Smoking? 14+yearssince lastcigarette At Like 20 Yrs Old [email or web address] Information not available 05/29/2024 What Was The Date Of Your Most Recent Tobacco Screening? 05/29/2024 Information not available 06/17/2024 At What Age Did You Start Smoking Tobacco? 14 [email or web address] Information not available 05/29/2024 Are You Passively Exposed To Smoke? No Information not available 06/17/2024 How Much Tobacco Do You Smoke? No Information not available 06/17/2024 Has Tobacco Cessation Counseling Been Provided? No [email or web address] Information not available 05/29/2024 Sex: Female Functional Status Question Answer Note LastModified by Organizat ion Details LastModified Time Do you use any illicit or recreational drugs? No [email or web address] Information not available 05/29/2024 Do you or have you ever used any other forms of tobacco or nicotine? No [email or web address] Information not available 05/29/2024 What is your level of alcohol consumption? 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 Moderate Information not available 06/17/2024 Mental Status Question Answer Note LastModified by Organization D etails LastModified Time Do you feel stressed (tense, restless, nervous, or anxious, or unable to sleep at night)? [id number] Information not available 06/17/2024 Family History Relationship [...] 05/29 15:05:48 Mother Chronic obstructive pulmonary disease [email or web address] Not available 05/29 15:05:57 Mother Diabetes mellitus type 2 [email or web address] Not available 2024 11:01:43 Mother Heart disease [email or web address] Not available 05/29 15:06:50 Mother Hyperlipidem ia [...] SNOMED-CT Code Diagnosis ICD10 Code Diagnosis Note [id number] Da Baca MD [facility] [address] [facility] [address] [place] [address] 03/03/2025 08:54:04 03/03/2025 09:47:01 Brianda thyroiditis 46034382 E06.3 Essential hypertension 55717626 I10 [id number] Da Baca MD [facility] [address] [facility] [place] [address] 03/31/2025 09:58:15 03/31/2025 10:44:30 Essential hypertension 24449201 I10 I do think a degree of her mild swelling is relatd to her amlodipine and we discussed trying 5mg BID instead of 10mg at once to see if this helps but that we can certainly make changes if needed, pt would like to hold on that currently. 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 Start 81 daily Essential hypertension 96457843 I10 Continue current medication . Keep log Low-salt diet < 2 gm Na/day, Regular exercise Weight loss Hyperlipidemia 55051460 E78.5 Continue statin Low fat/carboh ydrate diet Increase exercise Lose weight Body mass index 30+ - obesity 629041851 Z68.34 Low-carboh ydrate and low-fat diet Increase [...] Member ID Guarantor Name 03/31/2025 1 [id number] [id number] Killian Adame Moran [id number] Rosie Dean Notes Date Note Type [...] this is the omeprazole. Da Baca MD [address], [place], [address], [facility] - [place] - [place] & [place] 03/31/2025 12:59:32 OBGyn Episode No OBEpisode recorded.
--- OUTSIDE RECORDS SUMMARY | 2025-05-15 09:23 | XMS_ITS | Continuity of Care Document ---
Author Organization [place] - [facility] [facility] - [place] Address [address] [place] [address] Care Team Providers Care Electric Power Superintendent Name Role Phone DA COELLO Primary Care Provider [phone] Assessment Encounter Date Assessment Date Assessment LastModified by Organization Details LastModified Time 04/09/2025 04/09/2025 continue to closely monitor blood pressure. Keep follow-up with inbound sales consultant. Patient has amlodipine that she can use if she feels her pressure is increasing but we can also discuss changes to other options for better as needed coverage. She also is established with Cardiology if further care is needed. Documentation from hospitalization reviewed with patient. Will be scanned into chart. Not available 04/09/2025 16:58:39 Plan of Treatment Reminders Order Date Submit Date Provider Last Modified By Organization Details Last Modified Time Details Appointments OV EST 15 2024 01:00P Beau Rhodes MD Not available Not available Not available FOLLOW UP 2024 10:15A M Fernando Duke MD Not available Not available Not available OV EST 30 2024 08:30A Beau Coello MD Not available [...] contr ast No observ ation record ed. [address], [place], [address], 04/04/2025 09:47:02 04/01/20 25 04/01/2025 XR, chest No observ ation record ed. [address], [place], [address], 04/04/2025 09:49:02 04/02/20 25 04/01/2025 elect loren chenggr am, routi ne ECG, 12 leads min No observ ation record ed. [place] [address], [place], [address], 04/04/2025 09:49:29 04/02/20 25 04/02/2025 XR, chest No observ ation record ed. [address], [place], [address], 04/04/2025 09:49:43 04/02/20 25 04/02/2025 XR, chest No observ ation record ed. [address], [place], [address], 04/04/2025 09:49:55 04/02/20 25 04/02/2025 XR, chest No observ ation record ed. [address], [place], [address], 04/04/2025 09:50:24 04/04/20 25 04/04/2025 XR, chest No observ ation record ed. [address], [place], [address], 04/04/2025 15:49:55 05/08/20 25 05/08/2025 heart SPECT multi rest/ stres s Exerci se Stress Test [id number] 2 EXAM: HEART SPECT MULTI REST/S TRESS 310201 136275 00 DATE OF EXAM: 2024 08:28: 05 [...] 2024 11:53: 15 DT: 2024 14:34: 59 /[id number] Electr onical ly Signed By: GENIE Mesa 05-08 15:28: 19 CC'ed Logic: Orderi ng Provid er: GENIE BENAVIDEZ Attend ing Provid er: GENIE BENAVIDEZ Admitt ing Provid er: GENIE BENAVIDEZ [email or web address] [facility] [address], [place], [address], 05/09/2025 09:54:42 Result Notes None recorded. Problems Name Problem SNOMED Code Status Onset Date Resolution Date Notes Provider Name and Address Organization Details Recorded Time Hyperlipid emia 55853019 Active 2023 Sukhjinder Rhodes MD [address], [place], [address] , [place] - [facility] - [place] & [place] 4 11:18:58 Chest pain 83730038 Active 2024 Sukhjinder Rhodes MD [address], [place], [address] , [place] & [place] 5 15:46:05 Rajendra Mia Dub syndrome Active Yulisa Shaina null, [place] & [place] 4 15:38:18 Essential hypertensi on 69837804 Active 2023 Yulisa [place] null, [place] [facility] & [place] 4 15:38:30 Bilateral tinnitus 2263354002829 Active 2023 Yulisa [place]aina null[place] [facility] [facility] & [place] 4 15:38:39 Malignant tumor of colon 028996396 Active 2023 Yulisa [place] null, [place] [facility] [facility] & [place] 4 15:38:49 Menopause Active 2023 Yulisa [place] null, [place] - [facility] & [place] 4 15:38:56 Problem Notes None recorded. Procedures Surgical History Date Name Laterality Status Provider Name and Address Organization Details Recorded Time 01/31/20 25 Date of Last Colonoscopy completed Yulisa Shaina [place] - [place] & [place] 01/30/2025 10:59:42 01/31/20 25 Colonoscopy completed Elida [place] & [place] 03/11/2025 12:11:50 10/21/20 24 Most Recent Mammogram completed Elida [place] & [place] 12/12/2024 18:35:51 06/19/20 23 completed Elida [place]amer [place] - [facility] - [place] & [place] 06/17/2024 16:21:21 06/19/20 23 Date of Last Pap Smear completed Elida [place] & [place] 06/17/2024 16:21:21 11/13/19 23 Cancer Surgery completed Elida [place] & [place] 06/17/2024 16:21:44 11/13/19 23 Colonoscopy completed Elida [place] & [place] 06/17/2024 16:21:44 left colectomy completed Danette [place] - [facility] & [place] 05/29/2024 15:13:22 Remove tonsils and adenoids completed Danette Barakater [place] - [place] - [place] & [place] 05/29/2024 15:13:34 appendectomy completed Danette [place] - [facility] - [place] & [place] 05/29/2024 15:13:40 operation on hip joint completed Danette [place] - [facility] - [place] & [place] 05/29/2024 15:15:10 Imaging Results None recorded. Procedure Notes None recorded. Medical Equipment None Reported. Allergies Allergen ID Allergen Name Allergen Category Reaction Reaction Severity Criticality Documentation Date Start Date Code Code System Note Provider Name and Address Organization Details Recorded Time 780926 shellfish derived food,medi cation hives rash mild mild Not available 05/29/2024 34553 UNK Elida [place], [place] [facility] - [place] & [place] 4 16:21:11 225904 iopamidol medicatio n rash Not available Not available 12/12/2024 5966 RxNorm Elida [place] & [place] 18:36:38 073447 iodine medicatio n rash Not available Not available 12/12/2024 5933 RxNorm Elida [place] & [place] 18:37:27 Medications Name Sig Start Date Stop [...] Details Last Updated DateTime 5 157.48 cm 34.9 kg/m2 20801.1 4 g 97.8 [degF] 98 % 98 % 47 /min 130/84 mm[Hg] Yulisa Merritt [facility] & [place] 5 10:38:31 Social History Question Answer Notes LastModified by Organizat ion Details LastModified Time Tobacco Smoking Status Former Smoker Danette carrion, [facility] & [place] 05/29/2024 15:12:30 Do You Have An Advance Directive? No Information not available 06/17/2024 Are You Blind Or Do You Have Difficulty Seeing? No Information not available 06/17/2024 What Is Your Level Of Caffeine Consumption? Moderate [email or web address] Information not available 05/29/2024 When Did You Quit Smoking? 16+yearssince lastcigarette At Like 20 Yrs Old Information not available 05/29/2024 What Was The Date Of Your Most Recent Tobacco Screening? 05/29/2024 Information not available 06/17/2024 At What Age Did You Start Smoking Tobacco? 14 [email or web address] Information not available 05/29/2024 Are You Passively Exposed To Smoke? No Information not available 06/17/2024 How Much Tobacco Do You Smoke? No Information not available 06/17/2024 Has Tobacco Cessation Counseling Been Provided? No [email or web address] Information not available 05/29/2024 Sex: Female Functional Status Question Answer Note LastModified by Organizat ion Details LastModified Time Do you use any illicit or recreational drugs? No [email or web address] Information not available 05/29/2024 Do you or have you ever used any other forms of tobacco or nicotine? No [email or web address] Information not available 05/29/2024 What is your [...] anxious, or unable to sleep at night)? [id number] Information not available 06/17/2024 Family History Relationship [...] Not available 2024 11:01:43 Father Hypertensive disorder [email or web address] Not available 05/29 15:05:48 Mother Chronic obstructive pulmonary disease [email or web address] Not available 05/29 15:05:57 Mother Diabetes mellitus [...] SNOMED-CT Code Diagnosis ICD10 Code Diagnosis Note [id number] Da Coello MD [facility] [place] [address] [place] [address] 03/31/2025 09:58:15 03/31/2025 10:44:30 Essential hypertension 73823839 I10 I do think a degree of her mild swelling is relatd to her amlodipine and we discussed trying 5mg BID instead of 10mg at once to see if this helps but that we can certainly make changes if needed, pt would like to hold on that currently. Feeling of lump in throat 892023959 R09.A2 pending swallowing studydiscu ssed omeprazole and long term care administrator use concerns with what she is trying to correct with supplement s and would start with two week trial Autoantibo dy titer detected 000503202 R76.8 [id number] Sukhjinder Rhodes MD [facility] [address] [place] [address] 03/12/2025 14:45:35 03/12/2025 15:04:58 History of transient ischemic attack 988076311 Z86.73 Continue aggressive risk factor modificati on.MRI showed no evidence of stroke. Start 81 daily Essential hypertension 14185782 I10 Continue current medication . Keep log Low-salt diet < 2 gm Na/day, Regular exercise Weight loss Hyperlipidemia 17119228 E78.5 Continue statin Low fat/carboh ydrate diet Increase exercise Lose weight Body mass index 30+ - obesity 733554352 Z68.34 Low-carboh ydrate and low-fat diet Increase exercise to 30 minutes a day. Increase fruits and fresh vegetable intake and decrease processed foods and sugars [id number] Da Coello MD [facility] [place] [address] [place] [address] 04/09/2025 10:28:35 04/09/2025 11:01:13 Pneumothorax 37204424 J93.9 Essential hypertension 31006205 I10 Rajendra Mia Dub syndrome 6850552568 Q87.89 Health Concerns Section Related Observation LastModified by Organization Detai ls LastModified Time None Recorded Concern Status LastModified by Organization Details LastModified Time None Recorded Payers Encounter Date Sequence Insurance Name Policy Number Policy Holman Covered Member ID Holman Member ID Guarantor Name 04/09/2025 1 [facility] [id number] Killian Moran [id number] Rosie Moran Notes Date Note Type Note Provider Name and Address Organization Details Recorded Time 04/09/2025 text/html She is here for f/u She had gone for a swallow study and had a pre testing cxr and was found to have a pneumothorax. Pulm was called and she was sent to [facility] and admitted. A chest tube was placed but there was a secondary event noted but was mild and was felt monitoring was best with short term f/u imaging in May and f/u with Dr. Gross as well.She notes that she wouldn't have known this was present until the incidental finding. She has been doing well at her baseline and notes that the pain she has is what she feels that she has is what she feels secondary to her thyroid issues. She had stopped her amlodipine while admitted to [facility]. She has been monitoring her pressure off this and notes its has been in 130s/80s. She was admitted on 04/01 and discharged on 04/02 pm. Da Coello MD [address], [place], [address], [facility] & [place] 04/09/2025 16:58:49 OBGyn Episode No OBEpisode recorded.
--- OUTSIDE RECORDS SUMMARY | 2025-05-15 09:23 | XMS_ITS | Data Portability ---
Author Organization [facility] [employer], [place] (IP) Address [address] [place] [id number] Care Team Providers Care Engineer Systems Name Role Phone LILLIAN ALANIZ Referring Provider DEVORAH MANZO III Instructor Knitting Assessment No assessment recorded. Plan of Treatment Reminders Order Date Submit Date Provider Last Modified By Organization Details Last Modified Time Details Appointments None recorded. Lab urinalysis, dipstick 2022 023 [facility] - Lab, [address], [place], [address], 3 16:23:07 unlisted lab - igp,rfx cobashpv ascu 2022 023 [facility] - Lab, [address], [place], [address], 3 17:11:08 test, urine 2022 023 [email or web address] In-Office Order, Internal Use Only DO Not Attach Compendium DO Not Attach Compendium, Do Not Delete/merge, [id number] 3 16:14:03 occult blood, unspecified specimen 2022 023 [facility] - Lab, [address], [place], [address], 3 14:30:34 test, urine 2022 023 [email or web address] In-Office Order, Internal Use Only DO Not Attach Compendium DO Not Attach Compendium, Do Not Delete/merge, [id number] 17:21:11 Referral None recorded. Procedures None recorded. Surgeries None recorded. Imaging US, pelvis 2022 023 [facility] - Imaging, [address], [place], [address], 16:48:45 Medication Orders Loestrin Fe 1.5/30 (28-Day) 1.5 mg-30 mcg (21)/75 mg (7) tablet 2022 023 [facility] d10 [facility] [address] [facility], [place], [address], 14:58:54 Patient TargetsNo targets recorded. Patient Instructions Encounter Date Encounter Id Patient Instructions Last Modified By Organization Details Last Modified Time 06/19/2023 [id number] RTO for pe and prn. Continue SBE and walk. Mammogram, DEXA, fasting labs as indicated. Not available 06/19/2023 15:27:11 Reason for Referral None Reported. Results Created Date Observation Date Name Description Value Unit Range Abnormal Flag Note LastModifiedBy Organization Detail LastModifiedTime 06/19/2006/19/2023 UA DIP color COLORL ESS yellow Not Available [facility] Lab [address], [place], [address], 06/19/2023 16:23:06 06/19/2006/19/2023 UA DIP clarity CLEAR clear Not Available [facility] [address], [place], [address], 06/19/2023 16:23:06 06/19/2006/19/2023 UA DIP glucose NORMAL mg/dL negati ve Not Available [facility] [address], [place], [address], 06/19/2023 16:23:06 06/19/20 23 06/19/2023 UA DIP bilirubin NEG mg/dL negati ve Not Available [facility] [address], [place], [address], 06/19/2023 16:23:06 06/19/20 23 06/19/2023 UA DIP ketones NEG mg/dL negati ve Not Available [facility] [address], [place], [address], 06/19/2023 16:23:06 06/19/20 23 06/19/2023 UA DIP specific gravity 1.007 1.005 - >1.030 Not Available [facility] [address], [place], [address], 06/19/2023 16:23:06 06/19/20 23 06/19/2023 UA DIP pH 5.0 5.0-9. 0 Not Available [facility] [address], [place], [address], 06/19/2023 16:23:06 06/19/20 23 06/19/2023 UA DIP protein NEG mg/dL negati ve Not Available [facility] [address], [place], [address], 06/19/2023 16:23:06 06/19/20 23 06/19/2023 UA DIP urobilinogen NORMAL normal Not Available [facility] - Lab [address], [place], [address], 06/19/2023 16:23:06 06/19/20 23 06/19/2023 UA DIP nitrite NEG negati ve Not Available [facility] [address], [place], [address], 06/19/2023 16:23:06 06/19/20 23 06/19/2023 UA DIP blood NEG negati ve Not Available [facility] [address], [place], [address], 06/19/2023 16:23:06 06/19/20 23 06/19/2023 UA DIP leukocytes NEG kaelyn/u L negati ve Not Available [facility] [address], [place], [address], 06/19/2023 16:23:06 06/19/20 23 06/19/2023 UA DIP WBC 0-5 Not Available [facility] [address], [place], [address], 06/19/2023 16:23:06 06/19/20 23 06/19/2023 UA DIP RBC 0-2 Not Available [facility] [address], [place], [address], 06/19/2023 16:23:06 03/14/20 23 03/14/2023 pregn argelia test, urine HCG negati ve Not Available In-Office Order Internal Use Only DO Not Attach Compendium DO Not Attach Compendium, Do Not Delete/merge, [id number] 03/14/2023 16:48:58 06/19/2006/21/2023 FOBT fobt Negati ve negati ve Not Available [facility] [address], [place], [address], 06/21/2023 14:30:33 06/19/2006/22/2023 IGP,R FX BERTHA HPV ASCU diagnosis: COMMEN T NEGAT YAJAIRA FOR INTRA EPITH ELIAL LESIO N OR BALJEET LEDESMA . CELLU LAR FLYNN ES ASSOC IATED WITH ATROP HY ARE PRESE NT. THIS SPECI MEN WAS RESCR EENED PART OF OUR QUALI TY CONTR OL PROGR AM. Not Available [facility] [address], [place], [address], 06/22/2023 17:11:07 06/19/20 23 06/22/2023 IGP,R FX BERTHA HPV ASCU specimen adequacy: COMMEN T Satis facto ry for evalu ation . Endoc ervic al compo nent may not be disti nguis hed in cases of atrop hy. Not Available [facility] [address], [place], [address], 06/22/2023 17:11:07 06/19/20 23 06/22/2023 IGP,R FX BERTHA HPV ASCU clinician provided ICD10: DONALD Poretr Z01.4 19 Not Available [facility] [address], [place], [address], 06/22/2023 17:11:07 06/19/20 23 06/22/2023 IGP,R FX BERTHA HPV ASCU performed by: DONALD Guajardo , Cytot echno logis t (ASCP ) Not Available [facility] [address], [place], [address], 06/22/2023 17:11:07 06/19/20 23 06/22/2023 IGP,R FX BERTHA HPV ASCU QC reviewed by: DONALD celeste, Cytot echno logis t (ASCP ) Not Available [facility] [address], [place], [address], 06/22/2023 17:11:07 06/19/20 23 06/22/2023 IGP,R FX BERTHA HPV ASCU . . Not Available [facility] [address], [place], [address], 06/22/2023 17:11:07 06/19/20 23 06/22/2023 IGP,R FX BERTHA HPV ASCU note: DONALD Porter The Pap smear is a scree fabian test desig juan to aid in the detec tion of nessa ligna nt and malig nant condi tions of the uteri ne cervi x. It is not a diagn ostic proce dure and shoul d not be used as the sole means of detec ting cervi rosanna cance r. Both false -posi tive and false -nega tive repor ts do occur . . Not Available [facility] [address], [place], [address], 06/22/2023 17:11:07 06/19/20 23 06/22/2023 IGP,R FX BERTHA HPV ASCU test methodology: COMMEN T This liqui d based SureP ath(R ) pap test was linh martinez with the devang tance of an image guide d systshirley m. Not Available [facility] [address], [place], [address], 06/22/2023 17:11:07 06/19/20 23 06/22/2023 IGP,R FX BERTHA HPV ASCU . COMMEN T The HPV DNA refle x crite roni were not met with this speci men resul t there fore, no HPV testi ng was perfo rmed. . Not Available [facility] [address], [place], [address], 06/22/2023 17:11:07 06/19/20 23 06/19/2023 pregn argelia test, urine HCG negati ve Not Available In-Office Order Internal Use Only DO Not Attach Compendium DO Not Attach Compendium, Do Not Delete/merge, [id number] 06/19/2023 15:01:31 03/14/20 23 US, pelvi s No observ ation record ed. TREMAYNE [facility] [address], [place], [address], 03/16/2023 11:29:25 06/19/20 23 US, pelvi s No observ ation record ed. [facility] [address], [place], [address], 06/26/2023 09:06:17 06/20/20 23 06/19/2023 MAMMO , linh peralta, jessica al, billakhwinder lyn No observ ation record ed. [email or web address] [facility] [address], [place], [address], 06/20/2023 16:12:19 07/06/20 23 02/18/2022 MAMMO , scree fabian, digit al, bilat eral No observ ation record ed. Not Available 2022 16:08:37 Result Notes None recorded. Problems Name Problem SNOMED Code Status Onset Date Resolution Date Notes Provider Name and Address Organization Details Recorded Time Malignant tumor of colon 753435231 Active Colon cancer stage IIa - followed by Dr. Lillian Alaniz @ [facility], [facility] 3 14:19:09 Hypertensiv e disorder 79379478 Active [facility], [facility] 3 14:19:31 Atelectasis 51421929 [facility] x [facility] 3 16:36:09 Notes:RASHAUN MEJIA SYNDROM E (Found on genetic cancer screening) Problem Notes None recorded. Procedures Surgical History Date Name Laterality Status Provider Name and Address Organization Details Recorded Time 12/21/19 23 partial resection of colon completed [facility] 03/14/2023 16:37:31 12/21/19 23 Removal of ovarian cyst(s) completed [facility] 03/14/2023 16:38:26 11/28/19 23 Date of Last Colonoscopy completed [facility] 03/14/2023 16:32:41 11/28/19 23 Colonoscopy completed [facility] 03/14/2023 16:37:54 01/12/20 22 Date of Last Pap Smear completed [facility] 03/14/2023 16:31:04 01/12/20 22 Date of Last Mammogram completed [facility] 03/14/2023 16:31:50 Appendectomy completed [facility] 03/14/2023 16:38:00 tonsillectomy completed [facility] 03/14/2023 16:38:13 operation on hip joint completed [facility] 03/14/2023 16:39:50 Imaging Results None recorded. Procedure Notes None recorded. Medical Equipment None Reported. Allergies No known drug allergies Medications Name Sig Start Date Stop Date Status Note LastModified by Organization Details LastModified Time losartan 50 mg tablet TAKE 1 TABLET BY MOUTH ONCE DAILY active Not Available Not Available No t Available nystatin 100,000 unit/gram topical ointment APPLY TOPICALLY TO CORNERS OF MOUTH TWICE DAILY 06/19 completed Not Available Not Available Not Available prednisone 20 mg tablet TAKE 2 TABLETS BY MOUTH ONCE DAILY 03/14 completed Not Available Not Available Not Available metronidazo le 500 mg tablet 03/14 completed Not Available Not Available Not Available Space Chamber USE DIRECTED active Not Available Not Available No t Available triamcinolo ne acetonide 0.1 % topical cream APPLY TOPICALLY TO AFFECTED AREAS TWICE DAILY FOR 1 WEEK THEN STOP FOR A WEEK AND REPEAT NEEDED 06/19 completed Not Available Not Available Not Available amoxicillin 875 mg tablet TAKE 1 TABLET BY MOUTH EVERY 12 HOURS 03/14 completed Not Available Not Available Not Available benzonatate 100 mg capsule TAKE 1 CAPSULE BY MOUTH THREE TIMES DAILY NEEDED FOR COUGH 03/14 completed Not Available Not Available Not Available pantoprazol e 40 mg tablet,lydia yed release TAKE 1 TABLET BY MOUTH ONCE DAILY active Not Available Not Available No t Available Advair Diskus 250 mcg-50 mcg/dose powder for inhalation INHALE 1 DOSE BY MOUTH TWICE DAILY 06/19 completed Not Available Not Available Not Available docusate sodium 100 mg capsule TAKE 1 CAPSULE BY MOUTH TWICE DAILY 03/14 completed Not Available Not Available Not Available albuterol sulfate HFA 90 mcg/actuati on aerosol inhaler INHALE 2 PUFFS BY MOUTH EVERY 4 HOURS NEEDED active Not Available Not Available No t Available fluocinonid e 0.05 % topical cream APPLY TOPICALLY TO AFFECTED AREAS ON TOES TWICE DAILY FOR 2 WEEKS THEN STOP 06/19 completed Not Available Not Available Not Available fluticasone propionate 50 mcg/actuati on nasal spray,suspe nsion USE 1 SPRAY(S) IN EACH NOSTRIL ONCE DAILY 06/19 completed Not Available Not Available Not Available oxycodone 5 mg tablet TAKE 1 TABLET BY MOUTH EVERY 6 HOURS NEEDED FOR BREAKTHRO UGH PAIN 03/14 completed Not Available Not Available Not Available lisinopril 06/19 completed PCP Not Available Not Available Not Available Zyrtec active Not Available Not Availa ble Not Available Symbicort 160 mcg-4.5 mcg/actuati on HFA aerosol inhaler INHALE 2 PUFFS BY MOUTH TWICE DAILY 03/14 completed Not Available Not Available Not Available Willard Fe 1.5/30 (28) 1.5 mg-30 mcg (21)/75 mg (7) tablet Take 1 tablet by mouth once daily 06/19 completed off x 2 month s. teb 06/19 Not Available Not Available Not Available Clenpiq 10 mg-3.5 gram-12 gram/160 mL oral solution 03/14 completed Not Available Not Available Not Available Trelegy Ellipta 200 mcg-62.5 mcg-25 mcg powder for inhalation INHALE 1 PUFF ONCE DAILY 06/19 completed Not Available Not Available Not Available Vitals Date Recorded Body weight Body mass index (BMI) Body height Body temperature Heart rate Oxygen saturation Oxygen saturation in Arterial blood by Pulse oximetry Systolic And Diastolic Provider Name and Address Organization Details Last Updated DateTime 3 58917.2 5 g 32.6 kg/m2 159.39 cm 98.4 [degF] 57 /min 98 % 98 % 132/84 mm[Hg] [facility] 3 16:23:50 Date Recorded Body height Body mass index (BMI) Body weight Body temperature Heart rate Oxygen saturation Oxygen saturation in Arterial blood by Pulse oximetry Systolic And Diastolic Provider Name and Address Organization Details Last Updated DateTime 3 159.39 cm 32.8 kg/m2 09123.2 8 g 98.6 [degF] 77 /min 98 % 98 % 128/84 mm[Hg] [facility] 3 14:53:29 Social History None recorded. Functional Status None recorded. Mental Status None recorded. Family History Relationship Description Onset Age of this Age Resolved Age Notes LastModified by Organization Details LastModified Time Maternal Grandmother Malignant neoplasm of ovary [email or web address] Not available 12/2022 16:34:07 Sister Atelectasis [email or web address] Not av ailable 03/14/2023 16:35:54 Father Atelectasis [email or web address] Not av ailable 03/14/2023 16:35:54 Father Carcinoma of prostate [email or web address] Not available 12/2022 16:36:28 Paternal Grandmother Malignant tumor of pancreas [email or web address] Not available 12/2022 16:36:40 Medical History No medical history recorded. Gynecological History Statement/Question Response Abnormal Pap N Date of Last Mammogram 01/11/2022 Fibroids N Date of LMP 03/19/2023 Age at Menarche 8 Mammogram Result Normal PCOS N Endometriosis N Ovarian Cyst Y Date of Last Colonoscopy 11/28/2022 Most Recent Bone Density Menses Monthly N Date of Last Pap Smear 01/11/2022 Obstetrics History GPAL:G 3 P 0 0 1 2 Type Value Induced 1 Living 2 Total 3 Past Encounters Encounter ID Performer Location Encounter Start Date Encounter Closed Date Diagnosis/Indication Diagnosis SNOMED-CT Code Diagnosis ICD10 Code Diagnosis Note [id number] Devorah Guillen III, MD [facility] [address] [address] 03/14/2023 14:03:42 03/14/2023 17:18:37 Malignant tumor of colon 376783796 C18.9 Urine preg christian test negative 230227999 Z32.02 Cyst of left ovary 22532 95245 3038527 N83.202 multicysti c ...3cm max and appears simple on tvus will repeat tvus in 3 months Right lowe r quadrant pain 190974992 R10.31 stinging pain Irregular periods 791182 07 N92.6 Reduced libido 8035307 R 68.82 consider testostero ne [id number] Devorah Guillen III, MD [address] [address] 06/19/2023 13:39:56 06/19/2023 15:28:56 Gynecologic examination 29235803 Z01.419 Screening for malignant neoplasm of colon 111489273 Z12.11 Depression screening 171 991881 Z13.31 Irregular periods 924957 07 N92.6 did not tolerate ocps...moo d Urine preg christian test negative 527134388 Z32.02 Cyst of ovary 19648722 N 83.209 normal tvus today Malignant tumor of colon 384573214 C18.9 Hypertensive disorder 38 415008 I10 Health Concerns Section Related Observation LastModified by Organization Detai ls LastModified Time None Recorded Concern Status LastModified by Organization Details LastModified Time None Recorded Advance Directives Directive None Recorded Payers Insurance Date Sequence Insurance Name Policy Number Policy Holman Covered Member ID Holman Member ID Guarantor Name 06/29/2023 1 [id number] [id number] Kililan Moran [id number] Rosie Moran Notes Date Note Type Note Provider Name and Address Organization Details Recorded Time 03/14/2023 text/html Phoebe cancer re f for adenexal mass kt- Pt had CT in November which revealed colon mass and right ovarian cyst. Colon mass - malignant. Right ovarian mass - benign. She had partial colon resection and right ovarian cystectomy on 12/21/2022. She c/o constant stinging in right side pelvis since surgery.irreg periods and some menopausal sx Devorah Guillen III, MD [address], [place], [address], [facility] 03/14/2023 17:15:03 06/19/2023 text/html Annual physical, U/S f/u doing well off of ocps MD Dena Rodrigez III [address], [place], [address], [facility] 06/19/2023 15:27:27 OBGyn Episode No OBEpisode recorded.
== END 2025-05-15 23:59 | disposition home or self-care (01) ==
LOC: RAD 09:17
PROVIDERS: PCP Family Medicine; Visit Provider Internal Medicine Pulmonary Disease
DX: R06.02 Shortness of breath (principal)
CPT/HCPCS: 71046